=== PATIENT | male | born 1985 | race Caucasian/White ===

== ENCOUNTER 2024-05-27 13:16 | Inpatient (IN) | payer OTHER ==
--- OUTSIDE RECORDS SUMMARY | 2024-05-27 13:22 | XMS REPORT | Continuity of Care Document ---
Author Name Unknown Address [address] [facility] [place] [address] [facility] Address [address] [facility] [place] [address] Care Team Providers Care Physician/Ophthalmologist Name Role Phone PCP, PATIENT DOES NOT HAVE A Primary Care Physic gris Unavailable Jeremy Paige I Attending Clinician UnavailDILIP Vázquez Attending Clinician Unavailable [place] Attending Clinician UnavailChris Meyer Attending Clinician Unavailable Alphonse Plummer Attending Clinician UnavailVINAY Lloyd Attending Clinician Unavailable Mona Lima Attending Clinician + [phone] Vinay Nolasco PA-C Attending Clinician [phone] Estrella Phelps RN Attending Clinician Unavailcresencio felipe Only, Ang Db Test Attending Clinician UnavailEndy Greer Attending Clinician [phone] ENDY DAVIS Attending Clinician Unavailable Doctor Unassigned, [place] Attending Clinician U navailable Jeremy Paige I Admitting Clinician Sandra Reis Admitting Clinician Sandra garrido Physician, No Primary Care Admitting Clinician U navailable Payers Payer Name Policy Type Policy Number Effective Date Expirati on Date Source My [facility] 53 [id number] [place] [facility] AETNA MP [facility] 5 [facility] 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 94 ON 9 [id number] 2023 00:00:00 AETNA ([facility]) [id number] 2023 00:00:00 COMMERCIAL NON-CONTRACT GENERIC [id number] 2021 00:00:00 Problems Condition Name Condition Details Condition Category Status Onset Date Resolution Date Last Treatment Date Treating Clinician Comments Source Minimal cognitive impairment Minimal Cognitive Impairment Problem Active 2023-03 00:00: 00 [facility] History of alcohol abuse History of Alcohol Abuse Problem Active 11-05 00:00: 00 [facility] Weakness of right lower limb Weakness of Right Lower Limb Problem Active 11-05 00:00: 00 [facility] Vitamin D deficiency Vitamin D Deficiency Problem Active 11-05 00:00: 00 [facility] Irritable bowel syndrome Irritable Bowel Syndrome Problem Active 11-05 00:00: 00 [facility] Heart murmur Heart Murmur Problem Active 11-05 00:00: 00 [facility] Dizziness Dizziness Problem [facility] [id number] Post-COVID syndrome Problem [facility] Neuropathy Neuropathy Problem Cl [facility] Carpal tunnel syndrome Carpal tunnel syndrome on left Problem [facility] [id number] Abnormal EEG Problem [facility] [id number] Low vitamin B12 level Problem [facility] [id number] MCI (mild cognitive impairment ) Problem [facility] 85759392 Sensitivit y to heat Problem [facility] [id number] Unstable balance Problem [facility] No known active problems No known active problems Disease [facility] [id number] Hyperrefle srinivas Problem [facility] 59960935 Cerebellar ataxia Problem [facility] [id number] Speech delay Problem [facility] 51873602 Generalize d weakness Problem [facility] 823980536 Blurry vision, bilateral Problem [facility] Overweight Overweight (BMI 25.0-29.9) Problem [facility] 37162978 Multiple sclerosis Problem [facility] 81721355 Gait disturbanc e Problem [facility] Allergies, Adverse Reactions, Alerts Allergy Name Allergy Type Status Severity Reaction(s) Onset Date Inactive Date Treating Clinician Comments Source No Known Allergie s DA Active U 2023-03 00:00: 00 [facility] No Known Allergie s DA Active U 08-19 00:00: 00 [facility] [place] NO KNOWN ALLERGIE S Drug Class Active [facility] House Dust Allergy to substanc e Active Other [facility] Mold Allergy to substanc e Active Other [facility] Social History Social Habit Start Date Stop Date Quantity Comments Source History of Tobacco Use [facility] Sex Assigned At [facility] Exposure to SARS-CoV-2 (event) 2021-06-21 00:00:00 2021-07-01 14:06:00 [facility] sure [facility] Smoking Status Start Date Stop Date Source Unknown if ever smoked [facility] Former Smoker 2024-01-20 00:00:00 2024-01-20 00:00:00 [facility] Medications Ordered Medication Name Filled Medication Name Start Date Stop Date Current Medication? Ordering Clinician Indication Dosage Frequency Signature (SIG) Comments Components Source Vitamin D Vitamin D 2023-03 0-03 00:00: 00 No Vitamin D dexAMETHaso ne (DECADRON) tablet 12 mg 07-01 20:30: 00 07-01 19:31 :00 No [id number] 12mg [facility] fiber fiber No fiber [facility] ibuprofen 200 mg tablet Take 1 tablet every 6 hours by oral route. ibuprofen 200 mg tablet Take 1 tablet every 6 hours by oral route. No 1 Q6H ibuprofen 200 mg tablet Take 1 tablet every 6 hours by oral route. [facility] Immunizations Ordered Immunization Name Filled Immunization Name Date Status Comments Source influenza, seasonal, injectable, preservative free influenza, seasonal, injectable, preservative free Unknown Completed [facility] Practice Vital Signs Vital Name Observation Time Observation Value Comments S ource height 2024-01-20 14:30:00 68 [in_i] [facility] weight-kg 2024-01-20 14:30:00 85.86 kg [facility] bmi 2024-01-20 14:30:00 28.78 kg/m2 Irena r [facility] temperature 2024-01-20 14:30:00 97.6 [degF] Frandy [facility] respiratory rate 2024-01-20 14:30:00 16 /min [facility] heart rate 2024-01-20 14:30:00 86 /min [facility] blood pressure systolic 2024-01-20 14:30:00 83 mm[Hg] [facility] blood pressure diastolic 2024-01-20 14:30:00 63 mm[Hg] [facility] BMI (Body Mass Index) 2024-01-08 00:00:00 29.3 kg/m2 [facility] Body Weight 2024-01-08 00:00:00 193 [lb_av] [facility] BP Diastolic 2024-01-08 00:00:00 75 mm[Hg] [facility] Height 2024-01-08 00:00:00 68 [in_i] [facility] BP Systolic 2024-01-08 00:00:00 128 mm[Hg] [facility] height 2023-12-12 10:30:00 68 [in_i] [facility] weight-kg 2023-12-12 10:30:00 88 kg [facility] bmi 2023-12-12 10:30:00 29.49 kg/m2 [facility] temperature 2023-12-12 10:30:00 97.6 [degF] [facility] respiratory rate 2023-12-12 10:30:00 16 /min [facility] heart rate 2023-12-12 10:30:00 80 /min [facility] blood pressure systolic 2023-12-12 10:30:00 106 mm[Hg] [facility] blood pressure diastolic 2023-12-12 10:30:00 65 mm[Hg] [facility] BP Diastolic 2023-11-06 00:00:00 78 mm[Hg] [facility] Height 2023-11-06 00:00:00 68 [in_i] [facility] Body Weight 2023-11-06 00:00:00 190 [lb_av] [facility] BP Systolic 2023-11-06 00:00:00 124 mm[Hg] [facility] BMI (Body Mass Index) 2023-11-06 00:00:00 28.9 kg/m2 [facility] Systolic blood pressure 2021-07-01 19:07:00 115 mm[facility]Hg[facility] Diastolic blood pressure 2021-07-01 19:07:00 79 mm[Hg] [facility] Heart rate 2021-07-01 19:07:00 97 /min [facility] Body temperature 2021-07-01 19:07:00 37 [facility] Respiratory rate 2021-07-01 19:07:00 14 /min [facility] Body height 2021-07-01 19:07:00 172.7 cm [facility] Body weight 2021-07-01 19:07:00 99.791 kg [facility] BMI 2021-07-01 19:07:00 33.45 kg/m2 [facility] Oxygen saturation in Arterial blood by Pulse oximetry 2021-07-01 19:07:00 98 /min [facility] Procedures Procedure Date / Time Performed Performing Clinician Source GAIT TRAINING/FUNCTIONAL AMBULATION TREATMENT 2024-03-19 00:00:00 [facility] DRAINAGE OF SPINAL CANAL, PERCUTANEOUS APPROACH, D 2024-02-28 00:00:00 [facility] POCT MOLECULAR STREP 2021-07-01 19:22:00 Aurora Nolasco [facility] ASSIGNMENT OF BENEFITS 2021-03-23 17:58:07 Docto r Unassigned, [place] [facility] Encounters Start Date/Time End Date/Time Encounter Type Admission Type Attending Clinicians Care Facility Care Department Encounter ID Source 2023-12-12 10:19:01 Outpatient Allan Herbert [facility] [id number] [facility] 2024-02-20 17:31:00 2024-03-19 16:33:00 Inpatient EM [place] Jeremy [facility] [id number] [facility] 2024-02-13 00:00:00 2024-02-13 00:00:00 (TEL) [facility] [id number] [facility] 2024-02-11 00:00:00 2024-02-11 00:00:00 (TEL) [facility] [id number] [facility] 2024-02-10 00:00:00 2024-02-10 00:00:00 (TEL) CLS CLS [id number] [facility] 2024-02-04 00:00:00 2024-02-04 00:00:00 (TEL) CLS CLS [id number] [facility] 2024-01-27 00:00:00 2024-01-27 00:00:00 (WEB) CLS CLS [id number] [facility] 2024-01-22 00:00:00 2024-01-22 00:00:00 (TEL) CLS CLS [id number] [facility] 2024-01-20 00:00:00 2024-01-20 00:00:00 (TEL) CLS CLS [id number] [facility] 2024-01-20 00:00:00 2024-01-20 00:00:00 Office Visit- Est Pt.- Level 4 CLS CLS [id number] [facility] 2024-01-17 00:00:00 2024-01-17 00:00:00 (TEL) CLS CLS [id number] [facility] 2024-01-17 00:00:00 2024-01-17 00:00:00 (TEL) CLS CLS [id number] [facility] 2024-01-15 00:00:00 2024-01-15 00:00:00 (EMG) EMG CLS CLS [id number] [facility] 2024-01-15 00:00:00 2024-01-15 00:00:00 (EEG) EEG CLS CLS [id number] [facility] 2024-01-08 00:00:00 2024-01-08 00:00:00 Allan Herbert MD: [address], [address], [place] [address] , Ph. [facility] - [place] - VM_HOU_[facility] [id number] [facility] 2024-01-07 00:00:00 2024-01-07 00:00:00 (WEB) CLS CLS [id number] [facility] 2023-12-12 00:00:00 2023-12-12 00:00:00 Office Visit- New Pt.- Level 5 CLS CLS [id number] [facility] 2023-12-12 00:00:00 2023-12-12 00:00:00 (TEL) CLS CLS [id number] [facility] 2023-11-06 00:00:00 2023-11-06 00:00:00 Allan Herbert MD: [address] [facility], [address], [place] [address] , Ph. [facility] - [facility]ly [facility] - [place] - _HOU_[facility] [id number] [facility] e 2023-03-27 08:45:00 2023-03-27 08:45:00 Outpatient DILIP LUNDBERG [id number] [facility] 2023-03-25 16:00:00 2023-03-25 16:00:00 Outpatient DILIP LUNDBERG [id number] [facility] 2023-03-15 00:00:00 2023-03-15 00:00:00 Outpatient AO_Tanous_T homas_MD AOSM AOSM [id number] [facility] 2023-03-14 11:03:00 2023-03-14 16:00:00 Emergency EM [place] Chris [facility] ROBERTO [id number] [facility] 2023-03-14 00:00:00 2023-03-14 00:00:00 Outpatient AO_Tanous_T homas_MD AOSM AOSM [id number] [facility] 2022-08-19 22:26:00 2022-08-20 09:29:00 Emergency EM Alphonse Plummer [facility] [id number] [facility] [place] 2021-07-01 14:20:00 2021-07-01 14:42:14 Outpatient Imani NOLASCO VINAY [facility] [id number] [facility] 2021-07-01 14:20:00 2021-07-01 14:40:00 Urgent Care Mona Posada, [facility] [id number] [id number] [facility] 2021-03-25 00:00:00 2021-03-25 00:00:00 Telephone Estrella Phelps [facility] [id number] [id number] [facility] 2021-03-23 12:00:00 2021-03-23 12:15:00 Laboratory Only Only, Ang Db Test Enrico [facility] [id number] 4.2.7.2.686 [id number] [facility] 2021-03-23 12:00:00 2021-03-23 12:02:55 Outpatient R [facility] [id number] [facility] 2021-03-23 00:00:00 2021-03-23 00:00:00 Orders Only Doctor Unassigned, [place] [facility] [id number] [id number] 4.2.7.2.686 [id number] [facility] 2021-03-23 00:00:00 2021-03-23 00:00:00 Letter (Out) Doctor Unassigned, [place] [facility] [id number] [id number] 4.2.7.2.686 [id number] [facility] Results Test Description Test Time Test Comments Results Result Co mments Source [id number] 14:38:00* Test Item Value Reference Range Interpretation Comme nts MAGNESIUM (test code = MAG) 1.89 mg/dL 1.6-2.6 N CBC W/AUTO [id number] 14:24:00* Test Item Value Reference Range Interpretation Comme nts WHITE BLOOD CELL (test code = WBC) 6.8 x10 3/uL 4.5-11.0 N RED BLOOD CELL (test code = RBC) 4.65 x10 6/uL 4.00-5.60 N HEMOGLOBIN (test code = HGB) 14.3 g/dL 12.5-16.9 N HEMATOCRIT (test code = HCT) 43.1 % 37.5-50.7 N MEAN CELL VOLUME (test code = MCV) 92.7 fL 81.0-99.0 N MEAN CELL HGB (test code = MCH) 30.8 pg 27.0-33.0 N MEAN CELL HGB CONCETRATION (test code = MCHC) 33.2 g/dL 33.0-37.0 N RED CELL DISTRIBUTION WIDTH CV (test code = RDW) 14.5 % 11.5-14.5 N RED CELL DISTRIBUTION WIDTH SD (test code = RDW-SD) 49.3 fL 37.0-54.0 N PLATELET COUNT (test code = PLT) 255 x10 3/uL 150-400 N MEAN PLATELET VOLUME (test c ode = MPV) 10.3 fL 7.0-9.0 H NEUTROPHIL % (test code = NT%) 69.1 % 56.0-77.0 N IMMATURE GRANULOCYTE % (test code = IG%) 0.3 % 0.0-2.0 N LYMPHOCYTE % (test code = LY%) 17.9 % 14.0-32.0 N MONOCYTE % (test code = MO%) 7.7 % 4.8-9.0 N EOSINOPHIL % (test code = EO%) 4.7 % 0.3-3.7 H BASOPHIL % (test code = BA%) 0.3 % 0.0-2.0 N NUCLEATED RBC % (test code = NRBC%) 0.0 % 0-0 N NEUTROPHIL # (test code = NT#) 4.66 x10 3/uL 2.0-7.6 N IMMATURE GRANULOCYTE # (test code = IG#) 0.02 x10 3/uL 0.00-0.03 N LYMPHOCYTE # (test code = LY#) 1.21 x10 3/uL 1.0-3.8 N MONOCYTE # (test code = MO#) 0.52 x10 3/uL 0.1-0.8 N EOSINOPHIL # (test code = EO#) 0.32 x10 3/uL 0.0-0.2 H BASOPHIL # (test code = BA#) 0.02 x10 3/uL 0.0-0.2 N NUCLEATED RBC # (test code = NRBC#) 0.00 x10 3/uL 0.0-0.1 N CSF IGG SYNTHESIS [id number] 01:06:00* Test Item Value Reference Range Interpretation Comme nts CSF ALBUMIN (test code = ALBCSF) 20 mg/dL 10-45 CSF IMMUNOGLOBULIN G (test code = IGGCSF) 3.4 mg/dL 0.0-10.3 CSF IGG INDEX (test code = IGGINCSF) 0.9 0.0-0.7 A CSF IGG SYNTHESIS (test code = IGGSYNCSF) 5.5 mg/day See_Comment A [Automated mes toni] The system which generated this result transmitted reference range: -9.9 TO +3.3. The reference range was not used to interpret this result as normal/abnormal. CSF IGG/ALBUMIN RATIO (test code = IGGALBCSF) 0.17 0.00-0.25 SERUM IMMUNOGLOBULIN G (test code = IGGMS) 724 mg/dL 603-1613 SERUM ALBUMIN (test code = ALBMS) 3.7 g/dL 4.1-5.1 A SERUM ALBUMIN INDEX (test code = ALBINDMS) 5 0-8 Relations hip to blood-brain barrier: Consistent with an intact barrier <9 Slight impairment 9 - 14 Moderate impairment 14 - 30 Severe impairment 30 - 100 Complete breakdown >100Performed At: [facility] [address] [id number] Finn MD Ph:[phone] ed At: [facility] [address] [id number] Kyle L MD Ph:[phone] Relationship to blood-brain barrier: Consistent with an intact barrier <9 Slight impairment 9 - 14 Moderate impairment 14 - 30 Severe impairment 30 - 100 Complete breakdown >100 Relationship to blood-brain barrier: Consistent with an intact barrier <9 Slight impairment 9 - 14 Moderate impairment 14 - 30 Severe impairment 30 - 100 Complete breakdown >100Previously reported result: 5 Edited by: TISH on 03/15/24:778195/05/2 5 0106: ALB INDEX previously reported as: 5 Relationship to blood-brain barrier: Consistent with an intact barrier <9 Slight impairment 9 - 14 Moderate impairment 14 - 30 Severe impairment 30 - 100 Complete breakdown >100 Performed At: [address] [id number] Murphy Finn MD Ph:[phone] Performed At: [address] [id number] Charis Aviles MD Ph:[phone] COMMENTS: PLEASE USE TUBE #3CSF VDRL [id number] 01:06:00* Test Item Value Reference Range Interpretation Comme nts CSF VDRL QUAL (test code = VDRLCSFQL) Non Reactive See_Comment Performed At: [address] [id number] Finn MD Ph:[phone] At: [address] [id number] Finn MD Ph:[phone] At: [address] [id number] Aviles MD Ph:[phone] At: [address] [id number] Finn MD Ph:[phone] At: [address] [id number] Aviles MD Ph:[phone] reported result: Non Reactive Edited by: TISH on 03/15/24:02541503/15/24 0106: CSF VDRL QL previously reported as: Non Reactive Performed At: [address] [id number] Murphy Finn MD Ph:[phone] [Automated message] The system which generated this result transmitted reference range: Non [place]:<1:1. The reference range was not used to interpret this result as normal/abnormal. COMMENTS: PLEASE USE TUBE #3ANTINUCLEAR ANTIBODIES [id number] 09:09:00* Test Item Value Reference Range Interpretation Comme nts CINTHIA SCREEN (test code = ANASCR) Negative See_Comment Negative <1:80 B orderline 1:80 Positive >1:80ICAP nomenclature: AC-0For more information about Hep-2 cell patterns useANApatterns.org, the official website for theInternational Consensus on Antinuclear Antibody (CINTHIA)Patterns (ICAP).Performed At: [facility] [address] [place], [place] [id number] Kyle L MD Ph:[phone] [Automated message] The system which generated this result transmitted reference range: (). The reference range was not used to interpret this result as normal/abnormal. ABS ANTI-NEUT CYTO P [id number] 09:09:00* Test Item Value Reference Range Interpretation Comments AB ANTI-NEUTROPHIL CYTOPLASMIC (test code = NEUTCAB) <1:20 titer See_Comment [Automated messa ge] The system which generated this result transmitted reference range: Neg:<1:20. The reference range was not used to interpret this result as normal/abnormal. PERINUCLEAR (test code = NEUPERI) <1:20 titer See_Comment The presence of positive fluorescence exhibiting P-ANCA orC-ANCA patterns alone is not specific for the diagnosis ofWegener's Granulomatosis (WG) or microscopic polyangiitis.Decisions about treatment should not be based solely onANCA IFA results. The International ANCA Group Consensusrecommends follow up testing of positive sera with both FL-3 and MPO-ANCA enzyme immunoassays. As many as 5% serumsamples are positive only by EIA. Ref. AM J Clin [id number];111:507-513. [Automated message] The system which generated this result transmitted reference range: Neg:<1:20. The reference range was not used to interpret this result as normal/abnormal. MYELOPEROXIDASE ABS (test code = MPOAB) <0.2 units 0.0-0.9 PROTEINASE 3 ABS (FL-3) (test code = FL-3) <0.2 units 0.0-0.9 ATYPICAL ANCA (test code = ANCACOM) <1:20 titer See_Comment The atypical [place]on CA pattern has been observed in asignificant percentage of patients with ulcerative colitis,primary sclerosing cholangitis and autoimmune hepatitis.Performed At: [facility] [address] [place], [place] [id number] Finn MD Ph:[phone] [Automated message] The system which generated this result transmitted reference range: Neg:<1:20. The reference range was not used to interpret this result as normal/abnormal. CYTOLOGY NON [id number] 11:01:00* Test Item Value Reference Range Interpretation Comments CYTOLOGY NON ADMINISTRATIVE SERVICES COORDINATOR (test code = CR) RUN DATE: 03/06/24 [place] [facility] PAGE 1 RUN TIME: 1101 Specimen Inquiry RUN USER: INTERFACE PATIENT: CHRISS HUGGINS LOC: [facility] U #: [id number] AGE/SX: 38/M ROOM: [facility] RE02/20/24REG DR: Jeremy Paige MD : 85 BED: 1 DIS: STATUS: ADM IN TLOC: SPEC #: [id number] RECD: 03/05/24-6 STATUS: BRADEN FLORES #: [id number] RAY: 02/27/24- SUBM DR: Jeremy Paige MD ENTERED: 03/05/24 SP TYPE: CYTO NGYN CLAUDIAHR DR: Self Referred Allan Herbert MD, Nicholas J PA N[place],Alphonse Eng MDORDERED: [id number], ANATOMIC SPEC COPIES TO: Self Referred Allan Herbert MD [address] [facility] [address] [place] [address] [email or web address] Pollock [address] [facility] [address] [place] [address] Jeremy Paige MD [address] [place] [address] Mari,Katharine ANTON [address] [place] [address] Alphonse Blue MD [address] [place] [address] PROCEDURES: [id number] (03/05/24) TISSUES: A. CEREBROSPINAL FLUID (CYTOSPIN) CONTINUED ON NEXT PAGE RUN DATE: 03/06/24 [place] [facility] PAGE 2 RUN TIME: 1101 Specimen Inquiry RUN USER: INTERFACE SPEC #: [id number] PATIENT: CHRISS HUGGINS #[id number] (Continued) - CLINICAL HISTORY SAME FINAL DIAGNOSIS Cerebrospinal fluid, cytology (cytospin): -No malignant cells identified. GROSS DESCRIPTION Received is 3 mL of clear fluid designated cerebrospinal fluid. 2 cytospin slides areprepared. Technical component performed at [facility],[address] [place] [address], [place] [address] Unless gross only, the diagnosis is based upon microscopic examination.Immunohistochemistry: This test was developed and its performance characteristicsdetermined by this laboratory. It has not been approved nor does it need approvalby the [place] FDA. Appropriate positive and negative controls are reviewed and judgedto be acceptable for performedimmunohistochemistry and/or special stains. This laboratoryis certified under the Clinical Laboratory Improvement Amendments (CLIA-88) as qualified toperform high complexity clinical laboratory testing. MICROSCOPIC DESCRIPTION A microscopic examination was performed. CLINICAL INFORMATION CSF Signed SIGNATURE ON FILE Emery Orozco 03/06/24 1101 END OF REPORT CSF OLIGOCLONAL BAND [id number] 13:08:00* Test Item Value Reference Range Interpretation Comme nts CSF OLIGOCLONAL BANDS (test code = OLIGCSF) COMMENTS: PLEASE USE TUBE #3GLUCOSE [id number] 17:32:00* Test Item Value Reference Range Interpretation Comme nts GLUCOSE BEDSIDE (test code = GLUBED) 101 MG/DL 70-110 N Performed by cer tified frothing machine operator at [facility] GLUCOSE [id number] 13:48:00* Test Item Value Reference Range Interpretation Comme nts GLUCOSE BEDSIDE (test code = GLUBED) 106 MG/DL 70-110 N Performed by cer tified frothing machine operator at [facility] SJOGRENS A B AB [id number] 13:08:00* Test Item Value Reference Range Interpretation Comme nts AB SJOGRENS A/SSA (test code = SJAAB) <0.2 AI 0.0-0.9 AB SJOGRENS B/SSB (test code = SJBAB) <0.2 AI 0.0-0.9 Performed At: [facility] [address] [id number] Zane Aviles MD Ph:[phone] COMPREHENSIVE METABOLIC [id number] 08:19:00* Test Item Value Reference Range Interpretation Comme nts SODIUM (test code = NA) 142 mEq/L 134-147 N POTASSIUM (test code = K) 4.0 mEq/L 3.4-5.0 N CHLORIDE (test code = CL) 110 mEq/L 100-108 H CARBON DIOXIDE (test code = CO2) 23 mEq/l 21-33 N ANION GAP (test code = GAP) 13 0-20 N GLUCOSE (test code = GLU) 83 mg/dL 77-141 N BLOOD UREA NITROGEN (test code = BUN) 21 mg/dL 7-25 N GLOMERULAR FILTRATION RATE (test code = GFR) 98.8 105-110 L The Glomerular Filtration Rate is a calculated parameterbased on serum Creatinine, patient age and sex. GFR valuesless than 60 mL/min/1.73 square meters are indicative ofChronic Kidney Disease. Values less than 15 mL/min/1.73square meters indicate Kidney failure. The calculation forGFR is based on the CKD-EPI (2020) calculation. This formulais race indifferent and is the recommended formula for GFRby the National Kidney Foundation for Adults.The GFR will not calculate if the sex is unknown or if thepatient's age is <18 years. CREATININE (test code = CREAT) 1.0 mg/dL 0.6-1.3 N TOTAL PROTEIN (test code = PROT) 6.5 g/dL 6.4-8.2 N ALBUMIN (test code = ALB) 3.70 g/dL 3.4-5.0 N CALCIUM (test code = CA) 8.8 mg/dL 8.0-10.5 N BILIRUBIN TOTAL (test code = BILT) 0.30 mg/dL 0.0-1.0 N SGOT/AST (test code = AST) 22 IUnit/L 8-34 N SGPT/ALT (test code = ALT) 33 IUnit/L 10-49 N ALKALINE PHOSPHATASE TOTAL (test code = ALKP) 69 IUnit/L 20-125 N CBC W/AUTO [id number] 07:32:00* Test Item Value Reference Range Interpretation Comme nts WHITE BLOOD CELL (test code = WBC) 6.6 x10 3/uL 4.5-11.0 N RED BLOOD CELL (test code = RBC) 4.39 x10 6/uL 4.00-5.60 N HEMOGLOBIN (test code = HGB) 13.7 g/dL 12.5-16.9 N HEMATOCRIT (test code = HCT) 42.1 % 37.5-50.7 N MEAN CELL VOLUME (test code = MCV) 95.9 fL 81.0-99.0 MEAN CELL HGB (test code = MCH) 31.2 pg 27.0-33.0 N MEAN CELL HGB CONCETRATION (test code = MCHC) 32.5 g/dL 33.0-37.0 L RED CELL DISTRIBUTION WIDTH CV (test code = RDW) 14.2 % 11.5-14.5 N RED CELL DISTRIBUTION WIDTH SD (test code = RDW-SD) 49.6 fL 37.0-54.0 N PLATELET COUNT (test code = PLT) 202 x10 3/uL 150-400 N MEAN PLATELET VOLUME (test c ode = MPV) 10.3 fL 7.0-9.0 H NEUTROPHIL % (test code = NT%) 51.2 % 56.0-77.0 L IMMATURE GRANULOCYTE % (test code = IG%) 0.6 % 0.0-2.0 N LYMPHOCYTE % (test code = LY%) 30.1 % 14.0-32.0 N MONOCYTE % (test code = MO%) 12.2 % 4.8-9.0 H EOSINOPHIL % (test code = EO%) 5.3 % 0.3-3.7 H BASOPHIL % (test code = BA%) 0.6 % 0.0-2.0 N NUCLEATED RBC % (test code = NRBC%) 0.0 % 0-0 N NEUTROPHIL # (test code = NT#) 3.36 x10 3/uL 2.0-7.6 N IMMATURE GRANULOCYTE # (test code = IG#) 0.04 x10 3/uL 0.00-0.03 H LYMPHOCYTE # (test code = LY#) 1.98 x10 3/uL 1.0-3.8 N MONOCYTE # (test code = MO#) 0.80 x10 3/uL 0.1-0.8 N EOSINOPHIL # (test code = EO#) 0.35 x10 3/uL 0.0-0.2 H BASOPHIL # (test code = BA#) 0.04 x10 3/uL 0.0-0.2 N NUCLEATED RBC # (test code = NRBC#) 0.00 x10 3/uL 0.0-0.1 N COMPREHENSIVE METABOLIC [id number] 14:04:00* Test Item Value Reference Range Interpretation Comme nts SODIUM (test code = NA) 142 mEq/L 134-147 N POTASSIUM (test code = K) 4.5 mEq/L 3.4-5.0 N CHLORIDE (test code = CL) 108 mEq/L 100-108 N CARBON DIOXIDE (test code = CO2) 24 mEq/l 21-33 N ANION GAP (test code = GAP) 14 0-20 N GLUCOSE (test code = GLU) 103 mg/dL 77-141 N BLOOD UREA NITROGEN (test code = BUN) 18 mg/dL 7-25 N GLOMERULAR FILTRATION RATE (test code = GFR) 98.8 105-110 L The Glomerular Filtration Rate is a calculated parameterbased on serum Creatinine, patient age and sex. GFR valuesless than 60 mL/min/1.73 square meters are indicative ofChronic Kidney Disease. Values less than 15 mL/min/1.73square meters indicate Kidney failure. The calculation forGFR is based on the CKD-EPI (202) calculation. This formulais race indifferent and is the recommended formula for GFRby the National Kidney Foundation for Adults.The GFR will not calculate if the sex is unknown or if thepatient's age is <18 years. CREATININE (test code = CREAT) 1.0 mg/dL 0.6-1.3 N TOTAL PROTEIN (test code = PROT) 6.4 g/dL 6.4-8.2 N ALBUMIN (test code = ALB) 3.70 g/dL 3.4-5.0 N CALCIUM (test code = CA) 9.3 mg/dL 8.0-10.5 N BILIRUBIN TOTAL (test code = BILT) 0.20 mg/dL 0.0-1.0 N SGOT/AST (test code = AST) 22 IUnit/L 8-34 N SGPT/ALT (test code = ALT) 35 IUnit/L 10-49 N ALKALINE PHOSPHATASE TOTAL (test code = ALKP) 74 IUnit/L 20-125 N [id number] 14:04:00* Test Item Value Reference Range Interpretation Comme nts PHOSPHOROUS (test code = PHOS) 4.4 MG/DL 2.5-4.9 N [id number] 14:04:00* Test Item Value Reference Range Interpretation Comme nts MAGNESIUM (test code = MAG) 2.01 mg/dL 1.6-2.6 N CBC W/AUTO [id number] 13:45:00* Test Item Value Reference Range Interpretation Comme nts WHITE BLOOD CELL (test code = WBC) 6.6 x10 3/uL 4.5-11.0 N RED BLOOD CELL (test code = RBC) 4.56 x10 6/uL 4.00-5.60 N HEMOGLOBIN (test code = HGB) 13.9 g/dL 12.5-16.9 N HEMATOCRIT (test code = HCT) 42.3 % 37.5-50.7 N MEAN CELL VOLUME (test code = MCV) 92.8 fL 81.0-99.0 N MEAN CELL HGB (test code = MCH) 30.5 pg 27.0-33.0 N MEAN CELL HGB CONCETRATION (test code = MCHC) 32.9 g/dL 33.0-37.0 L RED CELL DISTRIBUTION WIDTH CV (test code = RDW) 14.1 % 11.5-14.5 N RED CELL DISTRIBUTION WIDTH SD (test code = RDW-SD) 47.5 fL 37.0-54.0 N PLATELET COUNT (test code = PLT) 220 x10 3/uL 150-400 N MEAN PLATELET VOLUME (test c ode = MPV) 10.1 fL 7.0-9.0 H NEUTROPHIL % (test code = NT%) 64.2 % 56.0-77.0 N IMMATURE GRANULOCYTE % (test code = IG%) 0.6 % 0.0-2.0 N LYMPHOCYTE % (test code = LY%) 18.3 % 14.0-32.0 N MONOCYTE % (test code = MO%) 11.9 % 4.8-9.0 H EOSINOPHIL % (test code = EO%) 4.4 % 0.3-3.7 H BASOPHIL % (test code = BA%) 0.6 % 0.0-2.0 N NUCLEATED RBC % (test code = NRBC%) 0.0 % 0-0 N NEUTROPHIL # (test code = NT#) 4.26 x10 3/uL 2.0-7.6 N IMMATURE GRANULOCYTE # (test code = IG#) 0.04 x10 3/uL 0.00-0.03 H LYMPHOCYTE # (test code = LY#) 1.21 x10 3/uL 1.0-3.8 N MONOCYTE # (test code = MO#) 0.79 x10 3/uL 0.1-0.8 N EOSINOPHIL # (test code = EO#) 0.29 x10 3/uL 0.0-0.2 H BASOPHIL # (test code = BA#) 0.04 x10 3/uL 0.0-0.2 N NUCLEATED RBC # (test code = NRBC#) 0.00 x10 3/uL 0.0-0.1 N RAPID PLASMA [id number] 11:11:00* Test Item Value Reference Range Interpretation Comme nts RAPID PLASMA REAGIN (test co de = RPR) NONREACTIVE NONREACTIVE C REACTIVE [id number] 11:11:00* Test Item Value Reference Range Interpretation Comme nts C REACTIVE PROTEIN (test cod e = CRP) < 4.0 mg/L <10.0 N AB HIV 1 11:11:00* Test Item Value Reference Range Interpretation Comme nts AB HIV 1 2 (test code = [id number]) Nonreactive Nonreactive CSF CELL [id number] 21:30:00* Test Item Value Reference Range Interpretation Comme nts CSF TUBE # (test code = BFCSFT) TUBE #3 - CELL COUNT CSF APPEARANCE (test code = APPCSF) CLEAR CLEAR CSF TOTAL NUCLEATED CELL COUNT (test code = WBCCSF) 2 MM3 0-5 N CSF RBC (test code = RBCCSF) 0 MM3 0-0 N CSF POLY (test code = POLYCSF) 3 % 0-7 N CSF LYMPHOCYTE (test code = LYMPHCSF) 90 % 28-96 N CSF MONOCYTE (test code = MONOCSF) 7 % 16-56 L CSF EOSINOPHIL (test code = EOSCSF) 0 % CSF BASOPHIL (test code = BASOCSF) 0 % CSF MACROPHAGE (test code = MACCSF) 0 % CSF [id number] 18:43:00* Test Item Value Reference Range Interpretation Comme nts CSF COLOR (test code = COLCSF) COLORLESS COLORLESS CSF TUBE # (test code = TUBECSF) TUBE #2 - GLU/PROT CSF GLUCOSE (test code = GLUCSF) 67 MG/DL 40-80 N CSF TOTAL PROTEIN (test code = PROTCSF) 41.1 mg/dL 15-45 N COMMENTS: PLEASE USE TUBE #2SED RATE [id number] 14:55:00* Test Item Value Reference Range Interpretation Comme [facility] SED RATE WESTERGREN (test co de = SEDW) 8 mm/hr 0-15 N PROTHROMBIN [id number] 14:01:00* Test Item Value Reference Range Interpretation Comme nts PROTHROMBIN TIME PATIENT (test code = PTP) 10.8 SECONDS 9.3-12.9 N INTERNATIONAL NORMAL RATIO (test code = INR) 1.0 0.8-1.2 N TARGET INR BY INDICATION Indication INR1. Prophylaxis of venous thrombosis 2.0 - 3.0 (orthopedic surgery), Prophylaxis of venous thrombosis (other than high-risk surgery), Treatment of Deep Vein Thrombosis/Pulmonary Embolism, Prevention of systemic embolism - Tissue heart valves, Acute Myocardial Infarction (to prevent systemic embolism), Valvular heart disease, Atrial Fibrillation, Bileaflet mechanical valve in aortic position.2. Mechanical prosthetic valves (high risk), 2.5 - 3.5 Presence of Lupus Anticoagulant or Antiphospholipid Antibodies, Prevention of systemic embolism - Acute Myocardial Infarction (to prevent recurrent infarct). THROMBOPLASTIN TIME [id number] 14:01:00* Test Item Value Reference Range Interpretation Comme nts THROMBOPLASTIN TIME PARTIAL (test code = PTT) 30.2 Seconds 25.0-39.5 N Therapeutic Rang e: 58.8 - 96.0 Seconds Effective 01/03/2024 DRUGS OF ABUSE SCREEN [id number] 18:05:00* Test Item Value Reference Range Interpretation Comme nts URN COCAINE (test code = COCAURN) NEGATIVE NEGATIVE URN CANNABINOIDS (test code = CANNABURN) NEGATIVE NEGATIVE URN AMPHETAMINE (test code = AMPHETURN) NEGATIVE NEGATIVE URN BARBITURATE (test code = BARBITURN) NEGATIVE NEGATIVE URN BENZODIAZEPINE (test code = BENZOURN) NEGATIVE NEGATIVE Cut-off v alue:200 ng/mL URN OPIATES (test code = OPIATURN) NEGATIVE NEGATIVE Cut-off value:20 00 ng/mL URN PHENCYCLIDINE (PCP) (test code = PHENCURN) NEGATIVE NEGATIVE Cutoffs:B arbiturates 200 ng/mLBenzodiazepines 200 ng/mLTHC Cannabinoids 50 ng/mLOpiates(Morphine) 2000 ng/mLAmphetamine 1000 ng/mLCocaine 300 ng/mLPCP phencyclidine 25 ng/mL Unconfirmed screening results shouldnot be used for non-medical purposes. UA RFLX MICR CULT IF [id number] 18:03:00* Test Item Value Reference Range Interpretation Comme nts UA COLOR (test code = COLU) YELLOW YEL/STRAW UA APPEARANCE (test code = APPU) CLEAR CLEAR UA GLUCOSE DIPSTICK (test co de = DGLUU) NEGATIVE NEGATIVE UA BILIRUBIN DIPSTICK (test code = BILU) NEGATIVE NEGATIVE UA KETONE DIPSTICK (test cod e = KETU) 2+ NEGATIVE A UA SPECIFIC GRAVITY (test co de = SGU) 1.028 1.005-1.030 N UA BLOOD DIPSTICK (test code = CHARLEE) 1+ NEGATIVE A UA PH DIPSTICK (test code = LAURA) 6.0 5.0-7.0 N UA PROTEIN DIPSTICK (test co de = PROU) 1+ NEGATIVE A UA UROBILINIOGEN DIPSTICK (test code = URO) 0.2 mg/dL 0.2-1.0 UA NITRITE DIPSTICK (test co de = AIDE) NEGATIVE NEGATIVE UA LEUKOCYTE ESTERASE DIPSTI CK (test code = LEUU) NEGATIVE NEGATIVE UA WBC (test code = WBCU) 4-9 WBC/HPF 0-3 A UA RBC (test code = RBCU) 4-10 RBC/HPF 0-3 UA WBC NO REFLEX (test code = WBCUCL) 4-9 WBC/HPF 0-3 A UA BACTERIA (test code = BACU) TRACE /HPF NONE SEEN UA SQUAMOUS CELLS (test code = SQU) NONE SEEN /HPF NONE SEEN UA MUCUS (test code = MUCU) TRACE /LPF NONE SEEN Indication for culture: Dysuria/FrequencySpecimen Description: CLEAN CATCH LIPOPROTEIN [id number] 13:51:00* Test Item Value Reference Range Interpretation Comme nts LIPOPROTEIN LDL (test code = LDL) 161.0 mg/dL 0-100 H <100 [id number] 0-129 NEAR OPTIMAL/ABOVE [id number] HIGH>YP=363 VERY HIGH*Guidelines provided by the National Cholesterol EducationProgram Adult Treatment Panel III TROP-I HIGH [id number] 13:35:00* Test Item Value Reference Range Interpretation Comme nts TROP-I HIGH SENSITIVITY (test code = TROPIHS) 82 ng/L 0-54 H CAUTION: Units o f the current test methodology (ng/L) differfrom the prior test methodology (ng/mL) by a factor of 1000. 99th Percentile Upper Reference Limit (URL): Females: 34 ng/LMales: 54 ng/L In order to distinguish acute elevations of high sensitivitytroponin from other clinical conditions, the FourthUniversal Definition of Myocardial Infarction stressesclinical assessment and the demonstration of a rise and/orfall in serial troponin results above the URL. These results were obtained using [email or web address] IM TnIHreagent. Results from different methodologies should not becompared to one another as quantitative results and URLs mayvary by method. [id number] 13:35:00* Test Item Value Reference Range Interpretation Comme nts ACETAMINOPHEN (test code = ACET) < 0 mcg/mL 10-30 L As part of a navya lity and patient safety improvement projectsuggested by pharmacy, the reported units of measure forAcetaminophen levels was changed from mg/dL to mcg/mL. This reported result increased by a factor of 10 in comparison to previous reported results. This change allows direct interpretation of the Lisa-Gonzalez nomogram indetermining treatment protocols. [id number] 13:35:00* Test Item Value Reference Range Interpretation Comme nts SALICYLATE (test code = KODY) < 3.0 mg/dL 0.0-20.0 N [id number] 13:35:00* Test Item Value Reference Range Interpretation Comme nts ALCOHOL (test code = ALC) < 3.0 mg/dL <10 N Ethyl Alcohol Interpretation: 100 mg/dL - Legally Intoxicated 300-400 mg/dL - Severely Intoxicated >400 mg/dL - Potentially LethalThe pharmacological response to blood alcohol levels mayvary from individual to individual. Signs of intoxicationcan be observed at levels of 50-100 mg/dL. Results are for Medical purposes only, and not for Legal orEmployment evaluation purposes. BASIC METABOLIC [id number] 13:35:00* Test Item Value Reference Range Interpretation Comme nts SODIUM (test code = NA) 135 mEq/L 134-147 N POTASSIUM (test code = K) 3.8 mEq/L 3.4-5.0 N CHLORIDE (test code = CL) 104 mEq/L 100-108 N CARBON DIOXIDE (test code = CO2) 19 mEq/l 21-33 L ANION GAP (test code = GAP) 16 0-20 N GLUCOSE (test code = GLU) 85 mg/dL 77-141 N BLOOD UREA NITROGEN (test code = BUN) 20 mg/dL 7-25 N GLOMERULAR FILTRATION RATE (test code = GFR) 72.1 105-110 L The Glomerular Filtration Rate is a calculated parameterbased on serum Creatinine, patient age and sex. GFR valuesless than 60 mL/min/1.73 square meters are indicative ofChronic Kidney Disease. Values less than 15 mL/min/1.73square meters indicate Kidney failure. The calculation forGFR is based on the CKD-EPI (2020) calculation. This formulais race indifferent and is the recommended formula for GFRby the National Kidney Foundation for Adults.The GFR will not calculate if the sex is unknown or if thepatient's age is <18 years. CREATININE (test code = CREAT) 1.3 mg/dL 0.6-1.3 N CALCIUM (test code = CA) 9.7 mg/dL 8.0-10.5 N HEPATIC FUNCTION [id number] 13:35:00* Test Item Value Reference Range Interpretation Comme nts TOTAL PROTEIN (test code = PROT) 8.1 g/dL 6.4-8.2 N ALBUMIN (test code = ALB) 4.50 g/dL 3.4-5.0 N BILIRUBIN TOTAL (test code = BILT) 0.90 mg/dL 0.0-1.0 N BILIRUBIN DIRECT (test code = BILD) 0.30 MG/DL 0.1-0.3 N BILIRUBIN INDIRECT (test cod e = BILIND) 0.60 MG/DL SGOT/AST (test code = AST) 16 IUnit/L 8-34 N SGPT/ALT (test code = ALT) 12 IUnit/L 10-49 N ALKALINE PHOSPHATASE TOTAL ( test code = ALKP) 85 IUnit/L 20-125 N CREATINE KINASE (CK)2024-02-20 13:35:00* Test Item Value Reference Range Interpretation Comme nts CREATINE KINASE (CK) (test c ode = CK) 36 Units/L 46-171 L TSH REFLEX TO [id number] 13:35:00* Test Item Value Reference Range Interpretation Comme nts TSH REFLEX TO FT4 (test code = TSHREFLEX) 1.18 IU/mL 0.42-5.47 N [id number] 13:32:00* Test Item Value Reference Range Interpretation Comme nts AMMONIA (test code = AMM) < 10 umol/L 11-35 L CBC W/AUTO [id number] 13:13:00* Test Item Value Reference Range Interpretation Comme nts WHITE BLOOD CELL (test code = WBC) 6.0 x10 3/uL 4.5-11.0 N RED BLOOD CELL (test code = RBC) 5.29 x10 6/uL 4.00-5.60 N HEMOGLOBIN (test code = HGB) 16.1 g/dL 12.5-16.9 N HEMATOCRIT (test code = HCT) 47.6 % 37.5-50.7 N MEAN CELL VOLUME (test code = MCV) 90.0 fL 81.0-99.0 N MEAN CELL HGB (test code = MCH) 30.4 pg 27.0-33.0 N MEAN CELL HGB CONCETRATION (test code = MCHC) 33.8 g/dL 33.0-37.0 N RED CELL DISTRIBUTION WIDTH CV (test code = RDW) 13.3 % 11.5-14.5 N RED CELL DISTRIBUTION WIDTH SD (test code = RDW-SD) 43.8 fL 37.0-54.0 N PLATELET COUNT (test code = PLT) 253 x10 3/uL 150-400 N MEAN PLATELET VOLUME (test c ode = MPV) 10.4 fL 7.0-9.0 H NEUTROPHIL % (test code = NT%) 72.1 % 56.0-77.0 N IMMATURE GRANULOCYTE % (test code = IG%) 0.3 % 0.0-2.0 N LYMPHOCYTE % (test code = LY%) 18.2 % 14.0-32.0 N MONOCYTE % (test code = MO%) 7.6 % 4.8-9.0 N EOSINOPHIL % (test code = EO%) 1.5 % 0.3-3.7 N BASOPHIL % (test code = BA%) 0.3 % 0.0-2.0 N NUCLEATED RBC % (test code = NRBC%) 0.0 % 0-0 N NEUTROPHIL # (test code = NT#) 4.35 x10 3/uL 2.0-7.6 N IMMATURE GRANULOCYTE # (test code = IG#) 0.02 x10 3/uL 0.00-0.03 N LYMPHOCYTE # (test code = LY#) 1.10 x10 3/uL 1.0-3.8 N MONOCYTE # (test code = MO#) 0.46 x10 3/uL 0.1-0.8 N EOSINOPHIL # (test code = EO#) 0.09 x10 3/uL 0.0-0.2 N BASOPHIL # (test code = BA#) 0.02 x10 3/uL 0.0-0.2 N NUCLEATED RBC # (test code = NRBC#) 0.00 x10 3/uL 0.0-0.1 N urinalysis, [id number] 12:43:24* Test Item Value Reference Range Interpretation Comme nts Interpretation UA test performed using: (test code = Interpretation UA test performed using:) Automated device/analyzer ([id number]) Interpretation Color (test code = Interpretation Color) Armida Interpretation Clarity (test code = Interpretation Clarity) Clear Interpretation Glucose (mg/dL) (test code = Interpretation Glucose (mg/dL)) Negative Interpretation Bilirubin (test code = Interpretation Bilirubin) Small Interpretation Ketone (mg/dL) (test code = Interpretation Ketone (mg/dL)) Negative Interpretation Specific [place] (test code = Interpretation Specific [place]) (Greater than or equal to) >= 1.030 Interpretation Occult Blood (test code = Interpretation Occult Blood) Negative Interpretation pH (test code = Interpretation pH) 5.5 Interpretation Protein (test code = Interpretation Protein) Negative Interpretation Urobilinogen (test code = Interpretation Urobilinogen) 0.2 Interpretation Nitrites (test code = Interpretation Nitrites) Negative Interpretation Leukocytes (test code = Interpretation Leukocytes) Negative [facility] PracticeVITAMIN E (TOCOPHEROL)2023-12-19 00:00:00* Test Item Value Reference Range Interpretation Comme nts ALBUMIN (test code = 29368557) 4.3 g/dL See_Comment N [Automated message] The system which generated this result transmitted reference range: 3.6-5.1 g/dL. The reference range was not used to interpret this result as normal/abnormal. ALBUMIN/GLOBULIN RATIO (test code = 69923643) 2.0 (calc) See_Comment N [Automated message] The system which generated this result transmitted reference range: 1.0-2.5 (calc). The reference range was not used to interpret this result as normal/abnormal. ALKALINE PHOSPHATASE (test code = 18314589) 65 U/L See_Comment N [Automated message] The system which generated this result transmitted reference range: 36-130 U/L. The reference range was not used to interpret this result as normal/abnormal. ALT (test code = 62786311) 12 U/L See_Comment N [Automated message] The system which generated this result transmitted reference range: 9-46 U/L. The reference range was not used to interpret this result as normal/abnormal. AST (test code = 88820592) 13 U/L See_Comment N [Automated message] The system which generated this result transmitted reference range: 10-40 U/L. The reference range was not used to interpret this result as normal/abnormal. BILIRUBIN, TOTAL (test code = 80878852) 0.5 mg/dL See_Comment N [Automated message] The system which generated this result transmitted reference range: 0.2-1.2 mg/dL. The reference range was not used to interpret this result as normal/abnormal. BUN/CREATININE RATIO (test code = 54711151) SEE NOTE: (calc) See_Comment [Automated message] The system which generated this result transmitted reference range: 6-22 (calc). The reference range was not used to interpret this result as normal/abnormal. CALCIUM (test code = 51815230) 8.9 mg/dL See_Comment N [Automated message] The system which generated this result transmitted reference range: 8.6-10.3 mg/dL. The reference range was not used to interpret this result as normal/abnormal. CARBON DIOXIDE (test code = 60171535) 19 mmol/L See_Comment L [Automated message] The system which generated this result transmitted reference range: 20-32 mmol/L. The reference range was not used to interpret this result as normal/abnormal. CHLORIDE (test code = 93217491) 109 mmol/L See_Comment N [Automated message] The system which generated this result transmitted reference range: 98-110 mmol/L. The reference range was not used to interpret this result as normal/abnormal. CREATININE (test code = 92713618) 1.04 mg/dL See_Comment N [Automated message] The system which generated this result transmitted reference range: 0.60-1.26 mg/dL. The reference range was not used to interpret this result as normal/abnormal. GLOBULIN (test code = 32330245) 2.1 g/dL (calc) See_Comment N [Automated message] The system which generated this result transmitted reference range: 1.9-3.7 g/dL (calc). The reference range was not used to interpret this result as normal/abnormal. GLUCOSE (test code = 70075390) 99 mg/dL See_Comment N [Automated message] The system which generated this result transmitted reference range: 65-99 mg/dL. The reference range was not used to interpret this result as normal/abnormal. POTASSIUM (test code = 85422768) 4.0 mmol/L See_Comment N [Automated message] The system which generated this result transmitted reference range: 3.5-5.3 mmol/L. The reference range was not used to interpret this result as normal/abnormal. PROTEIN, TOTAL (test code = 94250276) 6.4 g/dL See_Comment N [Automated message] The system which generated this result transmitted reference range: 6.1-8.1 g/dL. The reference range was not used to interpret this result as normal/abnormal. SODIUM (test code = 02722243) 141 mmol/L See_Comment N [Automated message] The system which generated this result transmitted reference range: 135-146 mmol/L. The reference range was not used to interpret this result as normal/abnormal. UREA NITROGEN (BUN) (test code = 13268001) 18 mg/dL See_Comment N [Automated message] The system which generated this result transmitted reference range: 7-25 mg/dL. The reference range was not used to interpret this result as normal/abnormal. PROLACTIN (test code = 14827607) 4.7 ng/mL See_Comment N [Automated message] The system which generated this result transmitted reference range: 2.0-18.0 ng/mL. The reference range was not used to interpret this result as normal/abnormal. LYME AB SCREEN (test code = 55043761) <0.90 index N AQUAPORIN 4 AB, CBA, SERUM (test code = 47146243) NEGATIVE NEGATIVE CINTHIA SCREEN, IFA (test code = 09863358) NEGATIVE NEGATIVE N COMPLEMENT COMPONENT C3C (test code = 20803562) 126 mg/dL See_Comment N [Automated message] The system which generated this result transmitted reference range: 82-185 mg/dL. The reference range was not used to interpret this result as normal/abnormal. COMPLEMENT COMPONENT C4C (test code = 93447981) 22 mg/dL See_Comment N [Automated message] The system which generated this result transmitted reference range: 15-53 mg/dL. The reference range was not used to interpret this result as normal/abnormal. DNA (DS) ANTIBODY (test code = 76712754) <1 IU/mL N RHEUMATOID FACTOR (test code = 48538625) <10 IU/mL See_Comment N [Automated message] The system which generated this result transmitted reference range: <14 IU/mL. The reference range was not used to interpret this result as normal/abnormal. RIBOSOMAL P ANTIBODY (test code = 11563685) <1.0 NEG AI See_Comment N [Automated message] The system which generated this result transmitted reference range: <1.0 NEG AI. The reference range was not used to interpret this result as normal/abnormal. SCL-70 ANTIBODY (test code = 44925804) <1.0 NEG AI See_Comment N [Automated message] The system which generated this result transmitted reference range: <1.0 NEG AI. The reference range was not used to interpret this result as normal/abnormal. SJOGREN'S ANTIBODY (SS-A) (test code = [id number]) <1.0 NEG AI See_Comment N [Automated message] The system which generated this result transmitted reference range: <1.0 NEG AI. The reference range was not used to interpret this result as normal/abnormal. SJOGREN'S ANTIBODY (SS-B) (test code = [id number]) <1.0 NEG AI See_Comment N [Automated message] The system which generated this result transmitted reference range: <1.0 NEG AI. The reference range was not used to interpret this result as normal/abnormal. SM ANTIBODY (test code = [id number]) <1.0 NEG AI See_Comment N [Automated message] The system which generated this result transmitted reference range: <1.0 NEG AI. The reference range was not used to interpret this result as normal/abnormal. SM/SUPERVISOR METAL FURNITURE ASSEMBLY ANTIBODY (test code = [id number]) <1.0 NEG AI See_Comment N [Automated message] The system which generated this result transmitted reference range: <1.0 NEG AI. The reference range was not used to interpret this result as normal/abnormal. THYROID PEROXIDASE ANTIBODIES (test code = 24378427) 1 IU/mL See_Comment N [Automated message] The system which generated this result transmitted reference range: <9 IU/mL. The reference range was not used to interpret this result as normal/abnormal. CREATINE KINASE, TOTAL (test code = 29190761) 48 U/L See_Comment N [Automated message] The system which generated this result transmitted reference range: 44-196 U/L. The reference range was not used to interpret this result as normal/abnormal. CERULOPLASMIN (test code = 37738693) 25 mg/dL See_Comment N [Automated message] The system which generated this result transmitted reference range: 14-30 mg/dL. The reference range was not used to interpret this result as normal/abnormal. CYCLIC CITRULLINATED PEPTIDE (CCP) AB (IGG) (test code = 23101084) <16 UNITS N INTERPRETATION (test code = 15107094) IMMUNOGLOBULIN A (test code = 18629123) 175 mg/dL See_Comment N [Automated message] The system which generated this result transmitted reference range: 47-310 mg/dL. The reference range was not used to interpret this result as normal/abnormal. ARSENIC, BLOOD (test code = 00081252) <3 mcg/L See_Comment [Automated message] The system which generated this result transmitted reference range: <23 mcg/L. The reference range was not used to interpret this result as normal/abnormal. LEAD (VENOUS) (test code = 79045129) <1.0 mcg/dL See_Comment [Automated message] The system which generated this result transmitted reference range: <3.5 mcg/dL. The reference range was not used to interpret this result as normal/abnormal. MERCURY, BLOOD (test code = 06051118) <5 mcg/L See_Comment [Automated message] The system which generated this result transmitted reference range: <11 mcg/L. The reference range was not used to interpret this result as normal/abnormal. VITAMIN B1 (THIAMINE), SERUM/PLASMA, LC/MS/MS (test code = 15487844) 14 nmol/L See_Comment [Automated message] The system which generated this result transmitted reference range: 8-30 nmol/L. The reference range was not used to interpret this result as normal/abnormal. FOLATE, SERUM (test code = 59372220) 12.2 ng/mL N VITAMIN B12 (test code = 06623802) 308 pg/mL See_Comment N [Automated message] The system which generated this result transmitted reference range: 200-1100 pg/mL. The reference range was not used to interpret this result as normal/abnormal. ALBUMIN (test code = 43261156) 4.0 g/dL See_Comment N [Automated message] The system which generated this result transmitted reference range: 3.8-4.8 g/dL. The reference range was not used to interpret this result as normal/abnormal. ALPHA 1 GLOBULIN (test code = 04241274) 0.2 g/dL See_Comment N [Automated message] The system which generated this result transmitted reference range: 0.2-0.3 g/dL. The reference range was not used to interpret this result as normal/abnormal. ALPHA 2 GLOBULIN (test code = 73166633) 0.6 g/dL See_Comment N [Automated message] The system which generated this result transmitted reference range: 0.5-0.9 g/dL. The reference range was not used to interpret this result as normal/abnormal. BETA 1 GLOBULIN (test code = 63811017) 0.4 g/dL See_Comment N [Automated message] The system which generated this result transmitted reference range: 0.4-0.6 g/dL. The reference range was not used to interpret this result as normal/abnormal. BETA 2 GLOBULIN (test code = 74748629) 0.3 g/dL See_Comment N [Automated message] The system which generated this result transmitted reference range: 0.2-0.5 g/dL. The reference range was not used to interpret this result as normal/abnormal. GAMMA GLOBULIN (test code = 88661292) 0.8 g/dL See_Comment N [Automated message] The system which generated this result transmitted reference range: 0.8-1.7 g/dL. The reference range was not used to interpret this result as normal/abnormal. INTERPRETATION (test code = 67238077) GANGLIOSIDE GD1B ANTIBODY (IGM), EIA (test code = 13190467) <1:800 titer See_Comment [Automated message] The system which generated this result transmitted reference range: < OR = 1:800 titer. The reference range was not used to interpret this result as normal/abnormal. ACETYLCHOLINE RECEPTOR BINDING ANTIBODY (test code = 44510778) <0.30 nmol/L ACETYLCHOLINE RECEPTOR BLOCKING ANTIBODY (test code = 64961586) <15 % Inhibition See_Comment [Automated message] The system which generated this result transmitted reference range: <15 % Inhibition. The reference range was not used to interpret this result as normal/abnormal. ACETYLCHOLINE RECEPTOR MODULATING ANTIBODY (test code = 99192882) <1 % Inhibition COMMENTS (test code = 16152447) SEE NOTE INTERPRETATION (test code = 49833293) NEGATIVE NEGATIVE METHODS (test code = 56943964) SEE NOTE REFERENCES (test code = 06066798) SEE NOTE TECHNICAL RESULT (test code = 90311436) <1:10 titer See_Comment [Automated message] The system which generated this result transmitted reference range: <1:10 titer. The reference range was not used to interpret this result as normal/abnormal. MOG AB, CBA, SERUM (test code = 16854661) NEGATIVE NEGATIVE HOMOCYSTEINE (test code = 33571648) 13.0 umol/L See_Comment H [Automated message] The system which generated this result transmitted reference range: <11.4 umol/L. The reference range was not used to interpret this result as normal/abnormal. VITAMIN D, 1,25 (OH)2, TOTAL (test code = 17806093) 54 pg/mL See_Comment [Automated message] The system which generated this result transmitted reference range: 18-72 pg/mL. The reference range was not used to interpret this result as normal/abnormal. VITAMIN D2, 1,25 (OH)2 (test code = 37621323) <8 pg/mL VITAMIN D3, 1,25 (OH)2 (test code = 57938575) 54 pg/mL VITAMIN E, ALPHA TOCOPHEROL (test code = 68041862) 9.1 mg/L See_Comment [Automated message] The system which generated this result transmitted reference range: 5.7-19.9 mg/L. The reference range was not used to interpret this result as normal/abnormal. VITAMIN E, BETA GAMMA TOCOPHEROL (test code = 89321710) 1.3 mg/L See_Comment [Automated message] The system which generated this result transmitted reference range: <4.4 mg/L. The reference range was not used to interpret this result as normal/abnormal. SENSORIMOTOR NEUROPATHY PROF W/RECOMBX(R) COMP ([id number] 00:00:00 COMMENTSINTERPRETIVE RESULTS TABLESUMSIERRA VISTA REGION[facility] CENTERY INTERPRETATION- DUP VEIN [id number] 15:11:00[facility] 1985 Sex: MPatient Name: CHRISS HUGGINS Unit No: [id number] EXAMS: CPT: [id number] DUP VEIN ROGELIO 19843 Bilateral lower extremity venous Doppler ultrasound HISTORY: Lower leg pain COMPARISON: None TECHNIQUE: Grayscale and color Doppler and spectral Doppler evaluation of deep veins of bilateral lower extremities was performed, including compression and augmentation maneuvers. FINDINGS: Right common femoral, femoral, and popliteal veins are patent. Saphenofemoral junction is patent. Visualized calf vessels are patent. The visualized segments are compressible and opacify with color on Doppler interrogation. There is no evidence of deep vein thrombosis in the right lower extremity. Left common femoral, femoral, and popl iteal veins are patent. Saphenofemoral junction is patent. Visualized calf vessels are patent. The visualized segments are compressible and opacify with color on Doppler interrogation. There is no evidence of deep vein thrombosis in the left lower extremity. IMPRESSION: 1. No evidence of bilateral lower extremity deep vein thrombosis. at 1511 Reported and signed by: Gurinder Dalton MD CC: Vee Catherine MD; No Primary Care Physician; Chris Birch MD Technologist: Johnson Pozo Probe: Trsleobardo Dt/Tm: 03/14/2023 (151)by:[email or web address] Orig Print D/T: S: 03/14/2023 (1513) BATCH NO: N/A Name: CHRISS HUGGINS [facility] Phys: MD Vee iLra [address] [facility] : 1985 Age: 37 Sex: M [place] Loc: KENZIE Exam Date: 03/14/2023 Status: REG ER PH: FAX: PAGE 1 Signed [id number] 00:35:00* Test Item Value Reference Range Interpretation Comme nts TROPONIN-I (test code = TROPI) 19.5 ng/L 0.0-54.0 N CAUTION: UNITS O F THE CURRENT TEST METHODOLOGY (ng/L) DIFFERFROM THE PRIOR TEST METHODOLOGY (ng/mL) BY A FACTOR OF 1000.RESULTS FROM DIFFERENT METHODS SHOULD NOT BE COMPARED TO ONEANOTHER QUANTITATIVE RESULTS AND URLS MAY VARY BY METHOD. IN ORDER TO DISTINGUISH ACUTE ELEVATIONS OF HIGH SENSITIVETROPONIN FROM OTHER CLINICAL CONDITIONS, THE UNIVERSALDEFINITION OF MYOCARDIAL INFARCTION STRESSES CLINICALASSESSMENT AND THE NEED FOR SERIAL MEASUREMENTS TO OBSERVE ARISE AND/OR FALL ABOVE THE UPPER LIMIT OF THE REFERENCERANGE. CONSIDERATION FOR CARDIOLOGY EVALUATION AND DRAWINGTHIRD hs-cTn, INCLUDING IF CHANGE IN THE CLINICAL STATUS ORSERIAL hs-cTns ARE INCREASING, PARTICULARLY ABOVE THE 99THGENDER-SPECIFIC PERCENTILE. THYROID STIMULATING [id number] 23:26:00* Test Item Value Reference Range Interpretation Comme nts THYROID STIMULATING HORMONE (test code = TSH) 1.043 uIU/mL 0.55-4.78 N COMPREHENSIVE METABOLIC [id number] 23:26:00* Test Item Value Reference Range Interpretation Comme nts SODIUM (test code = NA) 141 mmol/L 136-145 N POTASSIUM (test code = K) 3.9 mmol/L 3.4-4.5 N CHLORIDE (test code = CL) 109 mmol/L 98-107 H CARBON DIOXIDE (test code = CO2) 19 mmol/l 20-31 L GLUCOSE (test code = GLU) 102 mg/dL 74-106 N BLOOD UREA NITROGEN (test code = BUN) 14 mg/dL 9-23 N GLOMERULAR FILTRATION RATE (test code = GFR) >=60 max estimate >60 The Glomerular Filtration Rate is a calculated parameterbased on serum Creatinine, patient age and sex. GFR valuesless than 60 mL/min/1.73 square meters are indicative ofChronic Kidney Disease. Values less than 15 mL/min/1.73square meters indicate Kidney failure. The calculation forGFR is based on the CKD-EPI (202) calculation. This formulais race indifferent and is the recommended formula for GFRby the National Kidney Foundation for Adults.The GFR will not calculate if the sex is unknown or if thepatient's age is <18 years. CREATININE (test code = CREAT) 1.09 mg/dL 0.70-1.30 N TOTAL PROTEIN (test code = PROT) 7.2 g/dL 5.7-8.2 N ALBUMIN (test code = ALB) 4.3 g/dl 3.4-5.0 N CALCIUM (test code = CA) 9.2 mg/dL 8.6-10.3 N BILIRUBIN TOTAL (test code = BILT) 0.4 mg/dL 0.3-1.2 N SGOT/AST (test code = AST) 21 U/L 0-34 N SGPT/ALT (test code = ALT) 27 U/L 10-49 N ALKALINE PHOSPHATASE (test code = ALKP) 74 U/L 46-116 N [id number] 23:26:00* Test Item Value Reference Range Interpretation Comme nts MAGNESIUM (test code = MAG) 1.7 mg/dL 1.6-2.6 N [id number] 23:26:00* Test Item Value Reference Range Interpretation Comme nts ACETAMINOPHEN (test code = ACET) < 2.0 ug/mL 10-20 L [id number] 23:26:00* Test Item Value Reference Range Interpretation Comme nts SALICYLATE (test code = KODY) < 3.0 mg/dL 0.0-30.0 N [id number] 23:26:00* Test Item Value Reference Range Interpretation Comme nts ALCOHOL (test code = ALC) < 3.0 mg/dL 0.0-80.0 N VITAMIN [id number] 23:26:00* Test Item Value Reference Range Interpretation Comme nts VITAMIN B12 (test code = VITB12) 404 pg/mL 211-911 N DRUGS OF ABUSE SCREEN [id number] 23:26:00* Test Item Value Reference Range Interpretation Comme nts UR COCAINE (test code = COCAU) Negative NEGATIVE UR CANABINOIDS (test code = CANU) Negative NEGATIVE UR AMPHETAMINE (test code = AMPHU) Negative NEGATIVE UR BARBITURATE (test code = BARBQLU) Negative NEGATIVE UR BENZODIAZEPINE (test code = BENZU) Negative NEGATIVE METHADONE (test code = METHDU) Negative NEGATIVE PROPOXYPHENE SCREEN (test co de = PROPXSQ) Negative NEGATIVE UR OPIATES QUAL (test code = OPIAQLU) Negative NEGATIVE OXYCODONE (test code = OXYCOD) Negative NEGATIVE UR PHENCYCLIDINE (PCP) (test code = PHENCU) Negative NEGATIVE [id number] 23:22:00* Test Item Value Reference Range Interpretation Comme nts TROPONIN-I (test code = TROPI) 19.8 ng/L 0.0-54.0 N CAUTION: UNITS O F THE CURRENT TEST METHODOLOGY (ng/L) DIFFERFROM THE PRIOR TEST METHODOLOGY (ng/mL) BY A FACTOR OF 1000.RESULTS FROM DIFFERENT METHODS SHOULD NOT BE COMPARED TO ONEANOTHER QUANTITATIVE RESULTS AND URLS MAY VARY BY METHOD. IN ORDER TO DISTINGUISH ACUTE ELEVATIONS OF HIGH SENSITIVETROPONIN FROM OTHER CLINICAL CONDITIONS, THE UNIVERSALDEFINITION OF MYOCARDIAL INFARCTION STRESSES CLINICALASSESSMENT AND THE NEED FOR SERIAL MEASUREMENTS TO OBSERVE ARISE AND/OR FALL ABOVE THE UPPER LIMIT OF THE REFERENCERANGE. CONSIDERATION FOR CARDIOLOGY EVALUATION AND DRAWINGTHIRD hs-cTn, INCLUDING IF CHANGE IN THE CLINICAL STATUS ORSERIAL hs-cTns ARE INCREASING, PARTICULARLY ABOVE THE 99THGENDER-SPECIFIC PERCENTILE. UA RFLX MICR CULT IF [id number] 23:18:00* Test Item Value Reference Range Interpretation Comme nts UA COLOR (test code = COLU) Light-Yellow YELLOW UA APPEARANCE (test code = APPU) CLEAR CLEAR UA GLUCOSE DIPSTICK (test code = DGLUU) NEG MG/DL NEGATIVE UA BILIRUBIN DIPSTICK (test code = BILU) NEG NEGATIVE UA KETONE DIPSTICK (test code = KETU) 1+ MG/DL NEGATIVE A UA SPECIFIC GRAVITY (test code = SGU) 1.012 1.000-1.030 UA BLOOD DIPSTICK (test code = CHARLEE) NEG NEGATIVE UA PH DIPSTICK (test code = LAURA) 5.5 4.5-8.5 UA PROTEIN DIPSTICK (test code = PROU) NEG MG/DL NEGATIVE UA UROBILINOGEN DIPSTICK (test code = URO) NORMAL EU/dL See_Comment [Automated e-channela ge] The system which generated this result transmitted reference range: <=1.0. The reference range was not used to interpret this result as normal/abnormal. UA NITRITE DIPSTICK (test code = AIDE) NEG NEGATIVE UA LEUKOCYTE ESTERASE DIPSTICK (test code = LEUU) NEG NEGATIVE UA WBC (test code = WBCU) 0-3 /HPF 0-3 UA RBC (test code = RBCU) 0-3 /HPF 0-3 UA BACTERIA (test code = BACU) NONE SEEN /HPF NONE SEEN UA SQUAMOUS CELLS (test code = SQU) NONE SEEN /HPF NONE-FEW UA MUCUS (test code = MUCU) RARE /LPF NONE-FEW Indication for culture: RiskForSepsis-no oth srcSpecimen Description: CLEAN CATCHCBC W/AUTO [id number] 23:09:00* Test Item Value Reference Range Interpretation Comme nts WHITE BLOOD CELL (test code = WBC) 7.96 K/mm3 5.0-12.0 N RED BLOOD CELL (test code = RBC) 4.71 M/mm3 4.70-6.10 N HEMOGLOBIN (test code = HGB) 14.8 G/DL 14.0-18.0 N HEMATOCRIT (test code = HCT) 44.2 % 38.8-50.0 N MEAN CELL VOLUME (test code = MCV) 94 fL 80-94 N MEAN CELL HGB (test code = MCH) 31.4 PGM 27-31 H MEAN CELL HGB CONCENTRATION (test code = MCHC) 33.5 G/DL 33-37 N RED CELL DISTRIBUTION WIDTH (test code = RDW) 13.3 % 11.6-16.2 N PLATELET COUNT (test code = PLT) 208 K/mm3 130-400 N MEAN PLATELET VOLUME (test c ode = MPV) 10.6 fl 7.4-10.4 H NEUTROPHIL % (test code = NT%) 80.9 % 43-65 H IMMATURE GRANULOCYTE % (test code = IG%) 0.3 % 0.0-2.0 N LYMPHOCYTE % (test code = LY%) 8.8 % 20.5-45.5 L MONOCYTE % (test code = MO%) 9.9 % 5.5-11.7 N EOSINOPHIL % (test code = EO%) 0.0 % 0.9-2.9 L BASOPHIL % (test code = BA%) 0.1 % 0.2-1.0 L NUCLEATED RBC % (test code = NRBC%) 0.0 % 0-1.0 N NEUTROPHIL # (test code = NT#) 6.44 K/mm3 2.2-4.8 H LYMPHOCYTE # (test code = LY#) 0.70 K/mm3 1.3-2.9 L MONOCYTE # (test code = MO#) 0.79 K/mm3 0.3-0.8 N EOSINOPHIL # (test code = EO#) 0.00 K/MM3 0.0-0.2 N BASOPHIL # (test code = BA#) 0.01 K/mm3 0.0-0.1 N - CT HEAD/BRAIN W/O [id number] 22:57:00 [facility] 1985 Sex: MPatient Name: CHRISS HUGGINS Unit No: [id number] EXAMS: CPT: [id number] CT HEAD/BRAIN W/O CONT 65921 CT HEAD WITHOUT CONTRAST, 08/19/2022. COMPARISON:None. CLINICAL: Headache. Comment: Noncontrast transaxial plussagittal/coronal reformatted images were obtained. The lateral, third and fourth ventricles appear within normal limits. There is no midline shift, acute intraparenchymal hemorrhage, major territorial infarction or extracerebral fluid collection. The calvarium is intact. The visualized paranasal sinuses and mastoids are well pneumatized. CT imaging was performed using iterative reconstruction techniques and/or automated exposure control to reduce radiation dose. IMPRESSION: No evidence of acuteintracranial hemorrhage. at 2257 Reported and signed by: Jeremy Cross MD CC: Technologist: Christie Winkler CTDI: 35.5 DLP: 788.2 Trscr Dt/Tm: 08/19/2022 (2256) by:[email or web address] Orig Print D/T: S: 08/19/2022 (2299) BATCH NO: N/A Name: CHRISS [facility]GGNIS [facility] [employer] Phys: Alphonse Louis MD [address] [facility] : 1985 Age: 37 Sex: M [place] Loc: T.ERS Exam Date: 08/19/2022 Status: REG ER PH: FAX: PAGE 1 Signed Report- XR CHEST 1 [id number] 22:43:00 [facility] : 1985 Sex: MPatient Name: CHRISS HUGGINS Unit No: [id number] EXAMS: CPT: [id number] XR CHEST 1 V 89648 PORTABLE CHEST, 08/19/2022. Comparison: None. CLINICAL: AMS. Syncope. COMMENT: The heart, mediastinum, hilar regions and pulmonary vasculature appear within normal limits. The lungs are free of active disease. The bony thorax is intact. IMPRESSION: No evidence to suggest active cardiopulmonary disease. ElectronicallySigned by Jeremy Cross MD on 08/19/2022 at 2243 Reported and signed by: Jeremy Cross MD CC: Technologist: Gurinder Hightower Time: DAP (Gy m2): Air Kerma (mGy): Trscr Dt/Tm: 08/19/2022 (2242) by:[email or web address] Orig Print D/T: S: 08/19/2022 (2245) BATCH NO: N/A Name: CHRISS HUGGINS [facility] Cathie hys: Alphonse Louis MD [address] : 1985 Age: 37 Sex: M Grace [employer] Loc: T.ERS Exam Date: 08/19/2022 Status: PRE ER PH: FAX: PAGE 1 Signed ReportPOCT MOLECULAR [id number] 19:30:02* Test Item Value Reference Range Interpretation Comme nts POCT Molecular Strep (test c ode = 57821-2) Negative Negative Lab Interpretation (test cod e = 72740-4) [facility] Notes Date/Time Note Provider Source 2024-04-15 02:36:00 [facility] ([facility]) Discharge Summary REPORT#:[id number] REPORT STATUS: Signed REPORT INITIALIZATION DATE:04/15/24 TIME: 235 PATIENT: CHRISS HUGGINS UNIT #: [id number] ROOM/BED: [place] [address] : [birth year] AGE: 38 SEX: M ATTEND: Jeremy Paige MD ADM AUTHOR: Jeremy Paige MD REPT SERVICE DT/TIME: 04/15/24235 * ALL edits or amendments must be made on the electronic/computer document * PCP PCP PCP: PCP: Allan Herbert MD [facility]charge to: [facility] General Information Problem List/A P: 1. Multiple sclerosis Date of admission: Observation Start Date: Date of admission: 02/20/24 Discharge date: 01/09/25 Admission diagnosis: 1. Multiple sclerosis 2. Lower extremity weakness/pain resulting to multiple falls 3. Confusion 4. Bladder incontinence 5. Mildly elevated troponin 82 6. HLD- LDL 61 7. History of alcoholism, IBS Discharge diagnosis: G35 MULTIPLE SCLEROSIS E78.5 HYPERLIPIDEMIA, UNSPECIFIED F10.20 ALCOHOL DEPENDENCE, UNCOMPLICATED K58.9 IRRITABLE BOWEL SYNDROME, UNSPECIFIED R29.6 REPEATED FALLS R32 UNSPECIFIED URINARY INCONTINENCE Hospital course: 38-year-old male patient with recent diagnosis of multiple sclerosis, alcoholism , IBS presents to the emergency department today for the evaluation of lower extremity weakness/pain resulting in multiple falls, episodes of confusion, bladder incontinence. As per patient's Mother MRI was done a month ago Revealing multiple lesions consistent with multiple sclerosis. Patient is currently alert and oriented. Denies fever, chills, nausea and vomiting, headache, blurry vision, hearing deficits, lightheadedness/dizziness, chest pain , numbness, associated symptoms. RADIOLOGY - XR CHEST 1 V 02/19 1216 IMPRESSION: No evidence of acute cardiopulmonary abnormality. CAT SCAN - CT HEAD/BRAIN W/O CONT 02/19 1330 IMPRESSION: There is no imaging evidence of acute intracranial pathology. CAT SCAN - CTA HEAD 02/19 1331 IMPRESSION: Unremarkable CTA of the head. Patient was admitted for further evaluation and treatment. Tylenol extra strength 1000 mg p.o. given stat, methylprednisolone stat Neuro consult placed 02/22/2024 No acute events overnight Neuro is following. MRI of the T-spine pending results 02/24/2024 No new neurologic symptoms. Neuro noted no active lesion on MRI, no acute findings. 02/27/2024 Rehab has seen the patient. Noted patient may have to discharge to SNF versus custodial versus fpc. Recommends social media marketing analyst to assist with placement. Patient is scheduled for image guided lumbar puncture tomorrow per Dr. Martinez. 02/28/2024 Status post image guided lumbar puncture. Procedure per Dr. Martinez. 15.5 mL of clear spinal fluid was removed and sent to lab. The patient tolerated the procedure well. 03/02/2025 Final body fluid culture shows no growth after 72 hours Discharge planning: Patient does not qualify for inpatient rehab bed. Pending final discharge placement, SNF versus custodial versus fpc. ordnance equipment worker to assist with placement 03/05/2024 Noted hypotensive episode. Blood pressure now better, latest 99/64. No acute events overnight [place] is discontinued. Last dose given today [place] is discontinued, last dose given today. Continue with ibuprofen 400 mg p.o. every 12 hours as needed for pain Continue midodrine for BP support 03/09/2024 Continues to work with therapy. Gait training with PT Discharge planning: For [facility]. Pending insurance authorization 03/12/2024 Rehab has seen the patient. Patient reports still feeling weak. Encouraged sitting on the bedside chair throughout the day. 03/13/2024 Nonreactive CSF VDRL Continue gait training per PT 03/18/2024 Patient remained stable No new complaints Anticipate discharge to [facility] once cleared The patient was on continuous telemetry, BP control, glycemic control, pain control, electrolyte control, DVT/GI prophylaxis. The patient was hemodynamically stable and was discharged home, follow-up with PCP. Discharge medications as per reconciliation list. Consultants: neurology Med Rec Med Rec Discharge meds: Stop taking the following medications: [TYLENOL] 500 MILLIGRAM ORAL PRN as needed for PAIN Start taking the following new medications: LORATADINE (CLARITIN) 10 MG TAB 10 MILLIGRAM ORAL DAILY NEEDED. as needed for ALLERGIES Qty = 30 No Refills Instructions: FOR ALLERGIES Objective VS/I O Last Documented: Result Date Time Pulse Ox 97 03/19 1129 B/P 95/62 03/19 1129 B/P Mean 73.3 03/19 1129 Temp 36.6 03/19 1129 Pulse 90 03/19 1129 Resp 17 03/19 1129 O2 Delivery Room air 03/17 0401 O2 Flow Rate 2 02/20 1228 PATIENT WEIGHT: Weight (lb): Weight (oz): Weight (kg): 75.000 General appearance: alert, awake Head/Eyes: atraumatic, clear cornea, EOMI, normocephalic, normal conjunctiva/ sclera, normal eyelids/periorb, PERRLA Neck: no JVD Cardiovascular: regular rate rhythm Respiratory: decreased breath sounds, no distress, no tenderness Abdomen/GI: active bowel sounds, soft, non-tender, no guarding, no rebound, no distention, no mass/organomegaly, no pulsatile mass, no hernia, normal abdominal aorta Abdomen quadrants: LLQ normal bowel sounds, LUQ normal bowel sounds, RLQ normal bowel sounds, RUQ normal bowel sounds Extremities: moves all, no edema-all extremities, normal capillary refill, normal range of motion, normal sensory, normal motor function Neuro/CRYSTALIZER TENDER: alert, oriented X 3 Skin: dry, intact, no gross abnormalities Psychiatry: no hallucinations, normal affect, normal judgment/insight, normal mood, not homicidal, not suicidal Treatments Procedures Lab: Laboratory Tests: 02/19 02/19 02/19 1335 1230 1230 Chemistry Sodium (134 - 147 mEq/L) 135 Potassium (3.4 - 5.0 mEq/L) 3.8 Chloride (100 - 108 mEq/L) 104 Carbon Dioxide (21 - 33 mEq/l) 19 L Anion Gap (0 - 20) 16 BUN (7 - 25 mg/dL) 20 Creatinine (0.6 - 1.3 mg/dL) 1.3 Glomerular Filtr Rate (105 - 110) 72.1 L Glucose (77 - 141 mg/dL) 85 Calcium (8.0 - 10.5 mg/dL) 9.7 Total Bilirubin (0.0 - 1.0 mg/dL) 0.90 Direct Bilirubin (0.1 - 0.3 MG/DL) 0.30 Indirect Bilirubin (MG/DL) 0.60 AST (8 - 34 IUnit/L) 16 ALT (10 - 49 IUnit/L) 12 Total Alk Phosphatase (20 - 125 IUnit/L) 85 Ammonia (11 - 35 umol/L) < 10 L Total Creatine Kinase (46 - 171 Units/L) 36 L Troponin I High Sens (0 - 54 ng/L) 82 H Total Protein (6.4 - 8.2 g/dL) 8.1 Albumin (3.4 - 5.0 g/dL) 4.50 LDL Cholesterol Me[place] (0 - 100 mg/dL) 161.0 H TSH (0.42 - 5.47 IU/mL) 1.18 Hematology WBC (4.5 - 11.0 x10 3/uL) 6.0 RBC (4.00 - 5.60 x10 6/uL) 5.29 Hgb (12.5 - 16.9 g/dL) 16.1 Hct (37.5 - 50.7 %) 47.6 MCV (81.0 - 99.0 fL) 90.0 MCH (27.0 - 33.0 pg) 30.4 MCHC (33.0 - 37.0 g/dL) 33.8 RDW (11.5 - 14.5 %) 13.3 Plt Count (150 - 400 x10 3/uL) 253 MPV (7.0 - 9.0 fL) 10.4 H Neut % (Auto) (56.0 - 77.0 %) 72.1 Lymph % (Auto) (14.0 - 32.0 %) 18.2 [place] % (Auto) (4.8 - 9.0 %) 7.6 Eos % (Auto) (0.3 - 3.7 %) 1.5 Baso % (Auto) (0.0 - 2.0 %) 0.3 Neut # (Auto) (2.0 - 7.6 x10 3/uL) 4.35 Lymph # (Auto) (1.0 - 3.8 x10 3/uL) 1.10 [place] # (Auto) (0.1 - 0.8 x10 3/uL) 0.46 Eos # (Auto) (0.0 - 0.2 x10 3/uL) 0.09 Baso # (Auto) (0.0 - 0.2 x10 3/uL) 0.02 Abs Immat Gran (auto) (0.00 - 0.03 x10 3/uL) 0.02 Immature Gran % (0.0 - 2.0 %) 0.3 Nucleated RBC % (0 - 0 %) 0.0 Nucleated RBCs # (Man) (0.0 - 0.1 x10 3/uL) 0.00 Toxicology Salicylates (0.0 - 20.0 mg/dL) < 3.0 Acetaminophen (10 - 30 mcg/mL) < 0 L Ethyl Alcohol (<10 mg/dL) < 3.0 Im[place] [address] PROCEDURE: FLUOROSCOPICALLY-GUIDED LUMBAR PUNCTURE. INDICATION: White matter lesions, gait instability. vacuum form operator: Kyle Martinez PA-C. Supervising attending vascular and interventional radiologist: Flakito Vargas MD. MEDICATIONS: 10 mL of 1% lidocaine local anesthesia. SEDATION: None. CONTRAST: None. FLUOROSCOPY TIME: 0.4 minutes. RADIATION DOSE: 3 mGy. COMPLICATIONS: None immediate. DESCRIPTION/TECHNIQUE: The risks and benefits of this procedure were discussed with the patient. Signed informed consent was obtained and placed in the chart. A timeout was done. Utilizing sterile technique, fluoroscopic guidance, and 1% lidocaine local anesthetic, a 22-gauge spinal needle was successfully advanced into the thecal sac/spinal canal/subarachnoid space at the level of L3-L4. Fluoroscopic images were documented. A total of 15.5 mL of clear cerebrospinal fluid was successfully obtained through the needle (4 mL placed into tube #1, 4 mL placed into tube #2, 4 mL placed into tube #3, and 3.5 mL placed into tube #4). The needle was removed and hemostasis was achieved with manual compression. A sterile bandage was applied. The patient tolerated the procedure well without immediate complication and was subsequently returned to the inpatient unit in stable, unchanged condition. FINDINGS: Successful fluoroscopically-guided lumbar puncture performed at the L3-L4 level, with 15.5 mL total of clear cerebrospinal fluid obtained and sent to the lab for analysis. The opening pressure was 14 mmHg. IMPRESSION: Successful, uncomplicated fluoroscopically-guided lumbar puncture, as detailed above. [id number] MRI THORACIC SPINE WO/W CON 33344 Location: H3 MRI THORACIC SPINE: Conducted on 02/23/24 COMPARISON EXAM: MRI imaging of both the cervical spine and brain of 02/21/24. None of the thoracic spine TECHNIQUE: MRI assessment of the thoracic spine with and without contrast was performed on a 1.5 Karlene magnet. Multiplanar and multisequence technique used. CLINICAL HISTORY: History of MS, gait imbalance. FINDINGS: Do not see abnormal signal in the cord. Do not see any findings of concern for demyelinating plaque formation or myelitis in the thoracic spine. No abnormal enhancement identified or cord expansion. No intradural abnormality. The conus medullaris terminates normally and is unremarkable. No significant ventral epidural defect, cord deformity, stenosis or nerve impingement level. Marrow signal is within normal limits. No acute fracture or acute marrow edema. Do not see any findings suggestive of myelitis on this exam. No abnormal enhancing lesions are seen. No leptomeningeal process. IMPRESSION: Unremarkable MRI assessment of the thoracic spine with and without contrast. Discharge Instructions PCP PCP: PCP: Allan Herbert MD )( Discharge to: Home Health [facility] Discharge Instructions Additional Discharge Routines: PCP Follow-Up, Arterial Embalmer Follow-Up )( Diet: Regular Follow-up Appointments PCP follow up: PCP: Allan Herbert MD PCP follow up timeframe: In 5 days Consulting provider 1: Provider 1: Self Referred Specialty: OTHER SPECIALTY Special instructions: [facility] at 1420 RPT #:[id number] END OF REPORT [facility] 2024-03-19 03:43:00 [facility]) Clinical Note REPORT#:[id number] REPORT STATUS: Signed REPORT INITIALIZATION DATE:03/19/24 TIME: 0343 PATIENT: CHRISS HUGGINS UNIT #: [id number] ROOM/BED: [place] [address] : 85 AGE: 38 SEX: M ATTEND: Jeremy Paige MD ADM AUTHOR: Jeremy Paige MD REPT SERVICE DT/TIME: 03/19/24 0343 * ALL edits or amendments must be made on the electronic/computer document * Clinical Note Note: Patient with recent diagnosis of multiple sclerosis, alcoholism and IBS presents for evaluation of lower extremity weakness and pain resulting in multiple falls, episodes of confusion, and bladder incontinence. Past MRI reveals multiple lesions consistent with multiple sclerosis. Patient has mildly elevated troponin 82 and HDL-LDL 61 upon admission. Patient's VS are stable overnight, monitor accordingly. Continue ibuprofen and midodrine as needed for pain control and hypotension. Fall precautions ordered. Continue comprehensive therapies. Continue with supportive care. at 1312 RPT #:[id number] END OF REPORT [facility] 2024-03-18 17:07:00 [facility] ([facility]) Internal Medicine Prog. Note REPORT#:[id number] REPORT STATUS: Signed REPORT INITIALIZATION DATE:03/18/24 TIME: 1707 PATIENT: CHRISS HUGGINS UNIT #: [id number] ROOM/BED: [place] [address] : 85 AGE: 38 SEX: M ATTEND: Jeremy Paige MD ADM AUTHOR: Osmany Sotomayor EMAIL CAMPAIGN SPECIALIST REPT SERVICE DT/TIME: 03/18/241706 * ALL edits or amendments must be made on the electronic/computer document * Osmany Sotomayor 03/18/241706: Subjective Chief complaint: Multiple falls Lower extremity weakness Confusion Bladder incontinence HPI: 38-year-old male patient with recent diagnosis of multiple sclerosis, alcoholism , IBS presents to the emergency department today for the evaluation of lower extremity weakness/pain resulting in multiple falls, episodes of confusion, bladder incontinence. As per patient's Mother MRI was done a month ago Revealing multiple lesions consistent with multiple sclerosis. Patient is currently alert and oriented. Denies fever, chills, nausea and vomiting, headache, blurry vision, hearing deficits, lightheadedness/dizziness, chest pain , numbness, associated symptoms. Initial vital signs: BP 102/70, pulse 102, respirations 17, temp 97.9, pulse ox 96% on room air Abnormal labs: Elevated troponin I 82 LDL 161 RADIOLOGY - XR CHEST 1 V 02/19 1216 IMPRESSION: No evidence of acute cardiopulmonary abnormality. CAT SCAN - CT HEAD/BRAIN W/O CONT 02/19 1330 IMPRESSION: There is no imaging evidence of acute intracranial pathology. CAT SCAN - CTA HEAD 02/19 1331 IMPRESSION: Unremarkable CTA of the head. Review of Systems Additional notes: Constitutional: Reports: generalized weakness. Denies: chills, fatigue, fever, lethargy, malaise, recent wt loss, other. Respiratory: Denies: MANDUJANO (dyspnea on exertion), hemoptysis, non productive cough, parox nocturnal dyspnea, pleurisy, pleuritic pain, pneumonia, productive cough (sputum), SOB, wheezing, other. Cardiovascular: Denies: chest pain, MANDUJANO (dyspnea on exertion), edema, orthopnea, palpitations, parox nocturnal dyspnea, other. GI: Denies: abdominal pain, anorexia, constipation, diarrhea, dysphagia, GERD, hematemesis, hematochezia, hiatal hernia, melena, nausea, rectal pain, vomiting, other. : Denies: dysuria, flank pain, frequency, hematuria, nocturia, penile discharge, penile lesion, testicular pain, testicular swelling, urgency, urinary retention, other. Musculoskeletal: Extremity pain: Reports: left lower, right lower. Neuro: Denies: bladder dysfunction, bowel dysfunction, change in LOC, confusion, dizziness, focal weakness, gait problem, headache, lightheaded, numbness, seizure, slurred speech, spinning sensation, syncope, unable to speak, vision change, weakness, other. Psych: Denies: agitation, anxiety, auditory hallucination, change in mental status, confusion, delusional, depression, homicidal ideation, hostile, insomnia, stress, suicidal ideation, visual hallucination, other. Objective General VS/I O: Vital Signs Date Temp Pulse Resp B/P B/P Mean Pulse Ox FiO2 03/17-03/18 36.5-36.8 69-85 16-18 91-105/60-68 71.1-80.0 94-97 Last Documented: Result Date Time Pulse Ox 94 03/18 1539 B/P 95/63 03/18 1539 B/P Mean 73.7 03/18 1539 Temp 36.7 03/18 1539 Pulse 69 03/18 1539 Resp 16 03/18 1539 O2 Delivery Room air 03/17 0401 O2 Flow Rate 2 02/20 1228 PATIENT WEIGHT: Weight (lb): Weight (oz): Weight (kg): 75.000 Medications: Active Meds + DC'd Last 24 Hrs Ibuprofen (IBUPROFEN) 400 MG Q12H PRN PRN PO Midodrine (PROAMATINE) 5 MG Q8H PRN PRN PO Diagnosis, Assessment Plan Hospital course to date: General appearance: alert, awake Head/Eyes: atraumatic, clear cornea, EOMI, normocephalic, normal conjunctiva/ sclera, normal eyelids/periorb, PERRLA Neck: no JVD Cardiovascular: regular rate rhythm Respiratory: decreased breath sounds, no distress, no tenderness Abdomen/GI: active bowel sounds, soft, non-tender, no guarding, no rebound, no distention, no mass/organomegaly, no pulsatile mass, no hernia, normal abdominal aorta Abdomen quadrants: LLQ normal bowel sounds, LUQ normal bowel sounds, RLQ normal bowel sounds, RUQ normal bowel sounds Extremities: moves all, no edema-all extremities, normal capillary refill, normal range of motion, normal sensory, normal motor function Neuro/CRYSTALIZER TENDER: alert, oriented X 3 Skin: dry, intact, no gross abnormalities Psychiatry: no hallucinations, normal affect, normal judgment/insight, normal mood, not homicidal, not suicidal Problem List/A P: 1. Multiple sclerosis Consultants: neurology Free Text DxA P Notes Free text DxA P notes: Assessment: 38-year-old male patient with recent diagnosis of multiple sclerosis, alcoholism , IBS presents to the emergency department today for the evaluation of lower extremity weakness/pain resulting in multiple falls, episodes of confusion, bladder incontinence. As per patient's Mother MRI was done a month ago Revealing multiple lesions consistent with multiple sclerosis. Patient is currently alert and oriented. Denies fever, chills, nausea and vomiting, headache, blurry vision, hearing deficits, lightheadedness/dizziness, chest pain , numbness, associated symptoms. 1. Multiple sclerosis 2. Lower extremity weakness/pain resulting to multiple falls 3. Confusion 4. Bladder incontinence 5. Mildly elevated troponin 82 6. HLD- LDL 61 7. History of alcoholism, IBS Plan of care: Admit patient for further evaluation and treatment Fall precaution Tylenol extra strength 1000 mg p.o. given stat, methylprednisolone stat Drug abuse screen Neuro consult placed Telemetry BP control Glycemic control Pain control Electrolyte control DVT/GI prophylaxis Follow-up labs, images 02/21/2024 Vital signs are within normal limits MRI brain: scattered white matter lesions consistent with demyelination noted. No abnormal enhancement MRI c-spine: no abnormal cord signal or enhancement Neuro is following. Recommends screen and correct any underlying toxic or metabolic process contributing to symptoms. PT/OT Fall precaution Continue supportive care 02/22/2024 Soft BP, latest 91/59 No acute events overnight Neuro is following. MRI of the T-spine pending results PT/OT consult placed On regular diet now Fall and safety precaution, follow-up images, continue medications and supportive care 02/23/2024 No acute events overnight BP 97/65 MRI of the T-spine is unremarkable Continue PT/OT Case management consult placed Continue supportive care 02/24/2024 Vital signs are stable No acute events overnight. No new neurologic symptoms. Neuro noted no active lesion on MRI, no acute findings. Orders to continue PT/ OT/rehab evaluations Fall and safety precaution Continue supportive care 02/25/2024 Vital signs are within normal limits. No new complaints Stable Continue OT management Ongoing discharge planning Fall and safety precaution, continue supportive care 02/26/2024 No acute events overnight Vital signs are stable Ongoing discharge planning Fall and safety precaution, continue supportive care 02/27/2024 Stable Neuro is following Rehab has seen the patient. Noted patient may have to discharge to SNF versus custodial versus fpc. Recommends social media marketing analyst to assist with placement. Continue PT/OT management Patient is scheduled for image guided lumbar puncture tomorrow per Dr. Martinez. Monitor accordingly Pain control Continue supportive care 02/28/2024 Status post image guided lumbar puncture. Procedure per Dr. Martinez. 15.5 mL of clear spinal fluid was removed and sent to lab. The patient tolerated the procedure well. Pain control Rehab is following Follow-up cultures Continue present care 02/29/2024 Vital signs are within normal limits No acute events overnight Started on midodrine 5 mg p.o. every 8 hours as needed for hypotension PT management Follow-up labs, fall and safety precaution, continue present care 03/01/2024 Stable, latest BP 96/55 No new complaints Started on [place] to 1 tab p.o. every 8 hours as needed for pain PS 4-10. Continue midodrine 5 mg p.o. every 8 hours as needed for hypotension PT/OT Fall and safety precaution, follow-up labs, continue medications and present care 03/02/2024 BP 94/61 Final body fluid culture shows no growth after 72 hours Continue hypotensive precaution. On midodrine Pain control Discharge planning: Patient does not qualify for inpatient rehab bed. Pending final discharge placement, SNF versus custodial versus fpc. ordnance equipment worker to assist with placement OT for evaluation Fall and safety precaution, continue supportive care 03/03/2024 BP 95/64 No acute events overnight Patient continues to get OOB daily with assistance per rehab Pain medications as needed. Continue on midodrine Ongoing discharge planning Fall precaution Continue supportive care 03/04/2024 Latest BP 92/56, otherwise stable No new complaints Continue BP control, pain medications as needed - Ibuprofen 400 mg p.o. every 12 hours given as needed PT/OT Fall and safety precaution, continue medications and supportive care 03/05/2024 Noted hypotensive episode. Blood pressure now better, latest 99/64. No acute events overnight [place] is discontinued. Last dose given today [place] is discontinued, last dose given today. Continue with ibuprofen 400 mg p.o. every 12 hours as needed for pain Continue midodrine for BP support PT/OT Continue supportive care 03/06/2024 No acute events overnight Ongoing discharge planning. Pending facility acceptance at [facility]. Following for updates Continue medications and supportive care. 03/07/2024 BP 91/58 Continue with midodrine 5 mg p.o. every 8 hours for BP support Ibuprofen as needed Gait training with PT Fall and safety precaution, continue supportive care 03/08/2024 No acute events overnight Patient's BP remains on the low side, latest 94/55 Stable Midodrine for BP support, continue ibuprofen as needed Ongoing discharge planning. Continue present care 03/09/2024 Patient in no acute distress. Stable Continues to work with therapy. Gait training with PT Pain medications as needed, on midodrine as needed for BP support Discharge planning: For [facility]. Pending insurance authorization Continue supportive care 03/10/2024 Vital signs are within normal limits Negative CINTHIA screen Rehab orders to continue with OOB daily, PT/OT Pain control with ibuprofen as needed. Midodrine for BP support Fall and safety precaution Continue medications and supportive care 03/11/2024 Latest BP 90/53 No acute events overnight Continue midodrine for BP support, ibuprofen as needed for pain Fall and safety precaution, continue present care 03/12/2024 Stable Patient has no new complaints Rehab has seen the patient. Patient reports still feeling weak. Encouraged sitting on the bedside chair throughout the day. Pain medications as needed Continue on midodrine Gait training with PT Continue supportive care 03/13/2024 No acute events overnight Nonreactive CSF VDRL Continue gait training per PT Ongoing discharge planning. Pending insurance authorization to [facility] Fall and safety precaution, pain control, BP support with midodrine Continue supportive care 03/14/2024 Vital signs are within normal limits, latest BP 98/65 No acute events overnight Still awaiting for insurance authorizations to [facility] Gait training with PT Fall and safety precaution, continue medications and supportive care 03/15/2024 No acute events overnight Stable vital signs Status remains the same Discharge planning: Still awaiting for insurance authorization for SNF PT management, pain medications as needed, midodrine for BP support Continue supportive care 03/16/2024 No new complaints Rehab recommendations noted Continue gait training with PT Pain medications as needed. Continue midodrine for BP support Ongoing discharge planning. Pending insurance authorization for SNF Fall and safety precaution, continue medications and supportive care 03/17/2024 Vital signs are within normal limits No acute events overnight Continue training with PT BP support and midodrine Continue on ibuprofen 400 mg p.o. every 12 hours as needed Discharge planning: [facility] confirms authorization is still pending. Monitor accordingly, fall and safety precaution, continue supportive care 03/18/2024 Patient remained stable No new complaints Still awaiting for insurance authorization. Following CM for updates. Anticipate discharge to [facility] once cleared Continue supportive care Jeremy Paige I 03/18/24 1816: Attestations Physician Attestation Agree w/findings plan: I Agree with the findings and plan as documented by ANALY Sotomayor. Plan of care coordinated with ANALY Sotomayor. Pertinent labs, Imaging, and information consultant evaluations reviewed. Vital signs are within normal limits overnight. On ibuprofen. Also on midodrine. Continue medications as needed. Discharge plan ongoing, authorization pending. Fall and safety precaution. PT/OT evaluation treatment as tolerated. Continue with supportive care. at 2307 at 0208 RPT #:[id number] END OF REPORT [facility] 2024-03-18 03:34:00 [facility] ([facility]) Clinical Note REPORT#:[id number] REPORT STATUS: Signed REPORT INITIALIZATION DATE:03/18/24 TIME: 333 PATIENT: CHRISS HUGGINS UNIT #: [id number] ROOM/BED: [place] [address] : 85 AGE: 38 SEX: M ATTEND: Jeremy Paige MD ADM AUTHOR: Jeremy Paige MD REPT SERVICE DT/TIME: 03/18/24 033 * ALL edits or amendments must be made on the electronic/computer document * Clinical Note Note: Patient with recent diagnosis of multiple sclerosis, alcoholism and IBS presents for evaluation of lower extremity weakness and pain resulting in multiple falls, episodes of confusion, and bladder incontinence. Past MRI reveals multiple lesions consistent with multiple sclerosis. Patient has mildly elevated troponin 82 and HDL-LDL 61 upon admission. Vital signs are within normal limits overnight. On ibuprofen. Also on midodrine. Continue medications as needed. Discharge plan ongoing, authorization pending. Fall and safety precaution. PT/OT evaluation treatment as tolerated. Continue with supportive care. at 1311 RPT #:[id number] END OF REPORT [facility] 2024-03-17 17:58:00 [facility] Internal Medicine Prog. Note REPORT#:[id number] REPORT STATUS: Signed REPORT INITIALIZATION DATE:03/17/24 TIME: 1757 PATIENT: CHRISS HUGGINS UNIT #: [id number] ROOM/BED: [place] [address] : 85 AGE: 38 SEX: M ATTEND: Jeremy Paige MD ADM AUTHOR: Osmany Sotomayor EMAIL CAMPAIGN SPECIALIST REPT SERVICE DT/TIME: 03/17/241757 * ALL edits or amendments must be made on the electronic/computer document * Osmany Sotomayor 03/17/241757: Subjective Chief complaint: Multiple falls Lower extremity weakness Confusion Bladder incontinence HPI: 38-year-old male patient with recent diagnosis of multiple sclerosis, alcoholism , IBS presents to the emergency department today for the evaluation of lower extremity weakness/pain resulting in multiple falls, episodes of confusion, bladder incontinence. As per patient's Mother MRI was done a month ago Revealing multiple lesions consistent with multiple sclerosis. Patient is currently alert and oriented. Denies fever, chills, nausea and vomiting, headache, blurry vision, hearing deficits, lightheadedness/dizziness, chest pain , numbness, associated symptoms. Initial vital signs: BP 102/70, pulse 102, respirations 17, temp 97.9, pulse ox 96% on room air Abnormal labs: Elevated troponin I 82 LDL 161 RADIOLOGY - XR CHEST 1 V 02/19 1216 IMPRESSION: No evidence of acute cardiopulmonary abnormality. CAT SCAN - CT HEAD/BRAIN W/O CONT 02/19 1330 IMPRESSION: There is no imaging evidence of acute intracranial pathology. CAT SCAN - CTA HEAD 02/19 1331 IMPRESSION: Unremarkable CTA of the head. Review of Systems Additional notes: Constitutional: Reports: generalized weakness. Denies: chills, fatigue, fever, lethargy, malaise, recent wt loss, other. Respiratory: Denies: MANDUJANO (dyspnea on exertion), hemoptysis, non productive cough, parox nocturnal dyspnea, pleurisy, pleuritic pain, pneumonia, productive cough (sputum), SOB, wheezing, other. Cardiovascular: Denies: chest pain, MANDUJANO (dyspnea on exertion), edema, orthopnea, palpitations, parox nocturnal dyspnea, other. GI: Denies: abdominal pain, anorexia, constipation, diarrhea, dysphagia, GERD, hematemesis, hematochezia, hiatal hernia, melena, nausea, rectal pain, vomiting, other. : Denies: dysuria, flank pain, frequency, hematuria, nocturia, penile discharge, penile lesion, testicular pain, testicular swelling, urgency, urinary retention, other. Musculoskeletal: Extremity pain: Reports: left lower, right lower. Neuro: Denies: bladder dysfunction, bowel dysfunction, change in LOC, confusion, dizziness, focal weakness, gait problem, headache, lightheaded, numbness, seizure, slurred speech, spinning sensation, syncope, unable to speak, vision change, weakness, other. Psych: Denies: agitation, anxiety, auditory hallucination, change in mental status, confusion, delusional, depression, homicidal ideation, hostile, insomnia, stress, suicidal ideation, visual hallucination, other. Objective General VS/I O: Vital Signs Date Temp Pulse Resp B/P B/P Mean Pulse Ox FiO2 03/16-03/17 36.4-36.7 67-94 12-16 92-106/53-69 65.9-81.5 94-97 Last Documented: Result Date Time Pulse Ox 96 03/17 1610 B/P 101/67 03/17 1610 B/P Mean 78.4 03/17 1610 Temp 36.7 03/17 1610 Pulse 81 03/17 1610 Resp 16 03/17 1610 O2 Delivery Room air 03/17 0401 O2 Flow Rate 2 02/20 1228 PATIENT WEIGHT: Weight (lb): Weight (oz): Weight (kg): 75.000 Medications: Active Meds + DC'd Last 24 Hrs Ibuprofen (IBUPROFEN) 400 MG Q12H PRN PRN PO Midodrine (PROAMATINE) 5 MG Q8H PRN PRN PO Diagnosis, Assessment Plan Hospital course to date: General appearance: alert, awake Head/Eyes: atraumatic, clear cornea, EOMI, normocephalic, normal conjunctiva/ sclera, normal eyelids/periorb, PERRLA Neck: no JVD Cardiovascular: regular rate rhythm Respiratory: decreased breath sounds, no distress, no tenderness Abdomen/GI: active bowel sounds, soft, non-tender, no guarding, no rebound, no distention, no mass/organomegaly, no pulsatile mass, no hernia, normal abdominal aorta Abdomen quadrants: LLQ normal bowel sounds, LUQ normal bowel sounds, RLQ normal bowel sounds, RUQ normal bowel sounds Extremities: moves all, no edema-all extremities, normal capillary refill, normal range of motion, normal sensory, normal motor function Neuro/CRYSTALIZER TENDER: alert, oriented X 3 Skin: dry, intact, no gross abnormalities Psychiatry: no hallucinations, normal affect, normal judgment/insight, normal mood, not homicidal, not suicidal Problem List/A P: 1. Multiple sclerosis Consultants: neurology Free Text DxA P Notes Free text DxA P notes: Assessment: 38-year-old male patient with recent diagnosis of multiple sclerosis, alcoholism , IBS presents to the emergency department today for the evaluation of lower extremity weakness/pain resulting in multiple falls, episodes of confusion, bladder incontinence. As per patient's Mother MRI was done a month ago Revealing multiple lesions consistent with multiple sclerosis. Patient is currently alert and oriented. Denies fever, chills, nausea and vomiting, headache, blurry vision, hearing deficits, lightheadedness/dizziness, chest pain , numbness, associated symptoms. 1. Multiple sclerosis 2. Lower extremity weakness/pain resulting to multiple falls 3. Confusion 4. Bladder incontinence 5. Mildly elevated troponin 82 6. HLD- LDL 61 7. History of alcoholism, IBS Plan of care: Admit patient for further evaluation and treatment Fall precaution Tylenol extra strength 1000 mg p.o. given stat, methylprednisolone stat Drug abuse screen Neuro consult placed Telemetry BP control Glycemic control Pain control Electrolyte control DVT/GI prophylaxis Follow-up labs, images 02/21/2024 Vital signs are within normal limits MRI brain: scattered white matter lesions consistent with demyelination noted. No abnormal enhancement MRI c-spine: no abnormal cord signal or enhancement Neuro is following. Recommends screen and correct any underlying toxic or metabolic process contributing to symptoms. PT/OT Fall precaution Continue supportive care 02/22/2024 Soft BP, latest 91/59 No acute events overnight Neuro is following. MRI of the T-spine pending results PT/OT consult placed On regular diet now Fall and safety precaution, follow-up images, continue medications and supportive care 02/23/2024 No acute events overnight BP 97/65 MRI of the T-spine is unremarkable Continue PT/OT Case management consult placed Continue supportive care 02/24/2024 Vital signs are stable No acute events overnight. No new neurologic symptoms. Neuro noted no active lesion on MRI, no acute findings. Orders to continue PT/ OT/rehab evaluations Fall and safety precaution Continue supportive care 02/25/2024 Vital signs are within normal limits. No new complaints Stable Continue OT management Ongoing discharge planning Fall and safety precaution, continue supportive care 02/26/2024 No acute events overnight Vital signs are stable Ongoing discharge planning Fall and safety precaution, continue supportive care 02/27/2024 Stable Neuro is following Rehab has seen the patient. Noted patient may have to discharge to SNF versus custodial versus fpc. Recommends social media marketing analyst to assist with placement. Continue PT/OT management Patient is scheduled for image guided lumbar puncture tomorrow per Dr. Martinez. Monitor accordingly Pain control Continue supportive care 02/28/2024 Status post image guided lumbar puncture. Procedure per Dr. Martinez. 15.5 mL of clear spinal fluid was removed and sent to lab. The patient tolerated the procedure well. Pain control Rehab is following Follow-up cultures Continue present care 02/29/2024 Vital signs are within normal limits No acute events overnight Started on midodrine 5 mg p.o. every 8 hours as needed for hypotension PT management Follow-up labs, fall and safety precaution, continue present care 03/01/2024 Stable, latest BP 96/55 No new complaints Started on [place] to 1 tab p.o. every 8 hours as needed for pain PS 4-10. Continue midodrine 5 mg p.o. every 8 hours as needed for hypotension PT/OT Fall and safety precaution, follow-up labs, continue medications and present care 03/02/2024 BP 94/61 Final body fluid culture shows no growth after 72 hours Continue hypotensive precaution. On midodrine Pain control Discharge planning: Patient does not qualify for inpatient rehab bed. Pending final discharge placement, SNF versus custodial versus fpc. ordnance equipment worker to assist with placement OT for evaluation Fall and safety precaution, continue supportive care 03/03/2024 BP 95/64 No acute events overnight Patient continues to get OOB daily with assistance per rehab Pain medications as needed. Continue on midodrine Ongoing discharge planning Fall precaution Continue supportive care 03/04/2024 Latest BP 92/56, otherwise stable No new complaints Continue BP control, pain medications as needed - Ibuprofen 400 mg p.o. every 12 hours given as needed PT/OT Fall and safety precaution, continue medications and supportive care 03/05/2024 Noted hypotensive episode. Blood pressure now better, latest 99/64. No acute events overnight [place] is discontinued. Last dose given today [place] is discontinued, last dose given today. Continue with ibuprofen 400 mg p.o. every 12 hours as needed for pain Continue midodrine for BP support PT/OT Continue supportive care 03/06/2024 No acute events overnight Ongoing discharge planning. Pending facility acceptance at [facility]. Following for updates Continue medications and supportive care. 03/07/2024 BP 91/58 Continue with midodrine 5 mg p.o. every 8 hours for BP support Ibuprofen as needed Gait training with PT Fall and safety precaution, continue supportive care 03/08/2024 No acute events overnight Patient's BP remains on the low side, latest 94/55 Stable Midodrine for BP support, continue ibuprofen as needed Ongoing discharge planning. Continue present care 03/09/2024 Patient in no acute distress. Stable Continues to work with therapy. Gait training with PT Pain medications as needed, on midodrine as needed for BP support Discharge planning: For [facility]. Pending insurance authorization Continue supportive care 03/10/2024 Vital signs are within normal limits Negative CINTHIA screen Rehab orders to continue with OOB daily, PT/OT Pain control with ibuprofen as needed. Midodrine for BP support Fall and safety precaution Continue medications and supportive care 03/11/2024 Latest BP 90/53 No acute events overnight Continue midodrine for BP support, ibuprofen as needed for pain Fall and safety precaution, continue present care 03/12/2024 Stable Patient has no new complaints Rehab has seen the patient. Patient reports still feeling weak. Encouraged sitting on the bedside chair throughout the day. Pain medications as needed Continue on midodrine Gait training with PT Continue supportive care 03/13/2024 No acute events overnight Nonreactive CSF VDRL Continue gait training per PT Ongoing discharge planning. Pending insurance authorization to [facility] Fall and safety precaution, pain control, BP support with midodrine Continue supportive care 03/14/2024 Vital signs are within normal limits, latest BP 98/65 No acute events overnight Still awaiting for insurance authorizations to [facility] Gait training with PT Fall and safety precaution, continue medications and supportive care 03/15/2024 No acute events overnight Stable vital signs Status remains the same Discharge planning: Still awaiting for insurance authorization for SNF PT management, pain medications as needed, midodrine for BP support Continue supportive care 03/16/2024 No new complaints Rehab recommendations noted Continue gait training with PT Pain medications as needed. Continue midodrine for BP support Ongoing discharge planning. Pending insurance authorization for [facility] Fall and safety precaution, continue medications and supportive care 03/17/2024 Vital signs are within normal limits No acute events overnight Continue training with PT BP support and midodrine Continue on ibuprofen 400 mg p.o. every 12 hours as needed Discharge planning: [facility] confirms authorization is still pending. Monitor accordingly, fall and safety precaution, continue supportive care Jeremy Paige I 03/17/24 1822: Attestations Physician Attestation Agree w/findings plan: I Agree with the findings and plan as documented by ANALY Sotomayor. Plan of care coordinated with ANALY Sotomayor. Pertinent labs, Imaging, and information consultant evaluations reviewed. Patient's VS are stable overnight. Monitor accordingly. Rehab on board, continue comprehensive therapies. Discharge planning ongoing, pending insurance authorization for [facility]. Continue current medications as needed. Fall and safety precaution. Continue with supportive care. at 0231 at 1119 RPT #:[id number] END OF REPORT [facility] 2024-03-17 03:37:00 [facility] ([facility]) Clinical Note REPORT#:[id number] REPORT STATUS: Signed REPORT INITIALIZATION DATE:03/17/24 TIME: 0337 PATIENT: CHRISS HUGGINS UNIT #: [id number] ROOM/BED: [place] [address] : 85 AGE: 38 SEX: M ATTEND: Jeremy Paige MD ADM AUTHOR: Jeremy Paige MD REPT SERVICE DT/TIME: 03/17/24 0337 * ALL edits or amendments must be made on the electronic/computer document * Clinical Note Note: Patient with recent diagnosis of multiple sclerosis, alcoholism and IBS presents for evaluation of lower extremity weakness and pain resulting in multiple falls, episodes of confusion, and bladder incontinence. Past MRI reveals multiple lesions consistent with multiple sclerosis. Patient has mildly elevated troponin 82 and HDL-LDL 61 upon admission. Patient's VS are stable overnight. Monitor accordingly. Rehab on board, continue comprehensive therapies. Discharge planning ongoing, pending insurance authorization for [facility]. Continue current medications as needed. Fall and safety precaution. Continue with supportive care. at 1311 RPT #:[id number] END OF REPORT [facility] 2024-03-16 17:06:00 [facility] Internal Medicine Prog. Note REPORT#:[id number] REPORT STATUS: Signed REPORT INITIALIZATION DATE:03/16/24 TIME: 1705 PATIENT: CHRISS HUGGINS UNIT #: [id number] ROOM/BED: 5518-1 : 85 AGE: 38 SEX: M ATTEND: Jeremy Paige MD ADM AUTHOR: Osmany Sotomayor NP REPT SERVICE DT/TIME: 03/16/24 1706 * ALL edits or amendments must be made on the electronic/computer document * Osmany Sotomayor 03/16/24 1706: Subjective Chief complaint: Multiple falls Lower extremity weakness Confusion Bladder incontinence HPI: 38-year-old male patient with recent diagnosis of multiple sclerosis, alcoholism , IBS presents to the emergency department today for the evaluation of lower extremity weakness/pain resulting in multiple falls, episodes of confusion, bladder incontinence. As per patient's Mother MRI was done a month ago Revealing multiple lesions consistent with multiple sclerosis. Patient is currently alert and oriented. Denies fever, chills, nausea and vomiting, headache, blurry vision, hearing deficits, lightheadedness/dizziness, chest pain , numbness, associated symptoms. Initial vital signs: BP 102/70, pulse 102, respirations 17, temp 97.9, pulse ox 96% on room air Abnormal labs: Elevated troponin I 82 LDL 161 RADIOLOGY - XR CHEST 1 V 02/19 1216 IMPRESSION: No evidence of acute cardiopulmonary abnormality. CAT SCAN - CT HEAD/BRAIN W/O CONT 02/19 1330 IMPRESSION: There is no imaging evidence of acute intracranial pathology. CAT SCAN - CTA HEAD 02/19 1331 IMPRESSION: Unremarkable CTA of the head. Review of Systems Additional notes: Constitutional: Reports: generalized weakness. Denies: chills, fatigue, fever, lethargy, malaise, recent wt loss, other. Respiratory: Denies: MANDUJANO (dyspnea on exertion), hemoptysis, non productive cough, parox nocturnal dyspnea, pleurisy, pleuritic pain, pneumonia, productive cough (sputum), SOB, wheezing, other. Cardiovascular: Denies: chest pain, MANDUJANO (dyspnea on exertion), edema, orthopnea, palpitations, parox nocturnal dyspnea, other. GI: Denies: abdominal pain, anorexia, constipation, diarrhea, dysphagia, GERD, hematemesis, hematochezia, hiatal hernia, melena, nausea, rectal pain, vomiting, other. : Denies: dysuria, flank pain, frequency, hematuria, nocturia, penile discharge, penile lesion, testicular pain, testicular swelling, urgency, urinary retention, other. Musculoskeletal: Extremity pain: Reports: left lower, right lower. Neuro: Denies: bladder dysfunction, bowel dysfunction, change in LOC, confusion, dizziness, focal weakness, gait problem, headache, lightheaded, numbness, seizure, slurred speech, spinning sensation, syncope, unable to speak, vision change, weakness, other. Psych: Denies: agitation, anxiety, auditory hallucination, change in mental status, confusion, delusional, depression, homicidal ideation, hostile, insomnia, stress, suicidal ideation, visual hallucination, other. Objective General VS/I O: Vital Signs Date Temp Pulse Resp B/P B/P Mean Pulse Ox FiO2 /05-03/16 36.1-36.8 64-92 14-16 92-114/52-78 64.9-90.4 94-97 Last Documented: Result Date Time Pulse Ox 95 03/16 1558 B/P 100/69 03/16 1558 B/P Mean 79.4 03/16 1558 Temp 36.6 03/16 1558 Pulse 75 03/16 1558 Resp 15 03/16 1558 O2 Delivery Room air 03/16 0019 O2 Flow Rate 2 02/20 1228 PATIENT WEIGHT: Weight (lb): Weight (oz): Weight (kg): 75.000 Medications: Active Meds + DC'd Last 24 Hrs Ibuprofen (IBUPROFEN) 400 MG Q12H PRN PRN PO Midodrine (PROAMATINE) 5 MG Q8H PRN PRN PO Diagnosis, Assessment Plan Hospital course to date: General appearance: alert, awake Head/Eyes: atraumatic, clear cornea, EOMI, normocephalic, normal conjunctiva/ sclera, normal eyelids/periorb, PERRLA Neck: no JVD Cardiovascular: regular rate rhythm Respiratory: decreased breath sounds, no distress, no tenderness Abdomen/GI: active bowel sounds, soft, non-tender, no guarding, no rebound, no distention, no mass/organomegaly, no pulsatile mass, no hernia, normal abdominal aorta Abdomen quadrants: LLQ normal bowel sounds, LUQ normal bowel sounds, RLQ normal bowel sounds, RUQ normal bowel sounds Extremities: moves all, no edema-all extremities, normal capillary refill, normal range of motion, normal sensory, normal motor function Neuro/CRYSTALIZER TENDER: alert, oriented X 3 Skin: dry, intact, no gross abnormalities Psychiatry: no hallucinations, normal affect, normal judgment/insight, normal mood, not homicidal, not suicidal Problem List/A P: 1. Multiple sclerosis Consultants: neurology Free Text DxA P Notes Free text DxA P notes: Assessment: 38-year-old male patient with recent diagnosis of multiple sclerosis, alcoholism , IBS presents to the emergency department today for the evaluation of lower extremity weakness/pain resulting in multiple falls, episodes of confusion, bladder incontinence. As per patient's Mother MRI was done a month ago Revealing multiple lesions consistent with multiple sclerosis. Patient is currently alert and oriented. Denies fever, chills, nausea and vomiting, headache, blurry vision, hearing deficits, lightheadedness/dizziness, chest pain , numbness, associated symptoms. 1. Multiple sclerosis 2. Lower extremity weakness/pain resulting to multiple falls 3. Confusion 4. Bladder incontinence 5. Mildly elevated troponin 82 6. HLD- LDL 61 7. History of alcoholism, IBS Plan of care: Admit patient for further evaluation and treatment Fall precaution Tylenol extra strength 1000 mg p.o. given stat, methylprednisolone stat Drug abuse screen Neuro consult placed Telemetry BP control Glycemic control Pain control Electrolyte control DVT/GI prophylaxis Follow-up labs, images 02/21/2024 Vital signs are within normal limits MRI brain: scattered white matter lesions consistent with demyelination noted. No abnormal enhancement MRI c-spine: no abnormal cord signal or enhancement Neuro is following. Recommends screen and correct any underlying toxic or metabolic process contributing to symptoms. PT/OT Fall precaution Continue supportive care 02/22/2024 Soft BP, latest 91/59 No acute events overnight Neuro is following. MRI of the T-spine pending results PT/OT consult placed On regular diet now Fall and safety precaution, follow-up images, continue medications and supportive care 02/23/2024 No acute events overnight BP 97/65 MRI of the T-spine is unremarkable Continue PT/OT Case management consult placed Continue supportive care 02/24/2024 Vital signs are stable No acute events overnight. No new neurologic symptoms. Neuro noted no active lesion on MRI, no acute findings. Orders to continue PT/ OT/rehab evaluations Fall and safety precaution Continue supportive care 02/25/2024 Vital signs are within normal limits. No new complaints Stable Continue OT management Ongoing discharge planning Fall and safety precaution, continue supportive care 02/26/2024 No acute events overnight Vital signs are stable Ongoing discharge planning Fall and safety precaution, continue supportive care 02/27/2024 Stable Neuro is following Rehab has seen the patient. Noted patient may have to discharge to SNF versus custodial versus fpc. Recommends social media marketing analyst to assist with placement. Continue PT/OT management Patient is scheduled for image guided lumbar puncture tomorrow per Dr. Martinez. Monitor accordingly Pain control Continue supportive care 02/28/2024 Status post image guided lumbar puncture. Procedure per Dr. Martinez. 15.5 mL of clear spinal fluid was removed and sent to lab. The patient tolerated the procedure well. Pain control Rehab is following Follow-up cultures Continue present care 02/29/2024 Vital signs are within normal limits No acute events overnight Started on midodrine 5 mg p.o. every 8 hours as needed for hypotension PT management Follow-up labs, fall and safety precaution, continue present care 03/01/2024 Stable, latest BP 96/55 No new complaints Started on [place] to 1 tab p.o. every 8 hours as needed for pain PS 4-10. Continue midodrine 5 mg p.o. every 8 hours as needed for hypotension PT/OT Fall and safety precaution, follow-up labs, continue medications and present care 03/02/2024 BP 94/61 Final body fluid culture shows no growth after 72 hours Continue hypotensive precaution. On midodrine Pain control Discharge planning: Patient does not qualify for inpatient rehab bed. Pending final discharge placement, SNF versus custodial versus fpc. ordnance equipment worker to assist with placement OT for evaluation Fall and safety precaution, continue supportive care 03/03/2024 BP 95/64 No acute events overnight Patient continues to get OOB daily with assistance per rehab Pain medications as needed. Continue on midodrine Ongoing discharge planning Fall precaution Continue supportive care 03/04/2024 Latest BP 92/56, otherwise stable No new complaints Continue BP control, pain medications as needed - Ibuprofen 400 mg p.o. every 12 hours given as needed PT/OT Fall and safety precaution, continue medications and supportive care 03/05/2024 Noted hypotensive episode. Blood pressure now better, latest 99/64. No acute events overnight [place] is discontinued. Last dose given today [place] is discontinued, last dose given today. Continue with ibuprofen 400 mg p.o. every 12 hours as needed for pain Continue midodrine for BP support PT/OT Continue supportive care 03/06/2024 No acute events overnight Ongoing discharge planning. Pending facility acceptance at [facility]. Following for updates Continue medications and supportive care. 03/07/2024 BP 91/58 Continue with midodrine 5 mg p.o. every 8 hours for BP support Ibuprofen as needed Gait training with PT Fall and safety precaution, continue supportive care 03/08/2024 No acute events overnight Patient's BP remains on the low side, latest 94/55 Stable Midodrine for BP support, continue ibuprofen as needed Ongoing discharge planning. Continue present care 03/09/2024 Patient in no acute distress. Stable Continues to work with therapy. Gait training with PT Pain medications as needed, on midodrine as needed for BP support Discharge planning: For [facility]. Pending insurance authorization Continue supportive care 03/10/2024 Vital signs are within normal limits Negative CINTHIA screen Rehab orders to continue with OOB daily, PT/OT Pain control with ibuprofen as needed. Midodrine for BP support Fall and safety precaution Continue medications and supportive care 03/11/2024 Latest BP 90/53 No acute events overnight Continue midodrine for BP support, ibuprofen as needed for pain Fall and safety precaution, continue present care 03/12/2024 Stable Patient has no new complaints Rehab has seen the patient. Patient reports still feeling weak. Encouraged sitting on the bedside chair throughout the day. Pain medications as needed Continue on midodrine Gait training with PT Continue supportive care 03/13/2024 No acute events overnight Nonreactive CSF VDRL Continue gait training per PT Ongoing discharge planning. Pending insurance authorization to [facility] Fall and safety precaution, pain control, BP support with midodrine Continue supportive care 03/14/2024 Vital signs are within normal limits, latest BP 98/65 No acute events overnight Still awaiting for insurance authorizations to [facility] Gait training with PT Fall and safety precaution, continue medications and supportive care 03/15/2024 No acute events overnight Stable vital signs Status remains the same Discharge planning: Still awaiting for insurance authorization for SNF PT management, pain medications as needed, midodrine for BP support Continue supportive care 03/16/2024 No new complaints Rehab recommendations noted Continue gait training with PT Pain medications as needed. Continue midodrine for BP support Ongoing discharge planning. Pending insurance authorization for [facility] Fall and safety precaution, continue medications and supportive care Jeremy Paige I 03/16/24 1945: Attestations Physician Attestation Agree w/findings plan: I Agree with the findings and plan as documented by ANALY Sotomayor. Plan of care coordinated with ANALY Sotomayor. Pertinent labs, Imaging, and information consultant evaluations reviewed. Patient alert and awake, no acute distress. Stable VS overnight, monitor accordingly. Continue ibuprofen and midodrine. Fall and safety precautions. Continue PT and OT evaluation as tolerated. Continue supportive care. at 0152 at 2334 RPT #:[id number] END OF REPORT [facility] 2024-03-16 11:27:00 [facility] ([facility]) Rehab Progress Note REPORT#:[id number] REPORT STATUS: Signed REPORT INITIALIZATION DATE:03/16/24 TIME: 1126 PATIENT: CHRISS HUGGINS UNIT #: [id number] ROOM/BED: 5518-1 : 85 AGE: 38 SEX: M ATTEND: Jeremy Paige MD ADM AUTHOR: Kathia Garay PA-C REPT SERVICE DT/TIME: 03/16/24 112 * ALL edits or amendments must be made on the electronic/computer document * Subjective Chief complaint: Pt seen and examined. NO acute distress. In bed. States has been up this a.m. to walk to the bathoom. Upset about ll the [employer] calling him and he is blocking all their numbers. Objective General VS: Vital Signs: Date Time Temp Pulse Resp B/P B/P Pulse O2 O2 Flow FiO2 Mean Ox Delivery Rate 03/16 1117 97.9 81 16 95/61 72.2 97 03/16 0722 97.5 70 16 92/60 70.9 94 03/16 0421 97.0 80 14 93/57 68.8 96 03/16 0019 98.1 64 14 92/52 64.9 96 Room air 03/15 2007 98.2 92 16 114/78 90.4 96 Room air 03/15 1547 98.4 78 17 94/62 72.6 93 03/15 1154 98.1 75 17 101/63 75.5 94 PATIENT WEIGHT: Weight (lb): Weight (oz): Weight (kg): 75.000 Medications: Active Meds + DC'd Last 24 Hrs Ibuprofen (IBUPROFEN) 400 MG Q12H PRN PRN PO Midodrine (PROAMATINE) 5 MG Q8H PRN PRN PO Functional Progress Functional progress: ne on one supervision with cueing and assistance provided to ensure proper performance of all activities. Yes Precautions: Fall Pre- Gait Mobility Y/N: Yes Safety addressed through use of: Gait Belt Verbal Cues Tactile Cues Gait Device RW Weightbearing: No Restriction Ambulation Distance: 200' CGA Progression: Forward Backward Lateral, Right Lateral, Left Gait Deviations: Base of Support - Wide Head Down unsteady less R knee buckling hyperextending Unsteady at times Effects of Treatment: Balance Improved Function Improved Gait quality improved Post Treatment Precautions: In Bed, Rails Up Bed Alarm Suture Polisher Light in Reach Nursing Notified Review Plan of Care: Yes PT charges: Gait Training [id number] Gait Cmt: Pt tolerated tx well working on gait. V/c's to slow aaron focus on stabilizing R knee. If this is the patient's last treatment, this entry Start Time: 1301 Stop Time: 1325 Treatment Time: ( minutes) 0:24 Completed by: Audie Duckworth Conference/Supervising PT: Yes Supervising Therapist: Virginia Alejo BED MOBILITY: Yes Supine to Sit: Modified [place] Sit to Supine: Modified [place] Scooting in bed: Modified [place] TRANSFERS: Yes Bed to/from chair: Supervision or Set-up Sit to/from stand: Supervision or Set-up CARDIO-RESPIRATORY IMPAIRMENT Items determined to be OUTSIDE the Functional Limits are as follows: Physical Exam General appearance: alert, awake, oriented HEENT: anicteric, mucosal membranes moist, sclera clear Neck: supple, no JVD Cardiovascular: regular rate rhythm, S1/S2, no murmur Respiratory: aerating well, clear bilaterally Abdomen: bowel sounds present, non-distended, soft, non-tender Skin: dry, normal temperature Musculoskeletal - general: Musculoskeletal - general: joints normal, range of motion normal, strength testing normal, mild intrinsic wasting Neuro/CRYSTALIZER TENDER: alert, oriented X 3, normal speech, no motor deficits, no sensory deficits Diagnosis, Assessment Plan Problem List/A P: 1. Multiple sclerosis 2. Debility 3. IBS (irritable bowel syndrome) Free Text A P: Plan: Physical therapy and Occupational therapy evaluated the patient. He ambulated 200 feet min assist to supervision and per Occupational Therapy was independent to modified independent with ADLs. Occupational Therapy signed off his case. He does not currently qualify for inpatient rehabilitation. He would likely benefit from some outpatient therapy but unfortunately does not have a vehicle transportation. Discussed with him about his living situation and currently appears to be homeless. He will benefit from discharging home with family for the added support, but it does not sound as though that will be the case. May have to discharge to a longterm facility versus custodial versus fpc. Recommend social media marketing analyst to assist with placement. 03/02: Seen. He has been getting OOB daily. Making gains on mobility. He is ambulating with RW at MIN A. He did fatigue after gait. Pain controlled. Encourage OOB in the bedside chair. 03/03: PT seen. Continue OOB daily. Assistance when OOB. No pain. SNF pending. 03/05: Continue with therapy as tolerated. SNF pending 03/06/24: Continue with therapy services. Doing well; working on balance, endurance, etc. Pending placement. 03/09: He continues to work with therapy. MIN A with gait. OOB daily. Encourage him to be out pf the bed more to the chair. SNF pending. 03/10: Pt seen. Continue OOB daily. PT/OT. 03/12: :Pt seen. Encourage sitting in th echair. He does not seem keen on the idea of sitting in the chair. States he still feels week. I explained to him that I recommend sitting in the bedside chair throughout the dqay instead of lying in bed. 03/16: Pt seen. OOB daily. Discussed again with him the importance of sitting in the recliner vs the bed all day. OOB with assistance. CGA with gait. Consultants: neurology Rehab attestation: Face to face exam completed. Treatment plan discussed with patient. at 1129 RPT #:[id number] END OF REPORT [facility] 2024-03-16 04:00:00 [facility] ([facility] Clinical Note REPORT#:[id number] REPORT STATUS: Signed REPORT INITIALIZATION DATE:03/16/24 TIME: 399 PATIENT: CHRISS HUGGINS UNIT #: [id number] ROOM/BED: 5518-1 : 85 AGE: 38 SEX: M ATTEND: Jeremy Paige MD ADM AUTHOR: Jeremy Paige MD REPT SERVICE DT/TIME: 03/16/24 0400 * ALL edits or amendments must be made on the electronic/computer document * Clinical Note Note: Patient with recent diagnosis of multiple sclerosis, alcoholism and IBS presents for evaluation of lower extremity weakness and pain resulting in multiple falls, episodes of confusion, and bladder incontinence. Past MRI reveals multiple lesions consistent with multiple sclerosis. Patient has mildly elevated troponin 82 and HDL-LDL 61 upon admission. Patient alert and awake, no acute distress. Stable VS overnight, monitor accordingly. Continue ibuprofen and midodrine. Fall and safety precautions. Continue PT and OT evaluation as tolerated. Continue supportive care. at 1310 RPT #:[id number] END OF REPORT [facility] 2024-03-15 21:38:00 [facility] Clinical Note REPORT#:[id number] REPORT STATUS: Signed REPORT INITIALIZATION DATE:03/15/24 TIME: 2137 PATIENT: CHRISS HUGGINS UNIT #: [id number] ROOM/BED: [place] [address] : 85 AGE: 38 SEX: M ATTEND: Jeremy Paige MD ADM AUTHOR: Jeremy Paige MD REPT SERVICE DT/TIME: 03/15/242137 * ALL edits or amendments must be made on the electronic/computer document * Clinical Note Note: Patient with recent diagnosis of multiple sclerosis, alcoholism and IBS presents for evaluation of lower extremity weakness and pain resulting in multiple falls, episodes of confusion, and bladder incontinence. Past MRI reveals multiple lesions consistent with multiple sclerosis. Patient has mildly elevated troponin 82 and HDL-LDL 61 upon admission. Patient's VS are stable overnight, monitor continuously. Continue ibuprofen and midodrine. PT/OT evaluation and treatment as tolerated. Continue supportive care. at 1323 RPT #:[id number] END OF REPORT [facility] 2024-03-15 16:21:00 [facility]) Internal Medicine Prog. Note REPORT#:[id number] REPORT STATUS: Signed REPORT INITIALIZATION DATE:03/15/24 TIME: 1620 PATIENT: CHRISS HUGGINS UNIT #: [id number] ROOM/BED: [place] [address] : 85 AGE: 38 SEX: M ATTEND: Jeremy Paige MD ADM AUTHOR: Osmany Sotomayor NP REPT SERVICE DT/TIME: 03/15/24 1621 * ALL edits or amendments must be made on the electronic/computer document * Osmany Sotomayor 03/15/24 1621: Subjective Chief complaint: Multiple falls Lower extremity weakness Confusion Bladder incontinence HPI: 38-year-old male patient with recent diagnosis of multiple sclerosis, alcoholism , IBS presents to the emergency department today for the evaluation of lower extremity weakness/pain resulting in multiple falls, episodes of confusion, bladder incontinence. As per patient's Mother MRI was done a month ago Revealing multiple lesions consistent with multiple sclerosis. Patient is currently alert and oriented. Denies fever, chills, nausea and vomiting, headache, blurry vision, hearing deficits, lightheadedness/dizziness, chest pain , numbness, associated symptoms. Initial vital signs: BP 102/70, pulse 102, respirations 17, temp 97.9, pulse ox 96% on room air Abnormal labs: Elevated troponin I 82 LDL 161 RADIOLOGY - XR CHEST 1 V 02/19 1216 IMPRESSION: No evidence of acute cardiopulmonary abnormality. CAT SCAN - CT HEAD/BRAIN W/O CONT 02/19 1330 IMPRESSION: There is no imaging evidence of acute intracranial pathology. CAT SCAN - CTA HEAD 02/19 1331 IMPRESSION: Unremarkable CTA of the head. Review of Systems Additional notes: Constitutional: Reports: generalized weakness. Denies: chills, fatigue, fever, lethargy, malaise, recent wt loss, other. Respiratory: Denies: MANDUJANO (dyspnea on exertion), hemoptysis, non productive cough, parox nocturnal dyspnea, pleurisy, pleuritic pain, pneumonia, productive cough (sputum), SOB, wheezing, other. Cardiovascular: Denies: chest pain, MANDUJANO (dyspnea on exertion), edema, orthopnea, palpitations, parox nocturnal dyspnea, other. GI: Denies: abdominal pain, anorexia, constipation, diarrhea, dysphagia, GERD, hematemesis, hematochezia, hiatal hernia, melena, nausea, rectal pain, vomiting, other. : Denies: dysuria, flank pain, frequency, hematuria, nocturia, penile discharge, penile lesion, testicular pain, testicular swelling, urgency, urinary retention, other. Musculoskeletal: Extremity pain: Reports: left lower, right lower. Neuro: Denies: bladder dysfunction, bowel dysfunction, change in LOC, confusion, dizziness, focal weakness, gait problem, headache, lightheaded, numbness, seizure, slurred speech, spinning sensation, syncope, unable to speak, vision change, weakness, other. Psych: Denies: agitation, anxiety, auditory hallucination, change in mental status, confusion, delusional, depression, homicidal ideation, hostile, insomnia, stress, suicidal ideation, visual hallucination, other. Objective General VS/I O: Vital Signs Date Temp Pulse Resp B/P B/P Mean Pulse Ox FiO2 /-03/15 36.6-36.9 75-81 14-17 90-101/52-65 64.4-75.9 93-97 Last Documented: Result Date Time Pulse Ox 93 03/15 1547 B/P 94/62 03/15 1547 B/P Mean 72.6 03/15 1547 Temp 36.9 03/15 1547 Pulse 78 03/15 1547 Resp 17 03/15 1547 O2 Delivery Room air 03/15 0415 O2 Flow Rate 2 02/20 1228 PATIENT WEIGHT: Weight (lb): Weight (oz): Weight (kg): 75.000 Medications: Active Meds + DC'd Last 24 Hrs Ibuprofen (IBUPROFEN) 400 MG Q12H PRN PRN PO Midodrine (PROAMATINE) 5 MG Q8H PRN PRN PO Diagnosis, Assessment Plan Hospital course to date: General appearance: alert, awake Head/Eyes: atraumatic, clear cornea, EOMI, normocephalic, normal conjunctiva/ sclera, normal eyelids/periorb, PERRLA Neck: no JVD Cardiovascular: regular rate rhythm Respiratory: decreased breath sounds, no distress, no tenderness Abdomen/GI: active bowel sounds, soft, non-tender, no guarding, no rebound, no distention, no mass/organomegaly, no pulsatile mass, no hernia, normal abdominal aorta Abdomen quadrants: LLQ normal bowel sounds, LUQ normal bowel sounds, RLQ normal bowel sounds, RUQ normal bowel sounds Extremities: moves all, no edema-all extremities, normal capillary refill, normal range of motion, normal sensory, normal motor function Neuro/CRYSTALIZER TENDER: alert, oriented X 3 Skin: dry, intact, no gross abnormalities Psychiatry: no hallucinations, normal affect, normal judgment/insight, normal mood, not homicidal, not suicidal Problem List/A P: 1. Multiple sclerosis Consultants: neurology Free Text DxA P Notes Free text DxA P notes: Assessment: 38-year-old male patient with recent diagnosis of multiple sclerosis, alcoholism , IBS presents to the emergency department today for the evaluation of lower extremity weakness/pain resulting in multiple falls, episodes of confusion, bladder incontinence. As per patient's Mother MRI was done a month ago Revealing multiple lesions consistent with multiple sclerosis. Patient is currently alert and oriented. Denies fever, chills, nausea and vomiting, headache, blurry vision, hearing deficits, lightheadedness/dizziness, chest pain , numbness, associated symptoms. 1. Multiple sclerosis 2. Lower extremity weakness/pain resulting to multiple falls 3. Confusion 4. Bladder incontinence 5. Mildly elevated troponin 82 6. HLD- LDL 61 7. History of alcoholism, IBS Plan of care: Admit patient for further evaluation and treatment Fall precaution Tylenol extra strength 1000 mg p.o. given stat, methylprednisolone stat Drug abuse screen Neuro consult placed Telemetry BP control Glycemic control Pain control Electrolyte control DVT/GI prophylaxis Follow-up labs, images 02/21/2024 Vital signs are within normal limits MRI brain: scattered white matter lesions consistent with demyelination noted. No abnormal enhancement MRI c-spine: no abnormal cord signal or enhancement Neuro is following. Recommends screen and correct any underlying toxic or metabolic process contributing to symptoms. PT/OT Fall precaution Continue supportive care 02/22/2024 Soft BP, latest 91/59 No acute events overnight Neuro is following. MRI of the T-spine pending results PT/OT consult placed On regular diet now Fall and safety precaution, follow-up images, continue medications and supportive care 02/23/2024 No acute events overnight BP 97/65 MRI of the T-spine is unremarkable Continue PT/OT Case management consult placed Continue supportive care 02/24/2024 Vital signs are stable No acute events overnight. No new neurologic symptoms. Neuro noted no active lesion on MRI, no acute findings. Orders to continue PT/ OT/rehab evaluations Fall and safety precaution Continue supportive care 02/25/2024 Vital signs are within normal limits. No new complaints Stable Continue OT management Ongoing discharge planning Fall and safety precaution, continue supportive care 02/26/2024 No acute events overnight Vital signs are stable Ongoing discharge planning Fall and safety precaution, continue supportive care 02/27/2024 Stable Neuro is following Rehab has seen the patient. Noted patient may have to discharge to SNF versus custodial versus fpc. Recommends social media marketing analyst to assist with placement. Continue PT/OT management Patient is scheduled for image guided lumbar puncture tomorrow per Dr. Martinez. Monitor accordingly Pain control Continue supportive care 02/28/2024 Status post image guided lumbar puncture. Procedure per Dr. Martinez. 15.5 mL of clear spinal fluid was removed and sent to lab. The patient tolerated the procedure well. Pain control Rehab is following Follow-up cultures Continue present care 02/29/2024 Vital signs are within normal limits No acute events overnight Started on midodrine 5 mg p.o. every 8 hours as needed for hypotension PT management Follow-up labs, fall and safety precaution, continue present care 03/01/2024 Stable, latest BP 96/55 No new complaints Started on [place] to 1 tab p.o. every 8 hours as needed for pain PS 4-10. Continue midodrine 5 mg p.o. every 8 hours as needed for hypotension PT/OT Fall and safety precaution, follow-up labs, continue medications and present care 03/02/2024 BP 94/61 Final body fluid culture shows no growth after 72 hours Continue hypotensive precaution. On midodrine Pain control Discharge planning: Patient does not qualify for inpatient rehab bed. Pending final discharge placement, SNF versus custodial versus fpc. ordnance equipment worker to assist with placement OT for evaluation Fall and safety precaution, continue supportive care 03/03/2024 BP 95/64 No acute events overnight Patient continues to get OOB daily with assistance per rehab Pain medications as needed. Continue on midodrine Ongoing discharge planning Fall precaution Continue supportive care 03/04/2024 Latest BP 92/56, otherwise stable No new complaints Continue BP control, pain medications as needed - Ibuprofen 400 mg p.o. every 12 hours given as needed PT/OT Fall and safety precaution, continue medications and supportive care 03/05/2024 Noted hypotensive episode. Blood pressure now better, latest 99/64. No acute events overnight [place] is discontinued. Last dose given today [place] is discontinued, last dose given today. Continue with ibuprofen 400 mg p.o. every 12 hours as needed for pain Continue midodrine for BP support PT/OT Continue supportive care 03/06/2024 No acute events overnight Ongoing discharge planning. Pending facility acceptance at [facility]. Following for updates Continue medications and supportive care. 03/07/2024 BP 91/58 Continue with midodrine 5 mg p.o. every 8 hours for BP support Ibuprofen as needed Gait training with PT Fall and safety precaution, continue supportive care 03/08/2024 No acute events overnight Patient's BP remains on the low side, latest 94/55 Stable Midodrine for BP support, continue ibuprofen as needed Ongoing discharge planning. Continue present care 03/09/2024 Patient in no acute distress. Stable Continues to work with therapy. Gait training with PT Pain medications as needed, on midodrine as needed for BP support Discharge planning: For [facility]. Pending insurance authorization Continue supportive care 03/10/2024 Vital signs are within normal limits Negative CINTHIA screen Rehab orders to continue with OOB daily, PT/OT Pain control with ibuprofen as needed. Midodrine for BP support Fall and safety precaution Continue medications and supportive care 03/11/2024 Latest BP 90/53 No acute events overnight Continue midodrine for BP support, ibuprofen as needed for pain Fall and safety precaution, continue present care 03/12/2024 Stable Patient has no new complaints Rehab has seen the patient. Patient reports still feeling weak. Encouraged sitting on the bedside chair throughout the day. Pain medications as needed Continue on midodrine Gait training with PT Continue supportive care 03/13/2024 No acute events overnight Nonreactive CSF VDRL Continue gait training per PT Ongoing discharge planning. Pending insurance authorization to [facility] Fall and safety precaution, pain control, BP support with midodrine Continue supportive care 03/14/2024 Vital signs are within normal limits, latest BP 98/65 No acute events overnight Still awaiting for insurance authorizations to [facility] Gait training with PT Fall and safety precaution, continue medications and supportive care 03/15/2024 No acute events overnight Stable vital signs Status remains the same Discharge planning: Still awaiting for insurance authorization for SNF PT management, pain medications as needed, midodrine for BP support Continue supportive care Jeremy Paige I 03/15/243: Attestations Physician Attestation Agree w/findings plan: I Agree with the findings and plan as documented by ANALY Sotomayor. Plan of care coordinated with ANALY Sotomayor. Pertinent labs, Imaging, and information consultant evaluations reviewed. Patient's VS are stable overnight, monitor continuously. Continue ibuprofen and midodrine. PT/OT evaluation and treatment as tolerated. Continue supportive care. at 0100 at 1118 RPT #:[id number] END OF REPORT [facility] 2024-03-14 22:06:00 [facility] Internal Medicine Prog. Note REPORT#:[id number] REPORT STATUS: Signed REPORT INITIALIZATION DATE:03/14/24 TIME: 2205 PATIENT: CHRISS HUGGINS UNIT #: [id number] ROOM/BED: [place] [address] : 85 AGE: 38 SEX: M ATTEND: Jeremy Paige MD ADM AUTHOR: Osmany Sotomayor NP REPT SERVICE DT/TIME: 03/14/242205 * ALL edits or amendments must be made on the electronic/computer document * Osmany Sotomayor 03/14/242205: Subjective Chief complaint: Multiple falls Lower extremity weakness Confusion Bladder incontinence HPI: 38-year-old male patient with recent diagnosis of multiple sclerosis, alcoholism , IBS presents to the emergency department today for the evaluation of lower extremity weakness/pain resulting in multiple falls, episodes of confusion, bladder incontinence. As per patient's Mother MRI was done a month ago Revealing multiple lesions consistent with multiple sclerosis. Patient is currently alert and oriented. Denies fever, chills, nausea and vomiting, headache, blurry vision, hearing deficits, lightheadedness/dizziness, chest pain , numbness, associated symptoms. Initial vital signs: BP 102/70, pulse 102, respirations 17, temp 97.9, pulse ox 96% on room air Abnormal labs: Elevated troponin I 82 LDL 161 RADIOLOGY - XR CHEST 1 V 02/19 1216 IMPRESSION: No evidence of acute cardiopulmonary abnormality. CAT SCAN - CT HEAD/BRAIN W/O CONT 02/19 1330 IMPRESSION: There is no imaging evidence of acute intracranial pathology. CAT SCAN - CTA HEAD 02/19 1331 IMPRESSION: Unremarkable CTA of the head. Review of Systems Additional notes: Constitutional: Reports: generalized weakness. Denies: chills, fatigue, fever, lethargy, malaise, recent wt loss, other. Respiratory: Denies: MANDUJANO (dyspnea on exertion), hemoptysis, non productive cough, parox nocturnal dyspnea, pleurisy, pleuritic pain, pneumonia, productive cough (sputum), SOB, wheezing, other. Cardiovascular: Denies: chest pain, MANDUJANO (dyspnea on exertion), edema, orthopnea, palpitations, parox nocturnal dyspnea, other. GI: Denies: abdominal pain, anorexia, constipation, diarrhea, dysphagia, GERD, hematemesis, hematochezia, hiatal hernia, melena, nausea, rectal pain, vomiting, other. : Denies: dysuria, flank pain, frequency, hematuria, nocturia, penile discharge, penile lesion, testicular pain, testicular swelling, urgency, urinary retention, other. Musculoskeletal: Extremity pain: Reports: left lower, right lower. Neuro: Denies: bladder dysfunction, bowel dysfunction, change in LOC, confusion, dizziness, focal weakness, gait problem, headache, lightheaded, numbness, seizure, slurred speech, spinning sensation, syncope, unable to speak, vision change, weakness, other. Psych: Denies: agitation, anxiety, auditory hallucination, change in mental status, confusion, delusional, depression, homicidal ideation, hostile, insomnia, stress, suicidal ideation, visual hallucination, other. Objective General VS/I O: Vital Signs: Date Time Temp Pulse Resp B/P B/P Pulse O2 O2 Flow FiO2 Mean Ox Delivery Rate 03/14 1909 36.9 81 14 98/65 75.9 95 Room air 03/14 1601 36.8 80 17 98/63 74.4 95 03/14 1132 36.7 85 17 93/60 71.3 93 03/14 0715 36.6 71 17 98/64 75.6 94 03/14 0336 36.5 77 18 94/60 71.4 96 03/13 2330 36.8 79 20 92/60 70.5 95 Current Medications Sig/Osmar Start time Last Medication Dose Route Stop Time Status Admin Ibuprofen 400 MG Q12H PRN PRN 03/04 1415 AC 03/14 PO 06/02 1414 2017 Midodrine 5 MG Q8H PRN PRN 02/28 2145 AC 03/14 PO 05/29 2144 0757 Vital Signs Date Temp Pulse Resp B/P B/P Mean Pulse Ox FiO2 03/13-03/14 36.5-36.9 71-85 14-20 92-98/60-65 70.5-75.9 93-96 Last Documented: Result Date Time Pulse Ox 95 03/14 1909 B/P 98/65 03/14 1909 B/P Mean 75.9 03/14 190 O2 Delivery Room air 03/14 1908 Temp 36.9 03/14 190 Pulse 81 03/14 190 Resp 14 03/14 190 O2 Flow Rate 2 02/20 1228 24 hour I O ending at 0700: 03/14 0700 03/13 1900 Intake Total 150 Output Total Balance 150 Intake, Oral 150 Number Voids 1 PATIENT WEIGHT: Weight (lb): Weight (oz): Weight (kg): 75.000 Diagnosis, Assessment Plan Hospital course to date: General appearance: alert, awake Head/Eyes: atraumatic, clear cornea, EOMI, normocephalic, normal conjunctiva/ sclera, normal eyelids/periorb, PERRLA Neck: no JVD Cardiovascular: regular rate rhythm Respiratory: decreased breath sounds, no distress, no tenderness Abdomen/GI: active bowel sounds, soft, non-tender, no guarding, no rebound, no distention, no mass/organomegaly, no pulsatile mass, no hernia, normal abdominal aorta Abdomen quadrants: LLQ normal bowel sounds, LUQ normal bowel sounds, RLQ normal bowel sounds, RUQ normal bowel sounds Extremities: moves all, no edema-all extremities, normal capillary refill, normal range of motion, normal sensory, normal motor function Neuro/CRYSTALIZER TENDER: alert, oriented X 3 Skin: dry, intact, no gross abnormalities Psychiatry: no hallucinations, normal affect, normal judgment/insight, normal mood, not homicidal, not suicidal Problem List/A P: 1. Multiple sclerosis Consultants: neurology Free Text DxA P Notes Free text DxA P notes: Assessment: 38-year-old male patient with recent diagnosis of multiple sclerosis, alcoholism , IBS presents to the emergency department today for the evaluation of lower extremity weakness/pain resulting in multiple falls, episodes of confusion, bladder incontinence. As per patient's Mother MRI was done a month ago Revealing multiple lesions consistent with multiple sclerosis. Patient is currently alert and oriented. Denies fever, chills, nausea and vomiting, headache, blurry vision, hearing deficits, lightheadedness/dizziness, chest pain , numbness, associated symptoms. 1. Multiple sclerosis 2. Lower extremity weakness/pain resulting to multiple falls 3. Confusion 4. Bladder incontinence 5. Mildly elevated troponin 82 6. HLD- LDL 61 7. History of alcoholism, IBS Plan of care: Admit patient for further evaluation and treatment Fall precaution Tylenol extra strength 1000 mg p.o. given stat, methylprednisolone stat Drug abuse screen Neuro consult placed Telemetry BP control Glycemic control Pain control Electrolyte control DVT/GI prophylaxis Follow-up labs, images 02/21/2024 Vital signs are within normal limits MRI brain: scattered white matter lesions consistent with demyelination noted. No abnormal enhancement MRI c-spine: no abnormal cord signal or enhancement Neuro is following. Recommends screen and correct any underlying toxic or metabolic process contributing to symptoms. PT/OT Fall precaution Continue supportive care 02/22/2024 Soft BP, latest 91/59 No acute events overnight Neuro is following. MRI of the T-spine pending results PT/OT consult placed On regular diet now Fall and safety precaution, follow-up images, continue medications and supportive care 02/23/2024 No acute events overnight BP 97/65 MRI of the T-spine is unremarkable Continue PT/OT Case management consult placed Continue supportive care 02/24/2024 Vital signs are stable No acute events overnight. No new neurologic symptoms. Neuro noted no active lesion on MRI, no acute findings. Orders to continue PT/ OT/rehab evaluations Fall and safety precaution Continue supportive care 02/25/2024 Vital signs are within normal limits. No new complaints Stable Continue OT management Ongoing discharge planning Fall and safety precaution, continue supportive care 02/26/2024 No acute events overnight Vital signs are stable Ongoing discharge planning Fall and safety precaution, continue supportive care 02/27/2024 Stable Neuro is following Rehab has seen the patient. Noted patient may have to discharge to SNF versus custodial versus fpc. Recommends social media marketing analyst to assist with placement. Continue PT/OT management Patient is scheduled for image guided lumbar puncture tomorrow per Dr. Martinez. Monitor accordingly Pain control Continue supportive care 02/28/2024 Status post image guided lumbar puncture. Procedure per Dr. Martinez. 15.5 mL of clear spinal fluid was removed and sent to lab. The patient tolerated the procedure well. Pain control Rehab is following Follow-up cultures Continue present care 02/29/2024 Vital signs are within normal limits No acute events overnight Started on midodrine 5 mg p.o. every 8 hours as needed for hypotension PT management Follow-up labs, fall and safety precaution, continue present care 03/01/2024 Stable, latest BP 96/55 No new complaints Started on [place] to 1 tab p.o. every 8 hours as needed for pain PS 4-10. Continue midodrine 5 mg p.o. every 8 hours as needed for hypotension PT/OT Fall and safety precaution, follow-up labs, continue medications and present care 03/02/2024 BP 94/61 Final body fluid culture shows no growth after 72 hours Continue hypotensive precaution. On midodrine Pain control Discharge planning: Patient does not qualify for inpatient rehab bed. Pending final discharge placement, SNF versus custodial versus fpc. ordnance equipment worker to assist with placement OT for evaluation Fall and safety precaution, continue supportive care 03/03/2024 BP 95/64 No acute events overnight Patient continues to get OOB daily with assistance per rehab Pain medications as needed. Continue on midodrine Ongoing discharge planning Fall precaution Continue supportive care 03/04/2024 Latest BP 92/56, otherwise stable No new complaints Continue BP control, pain medications as needed - Ibuprofen 400 mg p.o. every 12 hours given as needed PT/OT Fall and safety precaution, continue medications and supportive care 03/05/2024 Noted hypotensive episode. Blood pressure now better, latest 99/64. No acute events overnight [place] is discontinued. Last dose given today [place] is discontinued, last dose given today. Continue with ibuprofen 400 mg p.o. every 12 hours as needed for pain Continue midodrine for BP support PT/OT Continue supportive care 03/06/2024 No acute events overnight Ongoing discharge planning. Pending facility acceptance at [facility]. Following for updates Continue medications and supportive care. 03/07/2024 BP 91/58 Continue with midodrine 5 mg p.o. every 8 hours for BP support Ibuprofen as needed Gait training with PT Fall and safety precaution, continue supportive care 03/08/2024 No acute events overnight Patient's BP remains on the low side, latest 94/55 Stable Midodrine for BP support, continue ibuprofen as needed Ongoing discharge planning. Continue present care 03/09/2024 Patient in no acute distress. Stable Continues to work with therapy. Gait training with PT Pain medications as needed, on midodrine as needed for BP support Discharge planning: For [facility]. Pending insurance authorization Continue supportive care 03/10/2024 Vital signs are within normal limits Negative CINTHIA screen Rehab orders to continue with OOB daily, PT/OT Pain control with ibuprofen as needed. Midodrine for BP support Fall and safety precaution Continue medications and supportive care 03/11/2024 Latest BP 90/53 No acute events overnight Continue midodrine for BP support, ibuprofen as needed for pain Fall and safety precaution, continue present care 03/12/2024 Stable Patient has no new complaints Rehab has seen the patient. Patient reports still feeling weak. Encouraged sitting on the bedside chair throughout the day. Pain medications as needed Continue on midodrine Gait training with PT Continue supportive care 03/13/2024 No acute events overnight Nonreactive CSF VDRL Continue gait training per PT Ongoing discharge planning. Pending insurance authorization to [facility] Fall and safety precaution, pain control, BP support with midodrine Continue supportive care 03/14/2024 Vital signs are within normal limits, latest BP 98/65 No acute events overnight Still awaiting for insurance authorizations to [facility] Gait training with PT Fall and safety precaution, continue medications and supportive care Jeremy Paige I 03/15/24 2114: Attestations Physician Attestation Agree w/findings plan: I Agree with the findings and plan as documented by ANALY Sotomayor. Plan of care coordinated with ANALY Sotomayor. Pertinent labs, Imaging, and information consultant evaluations reviewed. Patient's vital signs stable overnight, monitor accordingly. Continue ibuprofen for pain and midodrine for hypotension. Discharge plan ongoing, pending insurance authorization to [facility]. Fall and safety precautions. PT/OT evaluation and treatment as tolerated. Continue with supportive care. at 0045 at 2102 RPT #:[id number] END OF REPORT [facility] 2024-03-14 03:50:00 [facility]) Clinical Note REPORT#:[id number] REPORT STATUS: Signed REPORT INITIALIZATION DATE:03/14/24 TIME: 035 PATIENT: CHRISS HUGGINS UNIT #: [id number] [place] [facility] [place] AGE: 38 SEX: M ATTEND: Jeremy Paige MD ADM AUTHOR: Jeremy Paige MD REPT SERVICE DT/TIME: 03/14/24 035 * ALL edits or amendments must be made on the electronic/computer document * Clinical Note Note: Patient with recent diagnosis of multiple sclerosis, alcoholism and IBS presents for evaluation of lower extremity weakness and pain resulting in multiple falls, episodes of confusion, and bladder incontinence. Past MRI reveals multiple lesions consistent with multiple sclerosis. Patient has mildly elevated troponin 82 and HDL-LDL 61 upon admission. Patient's vital signs stable overnight, monitor accordingly. Continue ibuprofen for pain and midodrine for hypotension. Discharge plan ongoing, pending insurance authorization to [facility]. Fall and safety precautions. PT/OT evaluation and treatment as tolerated. Continue with supportive care. at 1322 RPT #:[id number] END OF REPORT [facility] 2024-03-13 18:23:00 [facility] ([facility]) Internal Medicine Prog. Note REPORT#:[id number] REPORT STATUS: Signed REPORT INITIALIZATION DATE:03/13/24 TIME: 1822 PATIENT: CHRISS HUGGINS UNIT #: [id number] ROOM/BED: 5518-1 : 85 AGE: 38 SEX: M ATTEND: Jeremy Paige MD ADM AUTHOR: Osmany Sotomayor NP REPT SERVICE DT/TIME: 03/13/241822 * ALL edits or amendments must be made on the electronic/computer document * Osmany Sotomayor 03/13/241822: Subjective Chief complaint: Multiple falls Lower extremity weakness Confusion Bladder incontinence HPI: 38-year-old male patient with recent diagnosis of multiple sclerosis, alcoholism , IBS presents to the emergency department today for the evaluation of lower extremity weakness/pain resulting in multiple falls, episodes of confusion, bladder incontinence. As per patient's Mother MRI was done a month ago Revealing multiple lesions consistent with multiple sclerosis. Patient is currently alert and oriented. Denies fever, chills, nausea and vomiting, headache, blurry vision, hearing deficits, lightheadedness/dizziness, chest pain , numbness, associated symptoms. Initial vital signs: BP 102/70, pulse 102, respirations 17, temp 97.9, pulse ox 96% on room air Abnormal labs: Elevated troponin I 82 LDL 161 RADIOLOGY - XR CHEST 1 V 02/19 1216 IMPRESSION: No evidence of acute cardiopulmonary abnormality. CAT SCAN - CT HEAD/BRAIN W/O CONT 02/19 1330 IMPRESSION: There is no imaging evidence of acute intracranial pathology. CAT SCAN - CTA HEAD 02/19 1331 IMPRESSION: Unremarkable CTA of the head. Review of Systems Additional notes: Constitutional: Reports: generalized weakness. Denies: chills, fatigue, fever, lethargy, malaise, recent wt loss, other. Respiratory: Denies: MANDUJANO (dyspnea on exertion), hemoptysis, non productive cough, parox nocturnal dyspnea, pleurisy, pleuritic pain, pneumonia, productive cough (sputum), SOB, wheezing, other. Cardiovascular: Denies: chest pain, MANDUJANO (dyspnea on exertion), edema, orthopnea, palpitations, parox nocturnal dyspnea, other. GI: Denies: abdominal pain, anorexia, constipation, diarrhea, dysphagia, GERD, hematemesis, hematochezia, hiatal hernia, melena, nausea, rectal pain, vomiting, other. : Denies: dysuria, flank pain, frequency, hematuria, nocturia, penile discharge, penile lesion, testicular pain, testicular swelling, urgency, urinary retention, other. Musculoskeletal: Extremity pain: Reports: left lower, right lower. Neuro: Denies: bladder dysfunction, bowel dysfunction, change in LOC, confusion, dizziness, focal weakness, gait problem, headache, lightheaded, numbness, seizure, slurred speech, spinning sensation, syncope, unable to speak, vision change, weakness, other. Psych: Denies: agitation, anxiety, auditory hallucination, change in mental status, confusion, delusional, depression, homicidal ideation, hostile, insomnia, stress, suicidal ideation, visual hallucination, other. Objective General VS/I O: Vital Signs Date Temp Pulse Resp B/P B/P Mean Pulse Ox FiO2 /-03/13 36.4-36.8 65-87 15-20 92-104/56-70 68.8-81.1 93-96 Last Documented: Result Date Time Pulse Ox 94 03/13 1633 B/P 101/69 03/13 1633 B/P Mean 79.4 03/13 1633 Temp 36.8 03/13 1633 Pulse 81 03/13 1633 Resp 16 03/13 1633 O2 Delivery Room air 03/12 0523 O2 Flow Rate 2 02/20 1228 24 hour I O ending at 0700: 03/13 0700 03/12 1900 Intake Total 240 Output Total Balance 240 Intake, Oral 240 Number Voids 1 PATIENT WEIGHT: Weight (lb): Weight (oz): Weight (kg): 75.000 Medications: Active Meds + DC'd Last 24 Hrs Ibuprofen (IBUPROFEN) 400 MG Q12H PRN PRN PO Midodrine (PROAMATINE) 5 MG Q8H PRN PRN PO Diagnosis, Assessment Plan Hospital course to date: General appearance: alert, awake Head/Eyes: atraumatic, clear cornea, EOMI, normocephalic, normal conjunctiva/ sclera, normal eyelids/periorb, PERRLA Neck: no JVD Cardiovascular: regular rate rhythm Respiratory: decreased breath sounds, no distress, no tenderness Abdomen/GI: active bowel sounds, soft, non-tender, no guarding, no rebound, no distention, no mass/organomegaly, no pulsatile mass, no hernia, normal abdominal aorta Abdomen quadrants: LLQ normal bowel sounds, LUQ normal bowel sounds, RLQ normal bowel sounds, RUQ normal bowel sounds Extremities: moves all, no edema-all extremities, normal capillary refill, normal range of motion, normal sensory, normal motor function Neuro/CRYSTALIZER TENDER: alert, oriented X 3 Skin: dry, intact, no gross abnormalities Psychiatry: no hallucinations, normal affect, normal judgment/insight, normal mood, not homicidal, not suicidal Problem List/A P: 1. Multiple sclerosis Consultants: neurology Free Text DxA P Notes Free text DxA P notes: Assessment: 38-year-old male patient with recent diagnosis of multiple sclerosis, alcoholism , IBS presents to the emergency department today for the evaluation of lower extremity weakness/pain resulting in multiple falls, episodes of confusion, bladder incontinence. As per patient's Mother MRI was done a month ago Revealing multiple lesions consistent with multiple sclerosis. Patient is currently alert and oriented. Denies fever, chills, nausea and vomiting, headache, blurry vision, hearing deficits, lightheadedness/dizziness, chest pain , numbness, associated symptoms. 1. Multiple sclerosis 2. Lower extremity weakness/pain resulting to multiple falls 3. Confusion 4. Bladder incontinence 5. Mildly elevated troponin 82 6. HLD- LDL 61 7. History of alcoholism, IBS Plan of care: Admit patient for further evaluation and treatment Fall precaution Tylenol extra strength 1000 mg p.o. given stat, methylprednisolone stat Drug abuse screen Neuro consult placed Telemetry BP control Glycemic control Pain control Electrolyte control DVT/GI prophylaxis Follow-up labs, images 02/21/2024 Vital signs are within normal limits MRI brain: scattered white matter lesions consistent with demyelination noted. No abnormal enhancement MRI c-spine: no abnormal cord signal or enhancement Neuro is following. Recommends screen and correct any underlying toxic or metabolic process contributing to symptoms. PT/OT Fall precaution Continue supportive care 02/22/2024 Soft BP, latest 91/59 No acute events overnight Neuro is following. MRI of the T-spine pending results PT/OT consult placed On regular diet now Fall and safety precaution, follow-up images, continue medications and supportive care 02/23/2024 No acute events overnight BP 97/65 MRI of the T-spine is unremarkable Continue PT/OT Case management consult placed Continue supportive care 02/24/2024 Vital signs are stable No acute events overnight. No new neurologic symptoms. Neuro noted no active lesion on MRI, no acute findings. Orders to continue PT/ OT/rehab evaluations Fall and safety precaution Continue supportive care 02/25/2024 Vital signs are within normal limits. No new complaints Stable Continue OT management Ongoing discharge planning Fall and safety precaution, continue supportive care 02/26/2024 No acute events overnight Vital signs are stable Ongoing discharge planning Fall and safety precaution, continue supportive care 02/27/2024 Stable Neuro is following Rehab has seen the patient. Noted patient may have to discharge to SNF versus custodial versus fpc. Recommends social media marketing analyst to assist with placement. Continue PT/OT management Patient is scheduled for image guided lumbar puncture tomorrow per Dr. Martinez. Monitor accordingly Pain control Continue supportive care 02/28/2024 Status post image guided lumbar puncture. Procedure per Dr. Martinez. 15.5 mL of clear spinal fluid was removed and sent to lab. The patient tolerated the procedure well. Pain control Rehab is following Follow-up cultures Continue present care 02/29/2024 Vital signs are within normal limits No acute events overnight Started on midodrine 5 mg p.o. every 8 hours as needed for hypotension PT management Follow-up labs, fall and safety precaution, continue present care 03/01/2024 Stable, latest BP 96/55 No new complaints Started on [place] to 1 tab p.o. every 8 hours as needed for pain PS 4-10. Continue midodrine 5 mg p.o. every 8 hours as needed for hypotension PT/OT Fall and safety precaution, follow-up labs, continue medications and present care 03/02/2024 BP 94/61 Final body fluid culture shows no growth after 72 hours Continue hypotensive precaution. On midodrine Pain control Discharge planning: Patient does not qualify for inpatient rehab bed. Pending final discharge placement, SNF versus custodial versus fpc. ordnance equipment worker to assist with placement OT for evaluation Fall and safety precaution, continue supportive care 03/03/2024 BP 95/64 No acute events overnight Patient continues to get OOB daily with assistance per rehab Pain medications as needed. Continue on midodrine Ongoing discharge planning Fall precaution Continue supportive care 03/04/2024 Latest BP 92/56, otherwise stable No new complaints Continue BP control, pain medications as needed - Ibuprofen 400 mg p.o. every 12 hours given as needed PT/OT Fall and safety precaution, continue medications and supportive care 03/05/2024 Noted hypotensive episode. Blood pressure now better, latest 99/64. No acute events overnight [place] is discontinued. Last dose given today [place] is discontinued, last dose given today. Continue with ibuprofen 400 mg p.o. every 12 hours as needed for pain Continue midodrine for BP support PT/OT Continue supportive care 03/06/2024 No acute events overnight Ongoing discharge planning. Pending facility acceptance at [facility]. Following for updates Continue medications and supportive care. 03/07/2024 BP 91/58 Continue with midodrine 5 mg p.o. every 8 hours for BP support Ibuprofen as needed Gait training with PT Fall and safety precaution, continue supportive care 03/08/2024 No acute events overnight Patient's BP remains on the low side, latest 94/55 Stable Midodrine for BP support, continue ibuprofen as needed Ongoing discharge planning. Continue present care 03/09/2024 Patient in no acute distress. Stable Continues to work with therapy. Gait training with PT Pain medications as needed, on midodrine as needed for BP support Discharge planning: For [facility]. Pending insurance authorization Continue supportive care 03/10/2024 Vital signs are within normal limits Negative CINTHIA screen Rehab orders to continue with OOB daily, PT/OT Pain control with ibuprofen as needed. Midodrine for BP support Fall and safety precaution Continue medications and supportive care 03/11/2024 Latest BP 90/53 No acute events overnight Continue midodrine for BP support, ibuprofen as needed for pain Fall and safety precaution, continue present care 03/12/2024 Stable Patient has no new complaints Rehab has seen the patient. Patient reports still feeling weak. Encouraged sitting on the bedside chair throughout the day. Pain medications as needed Continue on midodrine Gait training with PT Continue supportive care 03/13/2024 No acute events overnight Nonreactive CSF VDRL Continue gait training per PT Ongoing discharge planning. Pending insurance authorization to [facility] Fall and safety precaution, pain control, BP support with midodrine Continue supportive care Jeremy Paige I 03/13/242040: Attestations Physician Attestation Agree w/findings plan: I Agree with the findings and plan as documented by ANALY Sotomayor. Plan of care coordinated with ANALY Sotomayor. Pertinent labs, Imaging, and information consultant evaluations reviewed. Patient alert and awake, no new complaints. Vital signs are within normal limits, monitor accordingly. On midodrine and ibuprofen. Fall and safety precaution. Discharge plan ongoing, [facility] awaiting for corporate approval for patient's transfer. PT/OT evaluation and treatment as tolerated. Continue with supportive care. at 0045 at 0641 [facility] [[email or web address]] #:[id number] END OF REPORT [facility] 2024-03-13 03:41:00 [facility]) Clinical Note REPORT#:[id number] REPORT STATUS: Signed REPORT INITIALIZATION DATE:03/13/24 TIME: 0341 PATIENT: CHRISS HUGGINS UNIT #: [id number] ROOM/BED: [place] [address] : 85 AGE: 38 SEX: M ATTEND: Jeremy Paige MD ADM AUTHOR: Jeremy Paige MD REPT SERVICE DT/TIME: 03/13/24 0341 * ALL edits or amendments must be made on the electronic/computer document * Clinical Note Note: Patient with recent diagnosis of multiple sclerosis, alcoholism and IBS presents for evaluation of lower extremity weakness and pain resulting in multiple falls, episodes of confusion, and bladder incontinence. Past MRI reveals multiple lesions consistent with multiple sclerosis. Patient has mildly elevated troponin 82 and HDL-LDL 61 upon admission. Patient alert and awake, no new complaints. Vital signs are within normal limits, monitor accordingly. On midodrine and ibuprofen. Fall and safety precaution. Discharge plan ongoing, [facility] awaiting for corporate approval for patient's transfer. PT/OT evaluation and treatment as tolerated. Continue with supportive care. at 1322 RPT #:[id number] END OF REPORT [facility] 2024-03-12 17:37:00 [facility] ([facility]) Internal Medicine Prog. Note REPORT#:[id number] REPORT STATUS: Signed REPORT INITIALIZATION DATE:03/12/24 TIME: 173 PATIENT: CHRISS HUGGINS UNIT #: [id number] ROOM/BED: [place] [address] : 85 AGE: 38 SEX: M ATTEND: Jeremy Paige MD ADM AUTHOR: Osmany Sotomayor NP REPT SERVICE DT/TIME: 03/12/241736 * ALL edits or amendments must be made on the electronic/computer document * Osmany Sotomayor 03/12/241736: Subjective Chief complaint: Multiple falls Lower extremity weakness Confusion Bladder incontinence HPI: 38-year-old male patient with recent diagnosis of multiple sclerosis, alcoholism , IBS presents to the emergency department today for the evaluation of lower extremity weakness/pain resulting in multiple falls, episodes of confusion, bladder incontinence. As per patient's Mother MRI was done a month ago Revealing multiple lesions consistent with multiple sclerosis. Patient is currently alert and oriented. Denies fever, chills, nausea and vomiting, headache, blurry vision, hearing deficits, lightheadedness/dizziness, chest pain , numbness, associated symptoms. Initial vital signs: BP 102/70, pulse 102, respirations 17, temp 97.9, pulse ox 96% on room air Abnormal labs: Elevated troponin I 82 LDL 161 RADIOLOGY - XR CHEST 1 V 02/19 1216 IMPRESSION: No evidence of acute cardiopulmonary abnormality. CAT SCAN - CT HEAD/BRAIN W/O CONT 02/19 1330 IMPRESSION: There is no imaging evidence of acute intracranial pathology. CAT SCAN - CTA HEAD 02/19 1331 IMPRESSION: Unremarkable CTA of the head. Review of Systems Additional notes: Constitutional: Reports: generalized weakness. Denies: chills, fatigue, fever, lethargy, malaise, recent wt loss, other. Respiratory: Denies: MANDUJANO (dyspnea on exertion), hemoptysis, non productive cough, parox nocturnal dyspnea, pleurisy, pleuritic pain, pneumonia, productive cough (sputum), SOB, wheezing, other. Cardiovascular: Denies: chest pain, MANDUJANO (dyspnea on exertion), edema, orthopnea, palpitations, parox nocturnal dyspnea, other. GI: Denies: abdominal pain, anorexia, constipation, diarrhea, dysphagia, GERD, hematemesis, hematochezia, hiatal hernia, melena, nausea, rectal pain, vomiting, other. : Denies: dysuria, flank pain, frequency, hematuria, nocturia, penile discharge, penile lesion, testicular pain, testicular swelling, urgency, urinary retention, other. Musculoskeletal: Extremity pain: Reports: left lower, right lower. Neuro: Denies: bladder dysfunction, bowel dysfunction, change in LOC, confusion, dizziness, focal weakness, gait problem, headache, lightheaded, numbness, seizure, slurred speech, spinning sensation, syncope, unable to speak, vision change, weakness, other. Psych: Denies: agitation, anxiety, auditory hallucination, change in mental status, confusion, delusional, depression, homicidal ideation, hostile, insomnia, stress, suicidal ideation, visual hallucination, other. Objective General VS/I O: Vital Signs Date Temp Pulse Resp B/P B/P Mean Pulse Ox FiO2 /-03/12 36.5-36.7 60-86 14-16 88-102/53-65 0.0-76.8 93-97 Last Documented: Result Date Time Pulse Ox 93 03/12 1526 B/P 100/65 03/12 1526 B/P Mean 76.8 03/12 1526 Temp 36.6 03/12 1526 Pulse 80 03/12 1526 Resp 16 03/12 1526 O2 Delivery Room air 03/12 0523 O2 Flow Rate 2 02/20 1228 24 hour I O ending at 0700: 03/12 0700 03/11 1900 Intake Total 200 Output Total Balance 200 Intake, Oral 200 Number Voids 1 PATIENT WEIGHT: Weight (lb): Weight (oz): Weight (kg): 75.000 Medications: Active Meds + DC'd Last 24 Hrs Ibuprofen (IBUPROFEN) 400 MG Q12H PRN PRN PO Midodrine (PROAMATINE) 5 MG Q8H PRN PRN PO Diagnosis, Assessment Plan Hospital course to date: General appearance: alert, awake Head/Eyes: atraumatic, clear cornea, EOMI, normocephalic, normal conjunctiva/ sclera, normal eyelids/periorb, PERRLA Neck: no JVD Cardiovascular: regular rate rhythm Respiratory: decreased breath sounds, no distress, no tenderness Abdomen/GI: active bowel sounds, soft, non-tender, no guarding, no rebound, no distention, no mass/organomegaly, no pulsatile mass, no hernia, normal abdominal aorta Abdomen quadrants: LLQ normal bowel sounds, LUQ normal bowel sounds, RLQ normal bowel sounds, RUQ normal bowel sounds Extremities: moves all, no edema-all extremities, normal capillary refill, normal range of motion, normal sensory, normal motor function Neuro/CRYSTALIZER TENDER: alert, oriented X 3 Skin: dry, intact, no gross abnormalities Psychiatry: no hallucinations, normal affect, normal judgment/insight, normal mood, not homicidal, not suicidal Problem List/A P: 1. Multiple sclerosis Consultants: neurology Free Text DxA P Notes Free text DxA P notes: Assessment: 38-year-old male patient with recent diagnosis of multiple sclerosis, alcoholism , IBS presents to the emergency department today for the evaluation of lower extremity weakness/pain resulting in multiple falls, episodes of confusion, bladder incontinence. As per patient's Mother MRI was done a month ago Revealing multiple lesions consistent with multiple sclerosis. Patient is currently alert and oriented. Denies fever, chills, nausea and vomiting, headache, blurry vision, hearing deficits, lightheadedness/dizziness, chest pain , numbness, associated symptoms. 1. Multiple sclerosis 2. Lower extremity weakness/pain resulting to multiple falls 3. Confusion 4. Bladder incontinence 5. Mildly elevated troponin 82 6. HLD- LDL 61 7. History of alcoholism, IBS Plan of care: Admit patient for further evaluation and treatment Fall precaution Tylenol extra strength 1000 mg p.o. given stat, methylprednisolone stat Drug abuse screen Neuro consult placed Telemetry BP control Glycemic control Pain control Electrolyte control DVT/GI prophylaxis Follow-up labs, images 02/21/2024 Vital signs are within normal limits MRI brain: scattered white matter lesions consistent with demyelination noted. No abnormal enhancement MRI c-spine: no abnormal cord signal or enhancement Neuro is following. Recommends screen and correct any underlying toxic or metabolic process contributing to symptoms. PT/OT Fall precaution Continue supportive care 02/22/2024 Soft BP, latest 91/59 No acute events overnight Neuro is following. MRI of the T-spine pending results PT/OT consult placed On regular diet now Fall and safety precaution, follow-up images, continue medications and supportive care 02/23/2024 No acute events overnight BP 97/65 MRI of the T-spine is unremarkable Continue PT/OT Case management consult placed Continue supportive care 02/24/2024 Vital signs are stable No acute events overnight. No new neurologic symptoms. Neuro noted no active lesion on MRI, no acute findings. Orders to continue PT/ OT/rehab evaluations Fall and safety precaution Continue supportive care 02/25/2024 Vital signs are within normal limits. No new complaints Stable Continue OT management Ongoing discharge planning Fall and safety precaution, continue supportive care 02/26/2024 No acute events overnight Vital signs are stable Ongoing discharge planning Fall and safety precaution, continue supportive care 02/27/2024 Stable Neuro is following Rehab has seen the patient. Noted patient may have to discharge to SNF versus custodial versus fpc. Recommends social media marketing analyst to assist with placement. Continue PT/OT management Patient is scheduled for image guided lumbar puncture tomorrow per Dr. Martinez. Monitor accordingly Pain control Continue supportive care 02/28/2024 Status post image guided lumbar puncture. Procedure per Dr. Martinez. 15.5 mL of clear spinal fluid was removed and sent to lab. The patient tolerated the procedure well. Pain control Rehab is following Follow-up cultures Continue present care 02/29/2024 Vital signs are within normal limits No acute events overnight Started on midodrine 5 mg p.o. every 8 hours as needed for hypotension PT management Follow-up labs, fall and safety precaution, continue present care 03/01/2024 Stable, latest BP 96/55 No new complaints Started on [place] to 1 tab p.o. every 8 hours as needed for pain PS 4-10. Continue midodrine 5 mg p.o. every 8 hours as needed for hypotension PT/OT Fall and safety precaution, follow-up labs, continue medications and present care 03/02/2024 BP 94/61 Final body fluid culture shows no growth after 72 hours Continue hypotensive precaution. On midodrine Pain control Discharge planning: Patient does not qualify for inpatient rehab bed. Pending final discharge placement, SNF versus custodial versus fpc. ordnance equipment worker to assist with placement OT for evaluation Fall and safety precaution, continue supportive care 03/03/2024 BP 95/64 No acute events overnight Patient continues to get OOB daily with assistance per rehab Pain medications as needed. Continue on midodrine Ongoing discharge planning Fall precaution Continue supportive care 03/04/2024 Latest BP 92/56, otherwise stable No new complaints Continue BP control, pain medications as needed - Ibuprofen 400 mg p.o. every 12 hours given as needed PT/OT Fall and safety precaution, continue medications and supportive care 03/05/2024 Noted hypotensive episode. Blood pressure now better, latest 99/64. No acute events overnight [place] is discontinued. Last dose given today [place] is discontinued, last dose given today. Continue with ibuprofen 400 mg p.o. every 12 hours as needed for pain Continue midodrine for BP support PT/OT Continue supportive care 03/06/2024 No acute events overnight Ongoing discharge planning. Pending facility acceptance at [facility]. Following for updates Continue medications and supportive care. 03/07/2024 BP 91/58 Continue with midodrine 5 mg p.o. every 8 hours for BP support Ibuprofen as needed Gait training with PT Fall and safety precaution, continue supportive care 03/08/2024 No acute events overnight Patient's BP remains on the low side, latest 94/55 Stable Midodrine for BP support, continue ibuprofen as needed Ongoing discharge planning. Continue present care 03/09/2024 Patient in no acute distress. Stable Continues to work with therapy. Gait training with PT Pain medications as needed, on midodrine as needed for BP support Discharge planning: For [facility]. Pending insurance authorization Continue supportive care 03/10/2024 Vital signs are within normal limits Negative CINTHIA screen Rehab orders to continue with OOB daily, PT/OT Pain control with ibuprofen as needed. Midodrine for BP support Fall and safety precaution Continue medications and supportive care 03/11/2024 Latest BP 90/53 No acute events overnight Continue midodrine for BP support, ibuprofen as needed for pain Fall and safety precaution, continue present care 03/12/2024 Stable Patient has no new complaints Rehab has seen the patient. Patient reports still feeling weak. Encouraged sitting on the bedside chair throughout the day. Pain medications as needed Continue on midodrine Gait training with PT Continue supportive care Jeremy Paige I 03/12/24 1851: Attestations Physician Attestation Agree w/findings plan: I Agree with the findings and plan as documented by ANALY Sotomayor. Plan of care coordinated with ANALY Sotomayor. Pertinent labs, Imaging, and information consultant evaluations reviewed. Patient's vital signs are within normal limits overnight. Monitor accordingly. No acute events overnight. Continue present medications. Continue with supportive care. at 0219 at 0641 RPT #:[id number] END OF REPORT [facility] 2024-03-12 12:02:00 [facility] ([facility]) Rehab Progress Note REPORT#:[id number] REPORT STATUS: Signed REPORT INITIALIZATION DATE:03/12/24 TIME: 1202 PATIENT: CHRISS HUGGINS UNIT #: [id number] ROOM/BED: [place] [address] : [birth year] AGE: 38 SEX: M ATTEND: Jeremy Paige MD ADM AUTHOR: Kathia Garay PA-C REPT SERVICE DT/TIME: 03/12/24 1202 * ALL edits or amendments must be made on the electronic/computer document * Subjective Chief complaint: Pt seen and examined. NO acute distress. In bed. States he is upset about the bed alarm now being turned on and limiting his mobility to and from the bathroom. Objective General VS: Vital Signs: Date Time Temp Pulse Resp B/P B/P Pulse O2 O2 Flow FiO2 Mean Ox Delivery Rate 03/12 1027 98.1 85 16 93/63 72.8 96 03/12 0724 97.9 60 16 102/63 76.2 94 03/12 0523 97.7 77 14 93/60 71.1 95 Room air 03/12 0235 66 98/57 70.8 03/12 0030 97.9 71 14 88/58 0.0 95 Room air 03/11 1950 98.1 86 14 90/53 65.7 97 Room air 03/11 1642 98.2 73 15 101/60 0.0 96 PATIENT WEIGHT: Weight (lb): Weight (oz): Weight (kg): 75.000 Medications: Active Meds + DC'd Last 24 Hrs Ibuprofen (IBUPROFEN) 400 MG Q12H PRN PRN PO Midodrine (PROAMATINE) 5 MG Q8H PRN PRN PO Functional Progress Functional progress: oper performance of all activities. Yes Precautions: Fall Safety addressed through use of: Gait Belt Verbal Cues Tactile Cues Gait Device RW Weightbearing: No Restriction Ambulation Distance: 200ft x 1 with RLE shaking Progression: Forward Backward Lateral, Right Lateral, Left Assistance Level: Minimal Assistance Gait Deviations: Base of Support - Wide Head Down unsteady knee joaquin/hyperext w/ fatigue Effects of Treatment: Balance Improved Function Improved Gait quality improved Post Treatment Precautions: In Bed, Rails Up Bed Alarm Suture Polisher Light in Reach Nursing Notified PT charges: Gait Training [id number] Gait Cmt: PERFORMED BED MOBILITY AND SUPINE TO SIT WITH SBA PERFORMED STS WITH SBA. AMBULATED 200FT UISNG RW AND REQUIRED MIN A DUE TO INCREASED LOB If this is the patient's last treatment, this entry Start Time: 1450 Stop Time: 1513 Treatment Time: ( minutes) 0:23 Completed by: Diane Goldberg Conference/Supervising PT: Yes Supervising Therapist: Adama Escobedo . CARDIO-RESPIRATORY IMPAIRMENT Items determined to be OUTSIDE the Functional Limits are as Physical Exam General appearance: alert, awake, oriented HEENT: anicteric, mucosal membranes moist, sclera clear Neck: supple, no JVD Cardiovascular: regular rate rhythm, S1/S2, no murmur Respiratory: aerating well, clear bilaterally Abdomen: bowel sounds present, non-distended, soft, non-tender Skin: dry, normal temperature Musculoskeletal - general: Musculoskeletal - general: joints normal, range of motion normal, strength testing normal, mild intrinsic wasting Neuro/CRYSTALIZER TENDER: alert, oriented X 3, normal speech, no motor deficits, no sensory deficits Diagnosis, Assessment Plan Problem List/A P: 1. Multiple sclerosis 2. Debility 3. IBS (irritable bowel syndrome) Free Text A P: Plan: Physical therapy and Occupational therapy evaluated the patient. He ambulated 200 feet min assist to supervision and per Occupational Therapy was independent to modified independent with ADLs. Occupational Therapy signed off his case. He does not currently qualify for inpatient rehabilitation. He would likely benefit from some outpatient therapy but unfortunately does not have a vehicle transportation. Discussed with him about his living situation and currently appears to be homeless. He will benefit from discharging home with family for the added support, but it does not sound as though that will be the case. May have to discharge to a longterm facility versus custodial versus fpc. Recommend social media marketing analyst to assist with placement. 03/02: Seen. He has been getting OOB daily. Making gains on mobility. He is ambulating with RW at MIN A. He did fatigue after gait. Pain controlled. Encourage OOB in the bedside chair. 03/03: PT seen. Continue OOB daily. Assistance when OOB. No pain. SNF pending. 03/05: Continue with therapy as tolerated. SNF pending 03/06/24: Continue with therapy services. Doing well; working on balance, endurance, etc. Pending placement. 03/09: He continues to work with therapy. MIN A with gait. OOB daily. Encourage him to be out pf the bed more to the chair. SNF pending. 03/10: Pt seen. Continue OOB daily. PT/OT. 03/12: :Pt seen. Encourage sitting in th echair. He does not seem keen on the idea of sitting in the chair. States he still feels week. I explained to him that I recommend sitting in the bedside chair throughout the dqay instead of lying in bed. Consultants: neurology Rehab attestation: Face to face exam completed. Treatment plan discussed with patient. at 1204 RPT #:[id number] END OF REPORT [facility] 2024-03-12 03:43:00 [facility] ([facility]) Clinical Note REPORT#:[id number] REPORT STATUS: Signed REPORT INITIALIZATION DATE:03/12/24 TIME: 034 PATIENT: CHRISS HUGGINS UNIT #: [id number] ROOM/BED: [place] [address] : [birth year] AGE: 38 SEX: M ATTEND: Jeremy Paige MD ADM AUTHOR: Jeremy Paige MD REPT SERVICE DT/TIME: 03/12/24 034 * ALL edits or amendments must be made on the electronic/computer document * Clinical Note Note: Patient with recent diagnosis of multiple sclerosis, alcoholism and IBS presents for evaluation of lower extremity weakness and pain resulting in multiple falls, episodes of confusion, and bladder incontinence. Past MRI reveals multiple lesions consistent with multiple sclerosis. Patient has mildly elevated troponin 82 and HDL-LDL 61 upon admission. Patient's vital signs are within normal limits overnight. Monitor accordingly. No acute events overnight. Continue present medications. Continue with supportive care. at 1321 RPT #:[id number] END OF REPORT [facility] 2024-03-11 21:00:00 [facility] ([facility]) Internal Medicine Prog. Note REPORT#:[id number] REPORT STATUS: Signed REPORT INITIALIZATION DATE:03/11/24 TIME: 2100 PATIENT: CHRISS HUGGINS UNIT #: [id number] ROOM/BED: [place] [address] : [birth year] AGE: 38 SEX: M ATTEND: Jeremy Paige MD ADM AUTHOR: Osmany Sotomayor EMAIL CAMPAIGN SPECIALIST REPT SERVICE DT/TIME: 03/11/24 2100 * ALL edits or amendments must be made on the electronic/computer document * Osmany Sotomayor 03/11/24 2100: Subjective Chief complaint: Multiple falls Lower extremity weakness Confusion Bladder incontinence HPI: 38-year-old male patient with recent diagnosis of multiple sclerosis, alcoholism , IBS presents to the emergency department today for the evaluation of lower extremity weakness/pain resulting in multiple falls, episodes of confusion, bladder incontinence. As per patient's Mother MRI was done a month ago Revealing multiple lesions consistent with multiple sclerosis. Patient is currently alert and oriented. Denies fever, chills, nausea and vomiting, headache, blurry vision, hearing deficits, lightheadedness/dizziness, chest pain , numbness, associated symptoms. Initial vital signs: BP 102/70, pulse 102, respirations 17, temp 97.9, pulse ox 96% on room air Abnormal labs: Elevated troponin I 82 LDL 161 RADIOLOGY - XR CHEST 1 V 02/19 1216 IMPRESSION: No evidence of acute cardiopulmonary abnormality. CAT SCAN - CT HEAD/BRAIN W/O CONT 02/19 1330 IMPRESSION: There is no imaging evidence of acute intracranial pathology. CAT SCAN - CTA HEAD 02/19 1331 IMPRESSION: Unremarkable CTA of the head. Review of Systems Additional notes: Constitutional: Reports: generalized weakness. Denies: chills, fatigue, fever, lethargy, malaise, recent wt loss, other. Respiratory: Denies: MANDUJANO (dyspnea on exertion), hemoptysis, non productive cough, parox nocturnal dyspnea, pleurisy, pleuritic pain, pneumonia, productive cough (sputum), SOB, wheezing, other. Cardiovascular: Denies: chest pain, MANDUJANO (dyspnea on exertion), edema, orthopnea, palpitations, parox nocturnal dyspnea, other. GI: Denies: abdominal pain, anorexia, constipation, diarrhea, dysphagia, GERD, hematemesis, hematochezia, hiatal hernia, melena, nausea, rectal pain, vomiting, other. : Denies: dysuria, flank pain, frequency, hematuria, nocturia, penile discharge, penile lesion, testicular pain, testicular swelling, urgency, urinary retention, other. Musculoskeletal: Extremity pain: Reports: left lower, right lower. Neuro: Denies: bladder dysfunction, bowel dysfunction, change in LOC, confusion, dizziness, focal weakness, gait problem, headache, lightheaded, numbness, seizure, slurred speech, spinning sensation, syncope, unable to speak, vision change, weakness, other. Psych: Denies: agitation, anxiety, auditory hallucination, change in mental status, confusion, delusional, depression, homicidal ideation, hostile, insomnia, stress, suicidal ideation, visual hallucination, other. Objective General VS/I O: Vital Signs Date Temp Pulse Resp B/P B/P Mean Pulse Ox FiO2 03/10-03/11 36.5-36.8 70-86 12-16 90-112/53-71 0.0-84.6 93-97 Last Documented: Result Date Time Pulse Ox 97 03/11 1949 B/P 90/53 03/11 1949 B/P Mean 65.7 03/11 1949 O2 Delivery Room air 03/11 1949 Temp 36.7 03/11 1949 Pulse 86 03/11 1949 Resp 14 03/11 1949 O2 Flow Rate 2 02/20 1228 PATIENT WEIGHT: Weight (lb): Weight (oz): Weight (kg): 75.000 Medications: Active Meds + DC'd Last 24 Hrs Ibuprofen (IBUPROFEN) 400 MG Q12H PRN PRN PO Midodrine (PROAMATINE) 5 MG Q8H PRN PRN PO Diagnosis, Assessment Plan Hospital course to date: General appearance: alert, awake Head/Eyes: atraumatic, clear cornea, EOMI, normocephalic, normal conjunctiva/ sclera, normal eyelids/periorb, PERRLA Neck: no JVD Cardiovascular: regular rate rhythm Respiratory: decreased breath sounds, no distress, no tenderness Abdomen/GI: active bowel sounds, soft, non-tender, no guarding, no rebound, no distention, no mass/organomegaly, no pulsatile mass, no hernia, normal abdominal aorta Abdomen quadrants: LLQ normal bowel sounds, LUQ normal bowel sounds, RLQ normal bowel sounds, RUQ normal bowel sounds Extremities: moves all, no edema-all extremities, normal capillary refill, normal range of motion, normal sensory, normal motor function Neuro/CRYSTALIZER TENDER: alert, oriented X 3 Skin: dry, intact, no gross abnormalities Psychiatry: no hallucinations, normal affect, normal judgment/insight, normal mood, not homicidal, not suicidal Problem List/A P: 1. Multiple sclerosis Consultants: neurology Free Text DxA P Notes Free text DxA P notes: Assessment: 38-year-old male patient with recent diagnosis of multiple sclerosis, alcoholism , IBS presents to the emergency department today for the evaluation of lower extremity weakness/pain resulting in multiple falls, episodes of confusion, bladder incontinence. As per patient's Mother MRI was done a month ago Revealing multiple lesions consistent with multiple sclerosis. Patient is currently alert and oriented. Denies fever, chills, nausea and vomiting, headache, blurry vision, hearing deficits, lightheadedness/dizziness, chest pain , numbness, associated symptoms. 1. Multiple sclerosis 2. Lower extremity weakness/pain resulting to multiple falls 3. Confusion 4. Bladder incontinence 5. Mildly elevated troponin 82 6. HLD- LDL 61 7. History of alcoholism, IBS Plan of care: Admit patient for further evaluation and treatment Fall precaution Tylenol extra strength 1000 mg p.o. given stat, methylprednisolone stat Drug abuse screen Neuro consult placed Telemetry BP control Glycemic control Pain control Electrolyte control DVT/GI prophylaxis Follow-up labs, images 02/21/2024 Vital signs are within normal limits MRI brain: scattered white matter lesions consistent with demyelination noted. No abnormal enhancement MRI c-spine: no abnormal cord signal or enhancement Neuro is following. Recommends screen and correct any underlying toxic or metabolic process contributing to symptoms. PT/OT Fall precaution Continue supportive care 02/22/2024 Soft BP, latest 91/59 No acute events overnight Neuro is following. MRI of the T-spine pending results PT/OT consult placed On regular diet now Fall and safety precaution, follow-up images, continue medications and supportive care 02/23/2024 No acute events overnight BP 97/65 MRI of the T-spine is unremarkable Continue PT/OT Case management consult placed Continue supportive care 02/24/2024 Vital signs are stable No acute events overnight. No new neurologic symptoms. Neuro noted no active lesion on MRI, no acute findings. Orders to continue PT/ OT/rehab evaluations Fall and safety precaution Continue supportive care 02/25/2024 Vital signs are within normal limits. No new complaints Stable Continue OT management Ongoing discharge planning Fall and safety precaution, continue supportive care 02/26/2024 No acute events overnight Vital signs are stable Ongoing discharge planning Fall and safety precaution, continue supportive care 02/27/2024 Stable Neuro is following Rehab has seen the patient. Noted patient may have to discharge to SNF versus custodial versus fpc. Recommends social media marketing analyst to assist with placement. Continue PT/OT management Patient is scheduled for image guided lumbar puncture tomorrow per Dr. Martinez. Monitor accordingly Pain control Continue supportive care 02/28/2024 Status post image guided lumbar puncture. Procedure per Dr. Martinez. 15.5 mL of clear spinal fluid was removed and sent to lab. The patient tolerated the procedure well. Pain control Rehab is following Follow-up cultures Continue present care 02/29/2024 Vital signs are within normal limits No acute events overnight Started on midodrine 5 mg p.o. every 8 hours as needed for hypotension PT management Follow-up labs, fall and safety precaution, continue present care 03/01/2024 Stable, latest BP 96/55 No new complaints Started on [place] to 1 tab p.o. every 8 hours as needed for pain PS 4-10. Continue midodrine 5 mg p.o. every 8 hours as needed for hypotension PT/OT Fall and safety precaution, follow-up labs, continue medications and present care 03/02/2024 BP 94/61 Final body fluid culture shows no growth after 72 hours Continue hypotensive precaution. On midodrine Pain control Discharge planning: Patient does not qualify for inpatient rehab bed. Pending final discharge placement, SNF versus custodial versus fpc. ordnance equipment worker to assist with placement OT for evaluation Fall and safety precaution, continue supportive care 03/03/2024 BP 95/64 No acute events overnight Patient continues to get OOB daily with assistance per rehab Pain medications as needed. Continue on midodrine Ongoing discharge planning Fall precaution Continue supportive care 03/04/2024 Latest BP 92/56, otherwise stable No new complaints Continue BP control, pain medications as needed - Ibuprofen 400 mg p.o. every 12 hours given as needed PT/OT Fall and safety precaution, continue medications and supportive care 03/05/2024 Noted hypotensive episode. Blood pressure now better, latest 99/64. No acute events overnight [place] is discontinued. Last dose given today [place] is discontinued, last dose given today. Continue with ibuprofen 400 mg p.o. every 12 hours as needed for pain Continue midodrine for BP support PT/OT Continue supportive care 03/06/2024 No acute events overnight Ongoing discharge planning. Pending facility acceptance at [facility]. Following for updates Continue medications and supportive care. 03/07/2024 BP 91/58 Continue with midodrine 5 mg p.o. every 8 hours for BP support Ibuprofen as needed Gait training with PT Fall and safety precaution, continue supportive care 03/08/2024 No acute events overnight Patient's BP remains on the low side, latest 94/55 Stable Midodrine for BP support, continue ibuprofen as needed Ongoing discharge planning. Continue present care 03/09/2024 Patient in no acute distress. Stable Continues to work with therapy. Gait training with PT Pain medications as needed, on midodrine as needed for BP support Discharge planning: For [facility]. Pending insurance authorization Continue supportive care 03/10/2024 Vital signs are within normal limits Negative CINTHIA screen Rehab orders to continue with OOB daily, PT/OT Pain control with ibuprofen as needed. Midodrine for BP support Fall and safety precaution Continue medications and supportive care 03/11/2024 Latest BP 90/53 No acute events overnight Continue midodrine for BP support, ibuprofen as needed for pain Fall and safety precaution, continue present care Jeremy Paige I 03/11/24 2142: Attestations Physician Attestation Agree w/findings plan: I Agree with the findings and plan as documented by ANALY Sotomayor. Plan of care coordinated with ANALY Sotomayor. Pertinent labs, Imaging, and information consultant evaluations reviewed. Stable vital signs overnight. No new complaints or acute distress. Continue present medications. Fall and safety precaution. PT/OT evaluation and treatment as tolerated. Continue supportive care. at 0035 at 1455 RPT #:[id number] END OF REPORT [facility] 2024-03-11 04:47:00 [facility] ([facility]) Clinical Note REPORT#:[id number] REPORT STATUS: Signed REPORT INITIALIZATION DATE:03/11/24 TIME: 446 PATIENT: CHRISS HUGGINS UNIT #: [id number] ROOM/BED: [place] [address] : 85 AGE: 38 SEX: M ATTEND: Jeremy Paige MD ADM AUTHOR: Jeremy Paige MD REPT SERVICE DT/TIME: 03/11/24 5707 * ALL edits or amendments must be made on the electronic/computer document * Clinical Note Note: Patient with recent diagnosis of multiple sclerosis, alcoholism and IBS presents for evaluation of lower extremity weakness and pain resulting in multiple falls, episodes of confusion, and bladder incontinence. Past MRI reveals multiple lesions consistent with multiple sclerosis. Patient has mildly elevated troponin 82 and HDL-LDL 61 upon admission. Stable vital signs overnight. No new complaints or acute distress. Continue present medications. Fall and safety precaution. PT/OT evaluation and treatment as tolerated. Continue supportive care. at 2109 RPT #:[id number] END OF REPORT [facility] 2024-03-10 18:28:00 [facility] Internal Medicine Prog. Note REPORT#:[id number] REPORT STATUS: Signed REPORT INITIALIZATION DATE:03/10/24 TIME: 1827 PATIENT: CHRISS HUGGINS UNIT #: [id number] ROOM/BED: [place] [address] : 85 AGE: 38 SEX: M ATTEND: Jeremy Paige MD ADM AUTHOR: Osmany Sotomayor NP REPT SERVICE DT/TIME: 03/10/241827 * ALL edits or amendments must be made on the electronic/computer document * Osmany Sotomayor 03/10/241827: Subjective Chief complaint: Multiple falls Lower extremity weakness Confusion Bladder incontinence HPI: 38-year-old male patient with recent diagnosis of multiple sclerosis, alcoholism , IBS presents to the emergency department today for the evaluation of lower extremity weakness/pain resulting in multiple falls, episodes of confusion, bladder incontinence. As per patient's Mother MRI was done a month ago Revealing multiple lesions consistent with multiple sclerosis. Patient is currently alert and oriented. Denies fever, chills, nausea and vomiting, headache, blurry vision, hearing deficits, lightheadedness/dizziness, chest pain , numbness, associated symptoms. Initial vital signs: BP 102/70, pulse 102, respirations 17, temp 97.9, pulse ox 96% on room air Abnormal labs: Elevated troponin I 82 LDL 161 RADIOLOGY - XR CHEST 1 V 02/19 1216 IMPRESSION: No evidence of acute cardiopulmonary abnormality. CAT SCAN - CT HEAD/BRAIN W/O CONT 02/19 1330 IMPRESSION: There is no imaging evidence of acute intracranial pathology. CAT SCAN - CTA HEAD 02/19 1331 IMPRESSION: Unremarkable CTA of the head. Review of Systems Additional notes: Constitutional: Reports: generalized weakness. Denies: chills, fatigue, fever, lethargy, malaise, recent wt loss, other. Respiratory: Denies: MANDUJANO (dyspnea on exertion), hemoptysis, non productive cough, parox nocturnal dyspnea, pleurisy, pleuritic pain, pneumonia, productive cough (sputum), SOB, wheezing, other. Cardiovascular: Denies: chest pain, MANDUJANO (dyspnea on exertion), edema, orthopnea, palpitations, parox nocturnal dyspnea, other. GI: Denies: abdominal pain, anorexia, constipation, diarrhea, dysphagia, GERD, hematemesis, hematochezia, hiatal hernia, melena, nausea, rectal pain, vomiting, other. : Denies: dysuria, flank pain, frequency, hematuria, nocturia, penile discharge, penile lesion, testicular pain, testicular swelling, urgency, urinary retention, other. Musculoskeletal: Extremity pain: Reports: left lower, right lower. Neuro: Denies: bladder dysfunction, bowel dysfunction, change in LOC, confusion, dizziness, focal weakness, gait problem, headache, lightheaded, numbness, seizure, slurred speech, spinning sensation, syncope, unable to speak, vision change, weakness, other. Psych: Denies: agitation, anxiety, auditory hallucination, change in mental status, confusion, delusional, depression, homicidal ideation, hostile, insomnia, stress, suicidal ideation, visual hallucination, other. Objective General VS/I O: Vital Signs Date Temp Pulse Resp B/P B/P Mean Pulse Ox FiO2 03/09-03/10 36.7-36.9 76-95 14-16 90-103/53-66 0.0-77.3 93-96 Last Documented: Result Date Time Pulse Ox 95 03/10 1539 B/P 95/65 03/10 1539 B/P Mean 75.0 03/10 1539 O2 Delivery Room air 03/10 1539 Temp 36.7 03/10 1539 Pulse 95 03/10 1539 Resp 16 03/10 1539 O2 Flow Rate 2 02/20 1228 PATIENT WEIGHT: Weight (lb): Weight (oz): Weight (kg): 75.000 Medications: Active Meds + DC'd Last 24 Hrs Ibuprofen (IBUPROFEN) 400 MG Q12H PRN PRN PO Midodrine (PROAMATINE) 5 MG Q8H PRN PRN PO Diagnosis, Assessment Plan Hospital course to date: General appearance: alert, awake Head/Eyes: atraumatic, clear cornea, EOMI, normocephalic, normal conjunctiva/ sclera, normal eyelids/periorb, PERRLA Neck: no JVD Cardiovascular: regular rate rhythm Respiratory: decreased breath sounds, no distress, no tenderness Abdomen/GI: active bowel sounds, soft, non-tender, no guarding, no rebound, no distention, no mass/organomegaly, no pulsatile mass, no hernia, normal abdominal aorta Abdomen quadrants: LLQ normal bowel sounds, LUQ normal bowel sounds, RLQ normal bowel sounds, RUQ normal bowel sounds Extremities: moves all, no edema-all extremities, normal capillary refill, normal range of motion, normal sensory, normal motor function Neuro/CRYSTALIZER TENDER: alert, oriented X 3 Skin: dry, intact, no gross abnormalities Psychiatry: no hallucinations, normal affect, normal judgment/insight, normal mood, not homicidal, not suicidal Problem List/A P: 1. Multiple sclerosis Consultants: neurology Free Text DxA P Notes Free text DxA P notes: Assessment: 38-year-old male patient with recent diagnosis of multiple sclerosis, alcoholism , IBS presents to the emergency department today for the evaluation of lower extremity weakness/pain resulting in multiple falls, episodes of confusion, bladder incontinence. As per patient's Mother MRI was done a month ago Revealing multiple lesions consistent with multiple sclerosis. Patient is currently alert and oriented. Denies fever, chills, nausea and vomiting, headache, blurry vision, hearing deficits, lightheadedness/dizziness, chest pain , numbness, associated symptoms. 1. Multiple sclerosis 2. Lower extremity weakness/pain resulting to multiple falls 3. Confusion 4. Bladder incontinence 5. Mildly elevated troponin 82 6. HLD- LDL 61 7. History of alcoholism, IBS Plan of care: Admit patient for further evaluation and treatment Fall precaution Tylenol extra strength 1000 mg p.o. given stat, methylprednisolone stat Drug abuse screen Neuro consult placed Telemetry BP control Glycemic control Pain control Electrolyte control DVT/GI prophylaxis Follow-up labs, images 02/21/2024 Vital signs are within normal limits MRI brain: scattered white matter lesions consistent with demyelination noted. No abnormal enhancement MRI c-spine: no abnormal cord signal or enhancement Neuro is following. Recommends screen and correct any underlying toxic or metabolic process contributing to symptoms. PT/OT Fall precaution Continue supportive care 02/22/2024 Soft BP, latest 91/59 No acute events overnight Neuro is following. MRI of the T-spine pending results PT/OT consult placed On regular diet now Fall and safety precaution, follow-up images, continue medications and supportive care 02/23/2024 No acute events overnight BP 97/65 MRI of the T-spine is unremarkable Continue PT/OT Case management consult placed Continue supportive care 02/24/2024 Vital signs are stable No acute events overnight. No new neurologic symptoms. Neuro noted no active lesion on MRI, no acute findings. Orders to continue PT/ OT/rehab evaluations Fall and safety precaution Continue supportive care 02/25/2024 Vital signs are within normal limits. No new complaints Stable Continue OT management Ongoing discharge planning Fall and safety precaution, continue supportive care 02/26/2024 No acute events overnight Vital signs are stable Ongoing discharge planning Fall and safety precaution, continue supportive care 02/27/2024 Stable Neuro is following Rehab has seen the patient. Noted patient may have to discharge to SNF versus custodial versus fpc. Recommends social media marketing analyst to assist with placement. Continue PT/OT management Patient is scheduled for image guided lumbar puncture tomorrow per Dr. Martinez. Monitor accordingly Pain control Continue supportive care 02/28/2024 Status post image guided lumbar puncture. Procedure per Dr. Martinez. 15.5 mL of clear spinal fluid was removed and sent to lab. The patient tolerated the procedure well. Pain control Rehab is following Follow-up cultures Continue present care 02/29/2024 Vital signs are within normal limits No acute events overnight Started on midodrine 5 mg p.o. every 8 hours as needed for hypotension PT management Follow-up labs, fall and safety precaution, continue present care 03/01/2024 Stable, latest BP 96/55 No new complaints Started on [place] to 1 tab p.o. every 8 hours as needed for pain PS 4-10. Continue midodrine 5 mg p.o. every 8 hours as needed for hypotension PT/OT Fall and safety precaution, follow-up labs, continue medications and present care 03/02/2024 BP 94/61 Final body fluid culture shows no growth after 72 hours Continue hypotensive precaution. On midodrine Pain control Discharge planning: Patient does not qualify for inpatient rehab bed. Pending final discharge placement, SNF versus custodial versus fpc. ordnance equipment worker to assist with placement OT for evaluation Fall and safety precaution, continue supportive care 03/03/2024 BP 95/64 No acute events overnight Patient continues to get OOB daily with assistance per rehab Pain medications as needed. Continue on midodrine Ongoing discharge planning Fall precaution Continue supportive care 03/04/2024 Latest BP 92/56, otherwise stable No new complaints Continue BP control, pain medications as needed - Ibuprofen 400 mg p.o. every 12 hours given as needed PT/OT Fall and safety precaution, continue medications and supportive care 03/05/2024 Noted hypotensive episode. Blood pressure now better, latest 99/64. No acute events overnight [place] is discontinued. Last dose given today [place] is discontinued, last dose given today. Continue with ibuprofen 400 mg p.o. every 12 hours as needed for pain Continue midodrine for BP support PT/OT Continue supportive care 03/06/2024 No acute events overnight Ongoing discharge planning. Pending facility acceptance at [facility]. Following for updates Continue medications and supportive care. 03/07/2024 BP 91/58 Continue with midodrine 5 mg p.o. every 8 hours for BP support Ibuprofen as needed Gait training with PT Fall and safety precaution, continue supportive care 03/08/2024 No acute events overnight Patient's BP remains on the low side, latest 94/55 Stable Midodrine for BP support, continue ibuprofen as needed Ongoing discharge planning. Continue present care 03/09/2024 Patient in no acute distress. Stable Continues to work with therapy. Gait training with PT Pain medications as needed, on midodrine as needed for BP support Discharge planning: For [facility]. Pending insurance authorization Continue supportive care 03/10/2024 Vital signs are within normal limits Negative CINTHIA screen Rehab orders to continue with OOB daily, PT/OT Pain control with ibuprofen as needed. Midodrine for BP support Fall and safety precaution Continue medications and supportive care Jeremy Paige I 03/11/24 0447: Attestations Physician Attestation Agree w/findings plan: I Agree with the findings and plan as documented by ANALY Sotomayor. Plan of care coordinated with ANALY Sotomayor. Pertinent labs, Imaging, and information consultant evaluations reviewed. Patient is stable overnight. Monitor accordingly. Patient continues to be worked with therapy. Discharge plan ongoing, pending SNF. Continue to follow CM for updates. Continue present medications. Fall and safety precaution. Consultants evaluations noted. Continue with supportive care. at 0215 at 1122 RPT #:[id number] END OF REPORT [facility] 2024-03-10 16:42:00 [facility] Rehab Progress Note REPORT#:[id number] REPORT STATUS: Signed REPORT INITIALIZATION DATE:03/10/24 TIME: 1641 PATIENT: CHRISS HUGGINS UNIT #: [id number] ROOM/BED: [place] [address] : 85 AGE: 38 SEX: M ATTEND: Jeremy Paige MD ADM AUTHOR: Kathia Garay PA-C REPT SERVICE DT/TIME: 03/10/24 1642 * ALL edits or amendments must be made on the electronic/computer document * Subjective Chief complaint: Pt seen and examined. NO acute distress. Objective General VS: Vital Signs: Date Time Temp Pulse Resp B/P B/P Pulse O2 O2 Flow FiO2 Mean Ox Delivery Rate 03/10 1539 98.1 95 16 95/65 75.0 95 Room air 03/10 1116 98.2 93 16 90/58 68.5 96 Room air 03/10 0715 98.1 76 16 95/61 72.0 93 Room air 03/10 0438 98.4 78 14 91/53 65.8 95 Room air 03/10 0009 98.1 77 14 103/65 77.3 94 Room air 03/09 1854 98.2 89 14 96/66 0.0 95 Room air PATIENT WEIGHT: Weight (lb): Weight (oz): Weight (kg): 75.000 Medications: Active Meds + DC'd Last 24 Hrs Ibuprofen (IBUPROFEN) 400 MG Q12H PRN PRN PO Midodrine (PROAMATINE) 5 MG Q8H PRN PRN PO Functional Progress Functional progress: RVISION: 1. One on one supervision with cueing and assistance provided to ensure proper performance of all activities. Yes Precautions: Fall Safety addressed through use of: Gait Belt Verbal Cues Tactile Cues Gait Device RW Weightbearing: No Restriction Ambulation Distance: 200ft x 1 with RLE shaking Progression: Forward Backward Lateral, Right Lateral, Left Assistance Level: Minimal Assistance Gait Deviations: Base of Support - Wide Head Down unsteady knee joaquin/hyperext w/ fatigue Effects of Treatment: Balance Improved Function Improved Gait quality improved Post Treatment Precautions: In Bed, Rails Up Bed Alarm Suture Polisher Light in Reach Nursing Notified PT charges: Gait Training [id number] Gait Cmt: PERFORMED BED MOBILITY AND SUPINE TO SIT WITH SBA PERFORMED STS WITH SBA. AMBULATED 200FT UISNG RW AND REQUIRED MIN A DUE TO INCREASED LOB Physical Exam General appearance: alert, awake, oriented HEENT: anicteric, mucosal membranes moist, sclera clear Neck: supple, no JVD Cardiovascular: regular rate rhythm, S1/S2, no murmur Respiratory: aerating well, clear bilaterally Abdomen: bowel sounds present, non-distended, soft, non-tender Skin: dry, normal temperature Musculoskeletal - general: Musculoskeletal - general: joints normal, range of motion normal, strength testing normal, mild intrinsic wasting Neuro/CRYSTALIZER TENDER: alert, oriented X 3, normal speech, no motor deficits, no sensory deficits Diagnosis, Assessment Plan Problem List/A P: 1. Multiple sclerosis 2. Debility 3. IBS (irritable bowel syndrome) Free Text A P: Plan: Physical therapy and Occupational therapy evaluated the patient. He ambulated 200 feet min assist to supervision and per Occupational Therapy was independent to modified independent with ADLs. Occupational Therapy signed off his case. He does not currently qualify for inpatient rehabilitation. He would likely benefit from some outpatient therapy but unfortunately does not have a vehicle transportation. Discussed with him about his living situation and currently appears to be homeless. He will benefit from discharging home with family for the added support, but it does not sound as though that will be the case. May have to discharge to a longterm facility versus custodial versus fpc. Recommend social media marketing analyst to assist with placement. 03/02: Seen. He has been getting OOB daily. Making gains on mobility. He is ambulating with RW at MIN A. He did fatigue after gait. Pain controlled. Encourage OOB in the bedside chair. 03/03: PT seen. Continue OOB daily. Assistance when OOB. No pain. SNF pending. 03/05: Continue with therapy as tolerated. SNF pending 03/06/24: Continue with therapy services. Doing well; working on balance, endurance, etc. Pending placement. 03/09: He continues to work with therapy. MIN A with gait. OOB daily. Encourage him to be out pf the bed more to the chair. SNF pending. 03/10: Pt seen. Continue OOB daily. PT/OT. Consultants: neurology Rehab attestation: Face to face exam completed. Treatment plan discussed with patient. at 1644 RPT #:[id number] END OF REPORT [facility] 2024-03-10 03:42:00 [facility] ([facility]) Clinical Note REPORT#:[id number] REPORT STATUS: Signed REPORT INITIALIZATION DATE:03/10/24 TIME: 341 PATIENT: CHRISS HUGGINS UNIT #: [id number] ROOM/BED: [place] [address] : 85 AGE: 38 SEX: M ATTEND: Jeremy Paige MD ADM AUTHOR: Jeremy Paige MD REPT SERVICE DT/TIME: 03/10/24341 * ALL edits or amendments must be made on the electronic/computer document * Clinical Note Note: Patient with recent diagnosis of multiple sclerosis, alcoholism and IBS presents for evaluation of lower extremity weakness and pain resulting in multiple falls, episodes of confusion, and bladder incontinence. Past MRI reveals multiple lesions consistent with multiple sclerosis. Patient has mildly elevated troponin 82 and HDL-LDL 61 upon admission. Patient is stable overnight. Monitor accordingly. Patient continues to work with therapy. Discharge plan ongoing, pending SNF. Continue to follow CM for updates. Continue present medications. Fall and safety precaution. Consultants evaluations noted. Continue with supportive care. at 2108 RPT #:[id number] END OF REPORT [facility] 2024-03-09 19:51:00 [facility] Internal Medicine Prog. Note REPORT#:[id number] REPORT STATUS: Signed REPORT INITIALIZATION DATE:03/09/24 TIME: 1950 PATIENT: CHRISS HUGGINS UNIT #: [id number] ROOM/BED: [place] [address] : 85 AGE: 38 SEX: M ATTEND: Jeremy Paige MD ADM AUTHOR: Osmany Sotomayor EMAIL CAMPAIGN SPECIALIST REPT SERVICE DT/TIME: 03/09/241950 * ALL edits or amendments must be made on the electronic/computer document * Osmany Sotomayor 03/09/241950: Subjective Chief complaint: Multiple falls Lower extremity weakness Confusion Bladder incontinence HPI: 38-year-old male patient with recent diagnosis of multiple sclerosis, alcoholism , IBS presents to the emergency department today for the evaluation of lower extremity weakness/pain resulting in multiple falls, episodes of confusion, bladder incontinence. As per patient's Mother MRI was done a month ago Revealing multiple lesions consistent with multiple sclerosis. Patient is currently alert and oriented. Denies fever, chills, nausea and vomiting, headache, blurry vision, hearing deficits, lightheadedness/dizziness, chest pain , numbness, associated symptoms. Initial vital signs: BP 102/70, pulse 102, respirations 17, temp 97.9, pulse ox 96% on room air Abnormal labs: Elevated troponin I 82 LDL 161 RADIOLOGY - XR CHEST 1 V 02/19 1216 IMPRESSION: No evidence of acute cardiopulmonary abnormality. CAT SCAN - CT HEAD/BRAIN W/O CONT 02/19 1330 IMPRESSION: There is no imaging evidence of acute intracranial pathology. CAT SCAN - CTA HEAD 02/19 1331 IMPRESSION: Unremarkable CTA of the head. Review of Systems Additional notes: Constitutional: Reports: generalized weakness. Denies: chills, fatigue, fever, lethargy, malaise, recent wt loss, other. Respiratory: Denies: MANDUJANO (dyspnea on exertion), hemoptysis, non productive cough, parox nocturnal dyspnea, pleurisy, pleuritic pain, pneumonia, productive cough (sputum), SOB, wheezing, other. Cardiovascular: Denies: chest pain, MANDUJANO (dyspnea on exertion), edema, orthopnea, palpitations, parox nocturnal dyspnea, other. GI: Denies: abdominal pain, anorexia, constipation, diarrhea, dysphagia, GERD, hematemesis, hematochezia, hiatal hernia, melena, nausea, rectal pain, vomiting, other. : Denies: dysuria, flank pain, frequency, hematuria, nocturia, penile discharge, penile lesion, testicular pain, testicular swelling, urgency, urinary retention, other. Musculoskeletal: Extremity pain: Reports: left lower, right lower. Neuro: Denies: bladder dysfunction, bowel dysfunction, change in LOC, confusion, dizziness, focal weakness, gait problem, headache, lightheaded, numbness, seizure, slurred speech, spinning sensation, syncope, unable to speak, vision change, weakness, other. Psych: Denies: agitation, anxiety, auditory hallucination, change in mental status, confusion, delusional, depression, homicidal ideation, hostile, insomnia, stress, suicidal ideation, visual hallucination, other. Objective General VS/I O: Vital Signs Date Temp Pulse Resp B/P B/P Mean Pulse Ox FiO2 03/09 36.6-36.9 65-89 14-19 90-96/55-66 0.0-73.1 93-96 Last Documented: Result Date Time Pulse Ox 95 03/09 1854 B/P 96/66 03/09 1854 B/P Mean 0.0 03/09 1854 O2 Delivery Room air 03/09 1854 Temp 36.8 03/09 1854 Pulse 89 03/09 1854 Resp 14 03/09 1854 O2 Flow Rate 2 02/20 1228 24 hour I O ending at 0700: 03/09 0700 03/08 1900 Intake Total Output Total 900 Balance -900 Output, Urine 900 PATIENT WEIGHT: Weight (lb): Weight (oz): Weight (kg): 75.000 Medications: Active Meds + DC'd Last 24 Hrs Ibuprofen (IBUPROFEN) 400 MG Q12H PRN PRN PO Midodrine (PROAMATINE) 5 MG Q8H PRN PRN PO Diagnosis, Assessment Plan Hospital course to date: General appearance: alert, awake Head/Eyes: atraumatic, clear cornea, EOMI, normocephalic, normal conjunctiva/ sclera, normal eyelids/periorb, PERRLA Neck: no JVD Cardiovascular: regular rate rhythm Respiratory: decreased breath sounds, no distress, no tenderness Abdomen/GI: active bowel sounds, soft, non-tender, no guarding, no rebound, no distention, no mass/organomegaly, no pulsatile mass, no hernia, normal abdominal aorta Abdomen quadrants: LLQ normal bowel sounds, LUQ normal bowel sounds, RLQ normal bowel sounds, RUQ normal bowel sounds Extremities: moves all, no edema-all extremities, normal capillary refill, normal range of motion, normal sensory, normal motor function Neuro/CRYSTALIZER TENDER: alert, oriented X 3 Skin: dry, intact, no gross abnormalities Psychiatry: no hallucinations, normal affect, normal judgment/insight, normal mood, not homicidal, not suicidal Problem List/A P: 1. Multiple sclerosis Consultants: neurology Free Text DxA P Notes Free text DxA P notes: Assessment: 38-year-old male patient with recent diagnosis of multiple sclerosis, alcoholism , IBS presents to the emergency department today for the evaluation of lower extremity weakness/pain resulting in multiple falls, episodes of confusion, bladder incontinence. As per patient's Mother MRI was done a month ago Revealing multiple lesions consistent with multiple sclerosis. Patient is currently alert and oriented. Denies fever, chills, nausea and vomiting, headache, blurry vision, hearing deficits, lightheadedness/dizziness, chest pain , numbness, associated symptoms. 1. Multiple sclerosis 2. Lower extremity weakness/pain resulting to multiple falls 3. Confusion 4. Bladder incontinence 5. Mildly elevated troponin 82 6. HLD- LDL 61 7. History of alcoholism, IBS Plan of care: Admit patient for further evaluation and treatment Fall precaution Tylenol extra strength 1000 mg p.o. given stat, methylprednisolone stat Drug abuse screen Neuro consult placed Telemetry BP control Glycemic control Pain control Electrolyte control DVT/GI prophylaxis Follow-up labs, images 02/21/2024 Vital signs are within normal limits MRI brain: scattered white matter lesions consistent with demyelination noted. No abnormal enhancement MRI c-spine: no abnormal cord signal or enhancement Neuro is following. Recommends screen and correct any underlying toxic or metabolic process contributing to symptoms. PT/OT Fall precaution Continue supportive care 02/22/2024 Soft BP, latest 91/59 No acute events overnight Neuro is following. MRI of the T-spine pending results PT/OT consult placed On regular diet now Fall and safety precaution, follow-up images, continue medications and supportive care 02/23/2024 No acute events overnight BP 97/65 MRI of the T-spine is unremarkable Continue PT/OT Case management consult placed Continue supportive care 02/24/2024 Vital signs are stable No acute events overnight. No new neurologic symptoms. Neuro noted no active lesion on MRI, no acute findings. Orders to continue PT/ OT/rehab evaluations Fall and safety precaution Continue supportive care 02/25/2024 Vital signs are within normal limits. No new complaints Stable Continue OT management Ongoing discharge planning Fall and safety precaution, continue supportive care 02/26/2024 No acute events overnight Vital signs are stable Ongoing discharge planning Fall and safety precaution, continue supportive care 02/27/2024 Stable Neuro is following Rehab has seen the patient. Noted patient may have to discharge to SNF versus custodial versus fpc. Recommends social media marketing analyst to assist with placement. Continue PT/OT management Patient is scheduled for image guided lumbar puncture tomorrow per Dr. Martinez. Monitor accordingly Pain control Continue supportive care 02/28/2024 Status post image guided lumbar puncture. Procedure per Dr. Martinez. 15.5 mL of clear spinal fluid was removed and sent to lab. The patient tolerated the procedure well. Pain control Rehab is following Follow-up cultures Continue present care 02/29/2024 Vital signs are within normal limits No acute events overnight Started on midodrine 5 mg p.o. every 8 hours as needed for hypotension PT management Follow-up labs, fall and safety precaution, continue present care 03/01/2024 Stable, latest BP 96/55 No new complaints Started on [place] to 1 tab p.o. every 8 hours as needed for pain PS 4-10. Continue midodrine 5 mg p.o. every 8 hours as needed for hypotension PT/OT Fall and safety precaution, follow-up labs, continue medications and present care 03/02/2024 BP 94/61 Final body fluid culture shows no growth after 72 hours Continue hypotensive precaution. On midodrine Pain control Discharge planning: Patient does not qualify for inpatient rehab bed. Pending final discharge placement, SNF versus custodial versus fpc. ordnance equipment worker to assist with placement OT for evaluation Fall and safety precaution, continue supportive care 03/03/2024 BP 95/64 No acute events overnight Patient continues to get OOB daily with assistance per rehab Pain medications as needed. Continue on midodrine Ongoing discharge planning Fall precaution Continue supportive care 03/04/2024 Latest BP 92/56, otherwise stable No new complaints Continue BP control, pain medications as needed - Ibuprofen 400 mg p.o. every 12 hours given as needed PT/OT Fall and safety precaution, continue medications and supportive care 03/05/2024 Noted hypotensive episode. Blood pressure now better, latest 99/64. No acute events overnight [place] is discontinued. Last dose given today [place] is discontinued, last dose given today. Continue with ibuprofen 400 mg p.o. every 12 hours as needed for pain Continue midodrine for BP support PT/OT Continue supportive care 03/06/2024 No acute events overnight Ongoing discharge planning. Pending facility acceptance at [facility]. Following for updates Continue medications and supportive care. 03/07/2024 BP 91/58 Continue with midodrine 5 mg p.o. every 8 hours for BP support Ibuprofen as needed Gait training with PT Fall and safety precaution, continue supportive care 03/08/2024 No acute events overnight Patient's BP remains on the low side, latest 94/55 Stable Midodrine for BP support, continue ibuprofen as needed Ongoing discharge planning. Continue present care 03/09/2024 Patient in no acute distress. Stable Continues to work with therapy. Gait training with PT Pain medications as needed, on midodrine as needed for BP support Discharge planning: For [facility]. Pending insurance authorization Continue supportive care Jeremy Paige I 03/09/246: Attestations Physician Attestation Agree w/findings plan: I Agree with the findings and plan as documented by ANALY Sotomayor. Plan of care coordinated with ANALY Sotomayor. Pertinent labs, Imaging, and information consultant evaluations reviewed. Patient has low BP episodes overnight. Latest BP at 90/60, monitor continuously. Other VS are within normal limits. Monitor accordingly. Continue present medications. Continue supportive care. at 1409 at 1121 RPT #:[id number] END OF REPORT [facility] 2024-03-09 13:16:00 [facility] ([facility]) Rehab Progress Note REPORT#:[id number] REPORT STATUS: Signed REPORT INITIALIZATION DATE:03/09/24 TIME: 131 PATIENT: CHRISS HUGGINS UNIT #: [id number] ROOM/BED: [place] [address] : 85 AGE: 38 SEX: M ATTEND: Jeremy Paige MD ADM AUTHOR: Kathia Garay PA-C REPT SERVICE DT/TIME: 03/09/24 1316 * ALL edits or amendments must be made on the electronic/computer document * Subjective Chief complaint: Pt seen and examined. He is in bed. No acute distress. Has been getting up OOB wih his cane to and from the bathroom. Objective General VS: Vital Signs: Date Time Temp Pulse Resp B/P B/P Pulse O2 O2 Flow FiO2 Mean Ox Delivery Rate 03/09 1203 98.1 79 16 96/62 73.1 95 03/09 0741 98.1 69 19 93/59 70.6 96 03/09 0502 98.1 65 14 90/60 70.1 94 Room air 03/09 0002 97.9 72 14 94/55 67.7 96 Room air 03/08 1948 98.4 96 14 90/58 68.2 95 Room air 03/08 1616 99.3 99 16 92/61 71.2 93 PATIENT WEIGHT: Weight (lb): Weight (oz): Weight (kg): 75.000 Medications: Active Meds + DC'd Last 24 Hrs Ibuprofen (IBUPROFEN) 400 MG Q12H PRN PRN PO Midodrine (PROAMATINE) 5 MG Q8H PRN PRN PO Functional Progress Functional progress: Precautions: Fall Safety addressed through use of: Gait Belt Verbal Cues Tactile Cues Gait Device RW Weightbearing: No Restriction Ambulation Distance: 200ft x 1 with RLE shaking Progression: Forward Backward Lateral, Right Lateral, Left Assistance Level: Minimal Assistance Gait Deviations: Base of Support - Wide Head Down unsteady knee joaquin/hyperext w/ fatigue Effects of Treatment: Balance Improved Function Improved Gait quality improved Post Treatment Precautions: In Bed, Rails Up Bed Alarm Suture Polisher Light in Reach Nursing Notified PT charges: Gait Training [id number] Gait Cmt: PERFORMED BED MOBILITY AND SUPINE TO SIT WITH SBA PERFORMED STS WITH SBA. AMBULATED 200FT UISNG RW AND REQUIRED MIN A DUE TO INCREASED LOB If this is the patient's last treatment, this entry Start Time: 1450 Stop Time: 1513 Treatment Time: ( minutes) 0:23 Completed by: Diane Goldberg Conference/Supervising PT: Yes Supervising Therapist: Adama Escobedo Physical Exam HEENT: anicteric, mucosal membranes moist, sclera clear Neck: supple, no JVD Cardiovascular: regular rate rhythm, S1/S2, no murmur Respiratory: aerating well, clear bilaterally Abdomen: bowel sounds present, non-distended, soft, non-tender Skin: dry, normal temperature Musculoskeletal - general: Musculoskeletal - general: joints normal, range of motion normal, strength testing normal, mild intrinsic wasting Neuro/CRYSTALIZER TENDER: alert, oriented X 3, normal speech, no motor deficits, no sensory deficits Diagnosis, Assessment Plan Problem List/A P: 1. Multiple sclerosis 2. Debility 3. IBS (irritable bowel syndrome) Free Text A P: Plan: Physical therapy and Occupational therapy evaluated the patient. He ambulated 200 feet min assist to supervision and per Occupational Therapy was independent to modified independent with ADLs. Occupational Therapy signed off his case. He does not currently qualify for inpatient rehabilitation. He would likely benefit from some outpatient therapy but unfortunately does not have a vehicle transportation. Discussed with him about his living situation and currently appears to be homeless. He will benefit from discharging home with family for the added support, but it does not sound as though that will be the case. May have to discharge to a longterm facility versus custodial versus fpc. Recommend social media marketing analyst to assist with placement. 03/02: Seen. He has been getting OOB daily. Making gains on mobility. He is ambulating with RW at MIN A. He did fatigue after gait. Pain controlled. Encourage OOB in the bedside chair. 03/03: PT seen. Continue OOB daily. Assistance when OOB. No pain. SNF pending. 03/05: Continue with therapy as tolerated. SNF pending 03/06/24: Continue with therapy services. Doing well; working on balance, endurance, etc. Pending placement. 03/09: He continues to work with therapy. MIN A with gait. OOB daily. Encourage him to be out pf the bed more to the chair. SNF pending. Consultants: neurology Rehab attestation: Face to face exam completed. Treatment plan discussed with patient. at 1548 RPT #:[id number] END OF REPORT [facility] 2024-03-09 03:48:00 [facility] ([facility]) Clinical Note REPORT#:[id number] REPORT STATUS: Signed REPORT INITIALIZATION DATE:03/09/24 TIME: 347 PATIENT: CHRISS HUGGINS UNIT #: [id number] ROOM/BED: [place] [address] : 85 AGE: 38 SEX: M ATTEND: Jeremy Paige MD ADM AUTHOR: Jeremy Paige MD REPT SERVICE DT/TIME: 03/09/24347 * ALL edits or amendments must be made on the electronic/computer document * Clinical Note Note: Patient with recent diagnosis of multiple sclerosis, alcoholism and IBS presents for evaluation of lower extremity weakness and pain resulting in multiple falls, episodes of confusion, and bladder incontinence. Past MRI reveals multiple lesions consistent with multiple sclerosis. Patient has mildly elevated troponin 82 and HDL-LDL 61 upon admission. Patient has low BP episodes overnight. Latest BP at 90/60, monitor continuously. Other VS are within normal limits. Monitor accordingly. Continue present medications. Continue supportive care. at 2107 RPT #:[id number] END OF REPORT [facility] 2024-03-08 17:01:00 [facility] ([facility]) Clinical Note REPORT#:[id number] REPORT STATUS: Signed REPORT INITIALIZATION DATE:03/08/24 TIME: 170 PATIENT: CHRISS HUGGINS UNIT #: [id number] ROOM/BED: [place] [address] : 85 AGE: 38 SEX: M ATTEND: Jeremy Paige MD ADM AUTHOR: Jeremy Paige MD REPT SERVICE DT/TIME: 03/08/24 1701 * ALL edits or amendments must be made on the electronic/computer document * Clinical Note Note: Patient with recent diagnosis of multiple sclerosis, alcoholism and IBS presents for evaluation of lower extremity weakness and pain resulting in multiple falls, episodes of confusion, and bladder incontinence. Past MRI reveals multiple lesions consistent with multiple sclerosis. Patient has mildly elevated troponin 82 and HDL-LDL 61 upon admission. Noted some episodes of low BP overnight. Latest BP at 92/60, continue BP monitoring. Other VS are within normal limits. Monitor accordingly. On ibuprofen and midodrine. Continue with supportive care. at 1403 RPT #:[id number] END OF REPORT [facility] 2024-03-08 16:32:00 [facility] Internal Medicine Prog. Note REPORT#:[id number] REPORT STATUS: Signed REPORT INITIALIZATION DATE:03/08/24 TIME: 1631 PATIENT: CHRISS HUGGINS UNIT #: [id number] ROOM/BED: [place] [address] : 85 AGE: 38 SEX: M ATTEND: Jeremy Paige MD ADM AUTHOR: Osmany Sotomayor NP REPT SERVICE DT/TIME: 03/08/24 1632 * ALL edits or amendments must be made on the electronic/computer document * Osmany Sotomayor 03/08/24 1632: Subjective Chief complaint: Multiple falls Lower extremity weakness Confusion Bladder incontinence HPI: 38-year-old male patient with recent diagnosis of multiple sclerosis, alcoholism , IBS presents to the emergency department today for the evaluation of lower extremity weakness/pain resulting in multiple falls, episodes of confusion, bladder incontinence. As per patient's Mother MRI was done a month ago Revealing multiple lesions consistent with multiple sclerosis. Patient is currently alert and oriented. Denies fever, chills, nausea and vomiting, headache, blurry vision, hearing deficits, lightheadedness/dizziness, chest pain , numbness, associated symptoms. Initial vital signs: BP 102/70, pulse 102, respirations 17, temp 97.9, pulse ox 96% on room air Abnormal labs: Elevated troponin I 82 LDL 161 RADIOLOGY - XR CHEST 1 V 02/19 1216 IMPRESSION: No evidence of acute cardiopulmonary abnormality. CAT SCAN - CT HEAD/BRAIN W/O CONT 02/19 1330 IMPRESSION: There is no imaging evidence of acute intracranial pathology. CAT SCAN - CTA HEAD 02/19 1331 IMPRESSION: Unremarkable CTA of the head. Review of Systems Additional notes: Constitutional: Reports: generalized weakness. Denies: chills, fatigue, fever, lethargy, malaise, recent wt loss, other. Respiratory: Denies: MANDUJANO (dyspnea on exertion), hemoptysis, non productive cough, parox nocturnal dyspnea, pleurisy, pleuritic pain, pneumonia, productive cough (sputum), SOB, wheezing, other. Cardiovascular: Denies: chest pain, MANDUJANO (dyspnea on exertion), edema, orthopnea, palpitations, parox nocturnal dyspnea, other. GI: Denies: abdominal pain, anorexia, constipation, diarrhea, dysphagia, GERD, hematemesis, hematochezia, hiatal hernia, melena, nausea, rectal pain, vomiting, other. : Denies: dysuria, flank pain, frequency, hematuria, nocturia, penile discharge, penile lesion, testicular pain, testicular swelling, urgency, urinary retention, other. Musculoskeletal: Extremity pain: Reports: left lower, right lower. Neuro: Denies: bladder dysfunction, bowel dysfunction, change in LOC, confusion, dizziness, focal weakness, gait problem, headache, lightheaded, numbness, seizure, slurred speech, spinning sensation, syncope, unable to speak, vision change, weakness, other. Psych: Denies: agitation, anxiety, auditory hallucination, change in mental status, confusion, delusional, depression, homicidal ideation, hostile, insomnia, stress, suicidal ideation, visual hallucination, other. Objective General VS/I O: Vital Signs Date Temp Pulse Resp B/P B/P Mean Pulse Ox FiO2 03/07-03/08 36.5-37.4 60-136 14-16 90-92/58-61 69.0-71.2 93-97 Last Documented: Result Date Time Pulse Ox 93 03/08 1616 B/P 92/61 03/08 1616 B/P Mean 71.2 03/08 1616 Temp 37.4 03/08 161 Pulse 99 03/08 161 Resp 16 03/08 161 O2 Delivery Room air 03/07 2322 O2 Flow Rate 2 02/20 1228 PATIENT WEIGHT: Weight (lb): Weight (oz): Weight (kg): 75.000 Medications: Active Meds + DC'd Last 24 Hrs Ibuprofen (IBUPROFEN) 400 MG Q12H PRN PRN PO Midodrine (PROAMATINE) 5 MG Q8H PRN PRN PO Diagnosis, Assessment Plan Hospital course to date: General appearance: alert, awake Head/Eyes: atraumatic, clear cornea, EOMI, normocephalic, normal conjunctiva/ sclera, normal eyelids/periorb, PERRLA Neck: no JVD Cardiovascular: regular rate rhythm Respiratory: decreased breath sounds, no distress, no tenderness Abdomen/GI: active bowel sounds, soft, non-tender, no guarding, no rebound, no distention, no mass/organomegaly, no pulsatile mass, no hernia, normal abdominal aorta Abdomen quadrants: LLQ normal bowel sounds, LUQ normal bowel sounds, RLQ normal bowel sounds, RUQ normal bowel sounds Extremities: moves all, no edema-all extremities, normal capillary refill, normal range of motion, normal sensory, normal motor function Neuro/CRYSTALIZER TENDER: alert, oriented X 3 Skin: dry, intact, no gross abnormalities Psychiatry: no hallucinations, normal affect, normal judgment/insight, normal mood, not homicidal, not suicidal Problem List/A P: 1. Multiple sclerosis Consultants: neurology Free Text DxA P Notes Free text DxA P notes: Assessment: 38-year-old male patient with recent diagnosis of multiple sclerosis, alcoholism , IBS presents to the emergency department today for the evaluation of lower extremity weakness/pain resulting in multiple falls, episodes of confusion, bladder incontinence. As per patient's Mother MRI was done a month ago Revealing multiple lesions consistent with multiple sclerosis. Patient is currently alert and oriented. Denies fever, chills, nausea and vomiting, headache, blurry vision, hearing deficits, lightheadedness/dizziness, chest pain , numbness, associated symptoms. 1. Multiple sclerosis 2. Lower extremity weakness/pain resulting to multiple falls 3. Confusion 4. Bladder incontinence 5. Mildly elevated troponin 82 6. HLD- LDL 61 7. History of alcoholism, IBS Plan of care: Admit patient for further evaluation and treatment Fall precaution Tylenol extra strength 1000 mg p.o. given stat, methylprednisolone stat Drug abuse screen Neuro consult placed Telemetry BP control Glycemic control Pain control Electrolyte control DVT/GI prophylaxis Follow-up labs, images 02/21/2024 Vital signs are within normal limits MRI brain: scattered white matter lesions consistent with demyelination noted. No abnormal enhancement MRI c-spine: no abnormal cord signal or enhancement Neuro is following. Recommends screen and correct any underlying toxic or metabolic process contributing to symptoms. PT/OT Fall precaution Continue supportive care 02/22/2024 Soft BP, latest 91/59 No acute events overnight Neuro is following. MRI of the T-spine pending results PT/OT consult placed On regular diet now Fall and safety precaution, follow-up images, continue medications and supportive care 02/23/2024 No acute events overnight BP 97/65 MRI of the T-spine is unremarkable Continue PT/OT Case management consult placed Continue supportive care 02/24/2024 Vital signs are stable No acute events overnight. No new neurologic symptoms. Neuro noted no active lesion on MRI, no acute findings. Orders to continue PT/ OT/rehab evaluations Fall and safety precaution Continue supportive care 02/25/2024 Vital signs are within normal limits. No new complaints Stable Continue OT management Ongoing discharge planning Fall and safety precaution, continue supportive care 02/26/2024 No acute events overnight Vital signs are stable Ongoing discharge planning Fall and safety precaution, continue supportive care 02/27/2024 Stable Neuro is following Rehab has seen the patient. Noted patient may have to discharge to SNF versus custodial versus fpc. Recommends social media marketing analyst to assist with placement. Continue PT/OT management Patient is scheduled for image guided lumbar puncture tomorrow per Dr. Martinez. Monitor accordingly Pain control Continue supportive care 02/28/2024 Status post image guided lumbar puncture. Procedure per Dr. Martinez. 15.5 mL of clear spinal fluid was removed and sent to lab. The patient tolerated the procedure well. Pain control Rehab is following Follow-up cultures Continue present care 02/29/2024 Vital signs are within normal limits No acute events overnight Started on midodrine 5 mg p.o. every 8 hours as needed for hypotension PT management Follow-up labs, fall and safety precaution, continue present care 03/01/2024 Stable, latest BP 96/55 No new complaints Started on [place] to 1 tab p.o. every 8 hours as needed for pain PS 4-10. Continue midodrine 5 mg p.o. every 8 hours as needed for hypotension PT/OT Fall and safety precaution, follow-up labs, continue medications and present care 03/02/2024 BP 94/61 Final body fluid culture shows no growth after 72 hours Continue hypotensive precaution. On midodrine Pain control Discharge planning: Patient does not qualify for inpatient rehab bed. Pending final discharge placement, SNF versus custodial versus fpc. ordnance equipment worker to assist with placement OT for evaluation Fall and safety precaution, continue supportive care 03/03/2024 BP 95/64 No acute events overnight Patient continues to get OOB daily with assistance per rehab Pain medications as needed. Continue on midodrine Ongoing discharge planning Fall precaution Continue supportive care 03/04/2024 Latest BP 92/56, otherwise stable No new complaints Continue BP control, pain medications as needed - Ibuprofen 400 mg p.o. every 12 hours given as needed PT/OT Fall and safety precaution, continue medications and supportive care 03/05/2024 Noted hypotensive episode. Blood pressure now better, latest 99/64. No acute events overnight [place] is discontinued. Last dose given today [place] is discontinued, last dose given today. Continue with ibuprofen 400 mg p.o. every 12 hours as needed for pain Continue midodrine for BP support PT/OT Continue supportive care 03/06/2024 No acute events overnight Ongoing discharge planning. Pending facility acceptance at [facility]. Following for updates Continue medications and supportive care. 03/07/2024 BP 91/58 Continue with midodrine 5 mg p.o. every 8 hours for BP support Ibuprofen as needed Gait training with PT Fall and safety precaution, continue supportive care 03/08/2024 No acute events overnight Patient's BP remains on the low side, latest 94/55 Stable Midodrine for BP support, continue ibuprofen as needed Ongoing discharge planning. Continue present care Jeremy Paige I 03/08/24 4642: Attestations Physician Attestation Agree w/findings plan: I Agree with the findings and plan as documented by ANALY Sotomayor. Plan of care coordinated with ANALY Sotomayor. Pertinent labs, Imaging, and information consultant evaluations reviewed. Noted some episodes of low BP overnight. Latest BP at 92/60, continue BP monitoring. Other VS are within normal limits. Monitor accordingly. On ibuprofen and midodrine. Continue with supportive care. at 2355 at 1124 RPT #:[id number] END OF REPORT [facility] 2024-03-07 23:12:00 [facility] Internal Medicine Prog. Note REPORT#:[id number] REPORT STATUS: Signed REPORT INITIALIZATION DATE:03/07/24 TIME: 2311 PATIENT: CHRISS HUGGINS UNIT #: [id number] ROOM/BED: [place] [address] : 85 AGE: 38 SEX: M ATTEND: Jeremy Paige MD ADM AUTHOR: Osmany Sotomayor NP REPT SERVICE DT/TIME: 03/07/242311 * ALL edits or amendments must be made on the electronic/computer document * Osmany Sotomayor 03/07/24 2312: Subjective Chief complaint: Multiple falls Lower extremity weakness Confusion Bladder incontinence HPI: 38-year-old male patient with recent diagnosis of multiple sclerosis, alcoholism , IBS presents to the emergency department today for the evaluation of lower extremity weakness/pain resulting in multiple falls, episodes of confusion, bladder incontinence. As per patient's Mother MRI was done a month ago Revealing multiple lesions consistent with multiple sclerosis. Patient is currently alert and oriented. Denies fever, chills, nausea and vomiting, headache, blurry vision, hearing deficits, lightheadedness/dizziness, chest pain , numbness, associated symptoms. Initial vital signs: BP 102/70, pulse 102, respirations 17, temp 97.9, pulse ox 96% on room air Abnormal labs: Elevated troponin I 82 LDL 161 RADIOLOGY - XR CHEST 1 V 02/19 1216 IMPRESSION: No evidence of acute cardiopulmonary abnormality. CAT SCAN - CT HEAD/BRAIN W/O CONT 02/19 1330 IMPRESSION: There is no imaging evidence of acute intracranial pathology. CAT SCAN - CTA HEAD 02/19 1331 IMPRESSION: Unremarkable CTA of the head. Review of Systems Additional notes: Constitutional: Reports: generalized weakness. Denies: chills, fatigue, fever, lethargy, malaise, recent wt loss, other. Respiratory: Denies: MANDUJANO (dyspnea on exertion), hemoptysis, non productive cough, parox nocturnal dyspnea, pleurisy, pleuritic pain, pneumonia, productive cough (sputum), SOB, wheezing, other. Cardiovascular: Denies: chest pain, MANDUJANO (dyspnea on exertion), edema, orthopnea, palpitations, parox nocturnal dyspnea, other. GI: Denies: abdominal pain, anorexia, constipation, diarrhea, dysphagia, GERD, hematemesis, hematochezia, hiatal hernia, melena, nausea, rectal pain, vomiting, other. : Denies: dysuria, flank pain, frequency, hematuria, nocturia, penile discharge, penile lesion, testicular pain, testicular swelling, urgency, urinary retention, other. Musculoskeletal: Extremity pain: Reports: left lower, right lower. Neuro: Denies: bladder dysfunction, bowel dysfunction, change in LOC, confusion, dizziness, focal weakness, gait problem, headache, lightheaded, numbness, seizure, slurred speech, spinning sensation, syncope, unable to speak, vision change, weakness, other. Psych: Denies: agitation, anxiety, auditory hallucination, change in mental status, confusion, delusional, depression, homicidal ideation, hostile, insomnia, stress, suicidal ideation, visual hallucination, other. Objective General VS/I O: Vital Signs: Date Time Temp Pulse Resp B/P B/P Pulse O2 O2 Flow FiO2 Mean Ox Delivery Rate 03/07 1852 36.7 82 14 90/60 70.0 97 Room air 03/07 1558 36.5 69 16 95/63 73.7 97 03/07 1111 36.7 112 16 93/65 73.9 98 03/07 0754 36.7 62 16 93/58 69.7 97 03/07 0352 36.6 68 16 93/57 0.0 96 Room air 03/07 0023 36.5 69 14 99/67 77.9 95 Room air Current Medications Sig/Osmar Start time Last Medication Dose Route Stop Time Status Admin Ibuprofen 400 MG Q12H PRN PRN 03/04 1415 AC 03/07 PO 06/02 1413 1336 Midodrine 5 MG Q8H PRN PRN 02/28 2145 AC 03/07 PO 03/21 2144 1336 Vital Signs Date Temp Pulse Resp B/P B/P Mean Pulse Ox FiO2 03/07 36.5-36.7 62-112 14-16 90-99/57-67 0.0-77.9 95-98 Last Documented: Result Date Time Pulse Ox 97 03/07 1852 B/P 90/60 03/07 1852 B/P Mean 70.0 03/07 1852 O2 Delivery Room air 03/07 1852 Temp 36.7 03/07 1852 Pulse 82 03/07 1852 Resp 14 03/07 1852 O2 Flow Rate 2 02/20 1228 PATIENT WEIGHT: Weight (lb): Weight (oz): Weight (kg): 75.000 Diagnosis, Assessment Plan Hospital course to date: General appearance: alert, awake Head/Eyes: atraumatic, clear cornea, EOMI, normocephalic, normal conjunctiva/ sclera, normal eyelids/periorb, PERRLA Neck: no JVD Cardiovascular: regular rate rhythm Respiratory: decreased breath sounds, no distress, no tenderness Abdomen/GI: active bowel sounds, soft, non-tender, no guarding, no rebound, no distention, no mass/organomegaly, no pulsatile mass, no hernia, normal abdominal aorta Abdomen quadrants: LLQ normal bowel sounds, LUQ normal bowel sounds, RLQ normal bowel sounds, RUQ normal bowel sounds Extremities: moves all, no edema-all extremities, normal capillary refill, normal range of motion, normal sensory, normal motor function Neuro/CRYSTALIZER TENDER: alert, oriented X 3 Skin: dry, intact, no gross abnormalities Psychiatry: no hallucinations, normal affect, normal judgment/insight, normal mood, not homicidal, not suicidal Problem List/A P: 1. Multiple sclerosis Consultants: neurology Free Text DxA P Notes Free text DxA P notes: Assessment: 38-year-old male patient with recent diagnosis of multiple sclerosis, alcoholism , IBS presents to the emergency department today for the evaluation of lower extremity weakness/pain resulting in multiple falls, episodes of confusion, bladder incontinence. As per patient's Mother MRI was done a month ago Revealing multiple lesions consistent with multiple sclerosis. Patient is currently alert and oriented. Denies fever, chills, nausea and vomiting, headache, blurry vision, hearing deficits, lightheadedness/dizziness, chest pain , numbness, associated symptoms. 1. Multiple sclerosis 2. Lower extremity weakness/pain resulting to multiple falls 3. Confusion 4. Bladder incontinence 5. Mildly elevated troponin 82 6. HLD- LDL 61 7. History of alcoholism, IBS Plan of care: Admit patient for further evaluation and treatment Fall precaution Tylenol extra strength 1000 mg p.o. given stat, methylprednisolone stat Drug abuse screen Neuro consult placed Telemetry BP control Glycemic control Pain control Electrolyte control DVT/GI prophylaxis Follow-up labs, images 02/21/2024 Vital signs are within normal limits MRI brain: scattered white matter lesions consistent with demyelination noted. No abnormal enhancement MRI c-spine: no abnormal cord signal or enhancement Neuro is following. Recommends screen and correct any underlying toxic or metabolic process contributing to symptoms. PT/OT Fall precaution Continue supportive care 02/22/2024 Soft BP, latest 91/59 No acute events overnight Neuro is following. MRI of the T-spine pending results PT/OT consult placed On regular diet now Fall and safety precaution, follow-up images, continue medications and supportive care 02/23/2024 No acute events overnight BP 97/65 MRI of the T-spine is unremarkable Continue PT/OT Case management consult placed Continue supportive care 02/24/2024 Vital signs are stable No acute events overnight. No new neurologic symptoms. Neuro noted no active lesion on MRI, no acute findings. Orders to continue PT/ OT/rehab evaluations Fall and safety precaution Continue supportive care 02/25/2024 Vital signs are within normal limits. No new complaints Stable Continue OT management Ongoing discharge planning Fall and safety precaution, continue supportive care 02/26/2024 No acute events overnight Vital signs are stable Ongoing discharge planning Fall and safety precaution, continue supportive care 02/27/2024 Stable Neuro is following Rehab has seen the patient. Noted patient may have to discharge to SNF versus custodial versus fpc. Recommends social media marketing analyst to assist with placement. Continue PT/OT management Patient is scheduled for image guided lumbar puncture tomorrow per Dr. Martinez. Monitor accordingly Pain control Continue supportive care 02/28/2024 Status post image guided lumbar puncture. Procedure per Dr. Martinez. 15.5 mL of clear spinal fluid was removed and sent to lab. The patient tolerated the procedure well. Pain control Rehab is following Follow-up cultures Continue present care 02/29/2024 Vital signs are within normal limits No acute events overnight Started on midodrine 5 mg p.o. every 8 hours as needed for hypotension PT management Follow-up labs, fall and safety precaution, continue present care 03/01/2024 Stable, latest BP 96/55 No new complaints Started on [place] to 1 tab p.o. every 8 hours as needed for pain PS 4-10. Continue midodrine 5 mg p.o. every 8 hours as needed for hypotension PT/OT Fall and safety precaution, follow-up labs, continue medications and present care 03/02/2024 BP 94/61 Final body fluid culture shows no growth after 72 hours Continue hypotensive precaution. On midodrine Pain control Discharge planning: Patient does not qualify for inpatient rehab bed. Pending final discharge placement, SNF versus custodial versus fpc. ordnance equipment worker to assist with placement OT for evaluation Fall and safety precaution, continue supportive care 03/03/2024 BP 95/64 No acute events overnight Patient continues to get OOB daily with assistance per rehab Pain medications as needed. Continue on midodrine Ongoing discharge planning Fall precaution Continue supportive care 03/04/2024 Latest BP 92/56, otherwise stable No new complaints Continue BP control, pain medications as needed - Ibuprofen 400 mg p.o. every 12 hours given as needed PT/OT Fall and safety precaution, continue medications and supportive care 03/05/2024 Noted hypotensive episode. Blood pressure now better, latest 99/64. No acute events overnight [place] is discontinued. Last dose given today [place] is discontinued, last dose given today. Continue with ibuprofen 400 mg p.o. every 12 hours as needed for pain Continue midodrine for BP support PT/OT Continue supportive care 03/06/2024 No acute events overnight Ongoing discharge planning. Pending facility acceptance at [facility]. Following for updates Continue medications and supportive care. 03/07/2024 BP 91/58 Continue with midodrine 5 mg p.o. every 8 hours for BP support Ibuprofen as needed Gait training with PT Fall and safety precaution, continue supportive care Jeremy Paige I 03/08/24 2472: Attestations Physician Attestation Agree w/findings plan: I Agree with the findings and plan as documented by ANALY Sotomayor. Plan of care coordinated with ANALY Sotomayor. Pertinent labs, Imaging, and information consultant evaluations reviewed. Patient's VS are within normal limits overnight. Monitor accordingly. Patient continuously works well with therapy. FAll and safety precaution. Discharge planning ongoing, pending facility acceptance. Continue medications. Consultants evaluations noted. Continue with supportive care. at 2354 at 1120 RPT #:[id number] END OF REPORT [facility] 2024-03-07 03:35:00 [facility]) Clinical Note REPORT#:[id number] REPORT STATUS: Signed REPORT INITIALIZATION DATE:03/07/24 TIME: 033 PATIENT: CHRISS HUGGINS UNIT #: [id number] ROOM/BED: [place] [address] : 85 AGE: 38 SEX: M ATTEND: Jeremy Paige MD ADM AUTHOR: Jeremy Paige MD REPT SERVICE DT/TIME: 03/07/24334 * ALL edits or amendments must be made on the electronic/computer document * Clinical Note Note: Patient with recent diagnosis of multiple sclerosis, alcoholism and IBS presents for evaluation of lower extremity weakness and pain resulting in multiple falls, episodes of confusion, and bladder incontinence. Past MRI reveals multiple lesions consistent with multiple sclerosis. Patient has mildly elevated troponin 82 and HDL-LDL 61 upon admission. Patient's VS are within normal limits overnight. Monitor accordingly. Patient continuously works well with therapy. FAll and safety precaution. Discharge planning ongoing, pending facility acceptance. Continue medications. Consultants evaluations noted. Continue with supportive care. at 1402 RPT #:[id number] END OF REPORT [facility] 2024-03-06 15:25:00 [facility] ([facility]) Internal Medicine Prog. Note REPORT#:[id number] REPORT STATUS: Signed REPORT INITIALIZATION DATE:03/06/24 TIME: 152 PATIENT: CHRISS HUGGINS UNIT #: [id number] ROOM/BED: [place] [address] : 85 AGE: 38 SEX: M ATTEND: Jeremy Paige MD ADM AUTHOR: Osmany Sotomayor EMAIL CAMPAIGN SPECIALIST REPT SERVICE DT/TIME: 03/06/24 1525 * ALL edits or amendments must be made on the electronic/computer document * Светлана,Osmany 03/06/24 1525: Subjective Chief complaint: Multiple falls Lower extremity weakness Confusion Bladder incontinence HPI: 38-year-old male patient with recent diagnosis of multiple sclerosis, alcoholism , IBS presents to the emergency department today for the evaluation of lower extremity weakness/pain resulting in multiple falls, episodes of confusion, bladder incontinence. As per patient's Mother MRI was done a month ago Revealing multiple lesions consistent with multiple sclerosis. Patient is currently alert and oriented. Denies fever, chills, nausea and vomiting, headache, blurry vision, hearing deficits, lightheadedness/dizziness, chest pain , numbness, associated symptoms. Initial vital signs: BP 102/70, pulse 102, respirations 17, temp 97.9, pulse ox 96% on room air Abnormal labs: Elevated troponin I 82 LDL 161 RADIOLOGY - XR CHEST 1 V 02/19 1216 IMPRESSION: No evidence of acute cardiopulmonary abnormality. CAT SCAN - CT HEAD/BRAIN W/O CONT 02/19 1330 IMPRESSION: There is no imaging evidence of acute intracranial pathology. CAT SCAN - CTA HEAD 02/19 1331 IMPRESSION: Unremarkable CTA of the head. Review of Systems Additional notes: Constitutional: Reports: generalized weakness. Denies: chills, fatigue, fever, lethargy, malaise, recent wt loss, other. Respiratory: Denies: MANDUJANO (dyspnea on exertion), hemoptysis, non productive cough, parox nocturnal dyspnea, pleurisy, pleuritic pain, pneumonia, productive cough (sputum), SOB, wheezing, other. Cardiovascular: Denies: chest pain, MANDUJANO (dyspnea on exertion), edema, orthopnea, palpitations, parox nocturnal dyspnea, other. GI: Denies: abdominal pain, anorexia, constipation, diarrhea, dysphagia, GERD, hematemesis, hematochezia, hiatal hernia, melena, nausea, rectal pain, vomiting, other. : Denies: dysuria, flank pain, frequency, hematuria, nocturia, penile discharge, penile lesion, testicular pain, testicular swelling, urgency, urinary retention, other. Musculoskeletal: Extremity pain: Reports: left lower, right lower. Neuro: Denies: bladder dysfunction, bowel dysfunction, change in LOC, confusion, dizziness, focal weakness, gait problem, headache, lightheaded, numbness, seizure, slurred speech, spinning sensation, syncope, unable to speak, vision change, weakness, other. Psych: Denies: agitation, anxiety, auditory hallucination, change in mental status, confusion, delusional, depression, homicidal ideation, hostile, insomnia, stress, suicidal ideation, visual hallucination, other. Objective General VS/I O: Vital Signs Date Temp Pulse Resp B/P B/P Mean Pulse Ox FiO2 03/05-03/06 36.4-37.0 70-94 15-17 91-101/55-64 67.9-75.5 95-98 Last Documented: Result Date Time Pulse Ox 96 03/06 1103 B/P 93/57 03/06 1103 B/P Mean 69.2 03/06 1103 Temp 36.6 03/06 1103 Pulse 79 03/06 1103 Resp 16 03/06 1103 O2 Delivery Room air 03/05 0356 O2 Flow Rate 2 02/20 1228 PATIENT WEIGHT: Weight (lb): Weight (oz): Weight (kg): 75.000 Medications: Active Meds + DC'd Last 24 Hrs Ibuprofen (IBUPROFEN) 400 MG Q12H PRN PRN PO Hydrocodone Bitart/Acetaminophen (NORCO 5/325) 1 TAB Q8H PRN PRN PO (DC) Midodrine (PROAMATINE) 5 MG Q8H PRN PRN PO Diagnosis, Assessment Plan Hospital course to date: General appearance: alert, awake Head/Eyes: atraumatic, clear cornea, EOMI, normocephalic, normal conjunctiva/ sclera, normal eyelids/periorb, PERRLA Neck: no JVD Cardiovascular: regular rate rhythm Respiratory: decreased breath sounds, no distress, no tenderness Abdomen/GI: active bowel sounds, soft, non-tender, no guarding, no rebound, no distention, no mass/organomegaly, no pulsatile mass, no hernia, normal abdominal aorta Abdomen quadrants: LLQ normal bowel sounds, LUQ normal bowel sounds, RLQ normal bowel sounds, RUQ normal bowel sounds Extremities: moves all, no edema-all extremities, normal capillary refill, normal range of motion, normal sensory, normal motor function Neuro/CRYSTALIZER TENDER: alert, oriented X 3 Skin: dry, intact, no gross abnormalities Psychiatry: no hallucinations, normal affect, normal judgment/insight, normal mood, not homicidal, not suicidal Problem List/A P: 1. Multiple sclerosis Consultants: neurology Free Text DxA P Notes Free text DxA P notes: Assessment: 38-year-old male patient with recent diagnosis of multiple sclerosis, alcoholism , IBS presents to the emergency department today for the evaluation of lower extremity weakness/pain resulting in multiple falls, episodes of confusion, bladder incontinence. As per patient's Mother MRI was done a month ago Revealing multiple lesions consistent with multiple sclerosis. Patient is currently alert and oriented. Denies fever, chills, nausea and vomiting, headache, blurry vision, hearing deficits, lightheadedness/dizziness, chest pain , numbness, associated symptoms. 1. Multiple sclerosis 2. Lower extremity weakness/pain resulting to multiple falls 3. Confusion 4. Bladder incontinence 5. Mildly elevated troponin 82 6. HLD- LDL 61 7. History of alcoholism, IBS Plan of care: Admit patient for further evaluation and treatment Fall precaution Tylenol extra strength 1000 mg p.o. given stat, methylprednisolone stat Drug abuse screen Neuro consult placed Telemetry BP control Glycemic control Pain control Electrolyte control DVT/GI prophylaxis Follow-up labs, images 02/21/2024 Vital signs are within normal limits MRI brain: scattered white matter lesions consistent with demyelination noted. No abnormal enhancement MRI c-spine: no abnormal cord signal or enhancement Neuro is following. Recommends screen and correct any underlying toxic or metabolic process contributing to symptoms. PT/OT Fall precaution Continue supportive care 02/22/2024 Soft BP, latest 91/59 No acute events overnight Neuro is following. MRI of the T-spine pending results PT/OT consult placed On regular diet now Fall and safety precaution, follow-up images, continue medications and supportive care 02/23/2024 No acute events overnight BP 97/65 MRI of the T-spine is unremarkable Continue PT/OT Case management consult placed Continue supportive care 02/24/2024 Vital signs are stable No acute events overnight. No new neurologic symptoms. Neuro noted no active lesion on MRI, no acute findings. Orders to continue PT/ OT/rehab evaluations Fall and safety precaution Continue supportive care 02/25/2024 Vital signs are within normal limits. No new complaints Stable Continue OT management Ongoing discharge planning Fall and safety precaution, continue supportive care 02/26/2024 No acute events overnight Vital signs are stable Ongoing discharge planning Fall and safety precaution, continue supportive care 02/27/2024 Stable Neuro is following Rehab has seen the patient. Noted patient may have to discharge to SNF versus custodial versus fpc. Recommends social media marketing analyst to assist with placement. Continue PT/OT management Patient is scheduled for image guided lumbar puncture tomorrow per Dr. Martinez. Monitor accordingly Pain control Continue supportive care 02/28/2024 Status post image guided lumbar puncture. Procedure per Dr. Martinez. 15.5 mL of clear spinal fluid was removed and sent to lab. The patient tolerated the procedure well. Pain control Rehab is following Follow-up cultures Continue present care 02/29/2024 Vital signs are within normal limits No acute events overnight Started on midodrine 5 mg p.o. every 8 hours as needed for hypotension PT management Follow-up labs, fall and safety precaution, continue present care 03/01/2024 Stable, latest BP 96/55 No new complaints Started on [place] to 1 tab p.o. every 8 hours as needed for pain PS 4-10. Continue midodrine 5 mg p.o. every 8 hours as needed for hypotension PT/OT Fall and safety precaution, follow-up labs, continue medications and present care 03/02/2024 BP 94/61 Final body fluid culture shows no growth after 72 hours Continue hypotensive precaution. On midodrine Pain control Discharge planning: Patient does not qualify for inpatient rehab bed. Pending final discharge placement, SNF versus custodial versus fpc. ordnance equipment worker to assist with placement OT for evaluation Fall and safety precaution, continue supportive care 03/03/2024 BP 95/64 No acute events overnight Patient continues to get OOB daily with assistance per rehab Pain medications as needed. Continue on midodrine Ongoing discharge planning Fall precaution Continue supportive care 03/04/2024 Latest BP 92/56, otherwise stable No new complaints Continue BP control, pain medications as needed - Ibuprofen 400 mg p.o. every 12 hours given as needed PT/OT Fall and safety precaution, continue medications and supportive care 03/05/2024 Noted hypotensive episode. Blood pressure now better, latest 99/64. No acute events overnight [place] is discontinued. Last dose given today [place] is discontinued, last dose given today. Continue with ibuprofen 400 mg p.o. every 12 hours as needed for pain Continue midodrine for BP support PT/OT Continue supportive care 03/06/2024 No acute events overnight Ongoing discharge planning. Pending facility acceptance at [facility]. Following for updates Continue medications and supportive care. Jeremy Paige I 03/06/242119: Attestations Physician Attestation Agree w/findings plan: I Agree with the findings and plan as documented by ANALY Sotomayor. Plan of care coordinated with ANALY Sotomayor. Pertinent labs, Imaging, and information consultant evaluations reviewed. Vital signs are within normal limits. Monitor accordingly. Continue comprehensive therapies as tolerated. Discharge plan ongoing, pending SNF. Continue present medications. Consultants evaluations noted. Continue with supportive care. at 0104 at 1119 RPT #:[id number] END OF REPORT [facility] 2024-03-06 10:30:00 [facility] Rehab Progress Note REPORT#:[id number] REPORT STATUS: Signed REPORT INITIALIZATION DATE:03/06/24 TIME: 1030 PATIENT: CHRISS HUGGINS UNIT #: [id number] ROOM/BED: [place] [address] : 85 AGE: 38 SEX: M ATTEND: Jeremy Paige MD ADM AUTHOR: Rosanna Renner REPT SERVICE DT/TIME: 03/06/24 1030 * ALL edits or amendments must be made on the electronic/computer document * Subjective Chief complaint: The patient was seen today for rehab follow up. Pending placement. Review of Systems ROS comments: No c/o chest pain, no shortness of breath, no abdominal pain, no nausea, no emesis. Objective General VS: Vital Signs: Date Time Temp Pulse Resp B/P B/P Pulse O2 O2 Flow FiO2 Mean Ox Delivery Rate 03/06 0754 97.7 71 16 98/60 72.5 97 03/06 0443 97.9 72 17 93/55 67.9 95 03/05 2347 97.9 70 15 99/64 75.5 95 03/05 1933 97.5 83 15 91/63 72.5 98 03/05 1732 98.6 94 16 101/61 74.5 96 03/05 1133 98.1 86 16 97/64 74.9 97 PATIENT WEIGHT: Weight (lb): Weight (oz): Weight (kg): 75.000 Functional Progress Functional progress: Precautions: Fall Pre- Gait Mobility Y/N: Yes Safety addressed through use of: Gait Belt Verbal Cues Tactile Cues Gait Device RW WC follow Weightbearing: No Restriction Ambulation Distance: 200ft x 1 with RLE shaking Progression: Forward Backward Lateral, Right Lateral, Left Assistance Level: Minimal Assistance Gait Deviations: Base of Support - Wide Head Down unsteady knee joaquin/hyperext w/ fatigue Effects of Treatment: Balance Improved Function Improved Gait quality improved Post Treatment Precautions: In Bed, Rails Up Bed Alarm Suture Polisher Light in Reach Nursing Notified PT charges: Gait Training [id number] Gait Cmt: pt seen for PT with pt initial in bed with mobility YNES rolling , scooting , supine to sit with extra using bedrails , pt transfers from, bed with using rw SPV with increase shaking to RLE with weight bearing , pt slow aaron with using rw with turns /doorways 200ft with rw on level surfaces with increase restbreaks in standing pregait weight shifting /weight bearing squats / marching , lateral shifting with 3 steps forward /backward , lateral with increase fatigue , pt very talkative with making jokes with staff , pt fair progress with increase safety awareness with verbal cues for rw training , will continue PT per poc If this is the patient's last treatment, this entry Start Time: 1052 Stop Time: 1131 Treatment Time: ( minutes) 0:39 Completed by: Jerson Leahy Conference/Supervising PT: Yes Supervising Therapist: Mumtaz Jeter Physical Exam General appearance: alert, oriented, no acute distress, conversational, mental status normal HEENT: anicteric, mucosal membranes moist, sclera clear Neck: supple, no JVD Cardiovascular: regular rate rhythm, S1/S2, no murmur Respiratory: aerating well, clear bilaterally Abdomen: bowel sounds present, non-distended, soft, non-tender Skin: dry, normal temperature Musculoskeletal - general: Musculoskeletal - general: joints normal, range of motion normal, strength testing normal, mild intrinsic wasting Neuro/CRYSTALIZER TENDER: alert, oriented X 3, normal speech, no motor deficits, no sensory deficits Results Findings/Data: No new Diagnosis, Assessment Plan Free Text A P: Plan: Physical therapy and Occupational therapy evaluated the patient. He ambulated 200 feet min assist to supervision and per Occupational Therapy was independent to modified independent with ADLs. Occupational Therapy signed off his case. He does not currently qualify for inpatient rehabilitation. He would likely benefit from some outpatient therapy but unfortunately does not have a vehicle transportation. Discussed with him about his living situation and currently appears to be homeless. He will benefit from discharging home with family for the added support, but it does not sound as though that will be the case. May have to discharge to a longterm facility versus custodial versus fpc. Recommend social media marketing analyst to assist with placement. 03/02: Seen. He has been getting OOB daily. Making gains on mobility. He is ambulating with RW at MIN A. He did fatigue after gait. Pain controlled. Encourage OOB in the bedside chair. 03/03: PT seen. Continue OOB daily. Assistance when OOB. No pain. SNF pending. 03/05: Continue with therapy as tolerated. SNF pending 03/06/24: Continue with therapy services. Doing well; working on balance, endurance, etc. Pending placement. Consultants: neurology Rehab attestation: Face to face exam completed. Treatment plan discussed with patient. at 1216 RPT #:[id number] END OF REPORT [facility] 2024-03-06 03:42:00 [facility] ([facility]) Clinical Note REPORT#:[id number] REPORT STATUS: Signed REPORT INITIALIZATION DATE:03/06/24 TIME: 341 PATIENT: CHRISS HUGGINS UNIT #: [id number] ROOM/BED: [address] : [address] AGE: 38 SEX: M ATTEND: Jeremy Paige MD ADM AUTHOR: Jeremy Paige MD REPT SERVICE DT/TIME: 03/06/24341 * ALL edits or amendments must be made on the electronic/computer document * Clinical Note Note: Patient with recent diagnosis of multiple sclerosis, alcoholism and IBS presents for evaluation of lower extremity weakness and pain resulting in multiple falls, episodes of confusion, and bladder incontinence. Past MRI reveals multiple lesions consistent with multiple sclerosis. Patient has mildly elevated troponin 82 and HDL-LDL 61 upon admission. Vital signs are within normal limits. Monitor accordingly. Continue comprehensive therapies as tolerated. Discharge plan ongoing, pending SNF. Continue present medications. Consultants evaluations noted. Continue with supportive care. at 1401 RPT #:[id number] END OF REPORT [facility] 2024-03-05 19:14:00 [facility] Internal Medicine Prog. Note REPORT#:[id number] REPORT STATUS: Signed REPORT INITIALIZATION DATE:03/05/24 TIME: 1913 PATIENT: CHRISS HUGGINS UNIT #: [id number] ROOM/BED: [place] [address] : 85 AGE: 38 SEX: M ATTEND: Jeremy Paige MD ADM AUTHOR: Osmany Sotomayor EMAIL CAMPAIGN SPECIALIST REPT SERVICE DT/TIME: 03/05/241913 * ALL edits or amendments must be made on the electronic/computer document * Osmany Sotomayor 03/05/241913: Subjective Chief complaint: Multiple falls Lower extremity weakness Confusion Bladder incontinence HPI: 38-year-old male patient with recent diagnosis of multiple sclerosis, alcoholism , IBS presents to the emergency department today for the evaluation of lower extremity weakness/pain resulting in multiple falls, episodes of confusion, bladder incontinence. As per patient's Mother MRI was done a month ago Revealing multiple lesions consistent with multiple sclerosis. Patient is currently alert and oriented. Denies fever, chills, nausea and vomiting, headache, blurry vision, hearing deficits, lightheadedness/dizziness, chest pain , numbness, associated symptoms. Initial vital signs: BP 102/70, pulse 102, respirations 17, temp 97.9, pulse ox 96% on room air Abnormal labs: Elevated troponin I 82 LDL 161 RADIOLOGY - XR CHEST 1 V 02/19 1216 IMPRESSION: No evidence of acute cardiopulmonary abnormality. CAT SCAN - CT HEAD/BRAIN W/O CONT 02/19 1330 IMPRESSION: There is no imaging evidence of acute intracranial pathology. CAT SCAN - CTA HEAD 02/19 1331 IMPRESSION: Unremarkable CTA of the head. Review of Systems Additional notes: Constitutional: Reports: generalized weakness. Denies: chills, fatigue, fever, lethargy, malaise, recent wt loss, other. Respiratory: Denies: MANDUJANO (dyspnea on exertion), hemoptysis, non productive cough, parox nocturnal dyspnea, pleurisy, pleuritic pain, pneumonia, productive cough (sputum), SOB, wheezing, other. Cardiovascular: Denies: chest pain, MANDUJANO (dyspnea on exertion), edema, orthopnea, palpitations, parox nocturnal dyspnea, other. GI: Denies: abdominal pain, anorexia, constipation, diarrhea, dysphagia, GERD, hematemesis, hematochezia, hiatal hernia, melena, nausea, rectal pain, vomiting, other. : Denies: dysuria, flank pain, frequency, hematuria, nocturia, penile discharge, penile lesion, testicular pain, testicular swelling, urgency, urinary retention, other. Musculoskeletal: Extremity pain: Reports: left lower, right lower. Neuro: Denies: bladder dysfunction, bowel dysfunction, change in LOC, confusion, dizziness, focal weakness, gait problem, headache, lightheaded, numbness, seizure, slurred speech, spinning sensation, syncope, unable to speak, vision change, weakness, other. Psych: Denies: agitation, anxiety, auditory hallucination, change in mental status, confusion, delusional, depression, homicidal ideation, hostile, insomnia, stress, suicidal ideation, visual hallucination, other. Objective General VS/I O: Vital Signs Date Temp Pulse Resp B/P B/P Mean Pulse Ox FiO2 03/04-03/05 36.5-37.0 67-94 14-17 84-101/51-64 61.9-74.9 95-97 Last Documented: Result Date Time Pulse Ox 96 03/05 173 B/P 101/61 03/05 1732 B/P Mean 74.5 03/05 1732 Temp 37.0 03/05 173 Pulse 94 03/05 1732 Resp 16 03/05 173 O2 Delivery Room air 03/05 0356 O2 Flow Rate 2 02/20 1228 PATIENT WEIGHT: Weight (lb): Weight (oz): Weight (kg): 75.000 Medications: Active Meds + DC'd Last 24 Hrs Ibuprofen (IBUPROFEN) 400 MG Q12H PRN PRN PO Hydrocodone Bitart/Acetaminophen (NORCO 5/325) 1 TAB Q8H PRN PRN PO Midodrine (PROAMATINE) 5 MG Q8H PRN PRN PO Diagnosis, Assessment Plan Hospital course to date: General appearance: alert, awake Head/Eyes: atraumatic, clear cornea, EOMI, normocephalic, normal conjunctiva/ sclera, normal eyelids/periorb, PERRLA Neck: no JVD Cardiovascular: regular rate rhythm Respiratory: decreased breath sounds, no distress, no tenderness Abdomen/GI: active bowel sounds, soft, non-tender, no guarding, no rebound, no distention, no mass/organomegaly, no pulsatile mass, no hernia, normal abdominal aorta Abdomen quadrants: LLQ normal bowel sounds, LUQ normal bowel sounds, RLQ normal bowel sounds, RUQ normal bowel sounds Extremities: moves all, no edema-all extremities, normal capillary refill, normal range of motion, normal sensory, normal motor function Neuro/CRYSTALIZER TENDER: alert, oriented X 3 Skin: dry, intact, no gross abnormalities Psychiatry: no hallucinations, normal affect, normal judgment/insight, normal mood, not homicidal, not suicidal Problem List/A P: 1. Multiple sclerosis Consultants: neurology Free Text DxA P Notes Free text DxA P notes: Assessment: 38-year-old male patient with recent diagnosis of multiple sclerosis, alcoholism , IBS presents to the emergency department today for the evaluation of lower extremity weakness/pain resulting in multiple falls, episodes of confusion, bladder incontinence. As per patient's Mother MRI was done a month ago Revealing multiple lesions consistent with multiple sclerosis. Patient is currently alert and oriented. Denies fever, chills, nausea and vomiting, headache, blurry vision, hearing deficits, lightheadedness/dizziness, chest pain , numbness, associated symptoms. 1. Multiple sclerosis 2. Lower extremity weakness/pain resulting to multiple falls 3. Confusion 4. Bladder incontinence 5. Mildly elevated troponin 82 6. HLD- LDL 61 7. History of alcoholism, IBS Plan of care: Admit patient for further evaluation and treatment Fall precaution Tylenol extra strength 1000 mg p.o. given stat, methylprednisolone stat Drug abuse screen Neuro consult placed Telemetry BP control Glycemic control Pain control Electrolyte control DVT/GI prophylaxis Follow-up labs, images 02/21/2024 Vital signs are within normal limits MRI brain: scattered white matter lesions consistent with demyelination noted. No abnormal enhancement MRI c-spine: no abnormal cord signal or enhancement Neuro is following. Recommends screen and correct any underlying toxic or metabolic process contributing to symptoms. PT/OT Fall precaution Continue supportive care 02/22/2024 Soft BP, latest 91/59 No acute events overnight Neuro is following. MRI of the T-spine pending results PT/OT consult placed On regular diet now Fall and safety precaution, follow-up images, continue medications and supportive care 02/23/2024 No acute events overnight BP 97/65 MRI of the T-spine is unremarkable Continue PT/OT Case management consult placed Continue supportive care 02/24/2024 Vital signs are stable No acute events overnight. No new neurologic symptoms. Neuro noted no active lesion on MRI, no acute findings. Orders to continue PT/ OT/rehab evaluations Fall and safety precaution Continue supportive care 02/25/2024 Vital signs are within normal limits. No new complaints Stable Continue OT management Ongoing discharge planning Fall and safety precaution, continue supportive care 02/26/2024 No acute events overnight Vital signs are stable Ongoing discharge planning Fall and safety precaution, continue supportive care 02/27/2024 Stable Neuro is following Rehab has seen the patient. Noted patient may have to discharge to SNF versus custodial versus fpc. Recommends social media marketing analyst to assist with placement. Continue PT/OT management Patient is scheduled for image guided lumbar puncture tomorrow per Dr. Martinez. Monitor accordingly Pain control Continue supportive care 02/28/2024 Status post image guided lumbar puncture. Procedure per Dr. Martinez. 15.5 mL of clear spinal fluid was removed and sent to lab. The patient tolerated the procedure well. Pain control Rehab is following Follow-up cultures Continue present care 02/29/2024 Vital signs are within normal limits No acute events overnight Started on midodrine 5 mg p.o. every 8 hours as needed for hypotension PT management Follow-up labs, fall and safety precaution, continue present care 03/01/2024 Stable, latest BP 96/55 No new complaints Started on [place] to 1 tab p.o. every 8 hours as needed for pain PS 4-10. Continue midodrine 5 mg p.o. every 8 hours as needed for hypotension PT/OT Fall and safety precaution, follow-up labs, continue medications and present care 03/02/2024 BP 94/61 Final body fluid culture shows no growth after 72 hours Continue hypotensive precaution. On midodrine Pain control Discharge planning: Patient does not qualify for inpatient rehab bed. Pending final discharge placement, SNF versus custodial versus fpc. ordnance equipment worker to assist with placement OT for evaluation Fall and safety precaution, continue supportive care 03/03/2024 BP 95/64 No acute events overnight Patient continues to get OOB daily with assistance per rehab Pain medications as needed. Continue on midodrine Ongoing discharge planning Fall precaution Continue supportive care 03/04/2024 Latest BP 92/56, otherwise stable No new complaints Continue BP control, pain medications as needed - Ibuprofen 400 mg p.o. every 12 hours given as needed PT/OT Fall and safety precaution, continue medications and supportive car 03/05/2024 Noted hypotensive episode. Blood pressure now better, latest 99/64. No acute events overnight [place] is discontinued. Last dose given today [place] is discontinued, last dose given today. Continue with ibuprofen 400 mg p.o. every 12 hours as needed for pain Continue midodrine for BP support PT/OT Continue supportive care Jeremy Paige I 03/05/245: Attestations Physician Attestation Agree w/findings plan: I Agree with the findings and plan as documented by ANALY Sotomayor. Plan of care coordinated with ANALY Sotomayor. Pertinent labs, Imaging, and information consultant evaluations reviewed. Patient's VS are stable overnight. No acute complaints. On midodrine. Continue pain control. Fall and safety precaution. PT/OT evaluation and treatment as tolerated. Continue with supportive care. at 0158 at 1118 RPT #:[id number] END OF REPORT [facility] 2024-03-05 07:52:00 [facility] ([facility]) Rehab Progress Note REPORT#:[id number] REPORT STATUS: Signed REPORT INITIALIZATION DATE:03/05/24 TIME: 0752 PATIENT: CHRISS HUGGINS UNIT #: [id number] ROOM/BED: [address]55[address]-1 : 85 AGE: 38 SEX: M ATTEND: Jeremy Paige MD ADM AUTHOR: Rosanna Renner REPT SERVICE DT/TIME: 03/05/24 0752 * ALL edits or amendments must be made on the electronic/computer document * Subjective Chief complaint: The patient was seen today for rehab follow up. He is seen sitting up in bed after AM meal. No c/o pain, no chest pain, no shortness of breath, no abdominal pain, no nausea, no emesis. Objective General VS: Vital Signs: Date Time Temp Pulse Resp B/P B/P Pulse O2 O2 Flow FiO2 Mean Ox Delivery Rate 03/05 0742 97.9 77 17 84/51 61.9 96 03/05 0356 97.7 75 14 96/62 73.1 97 Room air 03/04 2307 98.1 70 14 92/56 68.2 96 Room air 03/04 1822 98.1 85 14 95/65 74.6 97 03/04 1225 98.1 69 16 96/63 74.2 97 PATIENT WEIGHT: Weight (lb): Weight (oz): Weight (kg): 75.000 Functional Progress Functional progress: Precautions: Fall Pre- Gait Mobility Y/N: Yes Safety addressed through use of: Gait Belt Verbal Cues Tactile Cues Gait Device RW WC follow Weightbearing: No Restriction Ambulation Distance: 75'x2 150'x1 min A Progression: Forward Backward Lateral, Right Lateral, Left Gait Deviations: Base of Support - Wide Head Down unsteady knee joaquin/hyperext w/ fatigue Effects of Treatment: Balance Improved Function Improved Gait quality improved Post Treatment Precautions: In Bed, Rails Up Bed Alarm Suture Polisher Light in Reach Nursing Notified Review Plan of Care: Yes PT charges: Gait Training [id number] Gait Cmt: Pt tolerated tx fair, impulsive at times, max v/c's for safety. Pt has standard walker in room. BRASS PICKLER notified RN, recommended pt have a RW instead for energy conservation, fatigues easily due to MS. If this is the patient's last treatment, this entry Start Time: 1231 Stop Time: 1303 Treatment Time: ( minutes) 0:32 Completed by: Audie Duckworth Conference/Supervising PT: Yes Supervising Therapist: [email or web address] Etienne Fox . BED MOBILITY: Yes Supine to Sit: Independent Sit to Supine: Independent TRANSFERS: Yes Bed to/from chair: Supervision or Set-up Sit to/from stand: Supervision or Set-up Physical Exam General appearance: alert, no acute distress, mental status normal, no respiratory distress HEENT: anicteric, mucosal membranes moist, sclera clear Neck: supple, no JVD Cardiovascular: regular rate rhythm, S1/S2, no murmur Respiratory: aerating well, clear bilaterally Abdomen: bowel sounds present, non-distended, soft, non-tender Skin: dry, normal temperature Musculoskeletal - general: Musculoskeletal - general: joints normal, range of motion normal, strength testing normal, mild intrinsic wasting Neuro/CRYSTALIZER TENDER: alert, oriented X 3, normal speech, no motor deficits, no sensory deficits Results Findings/Data: No new Diagnosis, Assessment Plan Free Text A P: Plan: Physical therapy and Occupational therapy evaluated the patient. He ambulated 200 feet min assist to supervision and per Occupational Therapy was independent to modified independent with ADLs. Occupational Therapy signed off his case. He does not currently qualify for inpatient rehabilitation. He would likely benefit from some outpatient therapy but unfortunately does not have a vehicle transportation. Discussed with him about his living situation and currently appears to be homeless. He will benefit from discharging home with family for the added support, but it does not sound as though that will be the case. May have to discharge to a longterm facility versus custodial versus fpc. Recommend social media marketing analyst to assist with placement. 03/02: Seen. He has been getting OOB daily. Making gains on mobility. He is ambulating with RW at MIN A. He did fatigue after gait. Pain controlled. Encourage OOB in the bedside chair. 03/03: PT seen. Continue OOB daily. Assistance when OOB. No pain. SNF pending. 03/05: Continue with therapy as tolerated. SNF pending Consultants: neurology Rehab attestation: Face to face exam completed. Treatment plan discussed with patient bedside. at 1228 RPT #:[id number] END OF REPORT [facility] 2024-03-05 03:35:00 [facility] ([facility]) Clinical Note REPORT#:[id number] REPORT STATUS: Signed REPORT INITIALIZATION DATE:03/05/24 TIME: 334 PATIENT: CHRISS HUGGINS UNIT #: [id number] ROOM/BED: [facility] : 85 AGE: 38 SEX: M ATTEND: Jeremy Paige MD ADM AUTHOR: Jeremy Paige MD REPT SERVICE DT/TIME: 03/05/245 * ALL edits or amendments must be made on the electronic/computer document * Clinical Note Note: Patient with recent diagnosis of multiple sclerosis, alcoholism and IBS presents for evaluation of lower extremity weakness and pain resulting in multiple falls, episodes of confusion, and bladder incontinence. Past MRI reveals multiple lesions consistent with multiple sclerosis. Patient has mildly elevated troponin 82 and HDL-LDL 61 upon admission. Patient's VS are stable overnight. No acute complaints. On midodrine. Continue pain control. Fall and safety precaution. PT/OT evaluation and treatment as tolerated. Continue with supportive care. at 1401 RPT #:[id number] END OF REPORT [facility] 2024-03-04 15:53:00 [facility] Internal Medicine Prog. Note REPORT#:[id number] REPORT STATUS: Signed REPORT INITIALIZATION DATE:03/04/24 TIME: 1552 PATIENT: CHRISS HUGGINS UNIT #: [id number] ROOM/BED: 5518-1 : 85 AGE: 38 SEX: M ATTEND: Jeremy Paige MD ADM AUTHOR: Osmany Sotomayor NP REPT SERVICE DT/TIME: 03/04/24 1553 * ALL edits or amendments must be made on the electronic/computer document * Osmany Sotmoayor 03/04/24 1553: Subjective Chief complaint: Multiple falls Lower extremity weakness Confusion Bladder incontinence HPI: 38-year-old male patient with recent diagnosis of multiple sclerosis, alcoholism , IBS presents to the emergency department today for the evaluation of lower extremity weakness/pain resulting in multiple falls, episodes of confusion, bladder incontinence. As per patient's Mother MRI was done a month ago Revealing multiple lesions consistent with multiple sclerosis. Patient is currently alert and oriented. Denies fever, chills, nausea and vomiting, headache, blurry vision, hearing deficits, lightheadedness/dizziness, chest pain , numbness, associated symptoms. Initial vital signs: BP 102/70, pulse 102, respirations 17, temp 97.9, pulse ox 96% on room air Abnormal labs: Elevated troponin I 82 LDL 161 RADIOLOGY - XR CHEST 1 V 02/19 1216 IMPRESSION: No evidence of acute cardiopulmonary abnormality. CAT SCAN - CT HEAD/BRAIN W/O CONT 02/19 1330 IMPRESSION: There is no imaging evidence of acute intracranial pathology. CAT SCAN - CTA HEAD 02/19 1331 IMPRESSION: Unremarkable CTA of the head. Review of Systems Additional notes: Constitutional: Reports: generalized weakness. Denies: chills, fatigue, fever, lethargy, malaise, recent wt loss, other. Respiratory: Denies: MANDUJANO (dyspnea on exertion), hemoptysis, non productive cough, parox nocturnal dyspnea, pleurisy, pleuritic pain, pneumonia, productive cough (sputum), SOB, wheezing, other. Cardiovascular: Denies: chest pain, MANDUJANO (dyspnea on exertion), edema, orthopnea, palpitations, parox nocturnal dyspnea, other. GI: Denies: abdominal pain, anorexia, constipation, diarrhea, dysphagia, GERD, hematemesis, hematochezia, hiatal hernia, melena, nausea, rectal pain, vomiting, other. : Denies: dysuria, flank pain, frequency, hematuria, nocturia, penile discharge, penile lesion, testicular pain, testicular swelling, urgency, urinary retention, other. Musculoskeletal: Extremity pain: Reports: left lower, right lower. Neuro: Denies: bladder dysfunction, bowel dysfunction, change in LOC, confusion, dizziness, focal weakness, gait problem, headache, lightheaded, numbness, seizure, slurred speech, spinning sensation, syncope, unable to speak, vision change, weakness, other. Psych: Denies: agitation, anxiety, auditory hallucination, change in mental status, confusion, delusional, depression, homicidal ideation, hostile, insomnia, stress, suicidal ideation, visual hallucination, other. Objective General VS/I O: Vital Signs Date Temp Pulse Resp B/P B/P Mean Pulse Ox FiO2 03/03-03/04 36.5-36.9 63-84 14-16 90-104/62-64 0.0-77 94-98 Last Documented: Result Date Time Pulse Ox 97 03/04 1225 B/P 96/63 03/04 1225 B/P Mean 74.2 03/04 1225 Temp 36.7 03/04 1225 Pulse 69 03/04 1225 Resp 16 03/04 1225 O2 Delivery Room air 03/04 0508 O2 Flow Rate 2 02/20 1228 PATIENT WEIGHT: Weight (lb): Weight (oz): Weight (kg): 75.000 Medications: Active Meds + DC'd Last 24 Hrs Ibuprofen (IBUPROFEN) 400 MG Q12H PRN PRN PO Hydrocodone Bitart/Acetaminophen (NORCO 5/325) 1 TAB Q8H PRN PRN PO Midodrine (PROAMATINE) 5 MG Q8H PRN PRN PO Diagnosis, Assessment Plan Hospital course to date: General appearance: alert, awake Head/Eyes: atraumatic, clear cornea, EOMI, normocephalic, normal conjunctiva/ sclera, normal eyelids/periorb, PERRLA Neck: no JVD Cardiovascular: regular rate rhythm Respiratory: decreased breath sounds, no distress, no tenderness Abdomen/GI: active bowel sounds, soft, non-tender, no guarding, no rebound, no distention, no mass/organomegaly, no pulsatile mass, no hernia, normal abdominal aorta Abdomen quadrants: LLQ normal bowel sounds, LUQ normal bowel sounds, RLQ normal bowel sounds, RUQ normal bowel sounds Extremities: moves all, no edema-all extremities, normal capillary refill, normal range of motion, normal sensory, normal motor function Neuro/CRYSTALIZER TENDER: alert, oriented X 3 Skin: dry, intact, no gross abnormalities Psychiatry: no hallucinations, normal affect, normal judgment/insight, normal mood, not homicidal, not suicidal Problem List/A P: 1. Multiple sclerosis Consultants: neurology Free Text DxA P Notes Free text DxA P notes: Assessment: 38-year-old male patient with recent diagnosis of multiple sclerosis, alcoholism , IBS presents to the emergency department today for the evaluation of lower extremity weakness/pain resulting in multiple falls, episodes of confusion, bladder incontinence. As per patient's Mother MRI was done a month ago Revealing multiple lesions consistent with multiple sclerosis. Patient is currently alert and oriented. Denies fever, chills, nausea and vomiting, headache, blurry vision, hearing deficits, lightheadedness/dizziness, chest pain , numbness, associated symptoms. 1. Multiple sclerosis 2. Lower extremity weakness/pain resulting to multiple falls 3. Confusion 4. Bladder incontinence 5. Mildly elevated troponin 82 6. HLD- LDL 61 7. History of alcoholism, IBS Plan of care: Admit patient for further evaluation and treatment Fall precaution Tylenol extra strength 1000 mg p.o. given stat, methylprednisolone stat Drug abuse screen Neuro consult placed Telemetry BP control Glycemic control Pain control Electrolyte control DVT/GI prophylaxis Follow-up labs, images 02/21/2024 Vital signs are within normal limits MRI brain: scattered white matter lesions consistent with demyelination noted. No abnormal enhancement MRI c-spine: no abnormal cord signal or enhancement Neuro is following. Recommends screen and correct any underlying toxic or metabolic process contributing to symptoms. PT/OT Fall precaution Continue supportive care 02/22/2024 Soft BP, latest 91/59 No acute events overnight Neuro is following. MRI of the T-spine pending results PT/OT consult placed On regular diet now Fall and safety precaution, follow-up images, continue medications and supportive care 02/23/2024 No acute events overnight BP 97/65 MRI of the T-spine is unremarkable Continue PT/OT Case management consult placed Continue supportive care 02/24/2024 Vital signs are stable No acute events overnight. No new neurologic symptoms. Neuro noted no active lesion on MRI, no acute findings. Orders to continue PT/ OT/rehab evaluations Fall and safety precaution Continue supportive care 02/25/2024 Vital signs are within normal limits. No new complaints Stable Continue OT management Ongoing discharge planning Fall and safety precaution, continue supportive care 02/26/2024 No acute events overnight Vital signs are stable Ongoing discharge planning Fall and safety precaution, continue supportive care 02/27/2024 Stable Neuro is following Rehab has seen the patient. Noted patient may have to discharge to SNF versus custodial versus fpc. Recommends social media marketing analyst to assist with placement. Continue PT/OT management Patient is scheduled for image guided lumbar puncture tomorrow per Dr. Martinez. Monitor accordingly Pain control Continue supportive care 02/28/2024 Status post image guided lumbar puncture. Procedure per Dr. Martinez. 15.5 mL of clear spinal fluid was removed and sent to lab. The patient tolerated the procedure well. Pain control Rehab is following Follow-up cultures Continue present care 02/29/2024 Vital signs are within normal limits No acute events overnight Started on midodrine 5 mg p.o. every 8 hours as needed for hypotension PT management Follow-up labs, fall and safety precaution, continue present care 03/01/2024 Stable, latest BP 96/55 No new complaints Started on [place] to 1 tab p.o. every 8 hours as needed for pain PS 4-10. Continue midodrine 5 mg p.o. every 8 hours as needed for hypotension PT/OT Fall and safety precaution, follow-up labs, continue medications and present care 03/02/2024 BP 94/61 Final body fluid culture shows no growth after 72 hours Continue hypotensive precaution. On midodrine Pain control Discharge planning: Patient does not qualify for inpatient rehab bed. Pending final discharge placement, SNF versus custodial versus fpc. ordnance equipment worker to assist with placement OT for evaluation Fall and safety precaution, continue supportive care 03/03/2024 BP 95/64 No acute events overnight Patient continues to get OOB daily with assistance per rehab Pain medications as needed. Continue on midodrine Ongoing discharge planning Fall precaution Continue supportive care 03/04/2024 Latest BP 92/56, otherwise stable No new complaints Continue BP control, pain medications as needed - Ibuprofen 400 mg p.o. every 12 hours given as needed PT/OT Fall and safety precaution, continue medications and supportive care Jeremy Paige I 03/04/24 1824: Attestations Physician Attestation Agree w/findings plan: I Agree with the findings and plan as documented by ANALY Sotomayor. Plan of care coordinated with ANALY Sotomayor. Pertinent labs, Imaging, and information consultant evaluations reviewed. Patient's VS are within normal limits overnight. No acute complaints. Discharge planning ongoing, pending SNF. Fall and safety precautions on. PT/OT evaluation and treatment as tolerated. Consultants evaluations noted. Continue with supportive care. at 0158 at 3696 RPT #:[id number] END OF REPORT [facility] 2024-03-04 03:31:00 [facility] ([facility]) Clinical Note REPORT#:[id number] REPORT STATUS: Signed REPORT INITIALIZATION DATE:03/04/24 TIME: 330 PATIENT: CHRISS HUGGINS UNIT #: [id number] ROOM/BED: [place] [address] : 85 AGE: 38 SEX: M ATTEND: Jeremy Paige MD ADM AUTHOR: Jeremy Paige MD REPT SERVICE DT/TIME: 03/04/24330 * ALL edits or amendments must be made on the electronic/computer document * Clinical Note Note: Patient with recent diagnosis of multiple sclerosis, alcoholism and IBS presents for evaluation of lower extremity weakness and pain resulting in multiple falls, episodes of confusion, and bladder incontinence. Past MRI reveals multiple lesions consistent with multiple sclerosis. Patient has mildly elevated troponin 82 and HDL-LDL 61 upon admission. Patient's VS are within normal limits overnight. No acute complaints. Discharge planning ongoing, pending SNF. Fall and safety precautions on. PT/OT evaluation and treatment as tolerated. Consultants evaluations noted. Continue with supportive care. at 1400 RPT #:[id number] END OF REPORT [facility] 2024-03-03 22:52:00 [facility] ([facility]) Rehab Progress Note REPORT#:[id number] REPORT STATUS: Signed REPORT INITIALIZATION DATE:03/03/24 TIME: 2251 PATIENT: CHRISS HUGGINS UNIT #: [id number] ROOM/BED: [facility]- : 85 AGE: 38 SEX: M ATTEND: Jeremy Paige MD ADM AUTHOR: Kathia Garay PA-C REPT SERVICE DT/TIME: 03/03/242251 * ALL edits or amendments must be made on the electronic/computer document * Subjective Chief complaint: Pt seen and examined. No acute distress. No pain. States continues to get oob daily with assistance Objective General VS: Vital Signs: Date Time Temp Pulse Resp B/P B/P Pulse O2 O2 Flow FiO2 Mean Ox Delivery Rate 03/03 1939 98.4 84 14 95/64 0.0 95 Room air 03/03 1654 97.7 78 15 104/64 77 98 03/03 1200 97.5 94 16 100/64 75.8 96 03/03 0828 97.5 73 16 93/66 75.2 99 03/03 0418 97.7 67 14 106/75 85.3 97 Room air 03/03 0120 97.9 80 14 92/60 71.0 97 Room air PATIENT WEIGHT: Weight (lb): Weight (oz): Weight (kg): 75.000 Medications: Active Meds + DC'd Last 24 Hrs Hydrocodone Bitart/Acetaminophen (NORCO 5/325) 1 TAB Q8H PRN PRN PO Midodrine (PROAMATINE) 5 MG Q8H PRN PRN PO Functional Progress Functional progress: 1. One on one supervision with cueing and assistance provided to ensure proper performance of all activities. Yes Precautions: Fall Pre- Gait Mobility Y/N: Yes Safety addressed through use of: Gait Belt Verbal Cues Tactile Cues Gait Device RW WC follow Weightbearing: No Restriction Ambulation Distance: 75'x2 150'x1 min A Progression: Forward Backward Lateral, Right Lateral, Left Gait Deviations: Base of Support - Wide Head Down unsteady knee joaquin/hyperext w/ fatigue Effects of Treatment: Balance Improved Function Improved Gait quality improved Post Treatment Precautions: In Bed, Rails Up Bed Alarm Suture Polisher Light in Reach Nursing Notified Review Plan of Care: Yes PT charges: Gait Training [id number] Gait Cmt: Pt tolerated tx fair, impulsive at times, max v/c's for safety. Pt has standard walker in room. BRASS PICKLER notified RN, recommended pt have a RW instead for energy conservation, fatigues easily due to MS. If this is the patient's last treatment, this entry Physical Exam General appearance: alert, awake, oriented HEENT: anicteric, mucosal membranes moist, sclera clear Neck: supple, no JVD Cardiovascular: regular rate rhythm, S1/S2, no murmur Respiratory: aerating well, clear bilaterally Abdomen: bowel sounds present, non-distended, soft, non-tender Skin: dry, intact, no rash Musculoskeletal - general: Musculoskeletal - general: joints normal, range of motion normal, strength testing normal, mild intrinsic wasting Neuro/CRYSTALIZER TENDER: alert, oriented X 3, normal speech, no motor deficits, no sensory deficits Results Findings/Data: Laboratory Tests 03/01/24 0524: [Embedded Image Not Available] 03/01/24 0523: [Embedded Image Not Available] Diagnosis, Assessment Plan Problem List/A P: 1. Multiple sclerosis Free Text A P: Plan: Physical therapy and Occupational therapy evaluated the patient. He ambulated 200 feet min assist to supervision and per Occupational Therapy was independent to modified independent with ADLs. Occupational Therapy signed off his case. He does not currently qualify for inpatient rehabilitation. He would likely benefit from some outpatient therapy but unfortunately does not have a vehicle transportation. Discussed with him about his living situation and currently appears to be homeless. He will benefit from discharging home with family for the added support, but it does not sound as though that will be the case. May have to discharge to a longterm facility versus custodial versus fpc. Recommend social media marketing analyst to assist with placement. 03/02: Seen. He has been getting OOB daily. Making gains on mobility. He is ambulating with RW at MIN A. He did fatigue after gait. Pain controlled. Encourage OOB in the bedside chair. 03/03: PT seen. Continue OOB daily. Assistance when OOB. No pain. SNF pending. Consultants: neurology Rehab attestation: Face to face exam completed. Treatment plan discussed with patient. at 2255 RPT #:[id number] END OF REPORT [facility] 2024-03-03 18:30:00 [facility] Internal Medicine Prog. Note REPORT#:[id number] REPORT STATUS: Signed REPORT INITIALIZATION DATE:03/03/24 TIME: 1829 PATIENT: CHRISS HUGGINS UNIT #: [id number] ROOM/BED: [place] [address] : 85 AGE: 38 SEX: M ATTEND: Jeremy Paige MD ADM AUTHOR: Osmany Sotomayor EMAIL CAMPAIGN SPECIALIST REPT SERVICE DT/TIME: 03/03/241829 * ALL edits or amendments must be made on the electronic/computer document * Osmany Sotomayor 03/03/240: Subjective Chief complaint: Multiple falls Lower extremity weakness Confusion Bladder incontinence HPI: 38-year-old male patient with recent diagnosis of multiple sclerosis, alcoholism , IBS presents to the emergency department today for the evaluation of lower extremity weakness/pain resulting in multiple falls, episodes of confusion, bladder incontinence. As per patient's Mother MRI was done a month ago Revealing multiple lesions consistent with multiple sclerosis. Patient is currently alert and oriented. Denies fever, chills, nausea and vomiting, headache, blurry vision, hearing deficits, lightheadedness/dizziness, chest pain , numbness, associated symptoms. Initial vital signs: BP 102/70, pulse 102, respirations 17, temp 97.9, pulse ox 96% on room air Abnormal labs: Elevated troponin I 82 LDL 161 RADIOLOGY - XR CHEST 1 V 02/19 1216 IMPRESSION: No evidence of acute cardiopulmonary abnormality. CAT SCAN - CT HEAD/BRAIN W/O CONT 02/19 1330 IMPRESSION: There is no imaging evidence of acute intracranial pathology. CAT SCAN - CTA HEAD 02/19 1331 IMPRESSION: Unremarkable CTA of the head. Review of Systems Additional notes: Constitutional: Reports: generalized weakness. Denies: chills, fatigue, fever, lethargy, malaise, recent wt loss, other. Respiratory: Denies: MANDUJANO (dyspnea on exertion), hemoptysis, non productive cough, parox nocturnal dyspnea, pleurisy, pleuritic pain, pneumonia, productive cough (sputum), SOB, wheezing, other. Cardiovascular: Denies: chest pain, MANDUJANO (dyspnea on exertion), edema, orthopnea, palpitations, parox nocturnal dyspnea, other. GI: Denies: abdominal pain, anorexia, constipation, diarrhea, dysphagia, GERD, hematemesis, hematochezia, hiatal hernia, melena, nausea, rectal pain, vomiting, other. : Denies: dysuria, flank pain, frequency, hematuria, nocturia, penile discharge, penile lesion, testicular pain, testicular swelling, urgency, urinary retention, other. Musculoskeletal: Extremity pain: Reports: left lower, right lower. Neuro: Denies: bladder dysfunction, bowel dysfunction, change in LOC, confusion, dizziness, focal weakness, gait problem, headache, lightheaded, numbness, seizure, slurred speech, spinning sensation, syncope, unable to speak, vision change, weakness, other. Psych: Denies: agitation, anxiety, auditory hallucination, change in mental status, confusion, delusional, depression, homicidal ideation, hostile, insomnia, stress, suicidal ideation, visual hallucination, other. Objective General VS/I O: Vital Signs Date Temp Pulse Resp B/P B/P Mean Pulse Ox FiO2 03/02-03/03 36.4-36.9 67-94 14-16 92-106/60-75 0.0-85.3 96-99 Last Documented: Result Date Time Pulse Ox 98 03/03 1654 B/P 104/64 03/03 1654 B/P Mean 77 03/03 1654 Temp 36.5 03/03 1654 Pulse 78 03/03 1654 Resp 15 03/03 165 O2 Delivery Room air 03/03 0418 O2 Flow Rate 2 02/20 1228 PATIENT WEIGHT: Weight (lb): Weight (oz): Weight (kg): 75.000 Medications: Active Meds + DC'd Last 24 Hrs Hydrocodone Bitart/Acetaminophen (NORCO 5/325) 1 TAB Q8H PRN PRN PO Midodrine (PROAMATINE) 5 MG Q8H PRN PRN PO Diagnosis, Assessment Plan Hospital course to date: General appearance: alert, awake Head/Eyes: atraumatic, clear cornea, EOMI, normocephalic, normal conjunctiva/ sclera, normal eyelids/periorb, PERRLA Neck: no JVD Cardiovascular: regular rate rhythm Respiratory: decreased breath sounds, no distress, no tenderness Abdomen/GI: active bowel sounds, soft, non-tender, no guarding, no rebound, no distention, no mass/organomegaly, no pulsatile mass, no hernia, normal abdominal aorta Abdomen quadrants: LLQ normal bowel sounds, LUQ normal bowel sounds, RLQ normal bowel sounds, RUQ normal bowel sounds Extremities: moves all, no edema-all extremities, normal capillary refill, normal range of motion, normal sensory, normal motor function Neuro/CRYSTALIZER TENDER: alert, oriented X 3 Skin: dry, intact, no gross abnormalities Psychiatry: no hallucinations, normal affect, normal judgment/insight, normal mood, not homicidal, not suicidal Problem List/A P: 1. Multiple sclerosis Consultants: neurology Free Text DxA P Notes Free text DxA P notes: Assessment: 38-year-old male patient with recent diagnosis of multiple sclerosis, alcoholism , IBS presents to the emergency department today for the evaluation of lower extremity weakness/pain resulting in multiple falls, episodes of confusion, bladder incontinence. As per patient's Mother MRI was done a month ago Revealing multiple lesions consistent with multiple sclerosis. Patient is currently alert and oriented. Denies fever, chills, nausea and vomiting, headache, blurry vision, hearing deficits, lightheadedness/dizziness, chest pain , numbness, associated symptoms. 1. Multiple sclerosis 2. Lower extremity weakness/pain resulting to multiple falls 3. Confusion 4. Bladder incontinence 5. Mildly elevated troponin 82 6. HLD- LDL 61 7. History of alcoholism, IBS Plan of care: Admit patient for further evaluation and treatment Fall precaution Tylenol extra strength 1000 mg p.o. given stat, methylprednisolone stat Drug abuse screen Neuro consult placed Telemetry BP control Glycemic control Pain control Electrolyte control DVT/GI prophylaxis Follow-up labs, images 02/21/2024 Vital signs are within normal limits MRI brain: scattered white matter lesions consistent with demyelination noted. No abnormal enhancement MRI c-spine: no abnormal cord signal or enhancement Neuro is following. Recommends screen and correct any underlying toxic or metabolic process contributing to symptoms. PT/OT Fall precaution Continue supportive care 02/22/2024 Soft BP, latest 91/59 No acute events overnight Neuro is following. MRI of the T-spine pending results PT/OT consult placed On regular diet now Fall and safety precaution, follow-up images, continue medications and supportive care 02/23/2024 No acute events overnight BP 97/65 MRI of the T-spine is unremarkable Continue PT/OT Case management consult placed Continue supportive care 02/24/2024 Vital signs are stable No acute events overnight. No new neurologic symptoms. Neuro noted no active lesion on MRI, no acute findings. Orders to continue PT/ OT/rehab evaluations Fall and safety precaution Continue supportive care 02/25/2024 Vital signs are within normal limits. No new complaints Stable Continue OT management Ongoing discharge planning Fall and safety precaution, continue supportive care 02/26/2024 No acute events overnight Vital signs are stable Ongoing discharge planning Fall and safety precaution, continue supportive care 02/27/2024 Stable Neuro is following Rehab has seen the patient. Noted patient may have to discharge to SNF versus custodial versus fpc. Recommends social media marketing analyst to assist with placement. Continue PT/OT management Patient is scheduled for image guided lumbar puncture tomorrow per Dr. Martinez. Monitor accordingly Pain control Continue supportive care 02/28/2024 Status post image guided lumbar puncture. Procedure per Dr. Martinez. 15.5 mL of clear spinal fluid was removed and sent to lab. The patient tolerated the procedure well. Pain control Rehab is following Follow-up cultures Continue present care 02/29/2024 Vital signs are within normal limits No acute events overnight Started on midodrine 5 mg p.o. every 8 hours as needed for hypotension PT management Follow-up labs, fall and safety precaution, continue present care 03/01/2024 Stable, latest BP 96/55 No new complaints Started on [place] to 1 tab p.o. every 8 hours as needed for pain PS 4-10. Continue midodrine 5 mg p.o. every 8 hours as needed for hypotension PT/OT Fall and safety precaution, follow-up labs, continue medications and present care 03/02/2024 BP 94/61 Final body fluid culture shows no growth after 72 hours Continue hypotensive precaution. On midodrine Pain control Discharge planning: Patient does not qualify for inpatient rehab bed. Pending final discharge placement, SNF versus custodial versus fpc. ordnance equipment worker to assist with placement OT for evaluation Fall and safety precaution, continue supportive care 03/03/2024 BP 95/64 No acute events overnight Patient continues to get OOB daily with assistance per rehab Pain medications as needed. Continue on midodrine Ongoing discharge planning Fall precaution Continue supportive care Jeremy Paige I 03/04/24 0331: Attestations Physician Attestation Agree w/findings plan: I Agree with the findings and plan as documented by ANALY Sotomayor. Plan of care coordinated with ANALY Sotomayor. Pertinent labs, Imaging, and information consultant evaluations reviewed. Latest BP at 106/75. Monitor VS accordingly. On midodrine. Discharge plan ongoing. PT/OT evaluation and treatment as tolerated. Fall and safety precaution. Continue with supportive care. at 0132 at 1117 RPT #:[id number] END OF REPORT [facility] 2024-03-03 06:08:00 [facility] Clinical Note REPORT#:[id number] REPORT STATUS: Signed REPORT INITIALIZATION DATE:03/03/24 TIME: 0608 PATIENT: CHRISS HUGGINS UNIT #: [id number] ROOM/BED: 5518-1 : 85 AGE: 38 SEX: M ATTEND: Jeremy Paige MD ADM AUTHOR: Jeremy Paige MD REPT SERVICE DT/TIME: 03/03/24 0608 * ALL edits or amendments must be made on the electronic/computer document * Clinical Note Note: Patient with recent diagnosis of multiple sclerosis, alcoholism and IBS presents for evaluation of lower extremity weakness and pain resulting in multiple falls, episodes of confusion, and bladder incontinence. Past MRI reveals multiple lesions consistent with multiple sclerosis. Patient has mildly elevated troponin 82 and HDL-LDL 61 upon admission. Latest BP at 106/75. Monitor VS accordingly. On midodrine. Discharge plan ongoing. PT/OT evaluation and treatment as tolerated. Fall and safety precaution. Continue with supportive care. at 1359 RPT #:[id number] END OF REPORT [facility] 2024-03-02 18:43:00 [facility] Internal Medicine Prog. Note REPORT#:[id number] REPORT STATUS: Signed REPORT INITIALIZATION DATE:03/02/24 TIME: 1842 PATIENT: CHRISS HUGGINS UNIT #: [id number] ROOM/BED: 5518-1 : 85 AGE: 38 SEX: M ATTEND: Jeremy Paige MD ADM AUTHOR: Osmany Sotomayor NP REPT SERVICE DT/TIME: 03/02/241842 * ALL edits or amendments must be made on the electronic/computer document * Osmany Sotomayor 03/02/241842: Subjective Chief complaint: Multiple falls Lower extremity weakness Confusion Bladder incontinence HPI: 38-year-old male patient with recent diagnosis of multiple sclerosis, alcoholism , IBS presents to the emergency department today for the evaluation of lower extremity weakness/pain resulting in multiple falls, episodes of confusion, bladder incontinence. As per patient's Mother MRI was done a month ago Revealing multiple lesions consistent with multiple sclerosis. Patient is currently alert and oriented. Denies fever, chills, nausea and vomiting, headache, blurry vision, hearing deficits, lightheadedness/dizziness, chest pain , numbness, associated symptoms. Initial vital signs: BP 102/70, pulse 102, respirations 17, temp 97.9, pulse ox 96% on room air Abnormal labs: Elevated troponin I 82 LDL 161 RADIOLOGY - XR CHEST 1 V 02/19 1216 IMPRESSION: No evidence of acute cardiopulmonary abnormality. CAT SCAN - CT HEAD/BRAIN W/O CONT 02/19 1330 IMPRESSION: There is no imaging evidence of acute intracranial pathology. CAT SCAN - CTA HEAD 02/19 1331 IMPRESSION: Unremarkable CTA of the head. Review of Systems Additional notes: Constitutional: Reports: generalized weakness. Denies: chills, fatigue, fever, lethargy, malaise, recent wt loss, other. Respiratory: Denies: MANDUJANO (dyspnea on exertion), hemoptysis, non productive cough, parox nocturnal dyspnea, pleurisy, pleuritic pain, pneumonia, productive cough (sputum), SOB, wheezing, other. Cardiovascular: Denies: chest pain, MANDUJANO (dyspnea on exertion), edema, orthopnea, palpitations, parox nocturnal dyspnea, other. GI: Denies: abdominal pain, anorexia, constipation, diarrhea, dysphagia, GERD, hematemesis, hematochezia, hiatal hernia, melena, nausea, rectal pain, vomiting, other. : Denies: dysuria, flank pain, frequency, hematuria, nocturia, penile discharge, penile lesion, testicular pain, testicular swelling, urgency, urinary retention, other. Musculoskeletal: Extremity pain: Reports: left lower, right lower. Neuro: Denies: bladder dysfunction, bowel dysfunction, change in LOC, confusion, dizziness, focal weakness, gait problem, headache, lightheaded, numbness, seizure, slurred speech, spinning sensation, syncope, unable to speak, vision change, weakness, other. Psych: Denies: agitation, anxiety, auditory hallucination, change in mental status, confusion, delusional, depression, homicidal ideation, hostile, insomnia, stress, suicidal ideation, visual hallucination, other. Objective General VS/I O: Vital Signs Date Temp Pulse Resp B/P B/P Mean Pulse Ox FiO2 03/01-03/02 36.4-36.9 62-89 12-16 90-102/55-65 0.0-76.7 93-98 Last Documented: Result Date Time Pulse Ox 94 03/02 1628 B/P 90/61 03/02 1628 B/P Mean 70.2 03/02 1628 Temp 36.9 03/02 1628 Pulse 77 03/02 1628 Resp 16 03/02 1628 O2 Delivery Room air 03/02 0440 O2 Flow Rate 2 02/20 1228 24 hour I O ending at 0700: 03/02 0700 03/01 1900 Intake Total Output Total 175 600 Balance -175 -600 Output, Urine 175 600 PATIENT WEIGHT: Weight (lb): Weight (oz): Weight (kg): 75.000 Medications: Active Meds + DC'd Last 24 Hrs Hydrocodone Bitart/Acetaminophen (NORCO 5/325) 1 TAB Q8H PRN PRN PO Midodrine (PROAMATINE) 5 MG Q8H PRN PRN PO Results Findings/Data: Laboratory Tests 03/02 03/02 1624 1145 Chemistry POC Glucose (70 - 110 MG/DL) 101 106 Diagnosis, Assessment Plan Hospital course to date: General appearance: alert, awake Head/Eyes: atraumatic, clear cornea, EOMI, normocephalic, normal conjunctiva/ sclera, normal eyelids/periorb, PERRLA Neck: no JVD Cardiovascular: regular rate rhythm Respiratory: decreased breath sounds, no distress, no tenderness Abdomen/GI: active bowel sounds, soft, non-tender, no guarding, no rebound, no distention, no mass/organomegaly, no pulsatile mass, no hernia, normal abdominal aorta Abdomen quadrants: LLQ normal bowel sounds, LUQ normal bowel sounds, RLQ normal bowel sounds, RUQ normal bowel sounds Extremities: moves all, no edema-all extremities, normal capillary refill, normal range of motion, normal sensory, normal motor function Neuro/CRYSTALIZER TENDER: alert, oriented X 3 Skin: dry, intact, no gross abnormalities Psychiatry: no hallucinations, normal affect, normal judgment/insight, normal mood, not homicidal, not suicidal Problem List/A P: 1. Multiple sclerosis Consultants: neurology Free Text DxA P Notes Free text DxA P notes: Assessment: 38-year-old male patient with recent diagnosis of multiple sclerosis, alcoholism , IBS presents to the emergency department today for the evaluation of lower extremity weakness/pain resulting in multiple falls, episodes of confusion, bladder incontinence. As per patient's Mother MRI was done a month ago Revealing multiple lesions consistent with multiple sclerosis. Patient is currently alert and oriented. Denies fever, chills, nausea and vomiting, headache, blurry vision, hearing deficits, lightheadedness/dizziness, chest pain , numbness, associated symptoms. 1. Multiple sclerosis 2. Lower extremity weakness/pain resulting to multiple falls 3. Confusion 4. Bladder incontinence 5. Mildly elevated troponin 82 6. HLD- LDL 61 7. History of alcoholism, IBS Plan of care: Admit patient for further evaluation and treatment Fall precaution Tylenol extra strength 1000 mg p.o. given stat, methylprednisolone stat Drug abuse screen Neuro consult placed Telemetry BP control Glycemic control Pain control Electrolyte control DVT/GI prophylaxis Follow-up labs, images 02/21/2024 Vital signs are within normal limits MRI brain: scattered white matter lesions consistent with demyelination noted. No abnormal enhancement MRI c-spine: no abnormal cord signal or enhancement Neuro is following. Recommends screen and correct any underlying toxic or metabolic process contributing to symptoms. PT/OT Fall precaution Continue supportive care 02/22/2024 Soft BP, latest 91/59 No acute events overnight Neuro is following. MRI of the T-spine pending results PT/OT consult placed On regular diet now Fall and safety precaution, follow-up images, continue medications and supportive care 02/23/2024 No acute events overnight BP 97/65 MRI of the T-spine is unremarkable Continue PT/OT Case management consult placed Continue supportive care 02/24/2024 Vital signs are stable No acute events overnight. No new neurologic symptoms. Neuro noted no active lesion on MRI, no acute findings. Orders to continue PT/ OT/rehab evaluations Fall and safety precaution Continue supportive care 02/25/2024 Vital signs are within normal limits. No new complaints Stable Continue OT management Ongoing discharge planning Fall and safety precaution, continue supportive care 02/26/2024 No acute events overnight Vital signs are stable Ongoing discharge planning Fall and safety precaution, continue supportive care 02/27/2024 Stable Neuro is following Rehab has seen the patient. Noted patient may have to discharge to SNF versus custodial versus fpc. Recommends social media marketing analyst to assist with placement. Continue PT/OT management Patient is scheduled for image guided lumbar puncture tomorrow per Dr. Martinez. Monitor accordingly Pain control Continue supportive care 02/28/2024 Status post image guided lumbar puncture. Procedure per Dr. Martinez. 15.5 mL of clear spinal fluid was removed and sent to lab. The patient tolerated the procedure well. Pain control Rehab is following Follow-up cultures Continue present care 02/29/2024 Vital signs are within normal limits No acute events overnight Started on midodrine 5 mg p.o. every 8 hours as needed for hypotension PT management Follow-up labs, fall and safety precaution, continue present care 03/01/2024 Stable, latest BP 96/55 No new complaints Started on [place] to 1 tab p.o. every 8 hours as needed for pain PS 4-10. Continue midodrine 5 mg p.o. every 8 hours as needed for hypotension PT/OT Fall and safety precaution, follow-up labs, continue medications and present care 03/02/2024 BP 94/61 Final body fluid culture shows no growth after 72 hours Continue hypotensive precaution. On midodrine Pain control Discharge planning: Patient does not qualify for inpatient rehab bed. Pending final discharge placement, SNF versus custodial versus fpc. ordnance equipment worker to assist with placement OT for evaluation Fall and safety precaution, continue supportive care Jeremy Paige I 03/02/246: Attestations Physician Attestation Agree w/findings plan: I Agree with the findings and plan as documented by ANALY Sotomayor. Plan of care coordinated with ANALY Sotomayor. Pertinent labs, Imaging, and information consultant evaluations reviewed. Latest BP at 94/61. Monitor VS accordingly. Final body fluid culture for shows no growth after 72 hours. On midodrine. Continue with other medications. Pending final discharge placement, SNF versus custodial versus fpc. For OT evaluation. Fall and safety precaution. Continue supportive care. at 0148 at 1027 RPT #:[id number] END OF REPORT [facility] 2024-03-02 13:56:00 [facility] ([facility]) Rehab Progress Note REPORT#:[id number] REPORT STATUS: Signed REPORT INITIALIZATION DATE:03/02/24 TIME: 135 PATIENT: CHRISS HUGGINS UNIT #: [id number] ROOM/BED: 5518-1 : 85 AGE: 38 SEX: M ATTEND: Jeremy Paige MD ADM AUTHOR: Kathia Garay PA-C REPT SERVICE DT/TIME: 03/02/24 1356 * ALL edits or amendments must be made on the electronic/computer document * Subjective Chief complaint: Pt seen and examined. He is in bed. He just finished eating lunhc. No acute distress. States that he worked with therapy already this a.m .He has also been getting up with assiatnce to walk to [facility]. Objective General VS: Vital Signs: Date Time Temp Pulse Resp B/P B/P Pulse O2 O2 Flow FiO2 Mean Ox Delivery Rate 03/02 1032 97.9 89 16 95/60 71.8 98 03/02 0716 98.1 62 16 95/62 73.4 95 03/02 0440 97.5 70 12 97/65 75.7 93 Room air 03/02 0008 98.2 68 14 102/64 76.7 95 Room air 03/01 1954 97.9 87 14 96/55 0.0 94 Room air 03/01 1632 97.5 80 16 108/65 79.5 94 PATIENT WEIGHT: Weight (lb): Weight (oz): Weight (kg): 75.000 Medications: Active Meds + DC'd Last 24 Hrs Hydrocodone Bitart/Acetaminophen (NORCO 5/325) 1 TAB Q8H PRN PRN PO Hydrocodone Bitart/Acetaminophen (NORCO 5/325) 1 TAB Q8H PRN PRN PO (DC) Midodrine (PROAMATINE) 5 MG Q8H PRN PRN PO Functional Progress Functional progress: DONNA: 1. One on one supervision with cueing and assistance provided to ensure Precautions: Fall Pre- Gait Mobility Y/N: Yes Safety addressed through use of: Gait Belt Verbal Cues Tactile Cues Gait Device personal hurry cane RW Weightbearing: No Restriction Ambulation Distance: 60' personal hurry cane 150FT X 1 100FT X 1 Progression: Forward Backward Lateral, Right Lateral, Left Assistance Level: Minimal Assistance Gait Deviations: Base of Support - Wide Head Down unsteady knee joaquin/hyperext w/ fatigue Effects of Treatment: Balance Improved Function Improved Gait quality improved Post Treatment Precautions: In Bed, Rails Up Bed Alarm Suture Polisher Light in Reach Nursing Notified Review Plan of Care: Yes PT charges: Gait Training [id number] Gait Cmt: pt seen for treatment session , pt stated that he is doing better , pt has a cane at bedside , pt stated that he gets up with calling for assist with SPV / CGA , pt reviewed safety techiques with navigating small spaces with slowing down with pt using rw 150ft x 1 , 100ft x 1 with 1 seat restbreak with sit to stand x 10 reps from EOB , pt don/doff socks and shoes with slight SOB , pt decrease impulsive with pt reach from grab bar with ambluating on level surfaces reviewed home safety , pt " I dont know where I'm going to live " my mom is trying to find me a place " , pt ambulates with increase fatigue with LEFT knee hyperextension with pt having paini n ROGELIO thighs with fatigue , pt declined sitting up in BS chair with pt back to bed with call sal in reach , will continue PT per poc p If this is the patient's last treatment, this entry Start Time: 1335 Stop Time: 1428 Treatment Time Weight Bearing: No Restriction Length of Stay: 11 System Evaluation/Within Functional Limits Assessment Data: UPPER EXTREMITY FUNCTION WFL: No FUNCTIONAL MOBILITY WFL: No ACTIVITIES OF DAILY LIVING WFL: No NEUROLOGICAL WFL: Yes SENSATION WFL: Yes COGNITION WFL: Yes VISUAL/PERCEPTION WFL: No COMMUNICATION WFL: Yes CARDIORESPIRATORY WFL: Yes EDEMA Y/N: Yes INTEGUMENTARY WFL: NT SKIN ALTERATION CMT: SEE NURSE NOTES. Plan of Care Type: Occupational Therapy Review Plan of Care: Yes Plan of Care - LT ST Goals: No Treatment Details: Yes Enter OT Clarification Orders: No Post Treatment Precautions In Bed, Rails Up Call Light in Reach Nursing Notified Telephone in Reach Therapist recommended discharge needs: Home Rehabilitation Potential: N/A Evaluation Type: High Complexity Reason for Eval Complexity: Multiple Comorbidities Document OT charges: [place] [id number] If this is the patient's last treatment, this entry serves as the discharge summary: Y Start Time: 1107 Stop Time: 1148 Eval Time ( minutes): 0:41 UPPER EXTREMETY FUNCTION UPPER BODY FUNCTION Items determined to be outside Functional Limits are as follows: RANGE OF MOTION (Degrees): Active unless otherwise noted RIGHT UPPER EXTREMITY ROM: Yes RUE ROM Measurements and Cmts: WNL LEFT UPPER EXTREMITY ROM: Yes LUE ROM Measurements and Cmts: WNL MANUAL MUSCLE TEST RIGHT UPPER EXTREMITY: Yes Right Upper Extremity Measurements and Cmts: SHOULDER FLEXION 4+, BICEP 4+ LEFT UPPER EXTREMITY: Yes Left Upper Extremity Measurements and Cmt: SHOULDER FLEXION 4+, BICEP 4+ Gross Motor Coordination: Normal 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 FUNCTIONAL MOBILITY FUNCTIONAL MOBILITY Items determined to be outside Functional Limits are as follows: Rolling Right: Independent Rolling Left: Independent Scooting in Bed, Up: Independent Scooting in Bed, Down: Independent Scooting to edge of bed, Right: Independent Scooting to edge of bed, Left: Independent Supine to Sit: Independent Sit to Supine: Independent Sit to Stand: Modified [place] Functional Activity Tolerance Sitting Unsupported: 20-30 minutes Standing Unsupported: 0-10 minutes Comments: PT AMBULATED IN ROOM USING PERSONAL CANE W/MOD I. TRANSFERS Chair/Wheelchair: Modified [place] Toilet: Modified [place] BALANCE Static Sitting: Good Dynamic Sitting: Good Static Standing: Good Dynamic Standing: Good Comments: STANDING USING PERSONAL CANE ACTIVITIES OF DAILY LIVING Activity: How much help from another person does the patient currently need: Putting on and taking off regular lower body clothing? 4 Toileting which includes using toilet, bedpan, or urinal? 4 Putting on and taking off regular upper body clothing? 4 Taking care of personal grooming, such as brushing teeth? 4 [facility] Activity Score: 16 ACTIVITIES OF DAILY LIVING Items determined to be outside Functional Limits are as follows: Upper Body Dressing: Independent Lower Body Dressing: Modified [place] Hygiene/Grooming: Modified [place] Toileting: Modified [place] Physical Exam General appearance: alert, awake, oriented HEENT: anicteric, mucosal membranes moist, sclera clear Neck: supple, no JVD Cardiovascular: regular rate rhythm, S1/S2, no murmur Respiratory: aerating well, clear bilaterally Abdomen: bowel sounds present, non-distended, soft, non-tender Skin: dry, intact, no rash Musculoskeletal - general: Musculoskeletal - general: joints normal, range of motion normal, strength testing normal, mild intrinsic wasting Neuro/CRYSTALIZER TENDER: alert, oriented X 3, normal speech, no motor deficits, no sensory deficits Results Findings/Data: Laboratory Tests: 03/02 1145 Chemistry POC Glucose (70 - 110 MG/DL) 106 Diagnosis, Assessment Plan Problem List/A P: 1. Multiple sclerosis Free Text A P: Plan: Physical therapy and Occupational therapy evaluated the patient. He ambulated 200 feet min assist to supervision and per Occupational Therapy was independent to modified independent with ADLs. Occupational Therapy signed off his case. He does not currently qualify for inpatient rehabilitation. He would likely benefit from some outpatient therapy but unfortunately does not have a vehicle transportation. Discussed with him about his living situation and currently appears to be homeless. He will benefit from discharging home with family for the added support, but it does not sound as though that will be the case. May have to discharge to a longterm facility versus custodial versus fpc. Recommend social media marketing analyst to assist with placement. 03/02: Seen. He has been getting OOB daily. Making gains on mobility. He is ambulating with RW at MIN A. He did fatigue after gait. Pain controlled. Encourage OOB in the bedside chair. Consultants: neurology Rehab attestation: Face to face exam completed. Treatment plan discussed with patient. at 2253 RPT #:[id number] END OF REPORT [facility] 2024-03-02 05:32:00 [facility] ([facility] Clinical Note REPORT#:[id number] REPORT STATUS: Signed REPORT INITIALIZATION DATE:03/02/24 TIME: 531 PATIENT: CHRISS HUGGINS UNIT #: [id number] ROOM/BED: 5518-1 : 85 AGE: 38 SEX: M ATTEND: Jeremy Paige MD ADM AUTHOR: Jeremy Paige MD REPT SERVICE DT/TIME: 03/02/24 0532 * ALL edits or amendments must be made on the electronic/computer document * Clinical Note Note: Patient with recent diagnosis of multiple sclerosis, alcoholism and IBS presents for evaluation of lower extremity weakness and pain resulting in multiple falls, episodes of confusion, and bladder incontinence. Past MRI reveals multiple lesions consistent with multiple sclerosis. Patient has mildly elevated troponin 82 and HDL-LDL 61 upon admission. Latest BP at 94/61. Monitor VS accordingly. Final body fluid culture for shows no growth after 72 hours. On midodrine. Continue with other medications. Pending final discharge placement, SNF versus custodial versus fpc. For OT evaluation. Fall and safety precaution. Continue supportive care. at 2105 RPT #:[id number] END OF REPORT [facility] 2024-03-01 17:14:00 [facility] ([facility]) Clinical Note REPORT#:[id number] REPORT STATUS: Signed REPORT INITIALIZATION DATE:03/01/24 TIME: 1713 PATIENT: CHRISS HUGGINS UNIT #: [id number] ROOM/BED: [place] [address] : 85 AGE: 38 SEX: M ATTEND: Jeremy Paige MD ADM AUTHOR: Jeremy Paige MD REPT SERVICE DT/TIME: 03/01/24 171 * ALL edits or amendments must be made on the electronic/computer document * Clinical Note Note: Patient with recent diagnosis of multiple sclerosis, alcoholism and IBS presents for evaluation of lower extremity weakness and pain resulting in multiple falls, episodes of confusion, and bladder incontinence. Past MRI reveals multiple lesions consistent with multiple sclerosis. Patient has mildly elevated troponin 82 and HDL-LDL 61 upon admission. Stable VS overnight. No acute complaints. On hydrocodone and midodrine. PT/OT evaluation and treatment as tolerated. Pending SNF acceptance, follow CM for updates. Fall and safety precaution. Continue supportive care. at 2104 RPT #:[id number] END OF REPORT [facility] 2024-03-01 15:20:00 [facility] ([facility]) Internal Medicine Prog. Note REPORT#:[id number] REPORT STATUS: Signed REPORT INITIALIZATION DATE:03/01/24 TIME: 152 PATIENT: CHRISS HUGGINS UNIT #: [id number] ROOM/BED: 5518-1 : 85 AGE: 38 SEX: M ATTEND: Jeremy Paige MD ADM AUTHOR: Osmany Sotomayor NP REPT SERVICE DT/TIME: 03/01/24 1520 * ALL edits or amendments must be made on the electronic/computer document * Osmany Sotomayor 03/01/24 1520: Subjective Chief complaint: Multiple falls Lower extremity weakness Confusion Bladder incontinence HPI: 38-year-old male patient with recent diagnosis of multiple sclerosis, alcoholism , IBS presents to the emergency department today for the evaluation of lower extremity weakness/pain resulting in multiple falls, episodes of confusion, bladder incontinence. As per patient's Mother MRI was done a month ago Revealing multiple lesions consistent with multiple sclerosis. Patient is currently alert and oriented. Denies fever, chills, nausea and vomiting, headache, blurry vision, hearing deficits, lightheadedness/dizziness, chest pain , numbness, associated symptoms. Initial vital signs: BP 102/70, pulse 102, respirations 17, temp 97.9, pulse ox 96% on room air Abnormal labs: Elevated troponin I 82 LDL 161 RADIOLOGY - XR CHEST 1 V 02/19 1216 IMPRESSION: No evidence of acute cardiopulmonary abnormality. CAT SCAN - CT HEAD/BRAIN W/O CONT 02/19 1330 IMPRESSION: There is no imaging evidence of acute intracranial pathology. CAT SCAN - CTA HEAD 02/19 1331 IMPRESSION: Unremarkable CTA of the head. Review of Systems Additional notes: Constitutional: Reports: generalized weakness. Denies: chills, fatigue, fever, lethargy, malaise, recent wt loss, other. Respiratory: Denies: MANDUJANO (dyspnea on exertion), hemoptysis, non productive cough, parox nocturnal dyspnea, pleurisy, pleuritic pain, pneumonia, productive cough (sputum), SOB, wheezing, other. Cardiovascular: Denies: chest pain, MANDUJANO (dyspnea on exertion), edema, orthopnea, palpitations, parox nocturnal dyspnea, other. GI: Denies: abdominal pain, anorexia, constipation, diarrhea, dysphagia, GERD, hematemesis, hematochezia, hiatal hernia, melena, nausea, rectal pain, vomiting, other. : Denies: dysuria, flank pain, frequency, hematuria, nocturia, penile discharge, penile lesion, testicular pain, testicular swelling, urgency, urinary retention, other. Musculoskeletal: Extremity pain: Reports: left lower, right lower. Neuro: Denies: bladder dysfunction, bowel dysfunction, change in LOC, confusion, dizziness, focal weakness, gait problem, headache, lightheaded, numbness, seizure, slurred speech, spinning sensation, syncope, unable to speak, vision change, weakness, other. Psych: Denies: agitation, anxiety, auditory hallucination, change in mental status, confusion, delusional, depression, homicidal ideation, hostile, insomnia, stress, suicidal ideation, visual hallucination, other. Objective General VS/I O: Vital Signs Date Temp Pulse Resp B/P B/P Mean Pulse Ox FiO2 02/28-03/01 36.4-36.7 67-77 14-18 92-105/58-68 70.0-80.4 94-96 Last Documented: Result Date Time Pulse Ox 94 03/01 1133 B/P 94/62 03/01 1133 B/P Mean 72.7 03/01 1133 Temp 36.4 03/01 1133 Pulse 77 03/01 1133 Resp 16 03/01 1133 O2 Delivery Room air 03/01 0444 O2 Flow Rate 2 02/20 1228 PATIENT WEIGHT: Weight (lb): Weight (oz): Weight (kg): 75.000 Medications: Active Meds + DC'd Last 24 Hrs Hydrocodone Bitart/Acetaminophen (NORCO 5/325) 1 TAB Q8H PRN PRN PO Hydrocodone Bitart/Acetaminophen (NORCO 5/325) 1 TAB Q8H PRN PRN PO (DC) Midodrine (PROAMATINE) 5 MG Q8H PRN PRN PO Midodrine (PROAMATINE) 5 MG BID 9A 5P PRN PO (DC) Results Findings/Data: Laboratory Tests 03/01/24523: [Embedded Image Not Available] 03/01/24522: [Embedded Image Not Available] Laboratory Tests 03/01 524 Chemistry Sodium (134 - 147 mEq/L) 142 Potassium (3.4 - 5.0 mEq/L) 4.0 Chloride (100 - 108 mEq/L) 110 H Carbon Dioxide (21 - 33 mEq/l) 23 Anion Gap (0 - 20) 13 BUN (7 - 25 mg/dL) 21 Creatinine (0.6 - 1.3 mg/dL) 1.0 Glomerular Filtr Rate (105 - 110) 98.8 L Glucose (77 - 141 mg/dL) 83 Calcium (8.0 - 10.5 mg/dL) 8.8 Total Bilirubin (0.0 - 1.0 mg/dL) 0.30 AST (8 - 34 IUnit/L) 22 ALT (10 - 49 IUnit/L) 33 Total Alk Phosphatase (20 - 125 IUnit/L) 69 Total Protein (6.4 - 8.2 g/dL) 6.5 Albumin (3.4 - 5.0 g/dL) 3.70 Laboratory Tests 03/01 0523 Hematology WBC (4.5 - 11.0 x10 3/uL) 6.6 RBC (4.00 - 5.60 x10 6/uL) 4.39 Hgb (12.5 - 16.9 g/dL) 13.7 Hct (37.5 - 50.7 %) 42.1 MCV (81.0 - 99.0 fL) 95.9 MCH (27.0 - 33.0 pg) 31.2 MCHC (33.0 - 37.0 g/dL) 32.5 L RDW (11.5 - 14.5 %) 14.2 Plt Count (150 - 400 x10 3/uL) 202 MPV (7.0 - 9.0 fL) 10.3 H Neut % (Auto) (56.0 - 77.0 %) 51.2 L Lymph % (Auto) (14.0 - 32.0 %) 30.1 [place] % (Auto) (4.8 - 9.0 %) 12.2 H Eos % (Auto) (0.3 - 3.7 %) 5.3 H Baso % (Auto) (0.0 - 2.0 %) 0.6 Neut # (Auto) (2.0 - 7.6 x10 3/uL) 3.36 Lymph # (Auto) (1.0 - 3.8 x10 3/uL) 1.98 [place] # (Auto) (0.1 - 0.8 x10 3/uL) 0.80 Eos # (Auto) (0.0 - 0.2 x10 3/uL) 0.35 H Baso # (Auto) (0.0 - 0.2 x10 3/uL) 0.04 Abs Immat Gran (auto) (0.00 - 0.03 x10 3/uL) 0.04 H Immature Gran % (0.0 - 2.0 %) 0.6 Nucleated RBC % (0 - 0 %) 0.0 Nucleated RBCs # (Man) (0.0 - 0.1 x10 3/uL) 0.00 Diagnosis, Assessment Plan Hospital course to date: General appearance: alert, awake Head/Eyes: atraumatic, clear cornea, EOMI, normocephalic, normal conjunctiva/ sclera, normal eyelids/periorb, PERRLA Neck: no JVD Cardiovascular: regular rate rhythm Respiratory: decreased breath sounds, no distress, no tenderness Abdomen/GI: active bowel sounds, soft, non-tender, no guarding, no rebound, no distention, no mass/organomegaly, no pulsatile mass, no hernia, normal abdominal aorta Abdomen quadrants: LLQ normal bowel sounds, LUQ normal bowel sounds, RLQ normal bowel sounds, RUQ normal bowel sounds Extremities: moves all, no edema-all extremities, normal capillary refill, normal range of motion, normal sensory, normal motor function Neuro/CRYSTALIZER TENDER: alert, oriented X 3 Skin: dry, intact, no gross abnormalities Psychiatry: no hallucinations, normal affect, normal judgment/insight, normal mood, not homicidal, not suicidal Problem List/A P: 1. Multiple sclerosis Consultants: neurology Free Text DxA P Notes Free text DxA P notes: Assessment: 38-year-old male patient with recent diagnosis of multiple sclerosis, alcoholism , IBS presents to the emergency department today for the evaluation of lower extremity weakness/pain resulting in multiple falls, episodes of confusion, bladder incontinence. As per patient's Mother MRI was done a month ago Revealing multiple lesions consistent with multiple sclerosis. Patient is currently alert and oriented. Denies fever, chills, nausea and vomiting, headache, blurry vision, hearing deficits, lightheadedness/dizziness, chest pain , numbness, associated symptoms. 1. Multiple sclerosis 2. Lower extremity weakness/pain resulting to multiple falls 3. Confusion 4. Bladder incontinence 5. Mildly elevated troponin 82 6. HLD- LDL 61 7. History of alcoholism, IBS Plan of care: Admit patient for further evaluation and treatment Fall precaution Tylenol extra strength 1000 mg p.o. given stat, methylprednisolone stat Drug abuse screen Neuro consult placed Telemetry BP control Glycemic control Pain control Electrolyte control DVT/GI prophylaxis Follow-up labs, images 02/21/2024 Vital signs are within normal limits MRI brain: scattered white matter lesions consistent with demyelination noted. No abnormal enhancement MRI c-spine: no abnormal cord signal or enhancement Neuro is following. Recommends screen and correct any underlying toxic or metabolic process contributing to symptoms. PT/OT Fall precaution Continue supportive care 02/22/2024 Soft BP, latest 91/59 No acute events overnight Neuro is following. MRI of the T-spine pending results PT/OT consult placed On regular diet now Fall and safety precaution, follow-up images, continue medications and supportive care 02/23/2024 No acute events overnight BP 97/65 MRI of the T-spine is unremarkable Continue PT/OT Case management consult placed Continue supportive care 02/24/2024 Vital signs are stable No acute events overnight. No new neurologic symptoms. Neuro noted no active lesion on MRI, no acute findings. Orders to continue PT/ OT/rehab evaluations Fall and safety precaution Continue supportive care 02/25/2024 Vital signs are within normal limits. No new complaints Stable Continue OT management Ongoing discharge planning Fall and safety precaution, continue supportive care 02/26/2024 No acute events overnight Vital signs are stable Ongoing discharge planning Fall and safety precaution, continue supportive care 02/27/2024 Stable Neuro is following Rehab has seen the patient. Noted patient may have to discharge to SNF versus custodial versus fpc. Recommends social media marketing analyst to assist with placement. Continue PT/OT management Patient is scheduled for image guided lumbar puncture tomorrow per Dr. Martinez. Monitor accordingly Pain control Continue supportive care 02/28/2024 Status post image guided lumbar puncture. Procedure per Dr. Martinez. 15.5 mL of clear spinal fluid was removed and sent to lab. The patient tolerated the procedure well. Pain control Rehab is following Follow-up cultures Continue present care 02/29/2024 Vital signs are within normal limits No acute events overnight Started on midodrine 5 mg p.o. every 8 hours as needed for hypotension PT management Follow-up labs, fall and safety precaution, continue present care 03/01/2024 Stable, latest BP 96/55 No new complaints Started on [place] to 1 tab p.o. every 8 hours as needed for pain PS 4-10. Continue midodrine 5 mg p.o. every 8 hours as needed for hypotension PT/OT Fall and safety precaution, follow-up labs, continue medications and present care Jeremy Paige I 03/01/24 1646: Attestations Physician Attestation Agree w/findings plan: I Agree with the findings and plan as documented by ANALY Sotomayor. Plan of care coordinated with ANALY Sotomayor. Pertinent labs, Imaging, and information consultant evaluations reviewed. Stable VS overnight. No acute complaints. On hydrocodone and midodrine. PT/OT evaluation and treatment as tolerated. Pending SNF acceptance, follow CM for updates. Fall and safety precaution. Continue supportive care. at 0148 at 1026 RPT #:[id number] END OF REPORT [facility] 2024-02-29 22:55:00 [facility] Internal Medicine Prog. Note REPORT#:[id number] REPORT STATUS: Signed REPORT INITIALIZATION DATE:02/29/24 TIME: 2254 PATIENT: CHRISS HUGGINS UNIT #: [id number] ROOM/BED: [place] [address] : 85 AGE: 38 SEX: M ATTEND: Jeremy Paige MD ADM AUTHOR: Osmany Sotomayor NP REPT SERVICE DT/TIME: 02/29/242254 * ALL edits or amendments must be made on the electronic/computer document * Osmany Sotomayor 02/29/242254: Subjective Chief complaint: Multiple falls Lower extremity weakness Confusion Bladder incontinence HPI: 38-year-old male patient with recent diagnosis of multiple sclerosis, alcoholism , IBS presents to the emergency department today for the evaluation of lower extremity weakness/pain resulting in multiple falls, episodes of confusion, bladder incontinence. As per patient's Mother MRI was done a month ago Revealing multiple lesions consistent with multiple sclerosis. Patient is currently alert and oriented. Denies fever, chills, nausea and vomiting, headache, blurry vision, hearing deficits, lightheadedness/dizziness, chest pain , numbness, associated symptoms. Initial vital signs: BP 102/70, pulse 102, respirations 17, temp 97.9, pulse ox 96% on room air Abnormal labs: Elevated troponin I 82 LDL 161 RADIOLOGY - XR CHEST 1 V 02/19 1216 IMPRESSION: No evidence of acute cardiopulmonary abnormality. CAT SCAN - CT HEAD/BRAIN W/O CONT 02/19 1330 IMPRESSION: There is no imaging evidence of acute intracranial pathology. CAT SCAN - CTA HEAD 02/19 133 IMPRESSION: Unremarkable CTA of the head. Review of Systems Additional notes: Constitutional: Reports: generalized weakness. Denies: chills, fatigue, fever, lethargy, malaise, recent wt loss, other. Respiratory: Denies: MANDUJANO (dyspnea on exertion), hemoptysis, non productive cough, parox nocturnal dyspnea, pleurisy, pleuritic pain, pneumonia, productive cough (sputum), SOB, wheezing, other. Cardiovascular: Denies: chest pain, MANDUJANO (dyspnea on exertion), edema, orthopnea, palpitations, parox nocturnal dyspnea, other. GI: Denies: abdominal pain, anorexia, constipation, diarrhea, dysphagia, GERD, hematemesis, hematochezia, hiatal hernia, melena, nausea, rectal pain, vomiting, other. : Denies: dysuria, flank pain, frequency, hematuria, nocturia, penile discharge, penile lesion, testicular pain, testicular swelling, urgency, urinary retention, other. Musculoskeletal: Extremity pain: Reports: left lower, right lower. Neuro: Denies: bladder dysfunction, bowel dysfunction, change in LOC, confusion, dizziness, focal weakness, gait problem, headache, lightheaded, numbness, seizure, slurred speech, spinning sensation, syncope, unable to speak, vision change, weakness, other. Psych: Denies: agitation, anxiety, auditory hallucination, change in mental status, confusion, delusional, depression, homicidal ideation, hostile, insomnia, stress, suicidal ideation, visual hallucination, other. Objective General VS/I O: Laboratory Tests 02/28 02/27 1338 1313 Chemistry Sodium (134 - 147 mEq/L) 142 Potassium (3.4 - 5.0 mEq/L) 4.5 Chloride (100 - 108 mEq/L) 108 Carbon Dioxide (21 - 33 mEq/l) 24 Anion Gap (0 - 20) 14 BUN (7 - 25 mg/dL) 18 Creatinine (0.6 - 1.3 mg/dL) 1.0 Glomerular Filtr Rate (105 - 110) 98.8 L Glucose (77 - 141 mg/dL) 103 Calcium (8.0 - 10.5 mg/dL) 9.3 Phosphorus (2.5 - 4.9 MG/DL) 4.4 Magnesium (1.6 - 2.6 mg/dL) 2.01 Total Bilirubin (0.0 - 1.0 mg/dL) 0.20 AST (8 - 34 IUnit/L) 22 ALT (10 - 49 IUnit/L) 35 Total Alk Phosphatase (20 - 125 IUnit/L) 74 C-Reactive Protein (<10.0 mg/L) < 4.0 Total Protein (6.4 - 8.2 g/dL) 6.4 Albumin (3.4 - 5.0 g/dL) 3.70 Laboratory Tests 02/27 1328 Coagulation INR (0.8 - 1.2) 1.0 PTT (Clay) (25.0 - 39.5 Seconds) 30.2 PT Patient/Control Mix (9.3 - 12.9 SECONDS) 10.8 Laboratory Tests 02/28 02/27 1338 1313 Hematology WBC (4.5 - 11.0 x10 3/uL) 6.6 RBC (4.00 - 5.60 x10 6/uL) 4.56 Hgb (12.5 - 16.9 g/dL) 13.9 Hct (37.5 - 50.7 %) 42.3 MCV (81.0 - 99.0 fL) 92.8 MCH (27.0 - 33.0 pg) 30.5 MCHC (33.0 - 37.0 g/dL) 32.9 L RDW (11.5 - 14.5 %) 14.1 Plt Count (150 - 400 x10 3/uL) 220 MPV (7.0 - 9.0 fL) 10.1 H Neut % (Auto) (56.0 - 77.0 %) 64.2 Lymph % (Auto) (14.0 - 32.0 %) 18.3 [place] % (Auto) (4.8 - 9.0 %) 11.9 H Eos % (Auto) (0.3 - 3.7 %) 4.4 H Baso % (Auto) (0.0 - 2.0 %) 0.6 Neut # (Auto) (2.0 - 7.6 x10 3/uL) 4.26 Lymph # (Auto) (1.0 - 3.8 x10 3/uL) 1.21 [place] # (Auto) (0.1 - 0.8 x10 3/uL) 0.79 Eos # (Auto) (0.0 - 0.2 x10 3/uL) 0.29 H Baso # (Auto) (0.0 - 0.2 x10 3/uL) 0.04 Abs Immat Gran (auto) (0.00 - 0.03 x10 3/uL) 0.04 H Immature Gran % (0.0 - 2.0 %) 0.6 Nucleated RBC % (0 - 0 %) 0.0 Nucleated RBCs # (Man) (0.0 - 0.1 x10 3/uL) 0.00 ESR Westergren (0 - 15 mm/hr) 8 Laboratory Tests 02/27 1441 Other Body Source CSF Color (COLORLESS) COLORLESS CSF Cell Count Tube # TUBE #2 - GLU/PROT CSF Glucose (40 - 80 MG/DL) 67 CSF Total Protein (15 - 45 mg/dL) 41.1 02/27 1441 Other Body Source CSF Appearance (CLEAR) CLEAR CSF RBC (0 - 0 MM3) 0 CSF Cell Count Tube # TUBE #3 - CELL COUNT CSF Total Nucleated Man (0 - 5 MM3) 2 CSF Lymphocytes (28 - 96 %) 90 CSF Monocytes (16 - 56 %) 7 L CSF Eosinophils (%) 0 CSF Basophils (%) 0 CSF Polynuclear WBCs (0 - 7 %) 3 CSF Macrophages (%) 0 Laboratory Tests 02/27 1313 Serology RPR (NONREACTIVE) NONREACTIVE HIV 1 2 Antibody Screen (Nonreactive) Nonreactive Chemistry: 02/28 1338 Chemistry Sodium (134 - 147 mEq/L) 142 Potassium (3.4 - 5.0 mEq/L) 4.5 Chloride (100 - 108 mEq/L) 108 Carbon Dioxide (21 - 33 mEq/l) 24 BUN (7 - 25 mg/dL) 18 Creatinine (0.6 - 1.3 mg/dL) 1.0 Glucose (77 - 141 mg/dL) 103 Calcium (8.0 - 10.5 mg/dL) 9.3 Phosphorus (2.5 - 4.9 MG/DL) 4.4 Magnesium (1.6 - 2.6 mg/dL) 2.01 Total Bilirubin (0.0 - 1.0 mg/dL) 0.20 AST (8 - 34 IUnit/L) 22 ALT (10 - 49 IUnit/L) 35 Total Alk Phosphatase (20 - 125 IUnit/L) 74 Total Protein (6.4 - 8.2 g/dL) 6.4 Albumin (3.4 - 5.0 g/dL) 3.70 Microbiology: 02/26 150 CSF: Body Fluid Culture - RES 02/26 1505 CSF: Anaerobic Culture - RES 02/26 1505 CSF: Gram Stain - RES Vital Signs: Date Time Temp Pulse Resp B/P B/P Pulse O2 O2 Flow FiO2 Mean Ox Delivery Rate 02/28 1915 36.6 71 14 94/61 71.7 95 Room air 02/28 1543 36.5 77 14 96/64 74.6 96 02/28 1102 36.4 85 14 103/62 75.8 97 02/28 0736 36.6 67 16 96/63 74.3 96 Room air 02/28 0432 36.6 81 12 95/63 73.5 96 Room air 02/27 2353 36.6 67 18 92/59 70.1 95 Room air Current Medications Sig/Osmar Start time Last Medication Dose Route Stop Time Status Admin Hydrocodone Bitart/ 1 TAB Q8H PRN PRN 02/28 2145 AC Acetaminophen PO 03/05 2144 Midodrine 5 MG Q8H PRN PRN 02/28 2145 AC PO 05/30 2143 Midodrine 5 MG BID 9A 5P PRN 02/28 2130 DC PO 05/29 2128 Recent Impressions-Last 72 Hrs SPECIAL PROCEDURES - SP SPINE PUNC DX W FLUR CT 02/27 1425 Report Impression - Status: SIGNED Entered: 02/28/2024 1617 IMPRESSION: Successful, uncomplicated fluoroscopically-guided lumbar puncture, as detailed above. Impression By: [email or web address] - Flakito Vargas M.D. Vital Signs Date Temp Pulse Resp B/P B/P Mean Pulse Ox FiO2 02/27-02/28 36.4-36.6 67-85 12-18 92-103/59-64 70.1-75.8 95-97 Last Documented: Result Date Time Pulse Ox 95 02/28 1915 B/P 94/61 02/28 1915 B/P Mean 71.7 02/28 1915 O2 Delivery Room air 02/28 1915 Temp 36.6 02/28 1915 Pulse 71 02/28 1915 Resp 14 02/28 1915 O2 Flow Rate 2 02/20 1228 PATIENT WEIGHT: Weight (lb): Weight (oz): Weight (kg): 75.000 Diagnosis, Assessment Plan Hospital course to date: General appearance: alert, awake Head/Eyes: atraumatic, clear cornea, EOMI, normocephalic, normal conjunctiva/ sclera, normal eyelids/periorb, PERRLA Neck: no JVD Cardiovascular: regular rate rhythm Respiratory: decreased breath sounds, no distress, no tenderness Abdomen/GI: active bowel sounds, soft, non-tender, no guarding, no rebound, no distention, no mass/organomegaly, no pulsatile mass, no hernia, normal abdominal aorta Abdomen quadrants: LLQ normal bowel sounds, LUQ normal bowel sounds, RLQ normal bowel sounds, RUQ normal bowel sounds Extremities: moves all, no edema-all extremities, normal capillary refill, normal range of motion, normal sensory, normal motor function Neuro/CRYSTALIZER TENDER: alert, oriented X 3 Skin: dry, intact, no gross abnormalities Psychiatry: no hallucinations, normal affect, normal judgment/insight, normal mood, not homicidal, not suicidal Problem List/A P: 1. Multiple sclerosis Consultants: neurology Free Text DxA P Notes Free text DxA P notes: Assessment: 38-year-old male patient with recent diagnosis of multiple sclerosis, alcoholism , IBS presents to the emergency department today for the evaluation of lower extremity weakness/pain resulting in multiple falls, episodes of confusion, bladder incontinence. As per patient's Mother MRI was done a month ago Revealing multiple lesions consistent with multiple sclerosis. Patient is currently alert and oriented. Denies fever, chills, nausea and vomiting, headache, blurry vision, hearing deficits, lightheadedness/dizziness, chest pain , numbness, associated symptoms. 1. Multiple sclerosis 2. Lower extremity weakness/pain resulting to multiple falls 3. Confusion 4. Bladder incontinence 5. Mildly elevated troponin 82 6. HLD- LDL 61 7. History of alcoholism, IBS Plan of care: Admit patient for further evaluation and treatment Fall precaution Tylenol extra strength 1000 mg p.o. given stat, methylprednisolone stat Drug abuse screen Neuro consult placed Telemetry BP control Glycemic control Pain control Electrolyte control DVT/GI prophylaxis Follow-up labs, images 02/21/2024 Vital signs are within normal limits MRI brain: scattered white matter lesions consistent with demyelination noted. No abnormal enhancement MRI c-spine: no abnormal cord signal or enhancement Neuro is following. Recommends screen and correct any underlying toxic or metabolic process contributing to symptoms. PT/OT Fall precaution Continue supportive care 02/22/2024 Soft BP, latest 91/59 No acute events overnight Neuro is following. MRI of the T-spine pending results PT/OT consult placed On regular diet now Fall and safety precaution, follow-up images, continue medications and supportive care 02/23/2024 No acute events overnight BP 97/65 MRI of the T-spine is unremarkable Continue PT/OT Case management consult placed Continue supportive care 02/24/2024 Vital signs are stable No acute events overnight. No new neurologic symptoms. Neuro noted no active lesion on MRI, no acute findings. Orders to continue PT/ OT/rehab evaluations Fall and safety precaution Continue supportive care 02/25/2024 Vital signs are within normal limits. No new complaints Stable Continue OT management Ongoing discharge planning Fall and safety precaution, continue supportive care 02/26/2024 No acute events overnight Vital signs are stable Ongoing discharge planning Fall and safety precaution, continue supportive care 02/27/2024 Stable Neuro is following Rehab has seen the patient. Noted patient may have to discharge to SNF versus custodial versus fpc. Recommends social media marketing analyst to assist with placement. Continue PT/OT management Patient is scheduled for image guided lumbar puncture tomorrow per Dr. Martinez. Monitor accordingly Pain control Continue supportive care 02/28/2024 Status post image guided lumbar puncture. Procedure per Dr. Martinez. 15.5 mL of clear spinal fluid was removed and sent to lab. The patient tolerated the procedure well. Pain control Rehab is following Follow-up cultures Continue present care 02/29/2024 Vital signs are within normal limits No acute events overnight Started on midodrine 5 mg p.o. every 8 hours as needed for hypotension PT management Follow-up labs, fall and safety precaution, continue present care Jeremy Paige I 03/01/24 1647: Attestations Physician Attestation Agree w/findings plan: I Agree with the findings and plan as documented by ANALY Sotomayor. Plan of care coordinated with ANALY Sotomayor. Pertinent labs, Imaging, and information consultant evaluations reviewed. Patient's VS stable overnight, monitor accordingly. Continue medications as needed. Status post lumbar puncture for yesterday. Pending acceptance to SNF per discharge plan, follow CM for updates. Status post image guided lumbar puncture, patient tolerated procedure well. Continue supportive care. at 0218 at 1026 RPT #:[id number] END OF REPORT [facility] 2024-02-29 03:36:00 [facility] ([facility]) Clinical Note REPORT#:[id number] REPORT STATUS: Signed REPORT INITIALIZATION DATE:02/29/24 TIME: 335 PATIENT: CHRISS HUGGINS UNIT #: [id number] ROOM/BED: [place] [address] : 85 AGE: 38 SEX: M ATTEND: Jeremy Paige MD ADM AUTHOR: Jeremy Paige MD REPT SERVICE DT/TIME: 02/29/24335 * ALL edits or amendments must be made on the electronic/computer document * Clinical Note Note: Patient with recent diagnosis of multiple sclerosis, alcoholism and IBS presents for evaluation of lower extremity weakness and pain resulting in multiple falls, episodes of confusion, and bladder incontinence. Past MRI reveals multiple lesions consistent with multiple sclerosis. Patient has mildly elevated troponin 82 and HDL-LDL 61 upon admission. Patient's VS stable overnight, monitor accordingly. Continue medications as needed. Status post lumbar puncture for yesterday. Pending acceptance to SNF per discharge plan, follow CM for updates. Status post image guided lumbar puncture, patient tolerated procedure well. Continue supportive care. at 2104 RPT #:[id number] END OF REPORT [facility] 2024-02-28 22:19:00 [facility] Internal Medicine Prog. Note REPORT#:[id number] REPORT STATUS: Signed REPORT INITIALIZATION DATE:02/28/24 TIME: 2218 PATIENT: CHRISS HUGGINS UNIT #: [id number] ROOM/BED: G.5518-1 : 85 AGE: 38 SEX: M ATTEND: Jeremy Paige MD ADM AUTHOR: Osmany Sotomayor EMAIL CAMPAIGN SPECIALIST REPT SERVICE DT/TIME: 02/28/242218 * ALL edits or amendments must be made on the electronic/computer document * Osmany Sotomayor 02/28/242218: Subjective Chief complaint: Multiple falls Lower extremity weakness Confusion Bladder incontinence HPI: 38-year-old male patient with recent diagnosis of multiple sclerosis, alcoholism , IBS presents to the emergency department today for the evaluation of lower extremity weakness/pain resulting in multiple falls, episodes of confusion, bladder incontinence. As per patient's Mother MRI was done a month ago Revealing multiple lesions consistent with multiple sclerosis. Patient is currently alert and oriented. Denies fever, chills, nausea and vomiting, headache, blurry vision, hearing deficits, lightheadedness/dizziness, chest pain , numbness, associated symptoms. Initial vital signs: BP 102/70, pulse 102, respirations 17, temp 97.9, pulse ox 96% on room air Abnormal labs: Elevated troponin I 82 LDL 161 RADIOLOGY - XR CHEST 1 V 02/19 1216 IMPRESSION: No evidence of acute cardiopulmonary abnormality. CAT SCAN - CT HEAD/BRAIN W/O CONT 02/19 1330 IMPRESSION: There is no imaging evidence of acute intracranial pathology. CAT SCAN - CTA HEAD 02/19 1331 IMPRESSION: Unremarkable CTA of the head. Review of Systems Additional notes: Constitutional: Reports: generalized weakness. Denies: chills, fatigue, fever, lethargy, malaise, recent wt loss, other. Respiratory: Denies: MANDUJANO (dyspnea on exertion), hemoptysis, non productive cough, parox nocturnal dyspnea, pleurisy, pleuritic pain, pneumonia, productive cough (sputum), SOB, wheezing, other. Cardiovascular: Denies: chest pain, MANDUJANO (dyspnea on exertion), edema, orthopnea, palpitations, parox nocturnal dyspnea, other. GI: Denies: abdominal pain, anorexia, constipation, diarrhea, dysphagia, GERD, hematemesis, hematochezia, hiatal hernia, melena, nausea, rectal pain, vomiting, other. : Denies: dysuria, flank pain, frequency, hematuria, nocturia, penile discharge, penile lesion, testicular pain, testicular swelling, urgency, urinary retention, other. Musculoskeletal: Extremity pain: Reports: left lower, right lower. Neuro: Denies: bladder dysfunction, bowel dysfunction, change in LOC, confusion, dizziness, focal weakness, gait problem, headache, lightheaded, numbness, seizure, slurred speech, spinning sensation, syncope, unable to speak, vision change, weakness, other. Psych: Denies: agitation, anxiety, auditory hallucination, change in mental status, confusion, delusional, depression, homicidal ideation, hostile, insomnia, stress, suicidal ideation, visual hallucination, other. Objective General VS/I O: Vital Signs Date Temp Pulse Resp B/P B/P Mean Pulse Ox FiO2 02/26-02/27 36.6-37.0 71-88 14-16 92-97/58-64 69.6-74.2 95-97 Last Documented: Result Date Time Pulse Ox 95 02/28 1916 B/P 94/64 02/28 1916 B/P Mean 74.2 02/28 1916 O2 Delivery Room air 02/28 1916 Temp 36.7 02/28 1916 Pulse 83 02/28 1916 Resp 16 02/28 1916 O2 Flow Rate 2 02/20 1228 24 hour I O ending at 0700: 02/27 0700 02/26 1900 Intake Total Output Total 600 Balance -600 Output, Urine 600 PATIENT WEIGHT: Weight (lb): Weight (oz): Weight (kg): 75.000 Results Findings/Data: Laboratory Tests 02/27 1313 Chemistry C-Reactive Protein (<10.0 mg/L) < 4.0 Laboratory Tests 02/27 1328 Coagulation INR (0.8 - 1.2) 1.0 PTT (Clay) (25.0 - 39.5 Seconds) 30.2 PT Patient/Control Mix (9.3 - 12.9 SECONDS) 10.8 Laboratory Tests 02/27 1313 Hematology ESR Westergren (0 - 15 mm/hr) 8 Laboratory Tests 02/27 1441 Other Body Source CSF Color (COLORLESS) COLORLESS CSF Cell Count Tube # TUBE #2 - GLU/PROT CSF Glucose (40 - 80 MG/DL) 67 CSF Total Protein (15 - 45 mg/dL) 41.1 02/27 1441 Other Body Source CSF Appearance (CLEAR) CLEAR CSF RBC (0 - 0 MM3) 0 CSF Cell Count Tube # TUBE #3 - CELL COUNT CSF Total Nucleated Man (0 - 5 MM3) 2 CSF Lymphocytes (28 - 96 %) 90 CSF Monocytes (16 - 56 %) 7 L CSF Eosinophils (%) 0 CSF Basophils (%) 0 CSF Polynuclear WBCs (0 - 7 %) 3 CSF Macrophages (%) 0 Laboratory Tests 02/27 1313 Serology HIV 1 2 Antibody Screen (Nonreactive) Nonreactive Radiology data: Recent Impressions: SPECIAL PROCEDURES - SP SPINE PUNC DX W FLUR CT 02/27 1425 Report Impression - Status: SIGNED Entered: 02/28/2024 0727 IMPRESSION: Successful, uncomplicated fluoroscopically-guided lumbar puncture, as detailed above. Impression By: Fausto Vargas M.D. Diagnosis, Assessment Plan Hospital course to date: General appearance: alert, awake Head/Eyes: atraumatic, clear cornea, EOMI, normocephalic, normal conjunctiva/ sclera, normal eyelids/periorb, PERRLA Neck: no JVD Cardiovascular: regular rate rhythm Respiratory: decreased breath sounds, no distress, no tenderness Abdomen/GI: active bowel sounds, soft, non-tender, no guarding, no rebound, no distention, no mass/organomegaly, no pulsatile mass, no hernia, normal abdominal aorta Abdomen quadrants: LLQ normal bowel sounds, LUQ normal bowel sounds, RLQ normal bowel sounds, RUQ normal bowel sounds Extremities: moves all, no edema-all extremities, normal capillary refill, normal range of motion, normal sensory, normal motor function Neuro/CRYSTALIZER TENDER: alert, oriented X 3 Skin: dry, intact, no gross abnormalities Psychiatry: no hallucinations, normal affect, normal judgment/insight, normal mood, not homicidal, not suicidal Problem List/A P: 1. Multiple sclerosis Consultants: neurology Free Text DxA P Notes Free text DxA P notes: Assessment: 38-year-old male patient with recent diagnosis of multiple sclerosis, alcoholism , IBS presents to the emergency department today for the evaluation of lower extremity weakness/pain resulting in multiple falls, episodes of confusion, bladder incontinence. As per patient's Mother MRI was done a month ago Revealing multiple lesions consistent with multiple sclerosis. Patient is currently alert and oriented. Denies fever, chills, nausea and vomiting, headache, blurry vision, hearing deficits, lightheadedness/dizziness, chest pain , numbness, associated symptoms. 1. Multiple sclerosis 2. Lower extremity weakness/pain resulting to multiple falls 3. Confusion 4. Bladder incontinence 5. Mildly elevated troponin 82 6. HLD- LDL 61 7. History of alcoholism, IBS Plan of care: Admit patient for further evaluation and treatment Fall precaution Tylenol extra strength 1000 mg p.o. given stat, methylprednisolone stat Drug abuse screen Neuro consult placed Telemetry BP control Glycemic control Pain control Electrolyte control DVT/GI prophylaxis Follow-up labs, images 02/21/2024 Vital signs are within normal limits MRI brain: scattered white matter lesions consistent with demyelination noted. No abnormal enhancement MRI c-spine: no abnormal cord signal or enhancement Neuro is following. Recommends screen and correct any underlying toxic or metabolic process contributing to symptoms. PT/OT Fall precaution Continue supportive care 02/22/2024 Soft BP, latest 91/59 No acute events overnight Neuro is following. MRI of the T-spine pending results PT/OT consult placed On regular diet now Fall and safety precaution, follow-up images, continue medications and supportive care 02/23/2024 No acute events overnight BP 97/65 MRI of the T-spine is unremarkable Continue PT/OT Case management consult placed Continue supportive care 02/24/2024 Vital signs are stable No acute events overnight. No new neurologic symptoms. Neuro noted no active lesion on MRI, no acute findings. Orders to continue PT/ OT/rehab evaluations Fall and safety precaution Continue supportive care 02/25/2024 Vital signs are within normal limits. No new complaints Stable Continue OT management Ongoing discharge planning Fall and safety precaution, continue supportive care 02/26/2024 No acute events overnight Vital signs are stable Ongoing discharge planning Fall and safety precaution, continue supportive care 02/27/2024 Stable Neuro is following Rehab has seen the patient. Noted patient may have to discharge to SNF versus custodial versus fpc. Recommends social media marketing analyst to assist with placement. Continue PT/OT management Patient is scheduled for image guided lumbar puncture tomorrow per Dr. Martinez. Monitor accordingly Pain control Continue supportive care 02/28/2024 Status post image guided lumbar puncture. Procedure per Dr. Martinez. 15.5 mL of clear spinal fluid was removed and sent to lab. The patient tolerated the procedure well. Pain control Rehab is following Follow-up cultures Continue present care Jeremy Paige I 02/28/24 2325: Attestations Physician Attestation Agree w/findings plan: I Agree with the findings and plan as documented by ANALY Sotomayor. Plan of care coordinated with ANALY Sotomayor. Pertinent labs, Imaging, and information consultant evaluations reviewed. Patient's VS are stable overnight, no acute complaints. Patient may have the discharge to SNF vs custodial versus fpc. PT/OT evaluation and treatment as tolerated. Scheduled for lumbar puncture for today per Dr. Martinez. 15.5 mL of CSF removed and sent to lab, awaiting results. Patient tolerated procedure well. Fall and safety precaution. Continue supportive care. at 0218 at 1025 RPT #:[id number] END OF REPORT [facility] 2024-02-28 15:11:00 [facility] ([facility]) Brief Op Note REPORT#:[id number] REPORT STATUS: Signed REPORT INITIALIZATION DATE:02/28/24 TIME: 1510 PATIENT: CHRISS HUGGINS UNIT #: [id number] ROOM/BED: [place] [address] : 85 AGE: 38 SEX: M ATTEND: Jeremy Paige MD ADM AUTHOR: Kyle Martinez REPT SERVICE DT/TIME: 02/28/24 1511 * ALL edits or amendments must be made on the electronic/computer document * Op/Inv Proc Note - Brief Pre-procedure diagnosis: MS, gait instability Post-procedure diagnosis: same as pre procedure dx Procedures performed: Image Guided Lumbar Puncture Primary Surgeon: Sarina Martinez PA-C Butter Grader(s): none Anesthesia: local anesthesia Findings: Site was selected and prepped with betadine and draped. The L3-L4 level was chosen. 2% lidocaine was used for local anesthesia. A 22G spinal needle was guided into the spinal canal using fluoroscopic guidance. Opening pressure was 14 cm H2O. 15.5 mL of clear spinal fluid was removed and sent to lab. Patient left the room in good condition. Complications: none Estimated blood loss in ml's: none Specimens removed/altered: CSF at 1512 RPT #:[id number] END OF REPORT [facility] 2024-02-28 04:08:00 [facility]) Clinical Note REPORT#:[id number] REPORT STATUS: Signed REPORT INITIALIZATION DATE:02/28/24 TIME: 407 PATIENT: CHRISS HUGGINS UNIT #: [id number] [place] [facility] [place] AGE: 38 SEX: M ATTEND: Jeremy Paige MD ADM AUTHOR: Jeremy Paige MD REPT SERVICE DT/TIME: 02/28/24 0408 * ALL edits or amendments must be made on the electronic/computer document * Clinical Note Note: Patient with recent diagnosis of multiple sclerosis, alcoholism and IBS presents for evaluation of lower extremity weakness and pain resulting in multiple falls, episodes of confusion, and bladder incontinence. Past MRI reveals multiple lesions consistent with multiple sclerosis. Patient has mildly elevated troponin 82 and HDL-LDL 61 upon admission. Patient's VS are stable overnight, no acute complaints. Patient may have the discharge to SNF vs custodial versus fpc. PT/OT evaluation and treatment as tolerated. Scheduled for lumbar puncture for today per Dr. Martinez. 15.5 mL of CSF removed and sent to lab, awaiting results. Patient tolerated procedure well. Fall and safety precaution. Continue supportive care. at 2103 RPT #:[id number] END OF REPORT [facility] 2024-02-27 16:42:00 [facility] ([facility]) Internal Medicine Prog. Note REPORT#:[id number] REPORT STATUS: Signed REPORT INITIALIZATION DATE:02/27/24 TIME: 164 PATIENT: CHRISS HUGGINS UNIT #: [id number] ROOM/BED: 5518-1 : 85 AGE: 38 SEX: M ATTEND: Jeremy Paige MD ADM AUTHOR: Osmany Sotomayor NP REPT SERVICE DT/TIME: 02/27/24 1642 * ALL edits or amendments must be made on the electronic/computer document * Osmany Sotomayor 02/27/24 1642: Subjective Chief complaint: Multiple falls Lower extremity weakness Confusion Bladder incontinence HPI: 38-year-old male patient with recent diagnosis of multiple sclerosis, alcoholism , IBS presents to the emergency department today for the evaluation of lower extremity weakness/pain resulting in multiple falls, episodes of confusion, bladder incontinence. As per patient's Mother MRI was done a month ago Revealing multiple lesions consistent with multiple sclerosis. Patient is currently alert and oriented. Denies fever, chills, nausea and vomiting, headache, blurry vision, hearing deficits, lightheadedness/dizziness, chest pain , numbness, associated symptoms. Initial vital signs: BP 102/70, pulse 102, respirations 17, temp 97.9, pulse ox 96% on room air Abnormal labs: Elevated troponin I 82 LDL 161 RADIOLOGY - XR CHEST 1 V 02/19 1216 IMPRESSION: No evidence of acute cardiopulmonary abnormality. CAT SCAN - CT HEAD/BRAIN W/O CONT 02/19 1330 IMPRESSION: There is no imaging evidence of acute intracranial pathology. CAT SCAN - CTA HEAD 02/19 1331 IMPRESSION: Unremarkable CTA of the head. Review of Systems Additional notes: Constitutional: Reports: generalized weakness. Denies: chills, fatigue, fever, lethargy, malaise, recent wt loss, other. Respiratory: Denies: MANDUJANO (dyspnea on exertion), hemoptysis, non productive cough, parox nocturnal dyspnea, pleurisy, pleuritic pain, pneumonia, productive cough (sputum), SOB, wheezing, other. Cardiovascular: Denies: chest pain, MANDUJANO (dyspnea on exertion), edema, orthopnea, palpitations, parox nocturnal dyspnea, other. GI: Denies: abdominal pain, anorexia, constipation, diarrhea, dysphagia, GERD, hematemesis, hematochezia, hiatal hernia, melena, nausea, rectal pain, vomiting, other. : Denies: dysuria, flank pain, frequency, hematuria, nocturia, penile discharge, penile lesion, testicular pain, testicular swelling, urgency, urinary retention, other. Musculoskeletal: Extremity pain: Reports: left lower, right lower. Neuro: Denies: bladder dysfunction, bowel dysfunction, change in LOC, confusion, dizziness, focal weakness, gait problem, headache, lightheaded, numbness, seizure, slurred speech, spinning sensation, syncope, unable to speak, vision change, weakness, other. Psych: Denies: agitation, anxiety, auditory hallucination, change in mental status, confusion, delusional, depression, homicidal ideation, hostile, insomnia, stress, suicidal ideation, visual hallucination, other. Objective General VS/I O: Vital Signs Date Temp Pulse Resp B/P B/P Mean Pulse Ox FiO2 02/25-02/26 36.5-36.9 66-89 14-17 91-114/59-70 70.6-84.9 92-98 Last Documented: Result Date Time Pulse Ox 92 02/26 1619 B/P 96/59 02/26 1619 B/P Mean 71.6 02/26 1619 Temp 36.8 02/26 1619 Pulse 85 02/26 1619 Resp 15 02/26 1619 O2 Delivery Room air 02/23 0504 O2 Flow Rate 2 02/20 1228 24 hour I O ending at 0700: 02/26 0700 02/25 1900 Intake Total Output Total 1400 Balance -1400 Output, Urine 1400 PATIENT WEIGHT: Weight (lb): Weight (oz): Weight (kg): 75.000 Diagnosis, Assessment Plan Hospital course to date: General appearance: alert, awake Head/Eyes: atraumatic, clear cornea, EOMI, normocephalic, normal conjunctiva/ sclera, normal eyelids/periorb, PERRLA Neck: no JVD Cardiovascular: regular rate rhythm Respiratory: decreased breath sounds, no distress, no tenderness Abdomen/GI: active bowel sounds, soft, non-tender, no guarding, no rebound, no distention, no mass/organomegaly, no pulsatile mass, no hernia, normal abdominal aorta Abdomen quadrants: LLQ normal bowel sounds, LUQ normal bowel sounds, RLQ normal bowel sounds, RUQ normal bowel sounds Extremities: moves all, no edema-all extremities, normal capillary refill, normal range of motion, normal sensory, normal motor function Neuro/CRYSTALIZER TENDER: alert, oriented X 3 Skin: dry, intact, no gross abnormalities Psychiatry: no hallucinations, normal affect, normal judgment/insight, normal mood, not homicidal, not suicidal Problem List/A P: 1. Multiple sclerosis Consultants: neurology Free Text DxA P Notes Free text DxA P notes: Assessment: 38-year-old male patient with recent diagnosis of multiple sclerosis, alcoholism , IBS presents to the emergency department today for the evaluation of lower extremity weakness/pain resulting in multiple falls, episodes of confusion, bladder incontinence. As per patient's Mother MRI was done a month ago Revealing multiple lesions consistent with multiple sclerosis. Patient is currently alert and oriented. Denies fever, chills, nausea and vomiting, headache, blurry vision, hearing deficits, lightheadedness/dizziness, chest pain , numbness, associated symptoms. 1. Multiple sclerosis 2. Lower extremity weakness/pain resulting to multiple falls 3. Confusion 4. Bladder incontinence 5. Mildly elevated troponin 82 6. HLD- LDL 61 7. History of alcoholism, IBS Plan of care: Admit patient for further evaluation and treatment Fall precaution Tylenol extra strength 1000 mg p.o. given stat, methylprednisolone stat Drug abuse screen Neuro consult placed Telemetry BP control Glycemic control Pain control Electrolyte control DVT/GI prophylaxis Follow-up labs, images 02/21/2024 Vital signs are within normal limits MRI brain: scattered white matter lesions consistent with demyelination noted. No abnormal enhancement MRI c-spine: no abnormal cord signal or enhancement Neuro is following. Recommends screen and correct any underlying toxic or metabolic process contributing to symptoms. PT/OT Fall precaution Continue supportive care 02/22/2024 Soft BP, latest 91/59 No acute events overnight Neuro is following. MRI of the T-spine pending results PT/OT consult placed On regular diet now Fall and safety precaution, follow-up images, continue medications and supportive care 02/23/2024 No acute events overnight BP 97/65 MRI of the T-spine is unremarkable Continue PT/OT Case management consult placed Continue supportive care 02/24/2024 Vital signs are stable No acute events overnight. No new neurologic symptoms. Neuro noted no active lesion on MRI, no acute findings. Orders to continue PT/ OT/rehab evaluations Fall and safety precaution Continue supportive care 02/25/2024 Vital signs are within normal limits. No new complaints Stable Continue OT management Ongoing discharge planning Fall and safety precaution, continue supportive care 02/26/2024 No acute events overnight Vital signs are stable Ongoing discharge planning Fall and safety precaution, continue supportive care 02/27/2024 Stable Neuro is following Rehab has seen the patient. Noted patient may have to discharge to SNF versus custodial versus fpc. Recommends social media marketing analyst to assist with placement. Continue PT/OT management Patient is scheduled for image guided lumbar puncture tomorrow per Dr. Martinez. Monitor accordingly Pain control Continue supportive care Jeremy Paige I 02/27/24 1723: Attestations Physician Attestation Agree w/findings plan: I Agree with the findings and plan as documented by ANALY Sotomayor. Plan of care coordinated with ANALY Sotomayor. Pertinent labs, Imaging, and information consultant evaluations reviewed. Patient alert and awake, has hypotensive episodes overnight. BP improving now at 114/70, continue BP control. Other VS are within normal limits. Continue with medications as needed. For PT and OT management. Consult placed to Dr. Blue. Continue present care. at 0156 at 1019 RPT #:[id number] END OF REPORT [facility] 2024-02-27 14:22:00 [facility] Neurology Progress Note REPORT#:[id number] REPORT STATUS: Signed REPORT INITIALIZATION DATE:02/27/24 TIME: 1421 PATIENT: CHRISS HUGGINS UNIT #: [id number] [address] : [address] AGE: 38 SEX: M ATTEND: Jeremy Paige MD ADM AUTHOR: Nitin Henry MD REPT SERVICE DT/TIME: 02/27/241421 * ALL edits or amendments must be made on the electronic/computer document * Subjective Chief complaint: MS HPI: Contacted by MANAGER ASSET MANAGEMENT and Case management to discuss patient's neurologic status. Patient was able to graduate HS and obtained an associates degree following that time. He was living independently in his 20s and early 30s but later began having difficulty keeping his jobs it seems. [place] a [place] years ago. Patient has had significant declines in gait since 2021. He has established neurology follow-up with a Dr. Dempsey. Review of Systems Free Text ROS Notes Free Text ROS Notes: ROS focused on neurological system with pertinent positives and negatives as included in the history Objective General VS: Last Documented: Result Date Time Pulse Ox 98 02/26 1108 B/P 102/68 02/26 1108 B/P Mean 79.5 02/26 1108 Temp 36.5 02/26 1108 Pulse 89 02/26 1108 Resp 16 02/26 1108 O2 Delivery Room air 02/23 0504 O2 Flow Rate 2 02/20 1228 PATIENT WEIGHT: Weight (lb): Weight (oz): Weight (kg): 75.000 Medications Current Home Medications [TYLENOL] 500 MG PO PRN PRN PAIN Dietitian nutrition assessment The data set between the solid lines has been imported from the dietitian's assessment. BMI Calculated: 23.7 Nutrition related diagnosis: Nutrition diagnosis details: Nutrition problem: Nutrition etiology: Nutrition signs and symptoms: Nutrition prescription: Dietitian name: Assessment completed: Diagnosis, Assessment Plan Free Text A P: Patient is a 38-year-old male with history of recent MS diagnosis, alcohol use disorder, and IBS who presented to the emergency room with complaints of weakness and confusion. Patient apparently has had multiple falls and notes lower extremity weakness at baseline. In addition, has bowel incontinence. CT head was unremarkable for acute intracranial pathology. CTA head and neck without significant vascular abnormality. Neurology has been consulted to evaluate for possible MS exacerbation. He received 1g methylprednisone in the ER. He is currently not on DMT for MS. MRI brain -scattered white matter lesions consistent with demyelination noted. No abnormal enhancement MRI c-spine - no abnormal cord signal or enhancement on read. Possible T2 hyperintensity at C2-3 to R MRI L-spine - Unremarkable MRI assessment of the thoracic spine with and without contrast. Multiple sclerosis Recurrent falls Suspected deconditioning Recommendation -received IVSM -No active lesions on MRI brain and C-spine -MRI T-spine: No acute findings -PT/OT/Rehab eval -Fall precautions -if it does not delay discharge, IR guided LP and labs for MS mimics were ordered I will follow-up on results Patient is clear for discharge when medically cleared. at 0655 RPT #:[id number] END OF REPORT [facility] 2024-02-27 10:36:00 [facility] ([facility]) Acute Rehab Consult REPORT#:[id number] REPORT STATUS: Signed REPORT INITIALIZATION DATE:02/27/24 TIME: 103 PATIENT: CHRISS HUGGINS UNIT #: [id number] ROOM/BED: [place] [address] : 85 AGE: 38 SEX: M ATTEND: Jeremy Paige MD ADM AUTHOR: Kathia Garay PA-C REPT SERVICE DT/TIME: 02/27/24 1036 * ALL edits or amendments must be made on the electronic/computer document * History of Present Illness HPI Reason for consult: evaluation of Rehab needs Chief complaint: Weakness/Fall PCP: PCP: Allan Herbert MD Requesting clinician: Osmany Sotomayor/ Dr. King Etiologic diagnosis: Multiple Sclerosis HPI: Patient is a 38-year-old male with history significant for multiple sclerosis, alcoholism, IBS presented to the emergency department secondary to lower extremity weakness and pain resulting in multiple falls. Going to mother he has had increased bladder incontinence and confusion. On admission vitals were stable. Labs are obtained and showed creatinine of 1.3, BUN 20, sodium 135, normal LFTs, ammonia less than 7 CK 36 WBC 6.0. Chest x-ray on 1211 no evidence of acute cardiopulmonary disease. CT of the head shows no acute evidence of intracranial pathology. CTA of the head on 1212 unremarkable. He was admitted for concerns for MS exacerbation. MRI scan of the brain and C-spine were ordered and showed scattered white matter lesions consistent with demyelination no abnormal enhancement. C-spine shows no abnormal cord signal enhancement.ecommend follow-up with his neurologist outpatient to start DMT for MS. Continue PT/OT and bowel regimen for incontinence. Consider GI consult. Functional Status PT evaluation: n one supervision with cueing and assistance provided to ensure proper performance of all activities. Yes Precautions: Fall Pre- Gait Mobility Y/N: Yes Safety addressed through use of: Gait Belt Verbal Cues Tactile Cues Gait Device personal hurry cane Weightbearing: No Restriction Ambulation Distance: 200' Progression: Forward Backward Lateral, Right Lateral, Left Assistance Level: Minimal Assistance Gait Deviations: Base of Support - Wide Head Down unsteady knee joaquin/hyperext w/ fatigue Effects of Treatment: Balance Improved Function Improved Gait quality improved Post Treatment Precautions: In Bed, Rails Up Bed Alarm Suture Polisher Light in Reach Nursing Notified Review Plan of Care: Yes PT charges: Gait Training [id number] Gait Cmt: Pt motivated to participate in PT however demo poor safety awareness. Pt ed regarding MS progression, appropriate AD for energy conservation improved safety importance of not overworking. Instructed pt w/ HEP LE ex's supine seated, WI provided. If this is the patient's last treatment, this entry Start Time: 1319 Stop Time: 1357 Treatment Time: ( minutes) 0:38 Completed by: Audie Duckworth Conference/Supervising PT: Yes Supervising Therapist: CHIQUITARCEtienne Aquino . BED MOBILITY: Yes Supine to Sit: Modified [place] Sit to Supine: Modified [place] TRANSFERS: Yes Bed to/from chair: Supervision or Set-up Sit to/from stand: Supervision or Set-up CARDIO-RESPIRATORY IMPAIRMENT Items determined to be OUTSIDE the Functional Limits are as f OT evaluation: Sewage Disposal Engineer Provided: No Hand Preference: Right Hand Prior Level of Function: MOD I Home Environment: Own home/apt w/o HH Srvc Environmental Details: [facility] Patient Lives With: Mother Occupation: UNEMPLOYED Patient/Family Goals: WALK BETTER, RETURN HOME System Evaluation/Within Functional Limits Assessment Data: UPPER EXTREMITY FUNCTION WFL: Yes FUNCTIONAL MOBILITY WFL: No ACTIVITIES OF DAILY LIVING WFL: No NEUROLOGICAL WFL: Yes SENSATION WFL: Yes COGNITION WFL: Yes VISUAL/PERCEPTION WFL: Yes COMMUNICATION WFL: Yes CARDIORESPIRATORY WFL: Yes EDEMA Y/N: No INTEGUMENTARY WFL: Not tested SKIN ALTERATION CMT: SEE NURSING CHART SKIN ASSESSMENT Plan of Care Type: Occupational Therapy Review Plan of Care: No Plan of Care - LT ST Goals: No Treatment Details: Yes Enter OT Clarification Orders: Yes Comments: OT EVAL COMPLETED Patient/Caregiver informed of Risks of not participating in Occupational Therapy: N Patient/Caregiver informed of Benefits of participating in Occupational Therapy: N Therapist recommended discharge needs: Home Rehabilitation Potential: N/A Recommendations: Case Management PT Consult Modified [place] Score: No MR Screening Performed: Pre-Morbid Screening Document Pain/Education: MIN WITH MOBILITY Post Treatment Precautions In Bed, Rails Up Call Light in Reach Nursing Notified Telephone in Reach [place] Comments: PATIENT SEEN FOR OT EVALUATION. PATIENT IS IND FOR BED MOBILITY. WALKS IN ROOM AND TO THE BATHROOM WITH RW MOD I. PATIET COMPLETES ADLs MOD I. N O ADDITIONAL OT SERVICES RECOMMENDED DUE TO HIGH FUNCTIONAL LEVEL. DC TO NURSING AND PHYSICIAN FOLLOW-UP. Evaluation Type: High Complexity Reason for Eval Complexity: Multiple Comorbidities Document OT charges: EVAL OT HIGH COMP 25421 SELF/HOME MGT/ADL 36017 Comments: OT EVAL COMPLETED. If this is the patient's last treatment, this entry serves as the discharge summary: Y Start Time: 0942 Stop Time: 1007 Eval Time ( minutes): 0:25 Treatment Time (minutes): 10 Completed by: Alphonse Lund UPPER EXTREMETY FUNCTION UPPER BODY FUNCTION Items determined to be outside Functional Limits are as follows: RANGE OF MOTION (Degrees): Active unless otherwise noted MANUAL MUSCLE TEST FUNCTIONAL MOBILITY FUNCTIONAL MOBILITY Items determined to be outside Functional Limits are as follows: Bed Mobility: Modified [place] Rolling Right: Modified [place] Rolling Left: Modified [place] Scooting in Bed, Up: Modified [place] Scooting in Bed, Down: Modified [place] Scooting to edge of bed, Right: Modified [place] Scooting to edge of bed, Left: Modified [place] Supine to Sit: Modified [place] Sit to Supine: Modified [place] Sit to Stand: Modified [place] Functional Activity Tolerance Sitting Unsupported: 0-10 minutes Sitting Supported: 10-20 minutes Standing Unsupported: 0-10 minutes Standing Supported: 10-20 minutes Comments: RW IN STANDING TRANSFERS BALANCE ACTIVITIES OF DAILY LIVING Activity: How much help from another person does the patient currently need: Putting on and taking off regular lower body clothing? 3 Bathing including washing, rinsing, drying? 3 Toileting which includes using toilet, bedpan, or urinal? 3 Putting on and taking off regular upper body clothing? 4 Taking care of personal grooming, such as brushing teeth? 4 Eating meals? 4 [facility] Activity Score: 21 ACTIVITIES OF DAILY LIVING Items determined to be outside Functional Limits are as follows: NEUROLOGICAL NEUROLOGICAL Items determined to be outside Functional Limits are as History Additional medical history: MS IBS Additional surgical history: Nobe Additional family history: Non contributory to current admission Alcohol use: In recovery Drug use: Denies recreational drugs Additional social history: Patient states currently homeless. He was living in a [place] sober living home/fpc for recovering alcoholics and drug addicts. He states he will not be going back. He does have a relationship with his mother and grandfather who live in the [place] area but states they would likely will not let him go back and stay there. He has a cane and a rolling walker. Medications: Home Medications: Medication Dose/Rte/Freq Days Qty Entered Last Max Daily Dose Reviewed [TYLENOL] 500 MG PO 02/21/24 02/21/24 Strength: PRN PRN PAIN 1814 1173 Allergies: Coded Allergies: No Known Allergies (02/20/24) Review of Symptoms ROS ROS comments: States has generalized weakness to bilateral upper and lower extremities. Uses a cane primarily for gait for short distance has a rolling walker for longer distance. Denies any head trauma headache, blurred vision, double vision, weakness on one side versus the other, nausea, vomiting, diarrhea, constipation. Does state he has irritable bowel syndrome with poor control of his bowel movements. Denies any urinary incontinence or retention. Objective Physical Exam VS: Last Documented: Reviewed vitals and stable. PATIENT WEIGHT: Weight (lb): Weight (oz): Weight (kg): 75.000 General appearance: alert, awake, oriented HEENT: anicteric, mucosal membranes moist, sclera clear Neck: supple, no JVD Cardiovascular: regular rate rhythm, S1/S2, no murmur Respiratory: aerating well, clear bilaterally Abdomen: bowel sounds present, non-distended, soft, non-tender Skin: dry, intact, no rash Musculoskeletal - general: Musculoskeletal - general: joints normal, range of motion normal, strength testing normal, mild intrinsic wasting Neuro/CRYSTALIZER TENDER: alert, oriented X 3, normal speech, no motor deficits, no sensory deficits Results Findings/Data: Microbiology: 02/26 1505 CSF: Body Fluid Culture - ORD 02/26 150 CSF: Anaerobic Culture - ORD 02/26 150 CSF: Gram Stain - ORD Diagnosis, Assessment Plan Problem List/A P: 1. Multiple sclerosis Free Text A P: Plan: Physical therapy and Occupational therapy evaluated the patient. He ambulated 200 feet min assist to supervision and per Occupational Therapy was independent to modified independent with ADLs. Occupational Therapy signed off his case. He does not currently qualify for inpatient rehabilitation. He would likely benefit from some outpatient therapy but unfortunately does not have a vehicle transportation. Discussed with him about his living situation and currently appears to be homeless. He will benefit from discharging home with family for the added support, but it does not sound as though that will be the case. May have to discharge to a longterm facility versus custodial versus fpc. Recommend social media marketing analyst to assist with placement. Thank you for allowing us to persuade in this consult we will continue to follow and make recommendations based upon medical and rehab progress. at 0709 RPT #:[id number] END OF REPORT [facility] 2024-02-27 03:12:00 [facility] ([facility] Clinical Note REPORT#:[id number] REPORT STATUS: Signed REPORT INITIALIZATION DATE:02/27/24 TIME: 311 PATIENT: CHRISS HUGGINS UNIT #: [id number] [address]: [address] : [address] AGE: 38 SEX: M ATTEND: Jeremy Paige MD ADM AUTHOR: Jeremy Paige MD REPT SERVICE DT/TIME: 02/27/24311 * ALL edits or amendments must be made on the electronic/computer document * Clinical Note Note: 38-year-old male patient with recent diagnosis of multiple sclerosis, alcoholism and IBS presents for evaluation of lower extremity weakness and pain resulting in multiple falls, episodes of confusion, and bladder incontinence. Past MRI reveals multiple lesions consistent with multiple sclerosis. Patient has mildly elevated troponin 82 and HDL-LDL 61 upon admission. Patient alert and awake, has hypotensive episodes overnight. BP improving now at 114/70, continue BP control. Other VS are within normal limits. Continue with medications as needed. For PT and OT management. Consult placed to Dr. Blue. Continue present care. at 2102 RPT #:[id number] END OF REPORT [facility] 2024-02-26 14:30:00 [facility] ([facility]) Internal Medicine Prog. Note REPORT#:[id number] REPORT STATUS: Signed REPORT INITIALIZATION DATE:02/26/24 TIME: 1429 PATIENT: CHRISS HUGGINS UNIT #: [id number] ROOM/BED: [place] [address] : 85 AGE: 38 SEX: M ATTEND: Jeremy Paige MD ADM AUTHOR: Osmany Sotomayor EMAIL CAMPAIGN SPECIALIST REPT SERVICE DT/TIME: 02/26/24 1430 * ALL edits or amendments must be made on the electronic/computer document * Osmany Sotomayor 02/26/24 1430: Subjective Chief complaint: Multiple falls Lower extremity weakness Confusion Bladder incontinence HPI: 38-year-old male patient with recent diagnosis of multiple sclerosis, alcoholism , IBS presents to the emergency department today for the evaluation of lower extremity weakness/pain resulting in multiple falls, episodes of confusion, bladder incontinence. As per patient's Mother MRI was done a month ago Revealing multiple lesions consistent with multiple sclerosis. Patient is currently alert and oriented. Denies fever, chills, nausea and vomiting, headache, blurry vision, hearing deficits, lightheadedness/dizziness, chest pain , numbness, associated symptoms. Initial vital signs: BP 102/70, pulse 102, respirations 17, temp 97.9, pulse ox 96% on room air Abnormal labs: Elevated troponin I 82 LDL 161 RADIOLOGY - XR CHEST 1 V 02/20 1216 IMPRESSION: No evidence of acute cardiopulmonary abnormality. CAT SCAN - CT HEAD/BRAIN W/O CONT 02/19 1330 IMPRESSION: There is no imaging evidence of acute intracranial pathology. CAT SCAN - CTA HEAD 12/12 1331 IMPRESSION: Unremarkable CTA of the head. Review of Systems Additional notes: Constitutional: Reports: generalized weakness. Denies: chills, fatigue, fever, lethargy, malaise, recent wt loss, other. Respiratory: Denies: MANDUJANO (dyspnea on exertion), hemoptysis, non productive cough, parox nocturnal dyspnea, pleurisy, pleuritic pain, pneumonia, productive cough (sputum), SOB, wheezing, other. Cardiovascular: Denies: chest pain, MANDUJANO (dyspnea on exertion), edema, orthopnea, palpitations, parox nocturnal dyspnea, other. GI: Denies: abdominal pain, anorexia, constipation, diarrhea, dysphagia, GERD, hematemesis, hematochezia, hiatal hernia, melena, nausea, rectal pain, vomiting, other. : Denies: dysuria, flank pain, frequency, hematuria, nocturia, penile discharge, penile lesion, testicular pain, testicular swelling, urgency, urinary retention, other. Musculoskeletal: Extremity pain: Reports: left lower, right lower. Neuro: Denies: bladder dysfunction, bowel dysfunction, change in LOC, confusion, dizziness, focal weakness, gait problem, headache, lightheaded, numbness, seizure, slurred speech, spinning sensation, syncope, unable to speak, vision change, weakness, other. Psych: Denies: agitation, anxiety, auditory hallucination, change in mental status, confusion, delusional, depression, homicidal ideation, hostile, insomnia, stress, suicidal ideation, visual hallucination, other. Objective General VS/I O: Vital Signs Date Temp Pulse Resp B/P B/P Mean Pulse Ox FiO2 02/24-02/25 36.4-36.8 70-82 14-16 91-112/55-69 0.0-83.1 95-98 Last Documented: Result Date Time Pulse Ox 98 02/25 1040 B/P 91/57 02/25 1040 B/P Mean 68.2 02/25 1040 Temp 36.8 02/25 1040 Pulse 82 02/25 1040 Resp 14 02/25 1040 O2 Delivery Room air 02/23 0504 O2 Flow Rate 2 02/20 1228 24 hour I O ending at 0700: 02/25 0700 02/24 1900 Intake Total Output Total 700 Balance -700 Output, Urine 700 PATIENT WEIGHT: Weight (lb): Weight (oz): Weight (kg): 75.000 Diagnosis, Assessment Plan Hospital course to date: General appearance: alert, awake Head/Eyes: atraumatic, clear cornea, EOMI, normocephalic, normal conjunctiva/ sclera, normal eyelids/periorb, PERRLA Neck: no JVD Cardiovascular: regular rate rhythm Respiratory: decreased breath sounds, no distress, no tenderness Abdomen/GI: active bowel sounds, soft, non-tender, no guarding, no rebound, no distention, no mass/organomegaly, no pulsatile mass, no hernia, normal abdominal aorta Abdomen quadrants: LLQ normal bowel sounds, LUQ normal bowel sounds, RLQ normal bowel sounds, RUQ normal bowel sounds Extremities: moves all, no edema-all extremities, normal capillary refill, normal range of motion, normal sensory, normal motor function Neuro/CRYSTALIZER TENDER: alert, oriented X 3 Skin: dry, intact, no gross abnormalities Psychiatry: no hallucinations, normal affect, normal judgment/insight, normal mood, not homicidal, not suicidal Problem List/A P: 1. Multiple sclerosis Consultants: neurology Free Text DxA P Notes Free text DxA P notes: Assessment: 38-year-old male patient with recent diagnosis of multiple sclerosis, alcoholism , IBS presents to the emergency department today for the evaluation of lower extremity weakness/pain resulting in multiple falls, episodes of confusion, bladder incontinence. As per patient's Mother MRI was done a month ago Revealing multiple lesions consistent with multiple sclerosis. Patient is currently alert and oriented. Denies fever, chills, nausea and vomiting, headache, blurry vision, hearing deficits, lightheadedness/dizziness, chest pain , numbness, associated symptoms. 1. Multiple sclerosis 2. Lower extremity weakness/pain resulting to multiple falls 3. Confusion 4. Bladder incontinence 5. Mildly elevated troponin 82 6. HLD- LDL 61 7. History of alcoholism, IBS Plan of care: Admit patient for further evaluation and treatment Fall precaution Tylenol extra strength 1000 mg p.o. given stat, methylprednisolone stat Drug abuse screen Neuro consult placed Telemetry BP control Glycemic control Pain control Electrolyte control DVT/GI prophylaxis Follow-up labs, images 02/21/2024 Vital signs are within normal limits MRI brain: scattered white matter lesions consistent with demyelination noted. No abnormal enhancement MRI c-spine: no abnormal cord signal or enhancement Neuro is following. Recommends screen and correct any underlying toxic or metabolic process contributing to symptoms. PT/OT Fall precaution Continue supportive care 02/22/2024 Soft BP, latest 91/59 No acute events overnight Neuro is following. MRI of the T-spine pending results PT/OT consult placed On regular diet now Fall and safety precaution, follow-up images, continue medications and supportive care 02/23/2024 No acute events overnight BP 97/65 MRI of the T-spine is unremarkable Continue PT/OT Case management consult placed Continue supportive care 02/24/2024 Vital signs are stable No acute events overnight. No new neurologic symptoms. Neuro noted no active lesion on MRI, no acute findings. Orders to continue PT/ OT/rehab evaluations Fall and safety precaution Continue supportive care 02/25/2024 Vital signs are within normal limits. No new complaints Stable Continue OT management Ongoing discharge planning Fall and safety precaution, continue supportive care 02/26/2024 No acute events overnight Vital signs are stable Ongoing discharge planning Fall and safety precaution, continue supportive care Jeremy Paige I 02/26/244: Attestations Physician Attestation Agree w/findings plan: I Agree with the findings and plan as documented by ANALY Sotomayor. Plan of care coordinated with ANALY Sotomayor. Pertinent labs, Imaging, and information consultant evaluations reviewed. Hypotensive episodes overnight, latest BP at 92/62. Other VS are stable, monitor accordingly. No acute complaints. Fall and safety precaution. Continue PT/OT management. Discharge planning ongoing. Continue present care. at 0155 at 1019 RPT #:[id number] END OF REPORT [facility] 2024-02-26 03:29:00 [facility] ([facility]) Clinical Note REPORT#:[id number] REPORT STATUS: Signed REPORT INITIALIZATION DATE:02/26/24 TIME: 328 PATIENT: CHRISS HUGGINS UNIT #: [id number] ROOM/BED: 5518-1 : 85 AGE: 38 SEX: M ATTEND: Jeremy Paige MD ADM AUTHOR: Jeremy Paige MD REPT SERVICE DT/TIME: 02/26/24 0329 * ALL edits or amendments must be made on the electronic/computer document * Clinical Note Note: 38-year-old male patient with recent diagnosis of multiple sclerosis, alcoholism and IBS presents for evaluation of lower extremity weakness and pain resulting in multiple falls, episodes of confusion, and bladder incontinence. Past MRI reveals multiple lesions consistent with multiple sclerosis. Patient has mildly elevated troponin 82 and HDL-LDL 61 upon admission. Hypotensive episodes overnight, latest BP at 92/62. Other VS are stable, monitor accordingly. No acute complaints. Fall and safety precaution. Continue PT/OT management. Discharge planning ongoing. Continue present care. at 2101 RPT #:[id number] END OF REPORT [facility] 2024-02-25 15:24:00 [facility] Internal Medicine Prog. Note REPORT#:[id number] REPORT STATUS: Signed REPORT INITIALIZATION DATE:02/25/24 TIME: 1523 PATIENT: CHRISS HUGGINS UNIT #: [id number] ROOM/BED: [place] [address] : 85 AGE: 38 SEX: M ATTEND: Jeremy Paige MD ADM AUTHOR: Osmany Sotomayor NP REPT SERVICE DT/TIME: 02/25/24 1524 * ALL edits or amendments must be made on the electronic/computer document * Osmany Sotomayor 02/25/24 1524: Subjective Chief complaint: Multiple falls Lower extremity weakness Confusion Bladder incontinence HPI: 38-year-old male patient with recent diagnosis of multiple sclerosis, alcoholism , IBS presents to the emergency department today for the evaluation of lower extremity weakness/pain resulting in multiple falls, episodes of confusion, bladder incontinence. As per patient's Mother MRI was done a month ago Revealing multiple lesions consistent with multiple sclerosis. Patient is currently alert and oriented. Denies fever, chills, nausea and vomiting, headache, blurry vision, hearing deficits, lightheadedness/dizziness, chest pain , numbness, associated symptoms. Initial vital signs: BP 102/70, pulse 102, respirations 17, temp 97.9, pulse ox 96% on room air Abnormal labs: Elevated troponin I 82 LDL 161 RADIOLOGY - XR CHEST 1 V 02/19 1216 IMPRESSION: No evidence of acute cardiopulmonary abnormality. CAT SCAN - CT HEAD/BRAIN W/O CONT 02/19 1330 IMPRESSION: There is no imaging evidence of acute intracranial pathology. CAT SCAN - CTA HEAD 02/19 133 IMPRESSION: Unremarkable CTA of the head. Review of Systems Additional notes: Constitutional: Reports: generalized weakness. Denies: chills, fatigue, fever, lethargy, malaise, recent wt loss, other. Respiratory: Denies: MANDUJANO (dyspnea on exertion), hemoptysis, non productive cough, parox nocturnal dyspnea, pleurisy, pleuritic pain, pneumonia, productive cough (sputum), SOB, wheezing, other. Cardiovascular: Denies: chest pain, MANDUJANO (dyspnea on exertion), edema, orthopnea, palpitations, parox nocturnal dyspnea, other. GI: Denies: abdominal pain, anorexia, constipation, diarrhea, dysphagia, GERD, hematemesis, hematochezia, hiatal hernia, melena, nausea, rectal pain, vomiting, other. : Denies: dysuria, flank pain, frequency, hematuria, nocturia, penile discharge, penile lesion, testicular pain, testicular swelling, urgency, urinary retention, other. Musculoskeletal: Extremity pain: Reports: left lower, right lower. Neuro: Denies: bladder dysfunction, bowel dysfunction, change in LOC, confusion, dizziness, focal weakness, gait problem, headache, lightheaded, numbness, seizure, slurred speech, spinning sensation, syncope, unable to speak, vision change, weakness, other. Psych: Denies: agitation, anxiety, auditory hallucination, change in mental status, confusion, delusional, depression, homicidal ideation, hostile, insomnia, stress, suicidal ideation, visual hallucination, other. Objective General VS/I O: Vital Signs Date Temp Pulse Resp B/P B/P Mean Pulse Ox FiO2 02/23-02/24 36.8-37.2 81-96 -17 91-112/61-67 0.0-81.2 95-97 Last Documented: Result Date Time Pulse Ox 95 02/24 1112 B/P 91/61 02/24 1112 B/P Mean 71.0 02/24 1112 Temp 37.2 02/24 1112 Pulse 96 02/24 1112 Resp 15 02/24 1112 O2 Delivery Room air 02/23 0504 O2 Flow Rate 2 02/20 1228 24 hour I O ending at 0700: 02/24 0700 02/23 1900 Intake Total Output Total 600 425 Balance -600 -425 Output, Urine 600 425 PATIENT WEIGHT: Weight (lb): Weight (oz): Weight (kg): 75.000 Diagnosis, Assessment Plan Hospital course to date: General appearance: alert, awake Head/Eyes: atraumatic, clear cornea, EOMI, normocephalic, normal conjunctiva/ sclera, normal eyelids/periorb, PERRLA Neck: no JVD Cardiovascular: regular rate rhythm Respiratory: decreased breath sounds, no distress, no tenderness Abdomen/GI: active bowel sounds, soft, non-tender, no guarding, no rebound, no distention, no mass/organomegaly, no pulsatile mass, no hernia, normal abdominal aorta Abdomen quadrants: LLQ normal bowel sounds, LUQ normal bowel sounds, RLQ normal bowel sounds, RUQ normal bowel sounds Extremities: moves all, no edema-all extremities, normal capillary refill, normal range of motion, normal sensory, normal motor function Neuro/CRYSTALIZER TENDER: alert, oriented X 3 Skin: dry, intact, no gross abnormalities Psychiatry: no hallucinations, normal affect, normal judgment/insight, normal mood, not homicidal, not suicidal Problem List/A P: 1. Multiple sclerosis Consultants: neurology Free Text DxA P Notes Free text DxA P notes: Assessment: 38-year-old male patient with recent diagnosis of multiple sclerosis, alcoholism , IBS presents to the emergency department today for the evaluation of lower extremity weakness/pain resulting in multiple falls, episodes of confusion, bladder incontinence. As per patient's Mother MRI was done a month ago Revealing multiple lesions consistent with multiple sclerosis. Patient is currently alert and oriented. Denies fever, chills, nausea and vomiting, headache, blurry vision, hearing deficits, lightheadedness/dizziness, chest pain , numbness, associated symptoms. 1. Multiple sclerosis 2. Lower extremity weakness/pain resulting to multiple falls 3. Confusion 4. Bladder incontinence 5. Mildly elevated troponin 82 6. HLD- LDL 61 7. History of alcoholism, IBS Plan of care: Admit patient for further evaluation and treatment Fall precaution Tylenol extra strength 1000 mg p.o. given stat, methylprednisolone stat Drug abuse screen Neuro consult placed Telemetry BP control Glycemic control Pain control Electrolyte control DVT/GI prophylaxis Follow-up labs, images 02/21/2024 Vital signs are within normal limits MRI brain: scattered white matter lesions consistent with demyelination noted. No abnormal enhancement MRI c-spine: no abnormal cord signal or enhancement Neuro is following. Recommends screen and correct any underlying toxic or metabolic process contributing to symptoms. PT/OT Fall precaution Continue supportive care 02/22/2024 Soft BP, latest 91/59 No acute events overnight Neuro is following. MRI of the T-spine pending results PT/OT consult placed On regular diet now Fall and safety precaution, follow-up images, continue medications and supportive care 02/23/2024 No acute events overnight BP 97/65 MRI of the T-spine is unremarkable Continue PT/OT Case management consult placed Continue supportive care 02/24/2024 Vital signs are stable No acute events overnight. No new neurologic symptoms. Neuro noted no active lesion on MRI, no acute findings. Orders to continue PT/ OT/rehab evaluations Fall and safety precaution Continue supportive care 02/25/2024 Vital signs are within normal limits. No new complaints Stable Continue OT management Ongoing discharge planning Fall and safety precaution, continue supportive care Jeremy Paige I 02/25/24 2100: Attestations Physician Attestation Agree w/findings plan: I Agree with the findings and plan as documented by ANALY Sotomayor. Plan of care coordinated with ANALY Sotomayor. Pertinent labs, Imaging, and information consultant evaluations reviewed. 38-year-old male patient with recent diagnosis of multiple sclerosis, alcoholism and IBS presents for evaluation of lower extremity weakness and pain resulting in multiple falls, episodes of confusion, and bladder incontinence. Past MRI reveals multiple lesions consistent with multiple sclerosis. Patient has mildly elevated troponin 82 and HDL-LDL 61 upon admission. Patient's vital signs are stable overnight, monitor accordingly. No acute complaints. Fall and safety precaution. For PT/OT management. Discharge planning ongoing, continue to follow CM for updates. Consultants evaluation noted. Continue with supportive care. at 0039 at 0911 RPT #:[id number] END OF REPORT [facility] 2024-02-25 04:34:00 [facility] ([facility]) Clinical Note REPORT#:[id number] REPORT STATUS: Signed REPORT INITIALIZATION DATE:02/25/24 TIME: 433 PATIENT: CHRISS HUGGINS UNIT #: [id number] ROOM/BED: [place] [address] : 85 AGE: 38 SEX: M ATTEND: Jeremy Paige MD ADM AUTHOR: Jeremy Paige MD REPT SERVICE DT/TIME: 02/25/24 0434 * ALL edits or amendments must be made on the electronic/computer document * Clinical Note Note: 38-year-old male patient with recent diagnosis of multiple sclerosis, alcoholism and IBS presents for evaluation of lower extremity weakness and pain resulting in multiple falls, episodes of confusion, and bladder incontinence. Past MRI reveals multiple lesions consistent with multiple sclerosis. Patient has mildly elevated troponin 82 and HDL-LDL 61 upon admission. Patient's vital signs are stable overnight, monitor accordingly. No acute complaints. Fall and safety precaution. For PT/OT management. Discharge planning ongoing, continue to follow CM for updates. Consultants evaluation noted. Continue with supportive care. at 2101 RPT #:[id number] END OF REPORT [facility] 2024-02-24 14:51:00 [facility] ([facility]) Internal Medicine Prog. Note REPORT#:[id number] REPORT STATUS: Signed REPORT INITIALIZATION DATE:02/24/24 TIME: 1450 PATIENT: CHRISS HUGGINS UNIT #: [id number] ROOM/BED: 5518-1 : 85 AGE: 38 SEX: M ATTEND: Jeremy Paige MD ADM AUTHOR: Osmany Sotomayor NP REPT SERVICE DT/TIME: 02/24/24 1451 * ALL edits or amendments must be made on the electronic/computer document * Osmany Sotomayor 02/24/24 1451: Subjective Chief complaint: Multiple falls Lower extremity weakness Confusion Bladder incontinence HPI: 38-year-old male patient with recent diagnosis of multiple sclerosis, alcoholism , IBS presents to the emergency department today for the evaluation of lower extremity weakness/pain resulting in multiple falls, episodes of confusion, bladder incontinence. As per patient's Mother MRI was done a month ago Revealing multiple lesions consistent with multiple sclerosis. Patient is currently alert and oriented. Denies fever, chills, nausea and vomiting, headache, blurry vision, hearing deficits, lightheadedness/dizziness, chest pain , numbness, associated symptoms. Initial vital signs: BP 102/70, pulse 102, respirations 17, temp 97.9, pulse ox 96% on room air Abnormal labs: Elevated troponin I 82 LDL 161 RADIOLOGY - XR CHEST 1 V 02/19 1216 IMPRESSION: No evidence of acute cardiopulmonary abnormality. CAT SCAN - CT HEAD/BRAIN W/O CONT 02/19 1330 IMPRESSION: There is no imaging evidence of acute intracranial pathology. CAT SCAN - CTA HEAD 02/19 1331 IMPRESSION: Unremarkable CTA of the head. Review of Systems Additional notes: Constitutional: Reports: generalized weakness. Denies: chills, fatigue, fever, lethargy, malaise, recent wt loss, other. Respiratory: Denies: MANDUJANO (dyspnea on exertion), hemoptysis, non productive cough, parox nocturnal dyspnea, pleurisy, pleuritic pain, pneumonia, productive cough (sputum), SOB, wheezing, other. Cardiovascular: Denies: chest pain, MANDUJANO (dyspnea on exertion), edema, orthopnea, palpitations, parox nocturnal dyspnea, other. GI: Denies: abdominal pain, anorexia, constipation, diarrhea, dysphagia, GERD, hematemesis, hematochezia, hiatal hernia, melena, nausea, rectal pain, vomiting, other. : Denies: dysuria, flank pain, frequency, hematuria, nocturia, penile discharge, penile lesion, testicular pain, testicular swelling, urgency, urinary retention, other. Musculoskeletal: Extremity pain: Reports: left lower, right lower. Neuro: Denies: bladder dysfunction, bowel dysfunction, change in LOC, confusion, dizziness, focal weakness, gait problem, headache, lightheaded, numbness, seizure, slurred speech, spinning sensation, syncope, unable to speak, vision change, weakness, other. Psych: Denies: agitation, anxiety, auditory hallucination, change in mental status, confusion, delusional, depression, homicidal ideation, hostile, insomnia, stress, suicidal ideation, visual hallucination, other. Objective General VS/I O: Vital Signs Date Temp Pulse Resp B/P B/P Mean Pulse Ox FiO2 02/22-02/23 36.6-36.9 67-110 15-18 90-101/54-65 0.0-75.8 94-96 Last Documented: Result Date Time Pulse Ox 96 02/23 1229 B/P 101/63 02/23 1229 B/P Mean 75.8 02/23 1229 Temp 36.7 02/23 1229 Pulse 110 02/23 1229 Resp 15 02/23 1229 O2 Delivery Room air 02/23 0504 O2 Flow Rate 2 02/20 1228 24 hour I O ending at 0700: 02/23 0700 02/22 1900 Intake Total 150 Output Total 400 Balance -250 Intake, Oral 150 Output, Urine 400 PATIENT WEIGHT: Weight (lb): Weight (oz): Weight (kg): 75.000 Medications: Active Meds + DC'd Last 24 Hrs Gadoterate Meglumine (DOTAREM) 15 ML ONCE PRN IV (DC) Results Radiology data: Recent Impressions: [facility] - MRI THORACIC SPINE WO/W CON 02/23 1916 Report Impression - Status: SIGNED Entered: 02/23/2024 8268 IMPRESSION: Unremarkable MRI assessment of the thoracic spine with and without contrast. Impression By: [email or web address] - Afshan Membreno M.D. Diagnosis, Assessment Plan Hospital course to date: General appearance: alert, awake Head/Eyes: atraumatic, clear cornea, EOMI, normocephalic, normal conjunctiva/ sclera, normal eyelids/periorb, PERRLA Neck: no JVD Cardiovascular: regular rate rhythm Respiratory: decreased breath sounds, no distress, no tenderness Abdomen/GI: active bowel sounds, soft, non-tender, no guarding, no rebound, no distention, no mass/organomegaly, no pulsatile mass, no hernia, normal abdominal aorta Abdomen quadrants: LLQ normal bowel sounds, LUQ normal bowel sounds, RLQ normal bowel sounds, RUQ normal bowel sounds Extremities: moves all, no edema-all extremities, normal capillary refill, normal range of motion, normal sensory, normal motor function Neuro/CRYSTALIZER TENDER: alert, oriented X 3 Skin: dry, intact, no gross abnormalities Psychiatry: no hallucinations, normal affect, normal judgment/insight, normal mood, not homicidal, not suicidal Problem List/A P: 1. Multiple sclerosis Consultants: neurology Free Text DxA P Notes Free text DxA P notes: Assessment: 38-year-old male patient with recent diagnosis of multiple sclerosis, alcoholism , IBS presents to the emergency department today for the evaluation of lower extremity weakness/pain resulting in multiple falls, episodes of confusion, bladder incontinence. As per patient's Mother MRI was done a month ago Revealing multiple lesions consistent with multiple sclerosis. Patient is currently alert and oriented. Denies fever, chills, nausea and vomiting, headache, blurry vision, hearing deficits, lightheadedness/dizziness, chest pain , numbness, associated symptoms. 1. Multiple sclerosis 2. Lower extremity weakness/pain resulting to multiple falls 3. Confusion 4. Bladder incontinence 5. Mildly elevated troponin 82 6. HLD- LDL 61 7. History of alcoholism, IBS Plan of care: Admit patient for further evaluation and treatment Fall precaution Tylenol extra strength 1000 mg p.o. given stat, methylprednisolone stat Drug abuse screen Neuro consult placed Telemetry BP control Glycemic control Pain control Electrolyte control DVT/GI prophylaxis Follow-up labs, images 02/21/2024 Vital signs are within normal limits MRI brain: scattered white matter lesions consistent with demyelination noted. No abnormal enhancement MRI c-spine: no abnormal cord signal or enhancement Neuro is following. Recommends screen and correct any underlying toxic or metabolic process contributing to symptoms. PT/OT Fall precaution Continue supportive care 02/22/2024 Soft BP, latest 91/59 No acute events overnight Neuro is following. MRI of the T-spine pending results PT/OT consult placed On regular diet now Fall and safety precaution, follow-up images, continue medications and supportive care 02/23/2024 No acute events overnight BP 97/65 MRI of the T-spine is unremarkable Continue PT/OT Case management consult placed Continue supportive care 02/24/2024 Vital signs are stable No acute events overnight. No new neurologic symptoms. Neuro noted no active lesion on MRI, no acute findings. Orders to continue PT/ OT/rehab evaluations Fall and safety precaution Continue supportive care Jeremy Paige I 02/24/24 2012: Attestations Physician Attestation Agree w/findings plan: I Agree with the findings and plan as documented by ANALY Sotomayor. Plan of care coordinated with ANALY Sotomayor. Pertinent labs, Imaging, and information consultant evaluations reviewed. 38-year-old male patient with recent diagnosis of multiple sclerosis, alcoholism and IBS presents for evaluation of lower extremity weakness and pain resulting in multiple falls, episodes of confusion, and bladder incontinence. Past MRI reveals multiple lesions consistent with multiple sclerosis. Patient has mildly elevated troponin 82 and HDL-LDL 61 upon admission. Patient's VS are within normal limits, monitor accordingly. No acute complaints overnight. Given 1 dose of Dotarem IV. Continue other medications as needed. MRI of T-spine is unremarkable. Consult placed to case management. Noted no active lesion and MRI and no acute findings per neuro. Continue PT/OT management. Fall and safety precaution. Consultants evaluation noted. Continue supportive care. at 0140 at 0703 RPT #:[id number] END OF REPORT [facility] 2024-02-24 12:52:00 [facility] Neurology Progress Note REPORT#:[id number] REPORT STATUS: Signed REPORT INITIALIZATION DATE:02/24/24 TIME: 125 PATIENT: CHRISS HUGGINS UNIT #: [id number] ROOM/BED: [id number] : 85 AGE: 38 SEX: M ATTEND: Jeremy Paige MD ADM AUTHOR: Violeta Minaya APRNNP REPT SERVICE DT/TIME: 02/24/24 1005 * ALL edits or amendments must be made on the electronic/computer document * See Addendum Violeta Minaya 02/24/24 1252: Subjective Chief complaint: MS HPI: No acute neurologic symptoms overnight Review of Systems Free Text ROS Notes Free Text ROS Notes: ROS focused on neurological system with pertinent positives and negatives as included in the history Objective General VS: Last Documented: Result Date Time Pulse Ox 96 02/23 1229 B/P 101/63 02/23 1229 B/P Mean 75.8 02/23 1229 Temp 98.1 02/23 1229 Pulse 110 02/23 1229 Resp 15 02/23 1229 O2 Delivery Room air 02/23 0504 O2 Flow Rate 2 02/20 1228 PATIENT WEIGHT: Weight (lb): Weight (oz): Weight (kg): 75.000 Medications Current Home Medications [TYLENOL] 500 MG PO PRN PRN PAIN Active Meds + DC'd Last 24 Hrs Gadoterate Meglumine (DOTAREM) 15 ML ONCE PRN IV (DC) Dietitian nutrition assessment The data set between the solid lines has been imported from the dietitian's assessment. BMI Calculated: 23.7 Nutrition related diagnosis: Nutrition diagnosis details: Nutrition problem: Nutrition etiology: Nutrition signs and symptoms: Nutrition prescription: Dietitian name: Assessment completed: Physical Exam Neuro comment: PHYSICAL EXAM General appearance: alert, awake, pleasant Chest: Normal breathing pattern. No accessory muscle use Abdomen: non-distended Extremities: no edema NEURO EXAM Speech: Mild loss of fluency. Comprehension intact. Mental Status: Oriented to person, place, time. Cranial Nerves: Right APD, VFFTC, EOMI, no sensation deficits in V1, V2, V3 b/l, no facial droop, hearing intact to voice, tongue midline Sensory Exam: Intact to light touch Motor Testin/5 BUE proximally and distally. 4/5 BLE Coordination: FTN intact Reflexes: 3+ and symmetric, upper and lower EXTR Gait: Deferred Results Radiology Data: Recent Impressions: [facility] - MRI THORACIC SPINE WO/W CON 02/23 1916 Report Impression - Status: SIGNED Entered: 02/23/2024 8271 IMPRESSION: Unremarkable MRI assessment of the thoracic spine with and without contrast. Impression By: [email or web address] - Afshan Membreno M.D. Results: MRI results reviewed Diagnosis, Assessment Plan Free Text A P: Patient is a 38-year-old male with history of recent MS diagnosis, alcohol use disorder, and IBS who presented to the emergency room with complaints of weakness and confusion. Patient apparently has had multiple falls and notes lower extremity weakness at baseline. In addition, has bowel incontinence. CT head was unremarkable for acute intracranial pathology. CTA head and neck without significant vascular abnormality. Neurology has been consulted to evaluate for possible MS exacerbation. He received 1g methylprednisone in the ER. He is currently not on DMT for MS. MRI brain -scattered white matter lesions consistent with demyelination noted. No abnormal enhancement MRI c-spine - no abnormal cord signal or enhancement MRI L-spine - Unremarkable MRI assessment of the thoracic spine with and without contrast. Multiple sclerosis Recurrent falls Suspected deconditioning Recommendation -No active lesions on MRI brain and C-spine, reviewed by neurologist -MRI T-spine: No acute findings, reviewed by neurologist -Screen and correct any underlying toxic or metabolic process contributing to symptoms -PT/OT/Rehab eval -Fall precautions -Patient and family updated at bedside -Follow-up with outpatient neurology clinic after DC Thank you for the consultation. Neurology will sign off. Please call with any questions or concerns. Please note that parts of this record was dictated using Voice Recognition software and may contain unintended errors not detected prior to signing. Neurologist examined the patient, personally reviewed all pertinent data including imaging and formulated the plan of care together. LUIS distinctive service time: 15 minutes. LUIS and Physician shared service Time: 5 minutes discussing diagnosis, Exam and plan of care. Violeta Minaya APRN-ANALY for Mari Alcantar DO [facility] Hospitalist. Consultants: neurology Plan discussed with: patient, nurse Emi Guerra 02/25/24 0753: Attestations Physician Attestation Reviewed findings plan: Reviewed the findings and plan as documented by Violeta Minaya NP at 0754 at 9042 Addendum 1: 02/25/24 1217 by Katharine Guerra DO Discussed with patient's primary team. Recommend follow-up with his neurologist outpatient to start DMT for MS. Continue PT/OT and bowel regimen for incontinence. Consider GI consult. Please call with any question sof concerns. at 1234 RPT #:[id number] END OF REPORT [facility] 2024-02-24 04:02:00 [facility] ([facility]) Clinical Note REPORT#:[id number] REPORT STATUS: Signed REPORT INITIALIZATION DATE:02/24/24 TIME: 401 PATIENT: CHRISS HUGGINS UNIT #: [id number] ROOM/BED: [place] [address] : 85 AGE: 38 SEX: M ATTEND: Jeremy Paige MD ADM AUTHOR: Jeremy Paige MD REPT SERVICE DT/TIME: 02/24/24 0402 * ALL edits or amendments must be made on the electronic/computer document * Clinical Note Note: 38-year-old male patient with recent diagnosis of multiple sclerosis, alcoholism and IBS presents for evaluation of lower extremity weakness and pain resulting in multiple falls, episodes of confusion, and bladder incontinence. Past MRI reveals multiple lesions consistent with multiple sclerosis. Patient has mildly elevated troponin 82 and HDL-LDL 61 upon admission. Patient's VS are within normal limits, monitor accordingly. No acute complaints overnight. Given 1 dose of Dotarem IV. Continue other medications as needed. MRI of T-spine is unremarkable. Consult placed to case management. Noted no active lesion and MRI and no acute findings per neuro. Continue PT/OT management. Fall and safety precaution. Consultants evaluation noted. Continue supportive care. at 1320 RPT #:[id number] END OF REPORT [facility] 2024-02-23 22:43:00 [facility] ([facility]) Clinical Note REPORT#:[id number] REPORT STATUS: Signed REPORT INITIALIZATION DATE:02/23/24 TIME: 2242 PATIENT: CHRISS HUGGINS UNIT #: [id number] ROOM/BED: [place] [address] : 85 AGE: 38 SEX: M ATTEND: Jeremy Paige MD ADM AUTHOR: Jeremy Paige MD REPT SERVICE DT/TIME: 02/23/24 3998 * ALL edits or amendments must be made on the electronic/computer document * Clinical Note Note: 38-year-old male patient with recent diagnosis of multiple sclerosis, alcoholism and IBS presents for evaluation of lower extremity weakness and pain resulting in multiple falls, episodes of confusion, and bladder incontinence. Past MRI reveals multiple lesions consistent with multiple sclerosis. Patient has mildly elevated troponin 82 and HDL-LDL 61 upon admission. Patient is alert and awake, no acute complaints. Hypotensive overnight, latest BP at 97/65. Continue with BP control. Other VS are within normal limits. Thoracic spine MRI is unremarkable. Fall and safety precaution. For PT/OT management. Continue to follow neurology for further recommendations, evaluations noted. Continue with supportive care. at 1348 RPT #:[id number] END OF REPORT [facility] 2024-02-23 14:49:00 [facility] Internal Medicine Prog. Note REPORT#:[id number] REPORT STATUS: Signed REPORT INITIALIZATION DATE:02/23/24 TIME: 1448 PATIENT: CHRISS HUGGINS UNIT #: [id number] ROOM/BED: G5518-1 : 85 AGE: 38 SEX: M ATTEND: Jeremy Paige MD ADM AUTHOR: Osmany Sotomayor NP REPT SERVICE DT/TIME: 02/23/24 144 * ALL edits or amendments must be made on the electronic/computer document * Osmany Sotomayor 02/23/24 144: Subjective Chief complaint: Multiple falls Lower extremity weakness Confusion Bladder incontinence HPI: 38-year-old male patient with recent diagnosis of multiple sclerosis, alcoholism , IBS presents to the emergency department today for the evaluation of lower extremity weakness/pain resulting in multiple falls, episodes of confusion, bladder incontinence. As per patient's Mother MRI was done a month ago Revealing multiple lesions consistent with multiple sclerosis. Patient is currently alert and oriented. Denies fever, chills, nausea and vomiting, headache, blurry vision, hearing deficits, lightheadedness/dizziness, chest pain , numbness, associated symptoms. Initial vital signs: BP 102/70, pulse 102, respirations 17, temp 97.9, pulse ox 96% on room air Abnormal labs: Elevated troponin I 82 LDL 161 RADIOLOGY - XR CHEST 1 V 02/19 1216 IMPRESSION: No evidence of acute cardiopulmonary abnormality. CAT SCAN - CT HEAD/BRAIN W/O CONT 02/19 1330 IMPRESSION: There is no imaging evidence of acute intracranial pathology. CAT SCAN - CTA HEAD 02/19 1331 IMPRESSION: Unremarkable CTA of the head. Review of Systems Additional notes: Constitutional: Reports: generalized weakness. Denies: chills, fatigue, fever, lethargy, malaise, recent wt loss, other. Respiratory: Denies: MANDUJANO (dyspnea on exertion), hemoptysis, non productive cough, parox nocturnal dyspnea, pleurisy, pleuritic pain, pneumonia, productive cough (sputum), SOB, wheezing, other. Cardiovascular: Denies: chest pain, MANDUJANO (dyspnea on exertion), edema, orthopnea, palpitations, parox nocturnal dyspnea, other. GI: Denies: abdominal pain, anorexia, constipation, diarrhea, dysphagia, GERD, hematemesis, hematochezia, hiatal hernia, melena, nausea, rectal pain, vomiting, other. : Denies: dysuria, flank pain, frequency, hematuria, nocturia, penile discharge, penile lesion, testicular pain, testicular swelling, urgency, urinary retention, other. Musculoskeletal: Extremity pain: Reports: left lower, right lower. Neuro: Denies: bladder dysfunction, bowel dysfunction, change in LOC, confusion, dizziness, focal weakness, gait problem, headache, lightheaded, numbness, seizure, slurred speech, spinning sensation, syncope, unable to speak, vision change, weakness, other. Psych: Denies: agitation, anxiety, auditory hallucination, change in mental status, confusion, delusional, depression, homicidal ideation, hostile, insomnia, stress, suicidal ideation, visual hallucination, other. Objective General VS/I O: Vital Signs Date Temp Pulse Resp B/P B/P Mean Pulse Ox FiO2 02/21-02/22 36.2-37.1 71-99 14-18 90-94/56-61 0.0-72.2 94-95 Last Documented: Result Date Time Pulse Ox 95 02/22 110 B/P 90/58 02/22 1105 B/P Mean 69.1 02/22 110 Temp 36.7 02/22 1105 Pulse 91 02/22 1105 Resp 16 02/22 110 O2 Delivery Room air 02/22 0358 O2 Flow Rate 2 02/20 1228 PATIENT WEIGHT: Weight (lb): Weight (oz): Weight (kg): 75.000 Diagnosis, Assessment Plan Hospital course to date: General appearance: alert, awake Head/Eyes: atraumatic, clear cornea, EOMI, normocephalic, normal conjunctiva/ sclera, normal eyelids/periorb, PERRLA Neck: no JVD Cardiovascular: regular rate rhythm Respiratory: decreased breath sounds, no distress, no tenderness Abdomen/GI: active bowel sounds, soft, non-tender, no guarding, no rebound, no distention, no mass/organomegaly, no pulsatile mass, no hernia, normal abdominal aorta Abdomen quadrants: LLQ normal bowel sounds, LUQ normal bowel sounds, RLQ normal bowel sounds, RUQ normal bowel sounds Extremities: moves all, no edema-all extremities, normal capillary refill, normal range of motion, normal sensory, normal motor function Neuro/CRYSTALIZER TENDER: alert, oriented X 3 Skin: dry, intact, no gross abnormalities Psychiatry: no hallucinations, normal affect, normal judgment/insight, normal mood, not homicidal, not suicidal Problem List/A P: 1. Multiple sclerosis Consultants: neurology Free Text DxA P Notes Free text DxA P notes: Assessment: 38-year-old male patient with recent diagnosis of multiple sclerosis, alcoholism , IBS presents to the emergency department today for the evaluation of lower extremity weakness/pain resulting in multiple falls, episodes of confusion, bladder incontinence. As per patient's Mother MRI was done a month ago Revealing multiple lesions consistent with multiple sclerosis. Patient is currently alert and oriented. Denies fever, chills, nausea and vomiting, headache, blurry vision, hearing deficits, lightheadedness/dizziness, chest pain , numbness, associated symptoms. 1. Multiple sclerosis 2. Lower extremity weakness/pain resulting to multiple falls 3. Confusion 4. Bladder incontinence 5. Mildly elevated troponin 82 6. HLD- LDL 61 7. History of alcoholism, IBS Plan of care: Admit patient for further evaluation and treatment Fall precaution Tylenol extra strength 1000 mg p.o. given stat, methylprednisolone stat Drug abuse screen Neuro consult placed Telemetry BP control Glycemic control Pain control Electrolyte control DVT/GI prophylaxis Follow-up labs, images 02/21/2024 Vital signs are within normal limits MRI brain: scattered white matter lesions consistent with demyelination noted. No abnormal enhancement MRI c-spine: no abnormal cord signal or enhancement Neuro is following. Recommends screen and correct any underlying toxic or metabolic process contributing to symptoms. PT/OT Fall precaution Continue supportive care 02/22/2024 Soft BP, latest 91/59 No acute events overnight Neuro is following. MRI of the T-spine pending results PT/OT consult placed On regular diet now Fall and safety precaution, follow-up images, continue medications and supportive care 02/23/2024 No acute events overnight BP 97/65 MRI of the T-spine is unremarkable Continue PT/OT Case management consult placed Continue supportive care Jeremy Paige I 02/23/24 2217: Attestations Physician Attestation Agree w/findings plan: I Agree with the findings and plan as documented by ANALY Sotomayor. Plan of care coordinated with ANALY Sotomayor. Pertinent labs, Imaging, and information consultant evaluations reviewed. Patient is alert and awake, no acute complaints. Hypotensive overnight, latest BP at 97/65. Continue with BP control. Other VS are within normal limits. Thoracic spine MRI is unremarkable. Fall and safety precaution. For PT/OT management. Continue to follow neurology for further recommendations, evaluations noted. Continue with supportive care. at 0312 at 0658 RPT #:[id number] END OF REPORT [facility] 2024-02-23 14:17:00 [facility] ([facility] Neurology Progress Note REPORT#:[id number] REPORT STATUS: Signed REPORT INITIALIZATION DATE:02/23/24 TIME: 7 PATIENT: CHRISS HUGGINS UNIT #: [id number] ROOM/BED: [place] [address] : 85 AGE: 38 SEX: M ATTEND: Jeremy Paige MD ADM AUTHOR: Violeta Minaya APRNNP REPT SERVICE DT/TIME: 02/23/241416 * ALL edits or amendments must be made on the electronic/computer document * Violeta Minaya 02/23/24 1417: Subjective Chief complaint: MS HPI: No acute overnight events. Review of Systems Free Text ROS Notes Free Text ROS Notes: ROS focused on neurological system with pertinent positives and negatives as included in the history Objective General VS: Last Documented: Result Date Time Pulse Ox 95 02/22 1105 B/P 90/58 02/22 1105 B/P Mean 69.1 02/22 1105 Temp 98.1 02/22 1105 Pulse 91 02/22 1105 Resp 16 02/22 1105 O2 Delivery Room air 02/22 0358 O2 Flow Rate 2 02/20 1228 PATIENT WEIGHT: Weight (lb): Weight (oz): Weight (kg): 75.000 Medications Current Home Medications [TYLENOL] 500 MG PO PRN PRN PAIN Dietitian nutrition assessment The data set between the solid lines has been imported from the dietitian's assessment. BMI Calculated: 23.7 Nutrition related diagnosis: Nutrition diagnosis details: Nutrition problem: Nutrition etiology: Nutrition signs and symptoms: Nutrition prescription: Dietitian name: Assessment completed: Physical Exam Neuro comment: PHYSICAL EXAM General appearance: alert, awake, pleasant Chest: Normal breathing pattern. No accessory muscle use Abdomen: non-distended Extremities: no edema NEURO EXAM Speech: Mild loss of fluency. Comprehension intact. Mental Status: Oriented to person, place, time. Cranial Nerves: Right APD, VFFTC, EOMI, no sensation deficits in V1, V2, V3 b/l, no facial droop, hearing intact to voice, tongue midline Sensory Exam: Intact to light touch Motor Testin/5 BUE proximally and distally. 4/5 BLE Coordination: FTN intact Reflexes: 3+ and symmetric, upper and lower EXTR Gait: Deferred Diagnosis, Assessment Plan Free Text A P: Patient is a 38-year-old male with history of recent MS diagnosis, alcohol use disorder, and IBS who presented to the emergency room with complaints of weakness and confusion. Patient apparently has had multiple falls and notes lower extremity weakness at baseline. In addition, has bowel incontinence. CT head was unremarkable for acute intracranial pathology. CTA head and neck without significant vascular abnormality. Neurology has been consulted to evaluate for possible MS exacerbation. He received 1g methylprednisone in the ER. He is currently not on DMT for MS. MRI brain -scattered white matter lesions consistent with demyelination noted. No abnormal enhancement MRI c-spine - no abnormal cord signal or enhancement Multiple sclerosis Recurrent falls Symptoms are concerning for MS exacerbation vs pseudoexacerbation vs physical deconditioning Recommendation -No active lesions on MRI brain and C-spine -MRI T-spine pending -Screen and correct any underlying toxic or metabolic process contributing to symptoms -PT/OT/Rehab eval -Fall precautions -Patient and family updated at bedside Thank you for the consultation. Please call with any questions or concerns. Please note that parts of this record was dictated using Voice Recognition software and may contain unintended errors not detected prior to signing. Neurologist examined the patient, personally reviewed all pertinent data including imaging and formulated the plan of care together. LUIS distinctive service time: 15 minutes. LUIS and Physician shared service Time: 5 minutes discussing diagnosis, Exam and plan of care. LARRY Dominguez for Mari Alcantar DO [facility]ist. Consultants: neurology Plan discussed with: patient Katharine Guerra 02/23/24 1631: Attestations Physician Attestation Reviewed findings plan: Reviewed the findings and plan as documented by LARRY Domniguez Patient has no new complaints today. He is participating in PT OT. Continue plan as above. Please call with any questions or concerns. at 1654 at 2222 RPT #:[id number] END OF REPORT [facility] 2024-02-22 23:05:00 [facility] Internal Medicine Prog. Note REPORT#:[id number] REPORT STATUS: Signed REPORT INITIALIZATION DATE:02/22/24 TIME: 2304 PATIENT: CHRISS HUGGINS UNIT #: [id number] ROOM/BED: [place] [address] : 85 AGE: 38 SEX: M ATTEND: Jeremy Paige MD ADM AUTHOR: Osmany Sotomayor EMAIL CAMPAIGN SPECIALIST REPT SERVICE DT/TIME: 02/22/242304 * ALL edits or amendments must be made on the electronic/computer document * Osmany Sotomayor 02/22/242304: Subjective Chief complaint: Multiple falls Lower extremity weakness Confusion Bladder incontinence HPI: 38-year-old male patient with recent diagnosis of multiple sclerosis, alcoholism , IBS presents to the emergency department today for the evaluation of lower extremity weakness/pain resulting in multiple falls, episodes of confusion, bladder incontinence. As per patient's Mother MRI was done a month ago Revealing multiple lesions consistent with multiple sclerosis. Patient is currently alert and oriented. Denies fever, chills, nausea and vomiting, headache, blurry vision, hearing deficits, lightheadedness/dizziness, chest pain , numbness, associated symptoms. Initial vital signs: BP 102/70, pulse 102, respirations 17, temp 97.9, pulse ox 96% on room air Abnormal labs: Elevated troponin I 82 LDL 161 RADIOLOGY - XR CHEST 1 V 02/20 1216 IMPRESSION: No evidence of acute cardiopulmonary abnormality. CAT SCAN - CT HEAD/BRAIN W/O CONT 02/19 1330 IMPRESSION: There is no imaging evidence of acute intracranial pathology. CAT SCAN - CTA HEAD 02/19 1331 IMPRESSION: Unremarkable CTA of the head. Review of Systems Additional notes: Constitutional: Reports: generalized weakness. Denies: chills, fatigue, fever, lethargy, malaise, recent wt loss, other. Respiratory: Denies: MANDUJANO (dyspnea on exertion), hemoptysis, non productive cough, parox nocturnal dyspnea, pleurisy, pleuritic pain, pneumonia, productive cough (sputum), SOB, wheezing, other. Cardiovascular: Denies: chest pain, MANDUJANO (dyspnea on exertion), edema, orthopnea, palpitations, parox nocturnal dyspnea, other. GI: Denies: abdominal pain, anorexia, constipation, diarrhea, dysphagia, GERD, hematemesis, hematochezia, hiatal hernia, melena, nausea, rectal pain, vomiting, other. : Denies: dysuria, flank pain, frequency, hematuria, nocturia, penile discharge, penile lesion, testicular pain, testicular swelling, urgency, urinary retention, other. Musculoskeletal: Extremity pain: Reports: left lower, right lower. Neuro: Denies: bladder dysfunction, bowel dysfunction, change in LOC, confusion, dizziness, focal weakness, gait problem, headache, lightheaded, numbness, seizure, slurred speech, spinning sensation, syncope, unable to speak, vision change, weakness, other. Psych: Denies: agitation, anxiety, auditory hallucination, change in mental status, confusion, delusional, depression, homicidal ideation, hostile, insomnia, stress, suicidal ideation, visual hallucination, other. Objective General VS/I O: Laboratory Tests 02/19 02/19 02/19 1335 1230 1230 Chemistry Sodium (134 - 147 mEq/L) 135 Potassium (3.4 - 5.0 mEq/L) 3.8 Chloride (100 - 108 mEq/L) 104 Carbon Dioxide (21 - 33 mEq/l) 19 L Anion Gap (0 - 20) 16 BUN (7 - 25 mg/dL) 20 Creatinine (0.6 - 1.3 mg/dL) 1.3 Glomerular Filtr Rate (105 - 110) 72.1 L Glucose (77 - 141 mg/dL) 85 Calcium (8.0 - 10.5 mg/dL) 9.7 Total Bilirubin (0.0 - 1.0 mg/dL) 0.90 Direct Bilirubin (0.1 - 0.3 MG/DL) 0.30 Indirect Bilirubin (MG/DL) 0.60 AST (8 - 34 IUnit/L) 16 ALT (10 - 49 IUnit/L) 12 Total Alk Phosphatase (20 - 125 IUnit/L) 85 Ammonia (11 - 35 umol/L) < 10 L Total Creatine Kinase (46 - 171 Units/L) 36 L Troponin I High Sens (0 - 54 ng/L) 82 H Total Protein (6.4 - 8.2 g/dL) 8.1 Albumin (3.4 - 5.0 g/dL) 4.50 LDL Cholesterol [place] (0 - 100 mg/dL) 161.0 H TSH (0.42 - 5.47 IU/mL) 1.18 Laboratory Tests 02/19 1230 Hematology WBC (4.5 - 11.0 x10 3/uL) 6.0 RBC (4.00 - 5.60 x10 6/uL) 5.29 Hgb (12.5 - 16.9 g/dL) 16.1 Hct (37.5 - 50.7 %) 47.6 MCV (81.0 - 99.0 fL) 90.0 MCH (27.0 - 33.0 pg) 30.4 MCHC (33.0 - 37.0 g/dL) 33.8 RDW (11.5 - 14.5 %) 13.3 Plt Count (150 - 400 x10 3/uL) 253 MPV (7.0 - 9.0 fL) 10.4 H Neut % (Auto) (56.0 - 77.0 %) 72.1 Lymph % (Auto) (14.0 - 32.0 %) 18.2 [place] % (Auto) (4.8 - 9.0 %) 7.6 Eos % (Auto) (0.3 - 3.7 %) 1.5 Baso % (Auto) (0.0 - 2.0 %) 0.3 Neut # (Auto) (2.0 - 7.6 x10 3/uL) 4.35 Lymph # (Auto) (1.0 - 3.8 x10 3/uL) 1.10 [place] # (Auto) (0.1 - 0.8 x10 3/uL) 0.46 Eos # (Auto) (0.0 - 0.2 x10 3/uL) 0.09 Baso # (Auto) (0.0 - 0.2 x10 3/uL) 0.02 Abs Immat Gran (auto) (0.00 - 0.03 x10 3/uL) 0.02 Immature Gran % (0.0 - 2.0 %) 0.3 Nucleated RBC % (0 - 0 %) 0.0 Nucleated RBCs # (Man) (0.0 - 0.1 x10 3/uL) 0.00 Laboratory Tests 02/19 02/19 1230 1229 Toxicology Salicylates (0.0 - 20.0 mg/dL) < 3.0 Urine Opiates Screen (NEGATIVE) NEGATIVE Acetaminophen (10 - 30 mcg/mL) < 0 L Urine Barbiturates (NEGATIVE) NEGATIVE Ur Phencyclidine Scrn (NEGATIVE) NEGATIVE Ur Amphetamines Screen (NEGATIVE) NEGATIVE U Benzodiazepines Scrn (NEGATIVE) NEGATIVE Urine Cocaine Screen (NEGATIVE) NEGATIVE Urine Cannabinoids (NEGATIVE) NEGATIVE Ethyl Alcohol (<10 mg/dL) < 3.0 Laboratory Tests 02/19 1229 Urines Urine Color (YEL/STRAW) YELLOW Urine Appearance (CLEAR) CLEAR Urine pH (5.0 - 7.0) 6.0 Ur Specific [place] (1.005 - 1.030) 1.028 Urine Protein (NEGATIVE) 1+ H Urine Glucose (UA) (NEGATIVE) NEGATIVE Urine Ketones (NEGATIVE) 2+ H Urine Blood (NEGATIVE) 1+ H Urine Nitrite (NEGATIVE) NEGATIVE Urine Bilirubin (NEGATIVE) NEGATIVE Urine Urobilinogen (0.2 - 1.0 mg/dL) 0.2 Ur Leukocyte Esterase (NEGATIVE) NEGATIVE Urine RBC (0 - 3 RBC/HPF) 4-10 Urine WBC (0 - 3 WBC/HPF) 4-9 H Ur Squamous Epith Cells (NONE SEEN /HPF) NONE SEEN Urine Bacteria (NONE SEEN /HPF) TRACE Urine Mucus (NONE SEEN /LPF) TRACE Vital Signs: Date Time Temp Pulse Resp B/P B/P Pulse O2 O2 Flow FiO2 Mean Ox Delivery Rate 02/21 1930 37.0 99 18 94/61 72.2 95 Room air 02/21 1601 36.8 97 16 92/60 70.5 95 02/21 1128 36.9 82 16 103/71 81.6 96 02/21 0737 36.6 77 16 90/62 71.1 95 02/21 0403 36.3 76 12 94/57 0.0 95 Room air 02/21 0037 36.7 89 14 95/60 71.8 95 Room air 02/21 0700 02/20 2300 02/20 1500 Intake Total Output Total 1600 600 Balance -1600 -600 Output, Urine 1600 600 Recent Impressions-Last 72 Hrs RADIOLOGY - XR CHEST 1 V 02/19 1216 Report Impression - Status: SIGNED Entered: 02/20/2024 1237 IMPRESSION: No evidence of acute cardiopulmonary abnormality. Location: H2 Impression By: Lee Valencia M.D. CAT SCAN - CT HEAD/BRAIN W/O CONT 02/19 1330 Report Impression - Status: SIGNED Entered: 02/20/2024 1420 IMPRESSION: There is no imaging evidence of acute intracranial pathology. Impression By: Jose King M.D. CAT SCAN - CTA HEAD 02/19 1331 Report Impression - Status: SIGNED Entered: 02/20/2024 1423 IMPRESSION: Unremarkable CTA of the head. Impression By: Jose King M.D. [facility] - MRI BRAIN WO/W CONT 02/20 1152 Report Impression - Status: SIGNED Entered: 02/21/2024 1519 IMPRESSION: No acute infarct or mass effect is identified. Numerous white matter lesions throughout both cerebral hemispheres similar which are oriented perpendicular to the ventricles most consistent with a demyelinating process. No evidence of active demyelination is identified. No abnormal enhancement. LOCATION: B2 Impression By: Rachelle Vasquez M.D. [facility] - MRI C-SPINE W W/O CONT 02/20 1153 Report Impression - Status: SIGNED Entered: 02/21/2024 1606 IMPRESSION: Mild discogenic disease throughout the cervical spine. No spinal canal or neuroforaminal stenosis. No abnormal cord signal is identified. No abnormal enhancement. LOCATION: B2 Impression By: Rachelle Vasquez M.D. Vital Signs Date Temp Pulse Resp B/P B/P Mean Pulse Ox FiO2 02/21 36.3-37.0 76-99 - 90-103/57-71 0.0-81.6 95-96 Last Documented: Result Date Time Pulse Ox 95 02/21 1930 B/P 94/61 02/21 1930 B/P Mean 72.2 02/21 1930 O2 Delivery Room air 02/21 1930 Temp 37.0 02/21 1930 Pulse 99 02/21 1930 Resp 18 02/21 1930 O2 Flow Rate 2 02/20 1228 24 hour I O ending at 0700: 02/21 0700 02/20 1900 Intake Total Output Total 2200 Balance -2200 Output, Urine 2200 PATIENT WEIGHT: Weight (lb): Weight (oz): Weight (kg): 75.000 Diagnosis, Assessment Plan Hospital course to date: General appearance: alert, awake Head/Eyes: atraumatic, clear cornea, EOMI, normocephalic, normal conjunctiva/ sclera, normal eyelids/periorb, PERRLA Neck: no JVD Cardiovascular: regular rate rhythm Respiratory: decreased breath sounds, no distress, no tenderness Abdomen/GI: active bowel sounds, soft, non-tender, no guarding, no rebound, no distention, no mass/organomegaly, no pulsatile mass, no hernia, normal abdominal aorta Abdomen quadrants: LLQ normal bowel sounds, LUQ normal bowel sounds, RLQ normal bowel sounds, RUQ normal bowel sounds Extremities: moves all, no edema-all extremities, normal capillary refill, normal range of motion, normal sensory, normal motor function Neuro/CRYSTALIZER TENDER: alert, oriented X 3 Skin: dry, intact, no gross abnormalities Psychiatry: no hallucinations, normal affect, normal judgment/insight, normal mood, not homicidal, not suicidal Problem List/A P: 1. Multiple sclerosis Consultants: neurology Free Text DxA P Notes Free text DxA P notes: Assessment: 38-year-old male patient with recent diagnosis of multiple sclerosis, alcoholism , IBS presents to the emergency department today for the evaluation of lower extremity weakness/pain resulting in multiple falls, episodes of confusion, bladder incontinence. As per patient's Mother MRI was done a month ago Revealing multiple lesions consistent with multiple sclerosis. Patient is currently alert and oriented. Denies fever, chills, nausea and vomiting, headache, blurry vision, hearing deficits, lightheadedness/dizziness, chest pain , numbness, associated symptoms. 1. Multiple sclerosis 2. Lower extremity weakness/pain resulting to multiple falls 3. Confusion 4. Bladder incontinence 5. Mildly elevated troponin 82 6. HLD- LDL 61 7. History of alcoholism, IBS Plan of care: Admit patient for further evaluation and treatment Fall precaution Tylenol extra strength 1000 mg p.o. given stat, methylprednisolone stat Drug abuse screen Neuro consult placed Telemetry BP control Glycemic control Pain control Electrolyte control DVT/GI prophylaxis Follow-up labs, images 02/21/2024 Vital signs are within normal limits MRI brain: scattered white matter lesions consistent with demyelination noted. No abnormal enhancement MRI c-spine: no abnormal cord signal or enhancement Neuro is following. Recommends screen and correct any underlying toxic or metabolic process contributing to symptoms. PT/OT Fall precaution Continue supportive care 02/22/2024 Soft BP, latest 91/59 No acute events overnight Neuro is following. MRI of the T-spine pending results PT/OT consult placed On regular diet now Fall and safety precaution, follow-up images, continue medications and supportive care Jeremy Paige I 02/23/24 2218: Attestations Physician Attestation Agree w/findings plan: I Agree with the findings and plan as documented by ANALY Sotomayor. Plan of care coordinated with ANALY Sotomayor. Pertinent labs, Imaging, and information consultant evaluations reviewed. Patient is hypotensive overnight. Latest BP at 94/57, continue BP control. Other VS are within normal limits. Started Dotarem. Continue with pain control and other medications. For PT/OT management. Fall and safety precaution. Continue to follow neurology for recommendations. Consultants evaluations noted. Continue with supportive care. Brain MRI shows: No acute infarct or mass effect is identified. Numerous white matter lesions throughout both cerebral hemispheres similar which are oriented perpendicular to the ventricles most consistent with a demyelinating process. No evidence of active demyelination is identified.No abnormal enhancement. Cervical spine MRI shows: Mild discogenic disease throughout the cervical spine. No spinal canal or neuroforaminal stenosis. No abnormal cord signal is identified. No abnormal enhancement. at 0310 at 0657 RPT #:[id number] END OF REPORT [facility] 2024-02-22 13:29:00 [facility] Neurology Progress Note REPORT#:[id number] REPORT STATUS: Signed REPORT INITIALIZATION DATE:02/22/24 TIME: 1329 PATIENT: CHRISS HUGGINS UNIT #: [id number] ROOM/BED: [place] [address] : 85 AGE: 38 SEX: M ATTEND: Jeremy Paige MD ADM AUTHOR: Violeta Minaya APRNNP REPT SERVICE DT/TIME: 02/22/24 1329 * ALL edits or amendments must be made on the electronic/computer document * Violeta Minaya 02/22/24 1329: Subjective Chief complaint: MS HPI: No acute overnight events. Review of Systems Free Text ROS Notes Free Text ROS Notes: ROS focused on neurological system with pertinent positives and negatives as included in the history Objective General VS: Last Documented: Result Date Time Pulse Ox 96 02/22 1128 B/P 103/71 02/22 1128 B/P Mean 81.6 02/22 1128 Temp 98.4 02/21 112 Pulse 82 02/21 112 Resp 16 02/21 112 O2 Delivery Room air 02/21 0403 O2 Flow Rate 2 02/20 1228 PATIENT WEIGHT: Weight (lb): Weight (oz): Weight (kg): 75.000 Medications Current Home Medications [TYLENOL] 500 MG PO PRN PRN PAIN Dietitian nutrition assessment The data set between the solid lines has been imported from the dietitian's assessment. BMI Calculated: 23.7 Nutrition related diagnosis: Nutrition diagnosis details: Nutrition problem: Nutrition etiology: Nutrition signs and symptoms: Nutrition prescription: Dietitian name: Assessment completed: Physical Exam Neuro comment: PHYSICAL EXAM General appearance: alert, awake, pleasant Chest: Normal breathing pattern. No accessory muscle use Abdomen: non-distended Extremities: no edema NEURO EXAM Speech: Mild loss of fluency. Comprehension intact. Mental Status: Oriented to person, place, time. Cranial Nerves: Right APD, VFFTC, EOMI, no sensation deficits in V1, V2, V3 b/l, no facial droop, hearing intact to voice, tongue midline Sensory Exam: Intact to light touch Motor Testin/5 BUE proximally and distally. 4/5 BLE Coordination: FTN intact Reflexes: 3+ and symmetric, upper and lower EXTR Gait: Deferred Diagnosis, Assessment Plan Free Text A P: Patient is a 38-year-old male with history of recent MS diagnosis, alcohol use disorder, and IBS who presented to the emergency room with complaints of weakness and confusion. Patient apparently has had multiple falls and notes lower extremity weakness at baseline. In addition, has bowel incontinence. CT head was unremarkable for acute intracranial pathology. CTA head and neck without significant vascular abnormality. Neurology has been consulted to evaluate for possible MS exacerbation. He received 1g methylprednisone in the ER. He is currently not on DMT for MS. MRI brain -scattered white matter lesions consistent with demyelination noted. No abnormal enhancement MRI c-spine - no abnormal cord signal or enhancement Multiple sclerosis Recurrent falls Symptoms are concerning for MS exacerbation vs pseudoexacerbation vs physical deconditioning Recommendation -No active lesions on MRI brain and C-spine -MRI T-spine pending -Screen and correct any underlying toxic or metabolic process contributing to symptoms -PT/OT/Rehab eval -Fall precautions -Patient and family updated at bedside Thank you for the consultation. Please call with any questions or concerns. Please note that parts of this record was dictated using Voice Recognition software and may contain unintended errors not detected prior to signing. Neurologist examined the patient, personally reviewed all pertinent data including imaging and formulated the plan of care together. LUIS distinctive service time: 17 minutes. LUIS and Physician shared service Time: 5 minutes discussing diagnosis, Exam and plan of care. Violeta Minaya APRN-EMAIL CAMPAIGN SPECIALIST for [facility] Neurology Hospitalist. Consultants: neurology Plan discussed with: patient at 162 at 9047 RPT #:[id number] END OF REPORT [facility] 2024-02-22 04:14:00 [facility] ([facility]) Clinical Note REPORT#:[id number] REPORT STATUS: Signed REPORT INITIALIZATION DATE:02/22/24 TIME: 0414 PATIENT: CHRISS HUGGINS UNIT #: [id number] ROOM/BED: 5518 : 85 AGE: 38 SEX: M ATTEND: Jeremy Paige MD ADM AUTHOR: Jeremy Paige MD REPT SERVICE DT/TIME: 02/22/24 6471 * ALL edits or amendments must be made on the electronic/computer document * Clinical Note Note: 38-year-old male patient with recent diagnosis of multiple sclerosis, alcoholism and IBS presents for evaluation of lower extremity weakness and pain resulting in multiple falls, episodes of confusion, and bladder incontinence. Past MRI reveals multiple lesions consistent with multiple sclerosis. Patient has mildly elevated troponin 82 and HDL-LDL 61 upon admission. Patient is hypotensive overnight. Latest BP at 94/57, continue BP control. Other VS are within normal limits. Started Dotarem. Continue with pain control and other medications. For PT/OT management. Fall and safety precaution. Continue to follow neurology for recommendations. Consultants evaluations noted. Continue with supportive care. Brain MRI shows: No acute infarct or mass effect is identified. Numerous white matter lesions throughout both cerebral hemispheres similar which are oriented perpendicular to the ventricles most consistent with a demyelinating process. No evidence of active demyelination is identified.No abnormal enhancement. Cervical spine MRI shows: Mild discogenic disease throughout the cervical spine. No spinal canal or neuroforaminal stenosis. No abnormal cord signal is identified. No abnormal enhancement. at 1348 RPT #:[id number] END OF REPORT [facility] 2024-02-21 17:05:00 [facility] Internal Medicine Prog. Note REPORT#:[id number] REPORT STATUS: Signed REPORT INITIALIZATION DATE:02/21/24 TIME: 1704 PATIENT: CHRISS HUGGINS UNIT #: [id number] ROOM/BED: 5518-1 : 85 AGE: 38 SEX: M ATTEND: Jeremy Paige MD ADM AUTHOR: Osmany Sotomayor NP REPT SERVICE DT/TIME: 02/21/241704 * ALL edits or amendments must be made on the electronic/computer document * Osmany Sotomayor 02/21/24 1705: Subjective Chief complaint: Multiple falls Lower extremity weakness Confusion Bladder incontinence HPI: 38-year-old male patient with recent diagnosis of multiple sclerosis, alcoholism , IBS presents to the emergency department today for the evaluation of lower extremity weakness/pain resulting in multiple falls, episodes of confusion, bladder incontinence. As per patient's Mother MRI was done a month ago Revealing multiple lesions consistent with multiple sclerosis. Patient is currently alert and oriented. Denies fever, chills, nausea and vomiting, headache, blurry vision, hearing deficits, lightheadedness/dizziness, chest pain , numbness, associated symptoms. Initial vital signs: BP 102/70, pulse 102, respirations 17, temp 97.9, pulse ox 96% on room air Abnormal labs: Elevated troponin I 82 LDL 161 RADIOLOGY - XR CHEST 1 V 02/19 1216 IMPRESSION: No evidence of acute cardiopulmonary abnormality. CAT SCAN - CT HEAD/BRAIN W/O CONT 02/19 1330 IMPRESSION: There is no imaging evidence of acute intracranial pathology. CAT SCAN - CTA HEAD 02/19 1331 IMPRESSION: Unremarkable CTA of the head. Review of Systems Additional notes: Constitutional: Reports: generalized weakness. Denies: chills, fatigue, fever, lethargy, malaise, recent wt loss, other. Respiratory: Denies: MANDUJANO (dyspnea on exertion), hemoptysis, non productive cough, parox nocturnal dyspnea, pleurisy, pleuritic pain, pneumonia, productive cough (sputum ), SOB, wheezing, other. Cardiovascular: Denies: chest pain, MANDUJANO (dyspnea on exertion), edema, orthopnea, palpitations, parox nocturnal dyspnea, other. GI: Denies: abdominal pain, anorexia, constipation, diarrhea, dysphagia, GERD, hematemesis, hematochezia, hiatal hernia, melena, nausea, rectal pain, vomiting, other. : Denies: dysuria, flank pain, frequency, hematuria, nocturia, penile discharge, penile lesion, testicular pain, testicular swelling, urgency, urinary retention, other. Musculoskeletal: Extremity pain: Reports: left lower, right lower. Neuro: Denies: bladder dysfunction, bowel dysfunction, change in LOC, confusion, dizziness, focal weakness, gait problem, headache, lightheaded, numbness, seizure, slurred speech, spinning sensation, syncope, unable to speak, vision change, weakness, other. Psych: Denies: agitation, anxiety, auditory hallucination, change in mental status, confusion, delusional, depression, homicidal ideation, hostile, insomnia, stress , suicidal ideation, visual hallucination, other. Objective General VS/I O: Vital Signs Date Temp Pulse Resp B/P B/P Mean Pulse Ox FiO2 02/19-02/20 36.4-36.6 83-97 14-16 94-104/56-74 72-83.2 95-99 Last Documented: Result Date Time Pulse Ox 97 02/20 1446 B/P 99/66 02/20 1446 B/P Mean 77.0 02/20 1446 Temp 36.4 02/20 1446 Pulse 83 02/20 1446 Resp 16 02/20 1446 O2 Delivery Nasal cannula 02/20 1228 O2 Flow Rate 2 02/20 1228 24 hour I O ending at 0700: 02/20 0700 02/19 1900 Intake Total Output Total Balance Patient 75 kg Weight Weight Stated/Reported Measurement Method PATIENT WEIGHT: Weight (lb): Weight (oz): Weight (kg): 75.000 Medications: Active Meds + DC'd Last 24 Hrs Gadoterate Meglumine (DOTAREM) 15 ML .STK-MED ONE IV (DC) Results Radiology data: Recent Impressions: [facility] - MRI BRAIN WO/W CONT 02/20 1152 Report Impression - Status: SIGNED Entered: 02/21/2024 1519 IMPRESSION: No acute infarct or mass effect is identified. Numerous white matter lesions throughout both cerebral hemispheres similar which are oriented perpendicular to the ventricles most consistent with a demyelinating process. No evidence of active demyelination is identified. No abnormal enhancement. LOCATION: B2 Impression By: Rachelle Vasquez M.D. [facility] - MRI C-SPINE W W/O CONT 02/20 1153 Report Impression - Status: SIGNED Entered: 02/21/2024 1606 IMPRESSION: Mild discogenic disease throughout the cervical spine. No spinal canal or neuroforaminal stenosis. No abnormal cord signal is identified. No abnormal enhancement. LOCATION: B2 Impression By: Rachelle Vasquez M.D. Diagnosis, Assessment Plan Hospital course to date: General appearance: alert, awake Head/Eyes: atraumatic, clear cornea, EOMI, normocephalic, normal conjunctiva/ sclera, normal eyelids/periorb, PERRLA Neck: no JVD Cardiovascular: regular rate rhythm Respiratory: decreased breath sounds, no distress, no tenderness Abdomen/GI: active bowel sounds, soft, non-tender, no guarding, no rebound, no distention, no mass/organomegaly, no pulsatile mass, no hernia, normal abdominal aorta Abdomen quadrants: LLQ normal bowel sounds, LUQ normal bowel sounds, RLQ normal bowel sounds, RUQ normal bowel sounds Extremities: moves all, no edema-all extremities, normal capillary refill, normal range of motion, normal sensory, normal motor function Neuro/CRYSTALIZER TENDER: alert, oriented X 3 Skin: dry, intact, no gross abnormalities Psychiatry: no hallucinations, normal affect, normal judgment/insight, normal mood, not homicidal, not suicidal Problem List/A P: 1. Multiple sclerosis Free Text DxA P Notes Free text DxA P notes: Assessment: 38-year-old male patient with recent diagnosis of multiple sclerosis, alcoholism , IBS presents to the emergency department today for the evaluation of lower extremity weakness/pain resulting in multiple falls, episodes of confusion, bladder incontinence. As per patient's Mother MRI was done a month ago Revealing multiple lesions consistent with multiple sclerosis. Patient is currently alert and oriented. Denies fever, chills, nausea and vomiting, headache, blurry vision, hearing deficits, lightheadedness/dizziness, chest pain , numbness, associated symptoms. 1. Multiple sclerosis 2. Lower extremity weakness/pain resulting to multiple falls 3. Confusion 4. Bladder incontinence 5. Mildly elevated troponin 82 6. HLD- LDL 61 7. History of alcoholism, IBS Plan of care: Admit patient for further evaluation and treatment Fall precaution Tylenol extra strength 1000 mg p.o. given stat, methylprednisolone stat Drug abuse screen Neuro consult placed Telemetry BP control Glycemic control Pain control Electrolyte control DVT/GI prophylaxis Follow-up labs, images 02/21/2024 Vital signs are within normal limits MRI brain: scattered white matter lesions consistent with demyelination noted. No abnormal enhancement MRI c-spine: no abnormal cord signal or enhancement Neuro is following. Recommends screen and correct any underlying toxic or metabolic process contributing to symptoms. PT/OT Fall precaution Continue supportive care Jeremy Paige I 02/21/24 1740: Attestations Physician Attestation Agree w/findings plan: I Agree with the findings and plan as documented by ANALY Sotomayor. Plan of care coordinated with ANALY Sotomayor. Pertinent labs, Imaging, and information consultant evaluations reviewed. Hypotensive overnight. Other VS are within normal limits. LDL cholesterol measured elevated at 161.0. GFR dropped down to 72.1. Ammonia trended down to <10 and total creatinine kinase at 36. Troponin I high sens elevated at 82. Urine specimen shows traces of protein, ketones, and blood. Consult placed to neuro. Fall and safety precaution. Continue supportive care. Angiography CT is unremarkable Brain CT shows: There is no imaging evidence of acute intracranial pathology at 0144 at 0657 RPT #:[id number] END OF REPORT [facility] 2024-02-21 10:02:00 [facility] Neurology Consultation Note REPORT#:[id number] REPORT STATUS: Signed REPORT INITIALIZATION DATE:02/21/24 TIME: 1001 PATIENT: CHRISS HUGGINS UNIT #: [id number] ROOM/BED: [place] [address] : 85 AGE: 38 SEX: M ATTEND: Jeremy Paige MD ADM AUTHOR: Katharine Guerra DO REPT SERVICE DT/TIME: 02/21/24 1002 * ALL edits or amendments must be made on the electronic/computer document * History of Present Illness HPI Reason for consult: MS HPI: Patient is a 38-year-old male with history of recent MS diagnosis, alcohol use disorder, and IBS who presented to the emergency room with complaints of weakness and confusion. Patient apparently has had multiple falls and notes lower extremity weakness at baseline. In addition, has bowel incontinence. CT head was unremarkable for acute intracranial pathology. CTA head and neck without significant vascular abnormality. Neurology has been consulted to evaluate for possible MS exacerbation. He received 1g methylprednisone in the ER. He is currently not on DMT for MS. History - Adult longitudinal Smoking status for patients 13 years old or older: Never Smoker Allergies: Coded Allergies: No Known Allergies (02/20/24) Review of Systems Free Text ROS Notes Free Text ROS Notes: ROS focused on neurological system with pertinent positives and negatives as included in the history Objective General VS: Last Documented: Result Date Time Pulse Ox 96 02/21 1712 B/P 95/60 02/21 1712 B/P Mean 71.9 02/21 1712 Temp 98.1 02/21 1712 Pulse 83 02/21 1712 Resp 16 02/21 1712 O2 Delivery Nasal cannula 02/20 1228 O2 Flow Rate 2 02/20 1228 PATIENT WEIGHT: Weight (lb): Weight (oz): Weight (kg): 75.000 Physical Exam Neuro comment: PHYSICAL EXAM General appearance: alert, awake, pleasant Chest: Normal breathing pattern. No accessory muscle use Abdomen: non-distended Extremities: no edema NEURO EXAM Speech: Mild loss of fluency. Comprehension intact. Mental Status: Oriented to person, place, time. Cranial Nerves: Right APD, VFFTC, EOMI, no sensation deficits in V1, V2, V3 b/l, no facial droop, hearing intact to voice, tongue midline Sensory Exam: Intact to light touch Motor Testin/5 BUE proximally and distally. 4/5 BLE Coordination: FTN intact Reflexes: 3+ and symmetric, upper and lower EXTR Gait: Deferred Results Radiology Data: Recent Impressions: [facility] - MRI BRAIN WO/W CONT 02/20 1152 Report Impression - Status: SIGNED Entered: 02/21/2024 1519 IMPRESSION: No acute infarct or mass effect is identified. Numerous white matter lesions throughout both cerebral hemispheres similar which are oriented perpendicular to the ventricles most consistent with a demyelinating process. No evidence of active demyelination is identified. No abnormal enhancement. LOCATION: B2 Impression By: Rachelle Vasquez M.D. [facility] - MRI C-SPINE W W/O CONT 02/20 1153 Report Impression - Status: SIGNED Entered: 02/21/2024 1606 IMPRESSION: Mild discogenic disease throughout the cervical spine. No spinal canal or neuroforaminal stenosis. No abnormal cord signal is identified. No abnormal enhancement. LOCATION: B2 Impression By: Rachelle Vasquez M.D. Diagnosis, Assessment Plan Free Text DxA P Notes Free text DxA P notes: Multiple sclerosis Recurrent falls Symptoms are concerning for MS exacerbation vs pseudoexacerbation vs physical deconditioning MRI brain -scattered white matter lesions consistent with demyelination noted. No abnormal enhancement MRI c-spine - no abnormal cord signal or enhancement Recommendation No active lesions on MRI brain and C-spine MRI T-spine pending Screen and correct any underlying toxic or metabolic process contributing to symptoms PT/OT/Rehab eval Fall precautions Patient and family updated at bedside Thank you for the consultation. Please call with any questions or concerns. Please note that parts of this record was dictated using Voice Recognition software and may contain unintended errors not detected prior to signing. at 1740 RPT #:[id number] END OF REPORT [facility] 2024-02-21 03:33:00 [facility] ([facility]) Clinical Note REPORT#:[id number] REPORT STATUS: Signed REPORT INITIALIZATION DATE:02/21/24 TIME: 332 PATIENT: CHRISS HUGGINS UNIT #: [id number] ROOM/BED: 5518-1 : 85 AGE: 38 SEX: M ATTEND: Jeremy Paige MD ADM AUTHOR: Jeremy Paige MD REPT SERVICE DT/TIME: 02/21/24332 * ALL edits or amendments must be made on the electronic/computer document * Clinical Note Note: 38-year-old male patient with recent diagnosis of multiple sclerosis, alcoholism and IBS presents for evaluation of lower extremity weakness and pain resulting in multiple falls, episodes of confusion, and bladder incontinence. Past MRI reveals multiple lesions consistent with multiple sclerosis. Patient has mildly elevated troponin 82 and HDL-LDL 61 upon admission. Hypotensive overnight. Other VS are within normal limits. LDL cholesterol measured elevated at 161.0. GFR dropped down to 72.1. Ammonia trended down to <10 and total creatinine kinase at 36. Troponin I high sens elevated at 82. Urine specimen shows traces of protein, ketones, and blood. Consult placed to neuro. Fall and safety precaution. Continue supportive care. Angiography CT is unremarkable Brain CT shows: There is no imaging evidence of acute intracranial pathology at 1348 RPT #:[id number] END OF REPORT [facility] 2024-02-20 21:48:00 [facility] ([facility]) Clinical Note REPORT#:[id number] REPORT STATUS: Signed REPORT INITIALIZATION DATE:02/20/24 TIME: 2147 PATIENT: CHRISS HUGGINS UNIT #: [id number] ROOM/BED: [place] [address] : 85 AGE: 38 SEX: M ATTEND: Jeremy Paige MD ADM AUTHOR: Jeremy Paige MD REPT SERVICE DT/TIME: 02/20/242147 * ALL edits or amendments must be made on the electronic/computer document * Clinical Note Note: 38-year-old male patient with recent diagnosis of multiple sclerosis, alcoholism and IBS presents in the emergency department for evaluation of lower extremity weakness and pain resulting in multiple falls, episodes of confusion, and bladder incontinence. Past MRI reveals multiple lesions consistent with multiple sclerosis. Patient has mildly elevated troponin 82 and HLD- LDL 61. Admitted for further evaluation and management. Given Tylenol Extra Strength and methylprednisolone STAT. Consult placed to neurology. Pending results for drug abuse screen. DVT/GI prophylaxis. Follow-up labs and images. Further recommendations to follow. at 1348 RPT #:[id number] END OF REPORT [facility] 2024-02-20 17:43:00 [facility] ([facility]) History Physical - Adult REPORT#:[id number] REPORT STATUS: Signed REPORT INITIALIZATION DATE:02/20/24 TIME: 1742 PATIENT: CHRISS HUGGINS UNIT #: [id number] ROOM/BED: [place] [address] : 85 AGE: 38 SEX: M ATTEND: Jeremy Paige MD ADM AUTHOR: Osmany Sotomayor NP REPT SERVICE DT/TIME: 02/20/241742 * ALL edits or amendments must be made on the electronic/computer document * Osmany Sotomayor 02/20/24 1743: History of Present Illness HPI Chief complaint: Multiple falls Lower extremity weakness Confusion Bladder incontinence PCP: PCP: Allan Herbert MD HPI: 38-year-old male patient with recent diagnosis of multiple sclerosis, alcoholism , IBS presents to the emergency department today for the evaluation of lower extremity weakness/pain resulting in multiple falls, episodes of confusion, bladder incontinence. As per patient's Mother MRI was done a month ago Revealing multiple lesions consistent with multiple sclerosis. Patient is currently alert and oriented. Denies fever, chills, nausea and vomiting, headache, blurry vision, hearing deficits, lightheadedness/dizziness, chest pain , numbness, associated symptoms. Initial vital signs: BP 102/70, pulse 102, respirations 17, temp 97.9, pulse ox 96% on room air Abnormal labs: Elevated troponin I 82 LDL 161 RADIOLOGY - XR CHEST 1 V 02/19 1216 IMPRESSION: No evidence of acute cardiopulmonary abnormality. CAT SCAN - CT HEAD/BRAIN W/O CONT 02/19 1330 IMPRESSION: There is no imaging evidence of acute intracranial pathology. CAT SCAN - CTA HEAD 02/19 133 IMPRESSION: Unremarkable CTA of the head. History Smoking status for patients 13 years old or older: Never Smoker Medication/Allergy-Vaccine Hx Allergies: Coded Allergies: No Known Allergies (02/20/24) Review of Systems Constitutional: Reports: generalized weakness. Denies: chills, fatigue, fever, lethargy, malaise, recent wt loss, other. Respiratory: Denies: MANDUJANO (dyspnea on exertion), hemoptysis, non productive cough, parox nocturnal dyspnea, pleurisy, pleuritic pain, pneumonia, productive cough (sputum ), SOB, wheezing, other. Cardiovascular: Denies: chest pain, MANDUJANO (dyspnea on exertion), edema, orthopnea, palpitations, parox nocturnal dyspnea, other. GI: Denies: abdominal pain, anorexia, constipation, diarrhea, dysphagia, GERD, hematemesis, hematochezia, hiatal hernia, melena, nausea, rectal pain, vomiting, other. : Denies: dysuria, flank pain, frequency, hematuria, nocturia, penile discharge, penile lesion, testicular pain, testicular swelling, urgency, urinary retention, other. Musculoskeletal: Extremity pain: Reports: left lower, right lower. Neuro: Denies: bladder dysfunction, bowel dysfunction, change in LOC, confusion, dizziness, focal weakness, gait problem, headache, lightheaded, numbness, seizure, slurred speech, spinning sensation, syncope, unable to speak, vision change, weakness, other. Psych: Denies: agitation, anxiety, auditory hallucination, change in mental status, confusion, delusional, depression, homicidal ideation, hostile, insomnia, stress , suicidal ideation, visual hallucination, other. Physical Exam VS/I O Vital Signs: Date Time Temp Pulse Resp B/P B/P Pulse O2 O2 Flow FiO2 Mean Ox Delivery Rate 02/19 1120 36.6 102 17 102/70 80 96 Room air PATIENT WEIGHT: Weight (lb): Weight (oz): Weight (kg): 75.000 General appearance: alert, awake Head/Eyes: atraumatic, clear cornea, EOMI, normocephalic, normal conjunctiva/ sclera, normal eyelids/periorb, PERRLA Neck: no JVD Cardiovascular: regular rate rhythm Respiratory: decreased breath sounds, no distress, no tenderness Abdomen/GI: active bowel sounds, soft, non-tender, no guarding, no rebound, no distention, no mass/organomegaly, no pulsatile mass, no hernia, normal abdominal aorta Abdomen quadrants: LLQ normal bowel sounds, LUQ normal bowel sounds, RLQ normal bowel sounds, RUQ normal bowel sounds Extremities: moves all, no edema-all extremities, normal capillary refill, normal range of motion, normal sensory, normal motor function Neuro/CRYSTALIZER TENDER: alert, oriented X 3 Skin: dry, intact, no gross abnormalities Psychiatry: no hallucinations, normal affect, normal judgment/insight, normal mood, not homicidal, not suicidal Results Findings/Data: Laboratory Tests: 02/19 02/19 02/19 1335 1230 1230 Chemistry Sodium (134 - 147 mEq/L) 135 Potassium (3.4 - 5.0 mEq/L) 3.8 Chloride (100 - 108 mEq/L) 104 Carbon Dioxide (21 - 33 mEq/l) 19 L Anion Gap (0 - 20) 16 BUN (7 - 25 mg/dL) 20 Creatinine (0.6 - 1.3 mg/dL) 1.3 Glomerular Filtr Rate (105 - 110) 72.1 L Glucose (77 - 141 mg/dL) 85 Calcium (8.0 - 10.5 mg/dL) 9.7 Total Bilirubin (0.0 - 1.0 mg/dL) 0.90 Direct Bilirubin (0.1 - 0.3 MG/DL) 0.30 Indirect Bilirubin (MG/DL) 0.60 AST (8 - 34 IUnit/L) 16 ALT (10 - 49 IUnit/L) 12 Total Alk Phosphatase (20 - 125 IUnit/L) 85 Ammonia (11 - 35 umol/L) < 10 L Total Creatine Kinase (46 - 171 Units/L) 36 L Troponin I High Sens (0 - 54 ng/L) 82 H Total Protein (6.4 - 8.2 g/dL) 8.1 Albumin (3.4 - 5.0 g/dL) 4.50 LDL Cholesterol Measurd (0 - 100 mg/dL) 161.0 H TSH (0.42 - 5.47 IU/mL) 1.18 Hematology WBC (4.5 - 11.0 x10 3/uL) 6.0 RBC (4.00 - 5.60 x10 6/uL) 5.29 Hgb (12.5 - 16.9 g/dL) 16.1 Hct (37.5 - 50.7 %) 47.6 MCV (81.0 - 99.0 fL) 90.0 MCH (27.0 - 33.0 pg) 30.4 MCHC (33.0 - 37.0 g/dL) 33.8 RDW (11.5 - 14.5 %) 13.3 Plt Count (150 - 400 x10 3/uL) 253 MPV (7.0 - 9.0 fL) 10.4 H Neut % (Auto) (56.0 - 77.0 %) 72.1 Lymph % (Auto) (14.0 - 32.0 %) 18.2 [place] % (Auto) (4.8 - 9.0 %) 7.6 Eos % (Auto) (0.3 - 3.7 %) 1.5 Baso % (Auto) (0.0 - 2.0 %) 0.3 Neut # (Auto) (2.0 - 7.6 x10 3/uL) 4.35 Lymph # (Auto) (1.0 - 3.8 x10 3/uL) 1.10 [place] # (Auto) (0.1 - 0.8 x10 3/uL) 0.46 Eos # (Auto) (0.0 - 0.2 x10 3/uL) 0.09 Baso # (Auto) (0.0 - 0.2 x10 3/uL) 0.02 Abs Immat Gran (auto) (0.00 - 0.03 x10 3/uL) 0.02 Immature Gran % (0.0 - 2.0 %) 0.3 Nucleated RBC % (0 - 0 %) 0.0 Nucleated RBCs # (Man) (0.0 - 0.1 x10 3/uL) 0.00 Toxicology Salicylates (0.0 - 20.0 mg/dL) < 3.0 Acetaminophen (10 - 30 mcg/mL) < 0 L Ethyl Alcohol (<10 mg/dL) < 3.0 Radiology data: Recent Impressions: RADIOLOGY - XR CHEST 1 V 02/19 1216 Report Impression - Status: SIGNED Entered: 02/20/2024 1237 IMPRESSION: No evidence of acute cardiopulmonary abnormality. Location: H2 Impression By: Lee Valencia M.D. CAT SCAN - CT HEAD/BRAIN W/O CONT 02/19 1330 Report Impression - Status: SIGNED Entered: 02/20/2024 1420 IMPRESSION: There is no imaging evidence of acute intracranial pathology. Impression By: Jose King M.D. CAT SCAN - CTA HEAD 02/19 1331 Report Impression - Status: SIGNED Entered: 02/20/2024 1423 IMPRESSION: Unremarkable CTA of the head. Impression By: Jose King M.D. Diagnosis, Assessment Plan Problem List/A P: 1. Multiple sclerosis Free Text DxA P Notes Free Text DxA P Notes: Assessment: 38-year-old male patient with recent diagnosis of multiple sclerosis, alcoholism , IBS presents to the emergency department today for the evaluation of lower extremity weakness/pain resulting in multiple falls, episodes of confusion, bladder incontinence. As per patient's Mother MRI was done a month ago Revealing multiple lesions consistent with multiple sclerosis. Patient is currently alert and oriented. Denies fever, chills, nausea and vomiting, headache, blurry vision, hearing deficits, lightheadedness/dizziness, chest pain , numbness, associated symptoms. 1. Multiple sclerosis 2. Lower extremity weakness/pain resulting to multiple falls 3. Confusion 4. Bladder incontinence 5. Mildly elevated troponin 82 6. HLD- LDL 61 7. History of alcoholism, IBS Plan of care: Admit patient for further evaluation and treatment Fall precaution Tylenol extra strength 1000 mg p.o. given stat, methylprednisolone stat Drug abuse screen Neuro consult placed Telemetry BP control Glycemic control Pain control Electrolyte control DVT/GI prophylaxis Follow-up labs, images Jeremy Paige I 02/20/24 2141: Attestations Physician Attestation Agree w/findings plan: I Agree with the findings and plan as documented by ANALY Sotomayor. Plan of care coordinated with ANALY Sotomayor. Pertinent labs, Imaging, and information consultant evaluations reviewed. at 0050 at 1337 RPT #:[id number] END OF REPORT [facility] 2024-02-20 17:43:00 [facility] ([facility]) History Physical - Adult REPORT#:[id number] REPORT STATUS: Signed REPORT INITIALIZATION DATE:02/20/24 TIME: 1742 PATIENT: CHRISS HUGGINS UNIT #: [id number] ROOM/BED: [place] [address] : 85 AGE: 38 SEX: M ATTEND: Jeremy Paige MD ADM AUTHOR: Osmany Sotomayor NP REPT SERVICE DT/TIME: 02/20/241742 * ALL edits or amendments must be made on the electronic/computer document * History Smoking status for patients 13 years old or older: Never Smoker Medication/Allergy-Vaccine Hx Allergies: Coded Allergies: No Known Allergies (02/20/24) Physical Exam VS/I O Vital Signs: Date Time Temp Pulse Resp B/P B/P Pulse O2 O2 Flow FiO2 Mean Ox Delivery Rate 02/19 1120 36.6 102 17 102/70 80 96 Room air PATIENT WEIGHT: Weight (lb): Weight (oz): Weight (kg): 75.000 Results Findings/Data: Laboratory Tests: 02/19 02/19 02/19 1335 1230 1230 Chemistry Sodium (134 - 147 mEq/L) 135 Potassium (3.4 - 5.0 mEq/L) 3.8 Chloride (100 - 108 mEq/L) 104 Carbon Dioxide (21 - 33 mEq/l) 19 L Anion Gap (0 - 20) 16 BUN (7 - 25 mg/dL) 20 Creatinine (0.6 - 1.3 mg/dL) 1.3 Glomerular Filtr Rate (105 - 110) 72.1 L Glucose (77 - 141 mg/dL) 85 Calcium (8.0 - 10.5 mg/dL) 9.7 Total Bilirubin (0.0 - 1.0 mg/dL) 0.90 Direct Bilirubin (0.1 - 0.3 MG/DL) 0.30 Indirect Bilirubin (MG/DL) 0.60 AST (8 - 34 IUnit/L) 16 ALT (10 - 49 IUnit/L) 12 Total Alk Phosphatase (20 - 125 IUnit/L) 85 Ammonia (11 - 35 umol/L) < 10 L Total Creatine Kinase (46 - 171 Units/L) 36 L Troponin I High Sens (0 - 54 ng/L) 82 H Total Protein (6.4 - 8.2 g/dL) 8.1 Albumin (3.4 - 5.0 g/dL) 4.50 LDL Cholesterol Measurd (0 - 100 mg/dL) 161.0 H TSH (0.42 - 5.47 IU/mL) 1.18 Hematology WBC (4.5 - 11.0 x10 3/uL) 6.0 RBC (4.00 - 5.60 x10 6/uL) 5.29 Hgb (12.5 - 16.9 g/dL) 16.1 Hct (37.5 - 50.7 %) 47.6 MCV (81.0 - 99.0 fL) 90.0 MCH (27.0 - 33.0 pg) 30.4 MCHC (33.0 - 37.0 g/dL) 33.8 RDW (11.5 - 14.5 %) 13.3 Plt Count (150 - 400 x10 3/uL) 253 MPV (7.0 - 9.0 fL) 10.4 H Neut % (Auto) (56.0 - 77.0 %) 72.1 Lymph % (Auto) (14.0 - 32.0 %) 18.2 [place] % (Auto) (4.8 - 9.0 %) 7.6 Eos % (Auto) (0.3 - 3.7 %) 1.5 Baso % (Auto) (0.0 - 2.0 %) 0.3 Neut # (Auto) (2.0 - 7.6 x10 3/uL) 4.35 Lymph # (Auto) (1.0 - 3.8 x10 3/uL) 1.10 [place] # (Auto) (0.1 - 0.8 x10 3/uL) 0.46 Eos # (Auto) (0.0 - 0.2 x10 3/uL) 0.09 Baso # (Auto) (0.0 - 0.2 x10 3/uL) 0.02 Abs Immat Gran (auto) (0.00 - 0.03 x10 3/uL) 0.02 Immature Gran % (0.0 - 2.0 %) 0.3 Nucleated RBC % (0 - 0 %) 0.0 Nucleated RBCs # (Man) (0.0 - 0.1 x10 3/uL) 0.00 Toxicology Salicylates (0.0 - 20.0 mg/dL) < 3.0 Acetaminophen (10 - 30 mcg/mL) < 0 L Ethyl Alcohol (<10 mg/dL) < 3.0 Radiology data: Recent Impressions: RADIOLOGY - XR CHEST 1 V 02/19 1216 Report Impression - Status: SIGNED Entered: 02/20/2024 1237 IMPRESSION: No evidence of acute cardiopulmonary abnormality. Location: H2 Impression By: Lee Valencia M.D. CAT SCAN - CT HEAD/BRAIN W/O CONT 02/19 1330 Report Impression - Status: SIGNED Entered: 02/20/2024 1420 IMPRESSION: There is no imaging evidence of acute intracranial pathology. Impression By: Jose King M.D. CAT SCAN - CTA HEAD 02/19 1331 Report Impression - Status: SIGNED Entered: 02/20/2024 1423 IMPRESSION: Unremarkable CTA of the head. Impression By: Jose King M.D. Diagnosis, Assessment Plan Free Text DxA P Notes Free Text DxA P Notes: see h p below at 0050 RPT #:[id number] END OF REPORT [facility] 2024-02-20 11:54:00 [facility] ([facility]) EMERGENCY PROVIDER REPORT REPORT#:[id number] REPORT STATUS: Signed DATE:02/20/24 TIME: 1154 PATIENT: CHRISS HUGGINS UNIT #: [id number] ROOM/BED: 5518-1 : 85 AGE: 38 SEX:M PCP PHYS: Allan Herbert MD SERVICE AUTHOR: Adryan Santillan MD REP SRV REP SRV TM: 1154 * ALL edits or amendments must be made on the electronic/computer document * HPI-General Illness Free Text HPI Notes Free Text HPI Notes Patient is a 38 years old male with history of multiple sclerosis diagnosed about 3 months ago, history of alcoholism, IBS, presented to the ED accompanied by mother with complaint of multiple falls, lower extremity weakness and confusion and urine and bladder incontinence. Pt denies fever, chills, nausea/ vomiting, headache,blurry vision, hearing deficits, lightheadedness/dizziness, chest pain, abdominal pain, back pain, paresthesia, numbness. Patient alert and oriented to name place and time at time of encounter. General Initial Greet Date/Time 02/20/24 1117 Presentation Chief Complaint multiple falls Review of Systems Review of Systems Constitutional Reports: Lethargy, Weakness - generalized. Denies: Chills, Recent wt loss. Respiratory Denies: Cough, non-productive, Cough, productive, Hemoptysis, Pleuritic pain, Shortness of breath, Wheezing. Cardiovascular Denies: Chest pain, Edema, Orthopnea, Parox nocturnal dyspnea, Syncope. GI Denies: Abdominal pain, Belching, Constipation, Hematochezia, Melena, Nausea, Vomiting. Male Reports: Incontinence. Denies: Flank pain, Nocturia. Neurologic Reports: Confusion, Generalized weakness. Denies: Abnormal movement, Dizziness, Focal weakness, Headache, Lightheaded, Slurred speech, Spinning sensation. Past Medical History - Adult Stated Complaint TROUBLE WALKING,CONFUSION X6 MONTHS Allergies Coded Allergies: No Known Allergies (02/20/24) Home Medications Reported Medications [TYLENOL] 500 MG PO PRN PRN PAIN Physical Exam Vital Signs Vital Signs First Documented: Result Date Time Pulse Ox 96 02/19 1120 B/P 102/70 02/19 1120 B/P Mean 80 02/19 1120 O2 Delivery Room air 02/19 1120 Temp 97.9 02/190 Pulse 102 02/19 1120 Resp 17 02/20 1120 Last Documented: Result Date Time Pulse Ox 96 02/19 1120 B/P 102/70 02/19 1120 B/P Mean 80 02/19 1120 O2 Delivery Room air 02/19 1120 Temp 97.9 02/190 Pulse 102 02/190 Resp 02/19 Review of Vital Signs Reviewed Physical Exam General/Const General/Const Awake, Alert, No acute distress MS Head Head Atraumatic Eyes Eyes Atraumatic, PERRL, EOMI, No nystagmus, No periorbital redness, No periorbital swelling, No photophobia MS Neck Neck Atraumatic, Supple, No meningismus, Full range of motion, No adenopathy, No swelling, Non-tender Resp/Chest Respiratory/Chest Atraumatic, Breath sounds NL, Breath sounds = bilat, No respiratory distress Cardiovascular Cardiovascular Heart rate NL, Regular rhythm, Heart sounds NL, No gallop Abdomen/GI Abdomen/GI Atraumatic, Soft, Non-tender, McBurney's non-tender, No guarding, No rebound MS Back Back Atraumatic MS Upper Extrem Upper Extremity/MS Atraumatic MS Wrist/Hand Wrist/Hand Atraumatic Skin Skin Atraumatic Neurologic Neurologic Oriented X3, Speech NL, No motor deficits, No sensory deficits, CN II - XII intact Interpretation Diagnostics Lab Results Interpretation Results Laboratory Tests 02/20/24 1230: [Embedded Image Not Available] Laboratory Tests: 02/19 02/19 02/19 1335 1230 1230 Chemistry Sodium (134 - 147 mEq/L) 135 Potassium (3.4 - 5.0 mEq/L) 3.8 Chloride (100 - 108 mEq/L) 104 Carbon Dioxide (21 - 33 mEq/l) 19 L Anion Gap (0 - 20) 16 BUN (7 - 25 mg/dL) 20 Creatinine (0.6 - 1.3 mg/dL) 1.3 Glomerular Filtr Rate (105 - 110) 72.1 L Glucose (77 - 141 mg/dL) 85 Calcium (8.0 - 10.5 mg/dL) 9.7 Total Bilirubin (0.0 - 1.0 mg/dL) 0.90 Direct Bilirubin (0.1 - 0.3 MG/DL) 0.30 Indirect Bilirubin (MG/DL) 0.60 AST (8 - 34 IUnit/L) 16 ALT (10 - 49 IUnit/L) 12 Total Alk Phosphatase (20 - 125 IUnit/L) 85 Ammonia (11 - 35 umol/L) < 10 L Total Creatine Kinase (46 - 171 Units/L) 36 L Troponin I High Sens (0 - 54 ng/L) 82 H Total Protein (6.4 - 8.2 g/dL) 8.1 Albumin (3.4 - 5.0 g/dL) 4.50 LDL Cholesterol Measurd (0 - 100 mg/dL) 161.0 H TSH (0.42 - 5.47 IU/mL) 1.18 Hematology WBC (4.5 - 11.0 x10 3/uL) 6.0 RBC (4.00 - 5.60 x10 6/uL) 5.29 Hgb (12.5 - 16.9 g/dL) 16.1 Hct (37.5 - 50.7 %) 47.6 MCV (81.0 - 99.0 fL) 90.0 MCH (27.0 - 33.0 pg) 30.4 MCHC (33.0 - 37.0 g/dL) 33.8 RDW (11.5 - 14.5 %) 13.3 Plt Count (150 - 400 x10 3/uL) 253 MPV (7.0 - 9.0 fL) 10.4 H Neut % (Auto) (56.0 - 77.0 %) 72.1 Lymph % (Auto) (14.0 - 32.0 %) 18.2 [place] % (Auto) (4.8 - 9.0 %) 7.6 Eos % (Auto) (0.3 - 3.7 %) 1.5 Baso % (Auto) (0.0 - 2.0 %) 0.3 Neut # (Auto) (2.0 - 7.6 x10 3/uL) 4.35 Lymph # (Auto) (1.0 - 3.8 x10 3/uL) 1.10 [place] # (Auto) (0.1 - 0.8 x10 3/uL) 0.46 Eos # (Auto) (0.0 - 0.2 x10 3/uL) 0.09 Baso # (Auto) (0.0 - 0.2 x10 3/uL) 0.02 Abs Immat Gran (auto) (0.00 - 0.03 x10 3/uL) 0.02 Immature Gran % (0.0 - 2.0 %) 0.3 Nucleated RBC % (0 - 0 %) 0.0 Nucleated RBCs # (Man) (0.0 - 0.1 x10 3/uL) 0.00 Toxicology Salicylates (0.0 - 20.0 mg/dL) < 3.0 Acetaminophen (10 - 30 mcg/mL) < 0 L Ethyl Alcohol (<10 mg/dL) < 3.0 02/19 1229 Toxicology Urine Opiates Screen (NEGATIVE) NEGATIVE Urine Barbiturates (NEGATIVE) NEGATIVE Ur Phencyclidine Scrn (NEGATIVE) NEGATIVE Ur Amphetamines Screen (NEGATIVE) NEGATIVE U Benzodiazepines Scrn (NEGATIVE) NEGATIVE Urine Cocaine Screen (NEGATIVE) NEGATIVE Urine Cannabinoids (NEGATIVE) NEGATIVE Urines Urine Color (YEL/STRAW) YELLOW Urine Appearance (CLEAR) CLEAR Urine pH (5.0 - 7.0) 6.0 Ur Specific [place] (1.005 - 1.030) 1.028 Urine Protein (NEGATIVE) 1+ H Urine Glucose (UA) (NEGATIVE) NEGATIVE Urine Ketones (NEGATIVE) 2+ H Urine Blood (NEGATIVE) 1+ H Urine Nitrite (NEGATIVE) NEGATIVE Urine Bilirubin (NEGATIVE) NEGATIVE Urine Urobilinogen (0.2 - 1.0 mg/dL) 0.2 Ur Leukocyte Esterase (NEGATIVE) NEGATIVE Urine RBC (0 - 3 RBC/HPF) 4-10 Urine WBC (0 - 3 WBC/HPF) 4-9 H Ur Squamous Epith Cells (NONE SEEN /HPF) NONE SEEN Urine Bacteria (NONE SEEN /HPF) TRACE Urine Mucus (NONE SEEN /LPF) TRACE Recent Impressions: RADIOLOGY - XR CHEST 1 V 02/19 1216 Report Impression - Status: SIGNED Entered: 02/20/2024 1237 IMPRESSION: No evidence of acute cardiopulmonary abnormality. Location: H2 Impression By: Lee Valencia M.D. CAT SCAN - CT HEAD/BRAIN W/O CONT 02/19 1330 Report Impression - Status: SIGNED Entered: 02/20/2024 1420 IMPRESSION: There is no imaging evidence of acute intracranial pathology. Impression By: Jose King M.D. CAT SCAN - CTA HEAD 02/19 1331 Report Impression - Status: SIGNED Entered: 02/20/2024 1423 IMPRESSION: Unremarkable CTA of the head. Impression By: Jose King M.D. Re-Evaluation MDM Free Text MDM Notes Additional Text Symptoms likely due to progression of multiple sclerosis with no indicated treatment as per patient and mother. Will also evaluate for metabolic causes of confusion that is intermittent and weakness. As per mother, MRI was done a month ago that showed multiple lesions consistent with multiple sclerosis. Will obtain CT head and CTA head to rule out intracerebral bleed. Plan CT head and CTA head Checks x-ray to rule out pneumonia UA to rule out UTI Trial of methylprednisolone high-dose 1000 mg. Likely admit and neurology consult. ED Course Medication(s) Ordered Medication(s) Ordered: Central Nervous System Agents Sig/Osmar Start time Last Medication Dose Route Stop Time Status Admin Acetaminophen 1,000 MG STAT STA 02/19 1130 DC 02/19 PO 02/19 1131 1443 Diagnostic Agents Sig/Osmar Start time Last Medication Dose Route Stop Time Status Admin Iopamidol 100 ML .STK-MED ONE 02/19 1336 DC 02/19 IV 02/19 1337 1336 Electrolytic, Caloric, And Malcolm Sig/Osmar Start time Last Medication Dose Route Stop Time Status Admin Lactated Ringer's 1,000 ML STAT STA 02/19 1445 DC / IV 02/19 1446 1514 Hormones And Synthetic Substit Sig/Osmar Start time Last Medication Dose Route Stop Time Status Admin Methylprednisolone 1,000 MG STAT STA 02/19 1156 DC 02/19 Sodium Succinate IV 02/19 1157 1443 MDM-Treatment/Evaluation ED Course Workup grossly unremarkable, patient would likely need neurology evaluation before discharge. Will admit for further care and evaluation. Patient and mother agrees with plan of care. Patient Discharge Departure Vital Signs/Condition Vital Signs First Documented: Result Date Time Pulse Ox 96 02/19 1120 B/P 102/70 / 1120 B/P Mean 80 02/19 1120 O2 Delivery Room air 02/19 1120 Temp 97.9 02/19 1120 Pulse 102 02/19 1120 Resp 17 02/19 1120 Last Documented: Result Date Time Pulse Ox 96 02/19 1120 B/P 102/70 02/19 1120 B/P Mean 80 02/19 1120 O2 Delivery Room air 02/19 1120 Temp 97.9 02/19 1120 Pulse 102 02/19 1120 Resp 17 02/19 1120 All vital signs available at the time of this entry have been reviewed. Clinical Impression Clinical Impression Primary Impression: Multiple sclerosis Disposition Decision Hospitalize Hosp Physician Name Jeremy Paige MD Hosp Physician Primary Care Physician Request Time 1728 Request Date 02/20/24 )( Accepts Hospitalization Yes )( Reason for Hospitalization MS decompensation )( Accepted Time 172 )( Accepted Date 02/20/24 Call Information will see patient, agrees with eval, agrees with plan at 1414 RPT #:[id number] END OF REPORT [facility] 2023-03-14 13:00:00 [facility] ([facility]) EMERGENCY PROVIDER REPORT REPORT#:[id number] REPORT STATUS: Signed DATE:03/14/23 TIME: 1300 PATIENT: CHRISS HUGGINS UNIT #: [id number] ROOM: BED: AGE: 37 SEX: M PCP PHYS: No Primary Care Physician SERVICE AUTHOR: MD eVe Catherine PA * ALL edits or amendments must be made on the electronic/computer document * Md vee Catherine 03/14/23 1300: HPI-Extremity Prob Lower Free Text HPI Notes Free Text HPI Notes This 37-year-old male with no past medical history in ED complaints of bilateral posterior thigh pain for 1 year. Mentions pain worse today. Pain is 4 out of 10 on pain scale. Denies any swelling. Denies any recent injury or fall. No history of surgery.. Denies any fever, chills, nausea, vomiting, dizziness, chest pain, short of breath, abdominal pain or back pain. Alert and oriented x 3. No acute distress. 15. General Confirmed Patient Yes Patient Type New patient Initial Greet Date/Time 03/14/23 1106 Presentation Chief Complaint Leg problem R, Leg problem L Risk-Extremity Prob Lower Risk Stratification Well's Criteria for DVT Well's Criteria for DVT Response Value Active Cancer? No 0 Immob Lower Extremity? No 0 Bed >3 Days/Surg Last 4 Weeks? No 0 Local Tend Deep Venous Sys? No 0 Entire Leg Swollen? No 0 Calf Swelling >3cm? No 0 Pit Edema in Symptomatic Leg? No 0 Collat Superficial Veins? No 0 Previous Documented DVT? No 0 Total 0 Review of Systems Free Text ROS Notes Free Text ROS Notes CONSTITUTIONAL: Denies weight loss, fever and chills. Denies sweats or weight loss Eyes : No vision problem HENT: Denies changes in hearing. No ear pain, nasal congestion, sore throat RESPIRATORY: Denies SOB and cough. CV: No chest pain, palpitations, syncope, swelling in the legs, dyspnea upon exertion GI: Denies abdominal pain, nausea, vomiting and diarrhea. No difficulty swallowing : Denies dysuria and urinary frequency. No hematuria no hesitancy no incontinence Lymph: Negative for bruising tendency, swollen lymph glands Endocrine: Negative for excessive thirst, glucose normal, no heat or cold intolerance MSK: As above HPI Skin: No rash, pruritus, abrasion, no skin ulcers rash and pruritus. NEUROLOGICAL: No focal weakness, no paresthesia, no headache, numbness or tingling, no seizures or tremors PSYCHIATRIC: Denies recent changes in mood. Denies anxiety and depression. Past Medical History - Adult Stated Complaint PAIN IN ROGELIO POSTERIOR THIGHS Allergies Coded Allergies: No Known Allergies (08/19/22) Review of Nursing Notes Rev avail, and agree Physical Exam Vital Signs Vital Signs First Documented: Result Date Time Pulse Ox 97 03/14 1105 B/P 113/81 03/14 1105 B/P Mean 91 03/14 1105 O2 Delivery Room air 03/14 1105 Temp 36.7 03/14 1105 Pulse 97 03/14 1105 Resp 18 03/14 1105 Last Documented: Result Date Time Pulse Ox 97 03/14 1105 B/P 113/81 03/14 1105 B/P Mean 91 03/14 1105 O2 Delivery Room air 03/14 1105 Temp 36.7 03/14 1105 Pulse 97 03/14 1105 Resp 18 03/14 1105 Review of Vital Signs Reviewed Free Text PE Notes Free Text PE Notes GENERAL: Alert and oriented x 3. No acute distress. Well-nourished. EYES: PERRLA , EOMI. normal conjunctiva , no scleral icterus. HENT: Normocephalic, clear tympanic membranes, normal hearing, no sinus tenderness, tongue within normal limits moist mucous membranes.. Neck: Supple, nontender, no lymphadenopathy, no thyromegaly LUNGS: Clear to auscultation bilaterally. No accessory muscle use, no respiratory distress, no wheezing, no rales or rhonchi, CARDIOVASCULAR: Normal rate, regular rhythm, no murmur, no gallop or edema, no carotid bruit, no JVD ABDOMEN: Soft, non-tender , non-distended. Normal bowel sounds, no hepatosplenomegaly no palpable masses. No rebound, no guarding, McBurney point nontender EXTREMITIES: Bilateral posterior thigh pain. No calf tenderness. No swelling. Neurovascular exam normal bilateral lower extremity : No CVA tenderness Lymphatic: No cervical, axillary or inguinal adenopathy SKIN: No rashes or lesions. Warm. NEUROLOGIC: No focal neurological deficits. CN II-XII grossly intact, but not individually tested. Alert and oriented x3, no motor deficit, no sensory deficit PSYCHIATRIC: Cooperative. Appropriate mood and affect., Memory intact, judgment intact Interpretation Diagnostics Lab Results Interpretation Results Recent Impressions: ULTRASOUND - DUP VEIN ROGELIO 03/14 1504 Report Impression - Status: SIGNED Entered: 03/14/2023 1514 IMPRESSION: 1. No evidence of bilateral lower extremity deep vein thrombosis. Impression By: [email or web address] - Gurinder Dalton MD Imaging Statement Radiographic studies reviewed and considered in the medical decision-making. Point of Care Testing Pulse Oximetry Pulse Ox % 97 On: Room air Interpretation Interpreted by ca Time 1305 Re-Evaluation MDM ED Course Medication(s) Ordered Medication(s) Ordered: Central Nervous System Agents Sig/Osmar Start time Last Medication Dose Route Stop Time Status Admin Tramadol HCl 50 MG X1ED STA 03/14 1128 DC 03/14 PO 03/14 1129 1134 Free Text MDM Notes Free Text MDM Notes Differential diagnosis associated with the patient's presentation include: DVT, nonspecific musculoskeletal pain Escalation of care including admission/observation considered: Patient discharged home as no acute need for admission Discussion of management with other providers: None Discussed with radiology regarding test interpretation: None Independent interpretation: , radiology imaging were reviewed from radiologist interpretation Additional patient history obtained from: None Review of external note on ED record: Previous ER visit Diagnostic test considered but not performed: None Treatment and disposition: Discharge the patient Prescription medication considered but not given: None Chronic condition affecting care: None Social determinants of health significantly affecting care: None Shared decision making with patient: Agreed with the plan Ultrasound negative for any acute finding. Discharge patient with pain medication. Advised to follow-up with orthopedics. The document was created using a voice recognition transcribing system. Incorrect words or phrases inserted erroneously due to softer misinterpretation/ missed industrial equipment mechanic may have been missed during proofreading. Please contact the author for clarification if necessary Patient Discharge Departure Vital Signs/Condition Vital Signs First Documented: Result Date Time Pulse Ox 97 03/14 1105 B/P 113/81 / 1105 B/P Mean 91 / 1105 O2 Delivery Room air 03/14 1105 Temp 36.7 03/14 1105 Pulse 97 01/04 1105 Resp 18 03/14 1105 Last Documented: Result Date Time Pulse Ox 97 03/14 1105 B/P 113/81 / 1105 B/P Mean 91 / 1105 O2 Delivery Room air 03/14 1105 Temp 36.7 / 1105 Pulse 97 / 1105 Resp 18 03/14 1105 All vital signs available at the time of this entry have been reviewed. Condition Stable Clinical Impression Clinical Impression Primary Impression: Bilateral leg pain Disposition Decision Discharge )( Discharged to Home Yes )( Time 1522 )( Date 03/14/23 Discharge/Care Plan Counseled Regarding Diagnosis, Imaging studies (Auto) Prescriptions Current Visit Scripts methocarbamoL (Robaxin) 750 MG PO Q4H methocarbamoL (Robaxin) 750 MG PO Q4H #30 TABS Ibuprofen (Motrin) 800 MG PO TID PRN PRN PAIN Ibuprofen (Motrin) 800 MG PO TID PRN PRN PAIN #30 TABS Patient Instructions ED Leg Spasm Discharge Note I have spoken with the patient and/or caregivers. I have explained the patient's condition, diagnoses and treatment plan based on the information available to me at this time. I have answered the patient's and/or caregiver's questions and addressed any concerns. The patient and/or caregivers have as good an understanding of the patient's diagnosis, condition and treatment plan as can be expected at this point. The vital signs have been stable. The patient's condition is stable and appropriate for discharge from the emergency department. The patient will pursue further outpatient evaluation with the primary care physician or other designated or consulting physician as outlined in the discharge instructions. The patient and/or caregivers are agreeable to this plan of care and follow-up instructions have been explained in detail. The patient and/or caregivers have received these instructions in written format and have expressed an understanding of the discharge instructions. The patient and/or caregivers are aware that any significant change in condition or worsening of symptoms should prompt an immediate return to this or the closest emergency department or a call to 911. Extremity Inj Discharge Note The patient is discharged home with supportive care, a plan for pain control, and follow-up instructions that detail what to expect over the next 48 hours and what symptoms should prompt immediate return to the ED, including the symptoms of compartment syndrome. Follow-up instructions have been explained in detail to the patient, and the instructions have been provided in written format. The patient is comfortable with the plan of care and has expressed an understanding of the discharge instructions. The patient is aware that any significant change in condition or worsening of symptoms should prompt an immediate call to the primary or designated physician. If that is not successful the patient should call or return to this or the closest emergency department or call 911. Chris Birch 03/18/23 0658: Patient Discharge Departure Discharge/Care Plan Referrals Provider Referral: Ramon Jones MD Address: [id number] [place] [address] Supervising Physician Note MidLv Saw Pt Alone I have reviewed the PA/EMAIL CAMPAIGN SPECIALIST's note and plan of care. I was available for consultation as needed at all times during the patient's visit in the emergency department. I agree with the clinical impression, plan and disposition. at 1701 at 0658 RPT #:[id number] END OF REPORT [facility] 2022-08-19 22:28:00 [facility]) EMERGENCY PROVIDER REPORT REPORT#:[id number] REPORT STATUS: Signed DATE:08/19/22 TIME: 2227 PATIENT: CHRISS HUGGINS UNIT #: [id number] ROOM: BED: AGE: 37 SEX: M PCP PHYS: No Primary Care Physician SERVICE AUTHOR: Alphonse Plummer MD * ALL edits or amendments must be made on the electronic/computer document * HPI-Syncope Free Text HPI Notes Free Text HPI Notes Pt is a 37 y/o male with PMHx of Alcohol Dependence presenting to the ED via EMS for c/o near syncope episode that occurred tonight around 2144. Per EMS, pt was heading towards the bathroom when he started to feel lightheaded and almost passed out. EMS states that when they arrived at pt's facility he was confused. General Confirmed Patient Yes Patient Type New patient Initial Greet Date/Time 08/19/222227 Presentation Chief Complaint Almost passed out Hx Obtained From Patient, EMS )( Onset Occurred Today Symptom Duration Brief Progression since Onset Gradually improving Pain/Sev: Onset Moderate Pain/Sev: Current Moderate Risk-Syncope Risk Stratification )( Coronary Artery Disease Risk factors reviewed )( Thoracic Aortic Dissection Risk factors reviewed )( Pulmonary Embolism Risk factors reviewed Review of Systems ROS Statements All systems rev neg except as marked. Focused Review of Systems Constitutional Denies: Chills, Fatigue, Fever. Eyes Denies: Blurred bilat, Discharge bilat, Eye pain bilat. Ears/Nose/Throat Denies: Ear ringing bilat, Earache bilat, Nasal congestion. Respiratory Denies: Cough, non-productive, Shortness of breath, Wheezing. Cardiovascular Denies: Chest pain, Palpitations, Syncope. GI Denies: Abdominal pain, Nausea, Vomiting. Musculoskeletal Denies: Back pain, Extremity pain, Extremity swelling. Skin Denies: Abrasion, Abscess, Rash. Neurologic Reports: Headache, Lightheaded. Denies: Generalized weakness. Psychiatric Denies: Agitation, Anxiety, Stress. Additional Review of Systems Male Denies: Dysuria, Flank pain, Hematuria. Past Medical History - Adult Stated Complaint SYNCOPE Allergies Coded Allergies: No Known Allergies (08/19/22) Review of Nursing Notes Rev avail, and agree Pt reports no significant: Past surgical history, Family history, Social history Additional Medical History Alcohol Dependence Physical Exam Vital Signs Vital Signs First Documented: Result Date Time Pulse Ox 95 08/19 2226 O2 Delivery Room air 08/19 2226 Temp 98.2 08/19 2226 Pulse 102 08/19 2226 Resp 18 08/19 2226 B/P 118/82 08/198 B/P Mean 95 08/19 2257 Last Documented: Result Date Time B/P 100/59 08/20 629 B/P Mean 75 08/20 629 Pulse 98 08/20 629 Pulse Ox 93 08/20 0230 O2 Delivery Room air 08/19 2226 Temp 98.2 08/19 2226 Resp 08/19 Review of Vital Signs Reviewed Focused PE General/Const General/Const Awake, Alert Text/Dict Notes Urine on pants. MS Head Head Atraumatic, Normocephalic Eyes Eyes PERRL, EOMI, No nystagmus Ears/Nose/Throat Ears/Nose/Throat Airway patent, Mucous membranes moist, Pharynx NL MS Neck Neck Supple, No meningismus, Full range of motion Resp/Chest Respiratory/Chest Breath sounds NL, Breath sounds = bilat, No respiratory distress Cardiovascular Cardiovascular Heart rate NL, Regular rhythm, Heart sounds NL Abdomen/GI Abdomen/GI Soft, Non-tender, McBurney's non-tender MS Back Back Inspection NL, Full range of motion, Painless range of motion MS Lower Extrem Lower Ext/Pelvis/MS Inspection NL, Full range of motion, No swelling Skin Skin Color NL, No rash, Warm, Dry, Intact Neurologic Neurologic Oriented X3, Speech NL Text/Dict Notes 4/5 RLE strength that pt states is chronic. Responds appropriately. Psychiatric Psychiatric Affect NL, Mood NL Additional PE MS Upper Extrem Upper Extremity/MS Inspection NL, Full range of motion, No swelling Interpretation Diagnostics Lab Results Interpretation Considerations Independ review imaging Results Laboratory Tests 08/19/222247: [Embedded Image Not Available] 08/19/222248: [Embedded Image Not Available] Laboratory Tests: 08/19 Chemistry Troponin I High Sens (0.0 - 54.0 ng/L) 19.8 Vitamin B12 (211 - 911 pg/mL) 404 Hematology WBC (5.0 - 12.0 K/mm3) 7.96 RBC (4.70 - 6.10 M/mm3) 4.71 Hgb (14.0 - 18.0 G/DL) 14.8 Hct (38.8 - 50.0 %) 44.2 MCV (80 - 94 fL) 94 MCH (27 - 31 PGM) 31.4 H MCHC (33 - 37 G/DL) 33.5 RDW (11.6 - 16.2 %) 13.3 Plt Count (130 - 400 K/mm3) 208 MPV (7.4 - 10.4 fl) 10.6 H Neut % (Auto) (43 - 65 %) 80.9 H Lymph % (Auto) (20.5 - 45.5 %) 8.8 L [place] % (Auto) (5.5 - 11.7 %) 9.9 Eos % (Auto) (0.9 - 2.9 %) 0.0 L Baso % (Auto) (0.2 - 1.0 %) 0.1 L Neut # (Auto) (2.2 - 4.8 K/mm3) 6.44 H Lymph # (Auto) (1.3 - 2.9 K/mm3) 0.70 L [place] # (Auto) (0.3 - 0.8 K/mm3) 0.79 Eos # (Auto) (0.0 - 0.2 K/MM3) 0.00 Baso # (Auto) (0.0 - 0.1 K/mm3) 0.01 Immature Gran % (0.0 - 2.0 %) 0.3 Nucleated RBC % (0 - 1.0 %) 0.0 Toxicology Urine Opiates Screen (NEGATIVE) Negative Oxycodone Screen (NEGATIVE) Negative Ur Methadone (NEGATIVE) Negative Propoxyphene Screen (NEGATIVE) Negative Ur Barbiturates, Qual (NEGATIVE) Negative Ur Phencyclidine Scrn (NEGATIVE) Negative Ur Amphetamines Screen (NEGATIVE) Negative U Benzodiazepines Scrn (NEGATIVE) Negative Urine Cocaine Screen (NEGATIVE) Negative Urine Cannabinoids (NEGATIVE) Negative Urines Urine Color (YELLOW) Light-Yellow Urine Appearance (CLEAR) CLEAR Urine pH (4.5 - 8.5) 5.5 Ur Specific [place] (1.000 - 1.030) 1.012 Urine Protein (NEGATIVE MG/DL) NEG Urine Glucose (UA) (NEGATIVE MG/DL) NEG Urine Ketones (NEGATIVE MG/DL) 1+ A Urine Blood (NEGATIVE) NEG Urine Nitrite (NEGATIVE) NEG Urine Bilirubin (NEGATIVE) NEG Urine Urobilinogen (<=1.0 EU/dL) NORMAL Ur Leukocyte Esterase (NEGATIVE) NEG Urine RBC (0 - 3 /HPF) 0-3 Urine WBC (0 - 3 /HPF) 0-3 Ur Squamous Epith Cells (NONE - FEW /HPF) NONE SEEN Urine Bacteria (NONE SEEN /HPF) NONE SEEN Urine Mucus (NONE - FEW /LPF) RARE 08/19 0011 Chemistry Sodium (136 - 145 mmol/L) 141 Potassium (3.4 - 4.5 mmol/L) 3.9 Chloride (98 - 107 mmol/L) 109 H Carbon Dioxide (20 - 31 mmol/l) 19 L BUN (9 - 23 mg/dL) 14 Creatinine (0.70 - 1.30 mg/dL) 1.09 Glomerular Filtr Rate (>60) >=60 max estimate Glucose (74 - 106 mg/dL) 102 Calcium (8.6 - 10.3 mg/dL) 9.2 Magnesium (1.6 - 2.6 mg/dL) 1.7 Total Bilirubin (0.3 - 1.2 mg/dL) 0.4 AST (0 - 34 U/L) 21 ALT (10 - 49 U/L) 27 Total Alk Phosphatase (46 - 116 U/L) 74 Troponin I High Sens (0.0 - 54.0 ng/L) 19.5 Total Protein (5.7 - 8.2 g/dL) 7.2 Albumin (3.4 - 5.0 g/dl) 4.3 TSH (0.55 - 4.78 uIU/mL) 1.043 Toxicology Salicylates (0.0 - 30.0 mg/dL) < 3.0 Acetaminophen (10 - 20 ug/mL) < 2.0 L Ethyl Alcohol (0.0 - 80.0 mg/dL) < 3.0 Recent Impressions: RADIOLOGY - XR CHEST 1 V 08/19 2233 Report Impression - Status: SIGNED Entered: 08/19/20222245 IMPRESSION: No evidence to suggest active cardiopulmonary disease. Impression By: [email or web address] - Jeremy Cross MD CAT SCAN - CT HEAD/BRAIN W/O CONT 06/11 2241 Report Impression - Status: SIGNED Entered: 08/19/2022 2300 IMPRESSION: No evidence of acute intracranial hemorrhage. Impression By: [email or web address] - Jeremy Cross MD Lab Imaging Statement Laboratory radiographic studies reviewed and considered in the medical decision-making. Point of Care Testing Pulse Oximetry Pulse Ox % 95 On: Room air Interpretation Interpreted by me, Pulse oximetry normal Time 2227 ECG #1 Interpretation Text/Dict Note Sinus tachycardia. NL axis and intervals. No acute ischemic changes. Date 08/19/22 Time 2252 Interpreted by and reviewed by me, Independently interpreted, ED physician Rate 105 Re-Evaluation MDM Free Text MDM Notes Free Text MDM Notes 37-year-old man in a living facility for alcohol dependence had an episode of confusion and urinary incontinence, no definite seizure, no syncopal episode, arrives alert and neuro intact, complains of a slight right-sided headache. Patient endorses that someone was talking to him when he could not get to the bathroom in time and had an accident while trying to get to the bathroom. Differential: Incontinence, UTI, CVA, TIA, migraine, syncope or near syncope, substance abuse, alcohol abuse Patient stable here, work-up here is largely reassuring, no evidence of alcohol withdrawal, no seizure activity, no postictal period, will discharge back to his living facility with follow-up neurology. X-ray of the chest was reviewed independently, and my independent interpretation is that it appears negative for acute cardiopulmonary process. Additional Text MDM Checklist (level based on highest 2 of 3 elements of MDM) 1. NUMBER AND COMPLEXITY OF PROBLEMS ADDRESSED 50412: Moderate [YES]: NEW ILLNESS WITH SYSTEMIC --- (1 acute illness with systemic symptoms) [YES]: NEW PROBLEM WITH UNCERTAIN PROGNOSIS --- (1 undiagnosed new problem with uncertain prognosis) 2. AMOUNT AND/OR COMPLEXITY OF DATA TO BE REVIEWED AND ANALYZED 22691: 2 of 3 categories (requires 3 for category 1) Category 1 [3+]: UNIQUE TESTS REVIEWED --- (# of results of each unique test reviewed including both ordered or not ordered, such as labs, XR, US, CT, MRI, EKG, rhythm strip, including external tests, etc.) Category 2 [1+]: INDEPENDENT INTERPRETATIONS --- (# of tests independently interpretated with unofficial read in chart, such as EKG, rhythm strip, XR, US, CT, MRI, etc) )( Re-Evaluation/Progress #1 )( Re-Eval Status Improved ED Course Medication(s) Ordered Medication(s) Ordered: Central Nervous System Agents Sig/Osmar Start time Last Medication Dose Route Stop Time Status Admin Acetaminophen 1,000 MG X1ED STA 08/19 2233 DC 08/20 PO 08/19 2234 000 Patient Discharge Departure Vital Signs/Condition Vital Signs First Documented: Result Date Time Pulse Ox 95 08/19 2226 O2 Delivery Room air 08/19 2226 Temp 98.2 08/19 222 Pulse 102 08/19 2226 Resp 18 08/19 222 B/P 118/82 08/19 2258 B/P Mean 95 08/19 225 Last Documented: Result Date Time B/P 100/59 08/20 0630 B/P Mean 75 08/20 0630 Pulse 98 08/20 0630 Pulse Ox 93 08/20 0230 O2 Delivery Room air 08/19 2226 Temp 98.2 08/19 2226 Resp 08/19 All vital signs available at the time of this entry have been reviewed. Condition Stable, Improved Clinical Impression Clinical Impression Primary Impression: Near syncope Secondary Impressions: History of alcohol dependence, Urinary incontinence Disposition Decision Discharge )( Discharged to Home Yes )( Time 0046 )( Date 08/20/22 Discharge/Care Plan Counseled Regarding Diagnosis, Lab results, Imaging studies, Need for follow-up, When to return to ED Patient Instructions ED Near-Fainting, Uncertain Cause, ED Urinary Incontinence Male Referrals Provider Referral: Lexi Hodges DO Follow-Up: Call for appointment Notes: neurology referral for follow up Address: [address] [place] [address] [address] [id number] Provider Referral: Gabo Lawson MD Follow-Up: Call for appointment Notes: cardiology referral for follow up Address: [address] [place] [place] [address] [address] [id number] Discharge Note I have spoken with the patient and/or caregivers. I have explained the patient's condition, diagnoses and treatment plan based on the information available to me at this time. I have answered the patient's and/or caregiver's questions and addressed any concerns. The patient and/or caregivers have as good an understanding of the patient's diagnosis, condition and treatment plan as can be expected at this point. The vital signs have been stable. The patient's condition is stable and appropriate for discharge from the emergency department. The patient will pursue further outpatient evaluation with the primary care physician or other designated or consulting physician as outlined in the discharge instructions. The patient and/or caregivers are agreeable to this plan of care and follow-up instructions have been explained in detail. The patient and/or caregivers have received these instructions in written format and have expressed an understanding of the discharge instructions. The patient and/or caregivers are aware that any significant change in condition or worsening of symptoms should prompt an immediate return to this or the closest emergency department or a call to 911. at 0636 RPT #:[id number] END OF REPORT [facility]
--- NOTE | 2024-05-27 14:10 | RAD REPORT ---
EXAM: Chest Single View HISTORY: 38 years Male tachycardia, hypotension COMPARISON: None. FINDINGS: LUNGS/PLEURA: The lungs are clear. No pleural effusions or pneumothorax. No pulmonary edema. CARDIAC/MEDIASTINUM: The cardiac silhouette is within normal limits. UPPER ABDOMEN: No significant abnormality. BONES: No acute abnormality. Remote right-sided rib fractures. LINES/TUBES/OTHER: N/A IMPRESSION: No evidence of acute cardiopulmonary disease.
[2024-05-27 14:19] LABS: Absolute Eosinophils 0.1 K/uL (0-0.5); Absolute Lymphocytes (CBC) 0.6 K/uL (0.7-4.9); Absolute Monocytes 0.6 K/uL (0.1-1.3); Absolute Neutrophil 7.3 K/uL (1.8-8.0); Basophils % 0.3 % (0-1.3); Eosinophils % 1.1 % (0-4.4); Hemoglobin 15.3 g/dL (13.6-17.9); Lymphocytes % 7.3 % (15.3-44.8); MCHC 34.7 g/dL (32.0-36.0); MCV 92.2 fL (80-100); MPV 8.9 fL (7.6-11.3); Monocytes % 6.8 % (3.3-12.3); Neutrophils % 84.5 % (41.7-73.7); Platelets 211 thou/uL (152-406); RBC Red Blood Cell Count 4.77 M/uL (4.33-5.43); Red Cell Distribution Width 14.1 % (12.1-15.2)
[2024-05-27 14:22] LABS: Influenza A Ag Negative; Influenza B Ag Negative; SARS-CoV-2 Antigen Rapid Res Negative (Negative)
[2024-05-27 14:33] LABS: PTT, Activated Partial Thromb 31.8 SECONDS (27.2-37.4); Protime INR 0.96
--- NOTE | 2024-05-27 14:33 | RAD REPORT ---
EXAMINATION: Head Brain Wo Cont CLINICAL INDICATION: Male, 38 years old.WEAKNESS TECHNIQUE: Axial CT images from the skull base to the vertex without intravenous contrast. Coronal an d sagittal reformatted images were created from the data set. One or more of the following dose reduction techniques were used: Automated exposure control, adjustment of the mA and/or kV according to patient size, and/or iterative reconstruction. Unless otherwise specified, incidental findings do not require dedicated imaging follow-up. [id number]. COMPARISON: No prior exam. FINDINGS: INTRACRANIAL: No acute intracranial hemorrhage. No hydrocephalus. No mass effect or midline shift. No significant white matter disease. VASCULATURE: No visualized abnormalities in the arteries or dural venous sinuses. SCALP/SKULL: No calvarial fracture identified. No acute soft tissue abnormality. SINUSES: The visualized paranasal sinuses are mostly clear. No significant mastoid fluid. IMPRESSION: No acute intracranial abnormality.
[2024-05-27 15:37] LABS: Albumin 3.5 g/dL (3.4-5.0); Albumin/Globulin Ratio 1.1 (1.1-1.8); Anion Gap 8.9 mEq/L (5.0-15.0); Bilirubin Total 0.4 mg/dL (0.2-1.0); Globulin 3.2 g/dL (2.3-3.5); Potassium 3.9 mEq/L (3.5-5.1); Protein, Total 6.7 g/dL (6.4-8.2); Troponin High Sensitivity 24.2 pg/mL (<58.9)
[2024-05-27] MEDS ORDERED: NA CHLORIDE 0.9% 1,000 ML ONE (15:52)
[2024-05-27 16:13] LABS: Specific Gravity 1.017 (1.005-1.030); Urine Bilirubin NEGATIVE (Negative); Urine Blood Negative (Negative); Urine Clarity Clear (Clear); Urine Color Light-Yellow (Yellow); Urine Glucose NEGATIVE (Negative); Urine Ketones NEGATIVE (Negative); Urine Microscopic Reflex YN NO UMIC; Urine Nitrite NEGATIVE (Negative); Urine Protein NEGATIVE (Negative); Urine Urobilinogen Normal (Normal)
--- NOTE | 2024-05-27 16:24 | ER ---
Nurse's Notes [facility] Name: Iain Dunn Age: 38 yrs Sex: Male : 1985 Arrival Date: 05/27/2024 Time: 13:16 Bed 26 Private MD: Diagnosis: Weakness;Multiple sclerosis;Tachycardia, unspecified Presentation: 05/27 13:28 Chief complaint: Parent and/or Guardian states: pt has hx of MS, lives in a nursing home iw and today he could not feed himself, and he appeared catatonic at the facility , they said his HR was 130's and his BP was low . He has slowly had a cognitive decline and sometimes hallucinates. Coronavirus screen: Client presents with at least one sign or symptom that may indicate coronavirus-19. Ebola Screen: No symptoms or risks identified at this time. Initial Sepsis Screen: Does the patient meet any 2 criteria? HR > 90 bpm. Does the patient have a suspected source of infection? No. Patient's initial sepsis screen is negative. Risk Assessment: Do you want to hurt yourself or someone else? Patient reports no desire to harm self or others. Onset of symptoms was May 27, 2024. 13:28 Acuity: BILL 2 iw 13:28 Method Of Arrival: Wheelchair iw Triage Assessment: 13:30 General: Appears in no apparent distress. ill, Behavior is calm, cooperative, bp appropriate for age. Pain: Denies pain. EENT: No deficits noted. Neuro: Reports fatigue. Cardiovascular: Rhythm is sinus tachycardia. Respiratory: No deficits noted. GI: No signs and/or symptoms were reported involving the gastrointestinal system. : No signs and/or symptoms were reported regarding the genitourinary system. Derm: No deficits noted. Musculoskeletal: No deficits noted. Historical: - Allergies: 13:30 No Known Allergies; iw - Home Meds: 13:30 Kesimpta Pen 20 mg/0.4 mL subcutaneous Pen Injector every month [Active]; iw 13:37 Vitamin D3 oral [Active]; Clifford-3 oral [Active]; iw - PMHx: 13:30 Multiple sclerosis; IBS; neuropathy; iw 13:32 autism; Heart murmur; iw - PSHx: 13:33 Tonsillectomy; Adenoid excision; iw - Immunization history:: Adult Immunizations unknown. - Infectious Disease History:: Denies. - Social history:: Smoking status: Patient reports the use of cigarette tobacco products, Patient/guardian denies using tobacco, the patient reports quitting approximately 3 years ago, Patient uses previous hx of ETOH abuse , sober X 2 years . Screenin:47 [facility] ED Fall Risk Assessment (Adult) History of falling in the last 3 months, bp including since admission No falls in past 3 months (0 pts) Confusion or Disorientation No (0 pts) Intoxicated or Sedated No (0 pts) Impaired Gait No (0 pts) Mobility Assist Device Used No (0 pt) Altered Elimination No (0 pt) Score/Fall Risk Level 0 - 2 = Low Risk Oriented to surroundings. Abuse screen: Denies threats or abuse. Denies injuries from another. Nutritional screening: No deficits noted. Tuberculosis screening: No symptoms or risk factors identified. Assessment: 13:30 General: Appears in no apparent distress. Behavior is calm, cooperative, appropriate bp for age. 15:47 Reassessment: No changes from previously documented assessment. Patient is alert, bp oriented x 3, equal unlabored respirations, skin warm/dry/pink. 18:15 Reassessment: REPORT FAXED FOR RM 416. bp Vital Signs: 13:27 BP 94 / 78; Pulse 112; Resp 18; Temp 98; Pulse Ox 96% on R/A; Weight 84.37 kg; Height 5 iw ft. 8 in. ; 15:47 BP 90 / 68; Pulse 99; Resp 20; Pulse Ox 96% ; bp 18:14 BP 93 / 71; Pulse 98; Resp 16; Pulse Ox 98% ; bp 18:15 BP 107 / 88; Pulse 101; Resp 17; Pulse Ox 98% on R/A; bp 13:27 Body Mass Index 28.28 (84.37 kg, 172.72 cm) iw ED Course: 13:19 Patient arrived in ED. mr 13:20 Kole Elias, RN is Primary Nurse. bp 13:20 Lolita Reece PA-C is PHCP. sb4 13:20 Erich Kearns DO is Attending Physician. sb4 13:29 Triage completed. iw 13:34 Arm band placed on. iw 13:56 EKG done, by ED staff, reviewed by Lolita Reece PA-C. zm 13:57 COVID-19 Ag + Flu A+B Ag Sent. 14:00 Inserted saline lock: 20 gauge in right forearm, using aseptic technique. Blood bp collected. Flushed with 10 mL NS. 14:00 Initial lab(s) drawn, by me, sent to lab. First set of blood cultures drawn by me, bp Second set of blood cultures drawn by me. 14:06 Chest Single View XRAY In Process Unspecified. EDMS 14:28 Head Brain Wo Cont CT In Process Unspecified. EDMS 15:47 Patient has correct armband on for positive identification. bp 16:03 Urine collected: clean catch specimen, ricarda colored. bp 16:22 Ashish Patel is Hospitalizing Provider. sb4 18:14 No provider procedures requiring assistance completed. Patient admitted, IV remains in bp place. 18:15 Provided Education on: NA. bp Administered Medications: 16:03 Drug: NS 0.9% IV 1000 ml IV at 1 bolus Per protocol; to be given as a bolus over 60 bp minutes Route: IV; Rate: 1 bolus; Site: right forearm; 18:16 Follow up: IV Status: Completed infusion bp Medication: 15:47 VIS not applicable for this client. bp Outcome: 16:23 Decision to Hospitalize by Provider. sb4 18:14 Admitted to Med/surg accompanied by tech, via stretcher, room 416, bp 18:14 Condition: stable 18:14 Instructed on the need for admit, 19:13 Patient left the ED. bp Signatures: Dispatcher [employer] EDKS Lavinia Doran, Reg Reg mr Netta Dorsey, RN Kole Davalos RN RN bp Martinez, Zaina zm Brown, Sophia, PABerkleyC PA-C sb4 Corrections: (The following items were deleted from the chart) 13:32 13:28 Chief complaint: Parent and/or Guardian states: pt has hx of MS, lives in a care iw home and today he could not feed himself, and he appeared catatonic at the facility , they said his HR was 130's and his BP was low iw 13:35 13:27 BP 94 / 78; Pulse 112bpm; Resp 18bpm; Pulse Ox 96% RA; Temp 98F; iw iw
--- NOTE | 2024-05-27 16:24 | EDPHYS ---
Physician Documentation [facility] Name: Iain Dunn Age: 38 yrs Sex: Male : 1985 Arrival Date: 05/27/2024 Time: 13:16 Bed 26 Private MD: ED Physician Erich Kearns HPI: 05/27 13:30 This 38 yrs old Male presents to ER via Wheelchair with complaints of Elevated heart sb4 rate, Weakness. 13:30 38-year-old male with history of MS presents today with concerns of low blood pressure, sb4 elevated heart rate and worsening weakness. Mother states that this morning he was barely functional compared to his baseline, they checked his vitals and saw that his blood pressure was 80s / 60s and heart rate was in the 120s. She states that he was diagnosed with MS 6 months ago and has been rapidly declining. Patient has no specific complaints at this time. Historical: - Allergies: 13:30 No Known Allergies; iw - Home Meds: 13:30 Kesimpta Pen 20 mg/0.4 mL subcutaneous Pen Injector every month [Active]; iw 13:37 Vitamin D3 oral [Active]; [place]-3 oral [Active]; iw - PMHx: 13:30 Multiple sclerosis; IBS; neuropathy; iw 13:32 autism; Heart murmur; iw - PSHx: 13:33 Tonsillectomy; Adenoid excision; iw - Immunization history:: Adult Immunizations unknown. - Infectious Disease History:: Denies. - Social history:: Smoking status: Patient reports the use of cigarette tobacco products, Patient/guardian denies using tobacco, the patient reports quitting approximately 3 years ago, Patient uses previous hx of ETOH abuse , sober X 2 years . ROS: 13:30 Constitutional: Negative for fever, chills, and weight loss, sb4 13:30 Neuro: Positive for weakness, 13:30 All other systems are negative, Exam: 13:30 Head/Face: Normocephalic, atraumatic. Eyes: Extra-ocular motions intact. Periorbital sb4 areas with no swelling, redness, or edema. ENT: Mucous membranes moist. Respiratory: No increased work of breathing, no retractions or nasal flaring. Abdomen/GI: Soft, non-tender, no distension. Skin: Warm, dry with normal turgor. Normal color with no rashes, no lesions, and no evidence of cellulitis. 13:30 Cardiovascular: Rate: tachycardic, Rhythm: regular, Heart sounds: murmur, Vital Signs: 13:27 BP 94 / 78; Pulse 112; Resp 18; Temp 98; Pulse Ox 96% on R/A; Weight 84.37 kg; Height 5 iw ft. 8 in. ; 15:47 BP 90 / 68; Pulse 99; Resp 20; Pulse Ox 96% ; bp 18:14 BP 93 / 71; Pulse 98; Resp 16; Pulse Ox 98% ; bp 18:15 BP 107 / 88; Pulse 101; Resp 17; Pulse Ox 98% on R/A; bp 13:27 Body Mass Index 28.28 (84.37 kg, 172.72 cm) iw MDM: 13:20 Medical Screening Exam initiated sb4 16:22 Data reviewed: vital signs, nurses notes, lab test result(s), EKG, radiologic studies, sb4 and as a result, I will admit patient. Consideration of Admission/Observation Patient was admitted/placed on observation. Counseling: I had a detailed discussion with the patient and/or guardian regarding the historical points, exam findings, and any diagnostic results supporting the discharge/admit diagnosis, lab results, radiology results, the need for further work-up and treatment in the hospital. 05/27 13:29 Order name: Blood Culture Adult (2) [facility] 05/27 13:29 Order name: CBC with Diff; Complete Time: 14:20 [facility] 05/27 13:29 Order name: CMP; Complete Time: 15:40 [facility] 05/27 13:29 Order name: Lactate w/ 2H reflex if indic.; Complete Time: 14:34 4 05/27 13:29 Order name: Protime (+inr); Complete Time: 14:34 4 05/27 13:29 Order name: Ptt, Activated; Complete Time: 14:34 4 05/27 13:29 Order name: Urinalysis w/ reflexes; Complete Time: 16:18 4 05/27 13:29 Order name: COVID-19 Ag + Flu A+B Ag; Complete Time: 14:22 4 05/27 13:30 Order name: Troponin High Sensitivity; Complete Time: 15:40 4 05/27 17:51 Order name: T4 Free EDMS 05/27 17:51 Order name: Thyroid Stimulating Hormone EDMS 05/27 17:51 Order name: Urinalysis w/ reflexes EDMS 05/27 17:51 Order name: CBC with Automated Diff EDMS 05/27 17:51 Order name: CBC with Automated Diff EDMS 05/27 17:51 Order name: Comprehensive Metabolic Panel EDMS 05/27 17:51 Order name: Comprehensive Metabolic Panel EDTX 05/27 17:51 Order name: Cortisol EDMS 05/27 17:51 Order name: Cortisol EDMS 05/27 17:51 Order name: Lipid Profile EDMS 05/27 17:51 Order name: Lipid Profile EDMS 05/27 17:51 Order name: Magnesium EDMS 05/27 17:51 Order name: Magnesium EDTX 05/27 17:51 Order name: Phosphorus EDTX 05/27 17:51 Order name: Phosphorus EDTX 05/27 17:51 Order name: Troponin High Sensitivity EDTX 05/27 17:51 Order name: Troponin High Sensitivity EDTX 05/27 17:51 Order name: Troponin High Sensitivity EDTX 05/27 13:29 Order name: Chest Single View XRAY; Complete Time: 14:11 sb4 05/27 13:30 Order name: Head Brain Wo Cont CT; Complete Time: 14:34 sb4 05/27 17:51 Order name: ERT ORTHOSTATIC V/S EDTX 05/27 17:51 Order name: CONS Physician Consult EDTX 05/27 17:51 Order name: Physical Therapy Consult [facility] 05/27 13:29 Order name: Accucheck; Complete Time: 14:00 sb4 05/27 13:29 Order name: Cardiac monitoring; Complete Time: 13:56 sb4 05/27 13:29 Order name: EKG - Nurse/Tech; Complete Time: 13:56 sb4 05/27 13:29 Order name: IV Saline Lock - Large Bore; Complete Time: 14:00 sb4 05/27 13:29 Order name: Labs collected and sent; Complete Time: 14:00 sb4 05/27 13:29 Order name: O2 Per Protocol; Complete Time: 13:56 sb4 05/27 13:29 Order name: O2 Sat Monitoring; Complete Time: 13:56 sb05/27 13:29 Order name: Vital Signs; Complete Time: 13:56 sb4 05/27 14:27 Order name: Kalani. Order: recollect - green; Complete Time: 15:03 ty EC:53 Rate is 103 beats/min. Rhythm is regular, Normal Sinus Rhythm. MA interval is normal at sb4 138 msec. QRS interval is normal at 86 msec. QT interval is normal at 350 msec. No Q waves. T waves are Normal. No ST changes noted. Clinical impression: LVH. Interpreted by me. Reviewed by me. Administered Medications: 16:03 Drug: NS 0.9% IV 1000 ml IV at 1 bolus Per protocol; to be given as a bolus over 60 bp minutes Route: IV; Rate: 1 bolus; Site: right forearm; 18:16 Follow up: IV Status: Completed infusion bp Disposition: 17:49 I was immediately available on-site in the Emergency Department for consultation in the ms3 care of the patient. Disposition Summary: 05/27/24 16:23 Hospitalization Ordered Notes: Hospitalization Status: Observation sb4 Provider: Ashish Patel Location: Telemetry/MedSurg (observation) sb4 Condition: Fair sb4 Problem: new sb4 Symptoms: are unchanged sb4 Bed/Room Type: Standard sb4 Room Assignment: 416(05/27/24 17:55) iw Diagnosis - Weakness sb4 - Multiple sclerosis sb4 - Tachycardia, unspecified sb4 Forms: - Medication Reconciliation Form sb4 - SBAR form sb4 - Leadership Thank You Letter sb4 Signatures: Dispatcher [employer] EDNetta Hightower RN RN iw Kole Elias RN RN Erich Howell DO DO ms3 Lolita Reece PA-C PA-C sb4 Terrance Maier ty Corrections: (The following items were deleted from the chart) 13:30 13:30 BLOOD CULTURE*+BA.LAB.BRZ ordered. EDMS EDMS 13:30 13:30 CBC+H.LAB.BRZ ordered. EDMS EDMS 13:30 13:30 COMPREHENSIVE METABOLIC PANEL+C.LAB.BRZ ordered. EDMS EDMS 13:30 13:30 LACTATE+C.LAB.BRZ ordered. EDMS EDMS 13:30 13:30 PROTIME (+INR)+COAG.LAB.BRZ ordered. EDMS EDMS 13:30 13:30 PTT, ACTIVATED+COAG.LAB.BRZ ordered. EDMS EDMS : 13:30 Urinalysis+U.LAB.BRZ ordered. EDMS EDMS 13:30 13:30 COVID-19 Ag + Flu A+B Ag+I.LAB.BRZ ordered. EDMS EDMS :30 13:30 Chest Single View+RAD.RAD.BRZ ordered. EDMS EDMS :30 13:30 Troponin High Sensitivity+C.LAB.BRZ ordered. EDMS EDMS : 13:30 Head Brain Wo Cont+CT.RAD.BRZ ordered. EDMS EDMS 17:55 16:23 sb4 iw
--- NOTE | 2024-05-27 16:59 | P.HP ---
Certification for Inpatient Patient admitted to: Observation With expected LOS: <2 Midnights Practitioner: I am a practitioner with admitting privileges, knowledge of patient current condition, hospital course, and medical plan of care. Services: Services provided to patient in accordance with Admission requirements found in Title 42 Section 412.3 of the Code of Federal Regulations Patient History Date of Service: 05/27/24 Reason for admission: hypotensive, tachycardic History of Present Illness: Iain Dunn is a 38 year old male with pmhx multiple sclerosis, IBS, neuropathy, autism, heart murmur who presents with generalized weakness, hypotension, tachycardia. Iain was diagnosed with multiple sclerosis 6 months ago and is rapidly declining. He reports feeling well this morning while eating breakfast but after lunchtime he couldn't walk very well and felt very weak. His vitals were checked and found to be hypotensive and tachycardic. Laboratory evaluation significant for left shift neutrophils 84.5, chloride 113, flu and COVID- negative. Initial vitals BP 94 / 78; Pulse 112; Resp 18; Temp 98; Pulse Ox 96% on R/A Head CT without contrast reports "No acute intracranial abnormality." Chest x-ray reports "No evidence of acute cardiopulmonary disease. remote right sided rib fractures." Iain will be admitted to hospitalist service for further evaluation and treatment of increased weakness, Dr. Pang consulted. - Past Medical/Surgical History -: Multiple sclerosis -: IBS -: Neuropathy -: autism -: heart murmur -: Tonsillectomy -: adenoid excision - Family History Family History: Reviewed- Non-Contributory - Social History Smoking Status: Former smoker Alcohol use: No CD- Drugs: No Review of Systems Other: per HPI Physical Examination - Physical Exam General: Alert, In no apparent distress, Oriented x3 HEENT: Atraumatic, Normocephalic, PERRLA Neck: Supple, 2+ carotid pulse no bruit Respiratory: Clear to auscultation bilaterally, Normal air movement Cardiovascular: No edema, Regular rate/rhythm Capillary refill: <2 Seconds Gastrointestinal: Normal bowel sounds, Soft and benign Musculoskeletal: No clubbing Integumentary: No rashes Neurological: Abnormal speech (slightly delayed speech) - Studies Laboratory Data (last 24 hrs) 05/27/24 05/27/24 05/27/24 15:09 14:00 14:00 WBC 8.60 Hgb 15.3 Hct 44.0 Plt Count 211 PT 11.0 INR 0.96 APTT 31.8 Sodium 141 Potassium 3.9 BUN 17 Creatinine 0.96 Glucose 104 Total Bilirubin 0.4 AST 12 L ALT 21 Alkaline Phosphatase 74 Assessment and Plan - Plan Assessment and plan Progressive multiple sclerosis Generalized weakness Hypotension/tachycardia -Consult Dr. Pang -MRI with contrast in the a.m. -Physical therapy consulted -Orthostatic vitals -Continuous telemetry -Gentle IV fluids -UDS, TSH, cortisol pending -Follow blood cultures -Continue home medications if appropriate IBS Neuropathy Autism Heart murmur -continue home medications if appropriate DVT ppx SCD Full code LOS 24 hour OBS - Advance Directives Does patient have a Living Will: No Does patient have a Durable POA for Healthcare: No
[2024-05-27] MEDS ORDERED: ACETAMINOPHEN 325 MG TABLET PO PRN (17:41)
[2024-05-27 19:21] VITALS: BMI 28.3
[2024-05-27 19:28] LABS: Barbiturates NEGATIVE (NEGATIVE); Benzodiazepines NEGATIVE (NEGATIVE); Cocaine NEGATIVE (NEGATIVE); METHAMPHETAM NEGATIVE (NEGATIVE); Methadone NEGATIVE (NEGATIVE); Opiates NEGATIVE (NEGATIVE); Phencyclidine NEGATIVE (NEGATIVE); THC Cannibis NEGATIVE (NEGATIVE)
[2024-05-27 19:56] LABS: Specific Gravity 1.018 (1.005-1.030); Urine Bilirubin NEGATIVE (Negative); Urine Blood Negative (Negative); Urine Clarity Clear (Clear); Urine Color Light-Yellow (Yellow); Urine Glucose NEGATIVE (Negative); Urine Ketones NEGATIVE (Negative); Urine Microscopic Reflex YN NO UMIC; Urine Nitrite NEGATIVE (Negative); Urine Protein NEGATIVE (Negative); Urine Urobilinogen Normal (Normal)
[2024-05-27 20:02] LABS: Thyroid Stimulating Hormone 0.521 uIU/mL (0.358-3.740)
[2024-05-27] MEDS: NA CHLORIDE 0.9% 1,000 ML IV SCH (20:32)
[2024-05-28 07:11] LABS: Absolute Eosinophils 0.1 K/uL (0-0.5); Absolute Lymphocytes (CBC) 0.8 K/uL (0.7-4.9); Absolute Monocytes 0.8 K/uL (0.1-1.3); Absolute Neutrophil 4.2 K/uL (1.8-8.0); Basophils % 0.4 % (0-1.3); Eosinophils % 1.1 % (0-4.4); Hematocrit 42.5 % (39.6-49.0); Hemoglobin 14.3 g/dL (13.6-17.9); Lymphocytes % 13.7 % (15.3-44.8); MCH 31.4 pg (27.0-35.0); MCHC 33.7 g/dL (32.0-36.0); MCV 93.3 fL (80-100); MPV 8.8 fL (7.6-11.3); Monocytes % 13.5 % (3.3-12.3); Neutrophils % 71.3 % (41.7-73.7); Nucleated Red Blood Cells % 0.1 % (0-0); Platelets 199 thou/uL (152-406); RBC Red Blood Cell Count 4.55 M/uL (4.33-5.43); Red Cell Distribution Width 13.9 % (12.1-15.2)
[2024-05-28 07:23] LABS: Albumin 3.1 g/dL (3.4-5.0); Albumin/Globulin Ratio 0.9 (1.1-1.8); Anion Gap 8.8 mEq/L (5.0-15.0); Bilirubin Total 0.4 mg/dL (0.2-1.0); Globulin 3.3 g/dL (2.3-3.5); Magnesium 1.9 mg/dL (1.6-2.4); Phosphorus 3.4 mg/dL (2.5-4.9); Potassium 3.8 mEq/L (3.5-5.1); Protein, Total 6.4 g/dL (6.4-8.2); Troponin High Sensitivity 32.5 pg/mL (<58.9)
[2024-05-28] MEDS: POTASSIUM CL SA 10 MEQ TAB PO ONE (08:56)
[2024-05-28] MEDS ORDERED: MECLIZINE HCL 25 MG PO PRN (09:21)
[2024-05-28] MEDS: LORATADINE 10 MG TAB PO SCH (10:50)
[2024-05-28] MEDS: FLUTICASONE 50MCG NASAL SPRAY NAS SCH (10:50)
[2024-05-28] MEDS ORDERED: CARBOXYMETHYLCELLULOSE SODIUM 0.5% 15 ML EACH EYE PRN (14:43)
--- NOTE | 2024-05-28 14:46 | P.PN ---
Date of Service: 05/28/24 Subjective Feeling much better Able to work with physical therapy no new complaints ROS 10 point ROS as noted above, otherwise negative Physical Exam General: Alert and Oriented x3, NAD HEENT: Atraumatic, Normocephalic, PERRLA Neck: Supple, 2+ carotid pulse no bruit Respiratory: Clear to auscultation bilaterally, Normal air movement Cardiovascular: No edema, RRR, S1 S2 present Capillary refill: <2 Seconds Gastrointestinal: Normal bowel sounds, Soft and benign on palpation Musculoskeletal: No clubbing Integumentary: No rashes Neurological: Abnormal speech (slightly delayed speech) Vitals Reviewed Problem list Progressive multiple sclerosis Generalized weakness Hypotension/tachycardia IBS Neuropathy Autism Heart murmur Assessment and Plan Progressive multiple sclerosis Generalized weakness Hypotension/tachycardia -Consult Dr. Pang -MRI with contrast results pending -Physical therapy consulted -Orthostatic vitals -Continuous telemetry -Gentle IV fluids -UDS, TSH, cortisol WNL -Follow blood cultures -Continue home medications if appropriate IBS Neuropathy Autism Heart murmur -continue home medications if appropriate Hospital interval course 05/28/24 -MRI head with results pending -Worked with PT, ambulated 270' -Dr. Pang following -Patient's mom reports starting Kesimpta in April with most recent dose given on May 19 -BP soft, likely baseline DVT ppx SCD Full code LOS 24 hour OBS
[2024-05-28] MEDS ORDERED: MECLIZINE HCL 12.5 MG TAB PO PRN (14:54)
--- NOTE | 2024-05-28 15:09 | RAD REPORT ---
EXAMINATION: MRI BRAIN WITHOUT AND WITH CONTRAST CLINICAL INDICATION: Progressive multiple sclerosis. Numbness TECHNIQUE: Multiplanar multisequence MR images of the brain were obtained without and with intravenous contrast. 19 cc MultiHance administered intravenously. COMPARISON: Moderate areas of abnormal signal are present within the white matter extending perpendicular from th e lateral ventricles. The largest area measures 2.4 cm within the left parietal lobe.. Several small areas of abnormal signal are present within the brain stem. No abnormal enhancement is displayed. Diffusion weighted/ADC mapping images do not reveal evidence of an acute infarction Ventricles are normal caliber No extra-axial fluid collection No fluid within the visualized sinuses/mastoids. IMPRESSION: Moderate bilateral periventricular and deep white matter abnormal signal having the appearance of dem yelinating plaques secondary to multiple sclerosis. No enhancement is visualized to suggest active disease.
[2024-05-28 23:03] VITALS: O2SAT 98
[2024-05-29] MEDS: NA CHLORIDE 0.9% 1,000 ML IV ONE (01:16)
[2024-05-29] MEDS: MIDODRINE HCL 5 MG TABLET PO ONE (05:01)
[2024-05-29] MEDS: ALBUMIN HUMAN 25% 100 ML IV ONE (05:01)
[2024-05-29] MEDS: NA CHLORIDE 0.9% 500 ML IV ONE (08:08)
[2024-05-29] MEDS ORDERED: LORATADINE 10 MG TAB PO SCH (09:00)
[2024-05-29] MEDS ORDERED: FLUTICASONE 50MCG NASAL SPRAY NAS SCH (09:00)
[2024-05-29 12:15] VITALS: BP 85/65; TEMP 97.6
--- NOTE | 2024-05-29 12:53 | P.DS ---
Admission Date: 05/28/24 Discharge Date: 05/29/24 Disposition: DC HOME/HOME HEALTH CARE Discharge Condition: GOOD Reason for Admission: hypotensive, tachycardic Brief History of Present Illness: Diagnosis Progressive multiple sclerosis Generalized weakness Hypotension/tachycardia IBS Neuropathy Autism Heart murmur 05/27/24 Iain Dunn is a 38 year old male with pmhx multiple sclerosis, IBS, neuropathy, autism, heart murmur who presents with generalized weakness, hypotension, tachycardia. Iain was diagnosed with multiple sclerosis 6 months ago and is rapidly declining. He reports feeling well this morning while eating breakfast but after lunchtime he couldn't walk very well and felt very weak. His vitals were checked and found to be hypotensive and tachycardic. Laboratory evaluation significant for left shift neutrophils 84.5, chloride 113, flu and COVID- negative. Initial vitals BP 94 / 78; Pulse 112; Resp 18; Temp 98; Pulse Ox 96% on R/A Head CT without contrast reports "No acute intracranial abnormality." Chest x-ray reports "No evidence of acute cardiopulmonary disease. remote right sided rib fractures." Iain will be admitted to hospitalist service for further evaluation and kuldeep tment of increased weakness, Dr. Pang consulted. Hospital Course: Iain was admitted and treated for the following diagnosis Progressive multiple sclerosis Generalized weakness Hypotension/tachycardia -Follow up with Dr. Pang outpatient -MRI with contrast "Moderate bilateral periventricular and deep white matter abnormal signal having the appearance of demyelinating plaques secondary to multiple sclerosis. No enhancement is visualized to suggest active disease." -Physical therapy- ambulated 270' -Orthostatic vitals showing soft BP -Continuous telemetry with no acute events overnight -Tolerated Gentle IV fluids -UDS, TSH, cortisol WNL -Followed blood cultures- NGTD -Continued home medications as appropriate -one dose of Florinef prior to discharge, to be continued with Vit D 5,000 IU daily IBS Neuropathy Autism Heart murmur -continued home medications as appropriate Physical Exam General: AAO x3, NAD HEENT: Atraumatic, Normocephalic, PERRLA Neck: Supple, 2+ carotid pulse no bruit Respiratory: Clear BBS, Normal air movement, on RA Cardiovascular: No edema, NSR, S1 S2 present Capillary refill: <2 Seconds Gastrointestinal: Normal bowel sounds, Soft on palpation Musculoskeletal: No clubbing Integumentary: No rashes Neurological: Abnormal speech (slightly delayed speech) Vital Signs/Physical Exam: Temp Pulse Resp BP Pulse Ox 97.6 F 87 16 85/65 L 98 05/29/24 12:00 05/29/24 12:00 05/29/24 12:00 05/29/24 12:00 05/29/24 12:00 Laboratory Data at Discharge: WBC 6.00 thou/uL (4.3-10.9) 05/28/24 06:46 Hgb 14.3 g/dL (13.6-17.9) 05/28/24 06:46 Hct 42.5 % (39.6-49.0) 05/28/24 06:46 Plt Count 199 thou/uL (152-406) 05/28/24 06:46 PT 11.0 SECONDS (10-13.0) 05/27/24 14:00 INR 0.96 05/27/24 14:00 APTT 31.8 SECONDS (27.2-37.4) 05/27/24 14:00 Sodium 142 mEq/L (136-145) 05/28/24 06:46 Potassium 3.8 mEq/L (3.5-5.1) 05/28/24 06:46 BUN 12 mg/dL (7-18) 05/28/24 06:46 Creatinine 0.90 mg/dL (0.70-1.30) 05/28/24 06:46 Glucose 98 mg/dL (74-106) 05/28/24 06:46 Phosphorus 3.4 mg/dL (2.5-4.9) 05/28/24 06:46 Magnesium 1.9 mg/dL (1.6-2.4) 05/28/24 06:46 Total Bilirubin 0.4 mg/dL (0.2-1.0) 05/28/24 06:46 AST 14 U/L (15-37) L 05/28/24 06:46 ALT 19 U/L (16-61) 05/28/24 06:46 Alkaline Phosphatase 70 U/L (45-117) 05/28/24 06:46 Triglycerides 72 mg/dL (<150) 05/28/24 06:46 Cholesterol 188 mg/dL (<200) 05/28/24 06:46 HDL Cholesterol 53 mg/dL (40-60) 05/28/24 06:46 Cholesterol/HDL Ratio 3.55 05/28/24 06:46 Home Medications: Carboxymethylcellulose Sodium [Refresh Tears] 1 drop EACH EYE Q4HP PRN 05/28/24 Fluticasone [Flonase 50MCG Nasal [place]*] 1 spray IH DAILY 05/28/24 Loratadine [Claritin*] 1 tab PO DAILY 05/28/24 Loteprednol Etabonate 1 drop OP BID 05/28/24 Meclizine HCl [Antivert] 1 tab PO BID PRN 05/28/24 Fludrocortisone [Florinef] 0.1 mg PO DAILY 30 Days #30 tab 05/29/24 New Medications: Fludrocortisone [Florinef] 0.1 mg PO DAILY 30 Days #30 tab Physician Discharge Instructions: 1. Please call and schedule a follow-up appointment with your PCP in 3-5 days - Please follow-up with your PCP for medication refills/adjustments 2. Please call and schedule a follow-up appointment with Dr. Pang in 1 week 3. Continue regular diet 4. activity restrictions fall precaution 5. Return to the ED if symptoms worsen New medications Vitamin D 5000 IU daily Florinef 0.1 mg daily- if blood pressure elevates continuously, dose will need to be adjusted by Dr. Pang Continue to stay hydrated with 6 bottles of water daily Continue to get appropriate number of hours of sleep, preferably 8 to 10 hours IF taking midodrine at home, Stop taking midodrine while taking Florinef Diet: Regular Activity: Fall precautions Followup: Simon Pang MD [ASSOCIATE-ACTIVE - CAN ADMIT] - 1 Week NONE,NONE [UNKNOWN] -
[2024-05-29] MEDS: FLUDROCORTISONE 0.1 MG TAB PO SCH (13:26)
--- NOTE | 2024-06-01 12:18 | EKG ---
Test Date: 2024-05-27 Test Time: 13:49:25 General Operations Manager: CARMINA MEASUREMENT RESULTS: Intervals: Rate: 103 GA: 138 QRSD: 86 QT: 350 QTc: 458 Beeler: P: 48 GA: 138 QRS: 54 T: -9 INTERPRETIVE STATEMENTS: Sinus tachycardia Left ventricular hypertrophy with repolarization abnormality Abnormal ECG No previous ECG available for comparison Electronically Signed On 06-01-24 12:07:31 CDT by Shin Walsh
== END 2024-05-29 14:17 | disposition home health service (06) | DRG 59 ==
LOC: ER 13:16 → ERHOLD 17:41 → 4TH 18:14 → OBSVTOIN 05-28 14:36
PROVIDERS: ADMIT Internal Medicine; ATTEND Internal Medicine
DX: G35 Multiple sclerosis (principal); F84.0 Autistic disorder; I95.9 Hypotension, unspecified; K58.9 Irritable bowel syndrome, unspecified; G62.9 Polyneuropathy, unspecified; F17.210 Nicotine dependence, cigarettes, uncomplicated; R01.1 Cardiac murmur, unspecified; R00.0 Tachycardia, unspecified; Z11.52 Encounter for screening for COVID-19
CPT/HCPCS: 36415; 70450; 70553; 71045; 80053; 80061; 80307; 81003; 82533; 83605; 83735; 84100; 84439; 84443; 84484; 85025; 85610; 85730; 87040; 87428; 93005; 96360; 96361; 97112; 97116; 97161; 99285; A9577; G0378; J7030; J7040; P9047